=== PATIENT | male | born 1970 | race Caucasian/White ===

== ENCOUNTER 2018-05-31 09:20 | Outpatient (REF) | payer OTHER, SELFPAY | END 2018-05-31 09:40 | LOC: NCHCN 09:20 | PROVIDERS: PCP Internal Medicine; Visit Provider Internal Medicine | DX: Z84.81 Family history of carrier of genetic disease (principal); Z13.71 Encounter for nonprocreative screening for genetic disease carrier status | CPT/HCPCS: 81211 ==

== ENCOUNTER 2018-06-05 00:39 | Outpatient (CLI) | payer OTHER, SELFPAY ==
--- NOTE | 2018-06-05 11:07 | DI.US_ITS ---
SYMPTOM/DIAGNOSIS: FAMILY H/O GENETIC DISEASE, BRCA AND BREAST CA CARRIER, Z84.81, DEFORMITY OF CHEST WALL, Q67.8 CHEST WALL ULTRASOUND: The area of the chest wall deformity was scanned. No mass or cyst is identified. If there is further clinical concern, a CT could be performed.
== END 2018-06-05 00:59 ==
PROVIDERS: PCP Internal Medicine; Visit Provider Internal Medicine
DX: Z84.81 Family history of carrier of genetic disease (principal); M95.4 Acquired deformity of chest and rib
CPT/HCPCS: 76604

== ENCOUNTER 2018-10-02 12:02 | Day surgery (SDC) | payer OTHER, SELFPAY ==
[2018-10-02 12:19] VITALS: BP 140/96; PULSE 105; RESP 16; TEMP 37; O2SAT 97
[2018-10-02] MEDS: Lidocaine 2% Multi-Dose 50 ML VIAL (12:47)
--- NOTE | 2018-10-02 13:22 | W.PM.DSUDISC ---
Discharge Plan Disposition Patient Disposition: HOME Condition: Improving Discharge Details Attending Provider: Estevan Sewell Primary Care Provider: Jesse Gardner Home Meds and New Rx's Prescriptions: No Action cetirizine-pseudoephedrine [Zyrtec-D] 1 EACH tablet extended release 12 hr 1 ea PO DAILY RF: 0 sertraline [Zoloft] 100 MG tablet 100 mg PO DAILY RF: 0 albuterol sulfate 8.5 GM HFA aerosol inhaler 2 puff Inhalation Q6H PRN RF: 0 lorazepam 0.5 MG tablet 0.5 mg PO PRN RF: 0 lisinopril 10 MG tablet 10 mg PO DAILY RF: 0 methylphenidate HCl [Metadate ER] 20 MG tablet extended release 40 mg PO DAILY RF: 0 zafirlukast [Accolate] 10 MG tablet 10 mg PO DAILY RF: 0 Discharge Instructions Additional Instructions: Keep your right hand elevated above heart level as needed to help control pain and swelling. Exercise your fingers and thumb as comfort allows. Expect a small amount of bloody drainage on the gauze bandages. For showering tomorrow, use a plastic bag to keep your bandages dry. On , 09/14/18, you may remove your bandages and get your incision wet with soap water in the shower. Gently pat the stitch dry and cover it with bandaids or gauze.Resume normal as tolerated. Follow-up with Dr. Sewell in 1 week for stitch removal. Take your usual medications as before. Take aleve, advil or tylenol for any discomfort. Aleve and tylenol may be taken together, and aleve and advil can be taken together as they are metabolized differently and are not cross toxic. Stand Alone Forms: Maryellen Mayorga (DSU) Activity:: Elevate Remove Dressings/Wound Care:: 48 hours Shower/Bathe:: 48 hours Diet:: As Tolerated Discharge Orders Discharge Orders: Discharge Order (Routine); Ordered 10/02/18 Ordered By: Estevan Sewell
--- NOTE | 2018-10-02 14:52 | ROE_ITS ---
DATE OF PROCEDURE: October 02, 2018 PREOPERATIVE DIAGNOSIS: Trigger finger, right middle finger. POSTOPERATIVE DIAGNOSIS: Same. PROCEDURE: Release A-1 oscar right middle finger. SURGEON: Estevan Sewell M.D. BISQUE KILN PLACER: Nurse. ANESTHETIC: 2% Lidocaine plain. PREP: ChloraPrep. INDICATIONS: This patient has been bothered by pain over the MCP joint of his right hand. He was te nder directly over the A-1 oscar and had no tenderness over the A-1 pulleys of other digits. There was some slight symptomatology over the ring finger, but not nearly as bad as over the middle finger. I have diagnosed what I felt was early trigger finger phenomenon. Although he was not getting any true locking of the finger, he was reluctant to use his hand because of pain. I recommended release of the A-1 oscar under local anesthesia. I discussed alternatives, including corticosteroid injecti ons, which I do not favor. He understood and wished to proceed. PROCEDURE: The patient was taken to the procedure room after I first saw him in the Day Surgery area and correctly marked his right middle finger. His hand was prepped with ChloraPrep. 2% Lidocaine w as then used to create an anesthetic wheal near the MCP joint of the middle finger. After awaiting c omplete anesthesia to the fingertip, I made a transverse incision using loupe magnification. Soft ti ssues were carefully freed up bluntly and Ragnell retractors were inserted to identify the flexor ten don sheath. I then incised it under direct vision with a #15 scalpel blade. I completed the release of the A-1 oscar with Littler scissors. Mild to moderate amount of synovial fluid was encountered. I then had the patient flex and extend his middle finger and he could do so in an unencumbered fas hion. The wound was irrigated with saline. The skin was closed with a simple suture of #4-0 Ethilon in a horizontal mattress fashion. The wound was dressed with Xeroform, gauze 4x4's and a 3-inch con forming gauze bandage. The patient was taken to the Day Surgery holding area, having tolerated the p rocedure well.
== END 2018-10-02 13:41 | disposition home or self-care (01) ==
PROVIDERS: PCP Internal Medicine; Visit Provider Orthopaedic Surgery
PROC: (CPT 26055; principal; 2018-10-02 13:00)
DX: M65.331 Trigger finger, right middle finger (principal)
CPT/HCPCS: 26055

== ENCOUNTER 2018-12-12 09:32 | Outpatient (CLI) | payer OTHER, SELFPAY ==
--- NOTE | 2018-12-12 09:42 | DI.RAD_ITS ---
SYMPTOM/DIAGNOSIS: RT MIDDLE FINGER PAIN, M79.644 RIGHT HAND: Three views. No bone or joint abnormality is identified. The soft tissues are unremarkable. IMPRESSION: Negative examination.
== END 2018-12-12 09:52 ==
PROVIDERS: PCP Internal Medicine; Visit Provider Internal Medicine
DX: M79.644 Pain in right finger(s) (principal)
CPT/HCPCS: 73130

== ENCOUNTER 2019-04-09 09:57 | Day surgery (SDC) | payer OTHER, SELFPAY ==
[2019-04-09 10:17] VITALS: BP 131/90; PULSE 99; RESP 16; TEMP 36.4; O2SAT 97
--- NOTE | 2019-04-09 10:20 | PDOC.DSDIS_ITS ---
Discharge Plan Disposition Patient Disposition: HOME Condition: Good Discharge Details Reason For Visit: LMF Trigger Attending Provider: Keanu De Los Santos Primary Care Provider: Jesse Gardner Meds and New Rx's Prescriptions: New acetaminophen 500 mg tablet 1,000 mg PO Q8H PRN (Reason: pain) Qty: 30 RF: 3 Continued cetirizine-pseudoephedrine [Zyrtec-D] 1 EACH tablet extended release 12 hr 1 ea PO DAILY RF: 0 sertraline [Zoloft] 100 MG tablet 100 mg PO DAILY RF: 0 albuterol sulfate 8.5 GM HFA aerosol inhaler 2 puff Inhalation Q6H PRN RF: 0 lorazepam 0.5 MG tablet 0.5 mg PO PRN RF: 0 lisinopril 10 MG tablet 10 mg PO DAILY RF: 0 methylphenidate HCl [Metadate ER] 20 MG tablet extended release 40 mg PO DAILY RF: 0 azithromycin 500 mg tablet See Rx Instructions PO .COMPLEX Qty: 6 RF: 0 zafirlukast [Accolate] 10 MG tablet 10 mg PO DAILY RF: 0 loratadine-pseudoephedrine [Claritin-D 24 Hour] 10-240 mg Tablet Extended Release 24 Hr PO RF: 0 ibuprofen 600 mg Tablet 600 mg PO Q6H PRNQty: 60 RF: 0 Discharge Instructions Stand Alone Forms: Filiberto Pittman Finger Release Referrals: Keanu De Los Santos MD [ [facility] STAFF PHYSICIAN] - Activity:: Elevate Remove Dressings/Wound Care:: 48 hours Shower/Bathe:: 48 hours Diet:: As Tolerated Discharge Orders Discharge Orders: Discharge Order (Routine); Ordered 04/09/19 Ordered By: Keanu De Los Santos DS: Diagnosis Discharge Diagnosis (1) Trigger finger, left middle finger: Status: Acute
[2019-04-09] MEDS: Lidocaine 1% Multi-Dose 50 ML VIAL (12:05)
[2019-04-09] MEDS: Sodium Bicarbonate 50 MEQ/50 ML VIAL (12:07)
[2019-04-09] MEDS: Bupivacaine 0.5% Pres-Free 30 ML VIAL (12:16)
[2019-04-09] MEDS: Lidocaine 1% Pres-Free 5 ML VIAL (12:16)
--- NOTE | 2019-04-10 07:33 | W.PM.OP ---
Date of service: 04/09/19 Time of Service: 13:33 Operative Note DATE OF PROCEDURE: 04/09/19 PRE-OP DIAGNOSIS: Trigger Finger - left middle finger POST-OP DIAGNOSIS: same PROCEDURE: Trigger Finger Release -left middle finger SURGEON: Keanu De Los Santos ANESTHESIA: local ESTIMATED BLOOD LOSS: 0 PATHOLOGY: none sent COMPLICATIONS: None Patient was transported to: same day Patient's condition: stable Indications: I have seen Jhonathan in clinic for symptoms of a trigger finger. The catching, clicking, locking, and pain limited function. The diagnosis of trigger finger was evident. The symptoms had not responded to conservative measures. I discussed trigger finger release with the patient. I reviewed the risks of the procedure to include, but not limited to, bleeding, infection, pain, stiffness, incomplete release, damage to nerves or vessels, continued catching, recurrence. Despite these risks, the patient elected to proceed. Findings: There was a tightened A1 oscar which was released. There was a large amount of hypertrophic synovium. This was quite thick and was actually able to be incised as a separate layer. This excess synovium was excised. The flexor tendons were inspected and the patient was able to move the finger without any catching, clicking, or locking. Procedure Description: Jhonathan was greeted in the preoperative holding area where the correct side was identified and marked. The consent was reviewed with the patient and signed. All questions were answered. Jhonathan was taken back to the operating room. The patient was placed into the supine position on the operating room table with the left arm on an arm board. All bony prominences were well padded. No prophylactic antibiotics were administered since this was a clean, elective hand surgical case. The left arm was then prepped with Chloraprep and draped in a standard fashion with stockinette and extremity drape. A timeout to confirm correct identity, side and site, procedure, allergies, anesthesia, and medical concerns was performed. The surgical site was marked as a longitudinal incision directly over the A1 oscar of the involved digit. This was confirmed with palpation during finger flexion. This area, overlying the metacarpal head, was then anesthetized with 1% Lidocaine. The patient tolerated this well and once the anesthetic had setup, the procedure began. A longitudinal incision was made through skin only, approximately 1cm. The deep tissues were dissected bluntly. Once the A1 oscar and flexor tendons were identified the soft tissue including neurovascular structures were retracted medially and laterally. There were no crossing structures over the A1 oscar. The proximal edge of the oscar was identified and the oscar was incised with tenotomy scissors. There was a release of the tendons once this was fully released. The tendons were then removed from the wound and inspected. Excess synovium was resected. The tendons were then returned and the patient was asked to move the finger into deep flexion and back to extension. There was no recreation of the pre-operative symptoms. The hand was then once more inspected for any A0 oscar or area of possible constriction. The wound was then irrigated and the skin was closed with a 4-0 Nylon. This was dressed with gauze and a Conform dressing. The patient tolerated the procedure well and was returned to the Same Day Surgery area in a stable condition suffering no known complication.
== END 2019-04-09 12:31 | disposition home or self-care (01) ==
PROVIDERS: PCP Internal Medicine; Visit Provider Student in an Organized Health Care Education/Training Program
PROC: (CPT 26055; principal; 2019-04-09 11:15)
DX: M65.332 Trigger finger, left middle finger (principal); M67.2 Synovial hypertrophy, not elsewhere classified
CPT/HCPCS: 26055

== ENCOUNTER 2019-07-22 14:40 | Outpatient (CLI) | payer OTHER, SELFPAY ==
--- NOTE | 2019-07-22 15:36 | DI.RAD_ITS ---
EXAM: XR ANKLE RT COMPLETE INDICATION: RT ANKLE PAIN M25.571. COMPARISON: No exams were available for comparison TECHNIQUE: 2D digital imaging was performed. FINDINGS: No fracture or ankle mortise widening is seen. The tibiotalar joint space is well maintained. There is minimal spurring at the anterior aspect of the tibia. No talar dome defect is seen. IMPRESSION: Minimal degenerative changes.
== END 2019-07-22 15:00 ==
PROVIDERS: PCP Internal Medicine; Visit Provider Family Medicine
DX: M25.571 Pain in right ankle and joints of right foot (principal); M19.071 Primary osteoarthritis, right ankle and foot
CPT/HCPCS: 73610

== ENCOUNTER 2019-07-22 18:00 | Outpatient (REF) | payer OTHER, SELFPAY ==
[2019-07-24 12:17] LABS: PSA, Screening 0.3 ng/mL (0.0-2.5)
== END 2019-07-22 18:20 ==
LOC: NCHCN 18:00
PROVIDERS: PCP Internal Medicine; Visit Provider Internal Medicine
DX: Z00.00 Encounter for general adult medical examination without abnormal findings (principal); Z12.5 Encounter for screening for malignant neoplasm of prostate
CPT/HCPCS: 84153

== ENCOUNTER 2019-07-31 08:59 | Outpatient (CLI) | payer OTHER, SELFPAY ==
--- NOTE | 2019-07-31 08:29 | DI.RAD_ITS ---
EXAM: XR FOOT RT COMPLETE INDICATION: Right medial foot pain,m79.671. COMPARISON: No exams were available for comparison TECHNIQUE: 2D digital imaging was performed. FINDINGS: There has been a previous bunionectomy. No bony erosions or soft tissue calcifications are seen. Th e joint spaces are well maintained. There is mild soft tissue swelling at the medial aspect of the 1 st metatarsal head. IMPRESSION: Soft tissue swelling at medial aspect of the 1st metatarsal head. No bony abnormality other than prio r bunionectomy is noted.
== END 2019-07-31 09:19 ==
PROVIDERS: PCP Internal Medicine; Visit Provider Student in an Organized Health Care Education/Training Program
DX: M79.671 Pain in right foot (principal); M79.89 Other specified soft tissue disorders; Z98.890 Other specified postprocedural states
CPT/HCPCS: 73630

== ENCOUNTER 2019-11-11 13:09 | Outpatient (CLI) | payer OTHER, SELFPAY ==
[2019-11-14 08:09] LABS: COVID-19 RT-PCR Result Not Detected (NotDetected)
== END 2019-11-11 13:29 ==
PROVIDERS: PCP Internal Medicine; Visit Provider Surgery
DX: Z20.828 Contact with and (suspected) exposure to other viral communicable diseases (principal); Z11.59 Encounter for screening for other viral diseases; R50.9 Fever, unspecified
CPT/HCPCS: 87449; U0003

== ENCOUNTER 2019-12-13 16:26 | Outpatient (REF) | payer OTHER, SELFPAY ==
[2019-12-14 07:41] LABS: COVID-19 RT-PCR UVMMC Result Negative (Negative)
== END 2019-12-13 16:46 ==
LOC: NCHCN 16:26
PROVIDERS: PCP Internal Medicine; Visit Provider Physician Assistant
DX: A68.9 Relapsing fever, unspecified (principal)
CPT/HCPCS: U0003

== ENCOUNTER 2019-12-17 08:56 | Outpatient (REF) | payer OTHER, SELFPAY ==
[2019-12-17 21:38] LABS: Abs Immature Grans 0.05 k/cumm (0.0-0.09); Absolute Basophil Count 0.02 k/cumm (0.0-0.2); Absolute Eosinophil Count 0.26 k/cumm (0.0-0.7); Absolute Lymphocyte Count 1.94 k/cumm (1.2-3.4); Absolute Monocyte Count 0.57 k/cumm (0.11-0.7); Basophils % 0.3; Eosinophils % 3.6; HGB 16.8 g/dL (13.5-17.5); Immature Grans % 0.7 %; Lymphocytes % 27.2; Mean Corp. HGB Concentration 34.3 g/dL (32.0-36.0); Mean Corpuscular Hemoglobin 32.6 pg (27.0-33.0); Mean Platelet Volume 11.2 fL (8.0-11.0); Neutrophils % 60.2; Platelet Count 204 x1000/uL (130-400); RBC 5.16 m/cumm (4.50-6.00); RBC Distribution Width 12.9 % (11.8-14.1); White Blood Cell Count 7.14 k/cumm (4.4-10.8)
[2019-12-17 22:09] LABS: ALT 40 U/L (16-63); AST 27 U/L (15-37); Albumin 4.3 g/dL (3.4-5.0); Alkaline Phosphatase 112 U/L (46-116); BUN 25 mg/dL (7-18); Bilirubin, Total 0.3 mg/dL (0.2-1.0); C-Reactive Protein 0.56 mg/dL (0.0-0.3); CREATININE 1.29 mg/dL (0.70-1.30); Calcium 9.5 mg/dL (8.5-10.1); Chloride 105 mmol/L (98-107); Estimated GFR 59.45 (mL/min/1.73m2); Glucose 91 mg/dL (74-106); Potassium 5.4 mmol/L (3.5-5.1); Sodium 140 mmol/L (136-145); Total Protein 7.3 g/dL (6.4-8.2)
[2019-12-17 22:29] LABS: ESR 11 mm/hr (0-15)
[2019-12-20 15:28] LABS: ANA Interpretation Positive (Negative)
== END 2019-12-17 09:16 ==
LOC: NCHCN 08:56
PROVIDERS: PCP Internal Medicine; Visit Provider Internal Medicine
DX: A68.9 Relapsing fever, unspecified (principal)
CPT/HCPCS: 80053; 85652; 85025; 86038; 86140

== ENCOUNTER 2019-12-23 13:28 | Outpatient (REF) | payer OTHER, SELFPAY ==
[2019-12-25 14:40] LABS: RNP Ab, IgG 2.3 Units (<20.0); SS-A Antibody 2.2 Units (<20.0); SS-B (La) Ab, IgG 3.2 Units (<20.0); Sm (Smith) Ab, IgG 3.3 Units (<20.0)
[2019-12-31 13:13] LABS: dsDNA Ab, IgG <12.3 IU/mL (<30.0)
== END 2019-12-23 13:48 ==
LOC: NCHCN 13:28
PROVIDERS: PCP Internal Medicine; Visit Provider Internal Medicine
DX: A68.9 Relapsing fever, unspecified (principal)
CPT/HCPCS: 86225; 86235

== ENCOUNTER 2020-04-15 03:00 | Outpatient (CLI) | payer OTHER, SELFPAY ==
--- NOTE | 2020-04-15 | DI.MRI_ITS ---
EXAM: MR LUMBAR SPINE WO CLINICAL HISTORY: LOW BACK PAIN, M54.5. TECHNIQUE: Multiplanar multisequence MRI of the Lumbar spine was performed. COMPARISON: MR MRI - LUMBAR SPINE WO CONTRAST from 03/23/2017 FINDINGS: Bones: The last intervertebral disc space is designated the L5/S1 level for the numbering purpose of this examination. The vertebral body heights are well maintained. Alignment is satisfactory. Endpla te degenerative signal changes. Cord: The conus tip ends at the L1 level. It is of normal size and signal intensity. T12-L1: No disc herniations or bulges are present. No central spinal canal or neural foraminal stenos is. L1-2: Mild diffuse disc bulge. No central spinal canal or neural foraminal stenosis. L2-3: Mild diffuse disc bulge. No central spinal canal or neural foraminal stenosis. L3-4: No disc herniations or bulges are present. No central spinal canal or neural foraminal stenosis . L4-5: Mild diffuse disc bulge. No central spinal canal or neural foraminal stenosis. L5-S1: Prior disc surgery. No central spinal canal or neural foraminal stenosis. Soft tissues: The visualized SI joints and sacrum are well maintained. The paraspinal soft tissues ar e unremarkable. IMPRESSION: No evidence of significant spinal stenosis or neuroforaminal narrowing. DATA REPOSITORY:
== END 2020-04-15 03:20 ==
PROVIDERS: PCP Internal Medicine; Visit Provider Internal Medicine
DX: M54.5 Low back pain (principal)
CPT/HCPCS: 72148

== ENCOUNTER 2020-04-30 01:15 | Outpatient (CLI) | payer OTHER, SELFPAY ==
--- NOTE | 2020-04-30 | DI.MRI_ITS ---
EXAM: MR BRAIN WO/W CLINICAL HISTORY: RECURRENT FEVER OF UNKNOWN CAUSE, RECURRENT BAIG, R50.9, R51 TECHNIQUE: Multiplanar multisequence MRI of the brain was performed. COMPARISON: No exams were available for comparison FINDINGS: MR examination of brain was performed according to the usual protocol with additional axial and coron al T1 weighted postcontrast imaging. The ventricular system is normal in appearance. No signal abnormality identified in the brain. The orbital and temporal bone structures appear intact as does the pituitary. Diffusion weighted imaging shows no evidence of infarction. Susceptibility weighted imaging shows no evidence of intracranial hemorrhage. There is normal flow void in the [place] vasculature. Post contrast imaging shows no evidence of an enhancing lesion or mass lesion. IMPRESSION: Normal brain MRI including post contrast imaging. DATA REPOSITORY:
[2020-04-30 14:24] LABS: ALT 37 U/L (16-63); AST 28 U/L (15-37); Albumin 4.2 g/dL (3.4-5.0); Alkaline Phosphatase 103 U/L (46-116); Anion Gap 8.5 mmol/L (3-11); BUN 21 mg/dL (7-18); Bilirubin, Total 0.3 mg/dL (0.2-1.0); CO2 25.5 mmol/L (21.0-32.0); CREATININE 1.22 mg/dL (0.70-1.30); Calcium 9.1 mg/dL (8.5-10.1); Chloride 106 mmol/L (98-107); Glucose 96 mg/dL (74-106); Potassium 4.1 mmol/L (3.5-5.1); Sodium 140 mmol/L (136-145); Total Protein 7.4 g/dL (6.4-8.2)
[2020-04-30] MEDS: Normal Saline Flush 10 ML SYR IVP (14:31)
[2020-04-30] MEDS: Gadoterate meglumine 20 ML VIAL 15 ML IVP (14:32)
== END 2020-04-30 01:35 ==
PROVIDERS: PCP Internal Medicine; Visit Provider Pediatrics
DX: R50.9 Fever, unspecified; R51 Headache
CPT/HCPCS: 70553; 80053; 83520; 87389; 85025; 86140; 86592; 86695; 86696

== ENCOUNTER 2020-05-08 17:45 | Emergency (ER) | payer OTHER, SELFPAY ==
[2020-05-08 18:04] VITALS: BP 135/97; PULSE 92; RESP 16; TEMP 36.6; O2SAT 97
[2020-05-08 19:07] LABS: Abs Immature Grans 0.02 10^3/uL (0.0-0.06); Absolute Basophil Count 0.03 10^3/uL (0.0-0.2); Absolute Eosinophil Count 0.18 10^3/uL (0.0-0.7); Absolute Lymphocyte Count 1.89 10^3/uL (1.2-3.4); Absolute Monocyte Count 0.48 10^3/uL (0.1-0.8); Absolute Neutrophil Count 4.34 10^3/uL (1.2-6.7); Basophils % 0.4; Eosinophils % 2.6; HCT 44.7 % (40.0-50.0); HGB 15.4 g/dL (13.5-17.5); Immature Grans % 0.3; Lymphocytes % 27.2; MCH 32.4 pg (27.0-33.0); MCHC 34.5 % (32.0-36.0); MCV 93.9 fL (80-95); MPV 10.9 fL (8.0-11.0); Monocytes % 6.9; Neutrophils % 62.6; Nucleated RBC 0 %; Platelet Count 208 10^3/uL (130-400); RBC 4.76 10^6/uL (4.36-5.78); RDW 11.9 % (11.8-14.1); RDW-SD 41.4 fL; WBC 6.94 10^3/uL (4.4-10.8)
[2020-05-08 19:24] LABS: ALT 54 U/L (16-63); AST 39 U/L (15-37); Alkaline Phosphatase 80 U/L (46-116); BUN 32 mg/dL (7-18); Bilirubin, Total 0.5 mg/dL (0.2-1.0); C-Reactive Protein 0.47 mg/dL (0.0-0.3); CREATININE 1.26 mg/dL (0.70-1.30); Calcium 8.8 mg/dL (8.5-10.1); Chloride 106 mmol/L (98-107); Glucose 92 mg/dL (74-106); Potassium 3.8 mmol/L (3.5-5.1); Sodium 140 mmol/L (136-145); Total Protein 7.2 g/dL (6.4-8.2)
--- NOTE | 2020-05-08 19:42 | NUR.NOTE ---
Nursing Note: Anesthesia at bedside to perform LP. Verbal consent obtained.
--- NOTE | 2020-05-08 20:01 | W.ED.GENAD ---
Discharge Plan Disposition Patient Disposition: HOME Discharge Details Clinical Impression: Headache, Fever Primary Care Provider: Jesse Gardner ED Provider: Bashir Ellison Home Meds and New Rx's Prescriptions: Continued albuterol sulfate 8.5 GM HFA aerosol inhaler 2 puff Inhalation Q6H PRN RF: 0 methylphenidate HCl [Metadate ER] 20 MG tablet extended release 40 mg PO DAILY RF: 0 lisinopril 10 mg tablet 5 mg PO DAILY RF: 0 sertraline [Zoloft] 100 mg tablet 150 mg PO DAILY RF: 0 zafirlukast [Accolate] 10 MG tablet 10 mg PO DAILY RF: 0 loratadine-pseudoephedrine [Claritin-D 24 Hour] 10-240 mg Tablet Extended Release 24 Hr PO RF: 0 acetaminophen 500 mg tablet 1,000 mg PO Q8H PRN (Reason: pain) Qty: 30 RF: 3 ibuprofen 600 mg Tablet 600 mg PO Q6H PRNQty: 60 RF: 0 Discontinued cetirizine-pseudoephedrine [Zyrtec-D] 1 EACH tablet extended release 12 hr 1 ea PO DAILY RF: 0 azithromycin 500 mg tablet See Rx Instructions PO .COMPLEX Qty: 6 RF: 0 Discharge Instructions Additional Instructions: Opening pressure on your lumbar puncture was slightly elevated today at 23. Closing pressure was 18. Please be sure to discuss this with your infectious disease specialist. It was recommended that you stay in the ER until initial labs are resulted. You understand in leaving prior to completion of work-up, condition may worsen. We will contact you if there are any abnormalities in additional results. There will be results still pending that have to be sent to outside lab for testing. Please follow-up with your infectious disease specialist. Call tomorrow. Please take acetaminophen (tylenol) - 650mg every 6 hours by mouth as needed for pain. Please return to the emergency department immediately for any worsening or new concerning symptoms. Referrals: Jesse Gardner MD [Primary Care Provider] - Medical Decision Making 50-year-old male here with intermittent headache with low-grade fever since October. Patient has been seen by him specialists and infectious disease specialist. ID has requested lumbar puncture be performed and specific labs be done on CSF. Labs reviewed and no leukocytosis noted. Chemistries reveal mildly elevated AST of 39, normal high of 37. C-reactive protein is elevated. Patient has had a negative work-up to date including negative MRI of the brain recently, negative COVID-19 testing, negative tick panel per patient and family. Nurse carbon capture power plant manager is consulted to perform lumbar puncture. LP was performed by ACCESS DATABASE DEVELOPER and labs sent as ordered by infectious disease. Opening pressure was slightly elevated at 23 with closing pressure of 18. I reviewed prior medical record including brain MRI 04/30/2020: Normal brain MRI including post contrast imaging. After lumbar puncture, patient and family desired discharge. I did recommend that the patient stay until initial labs from lumbar puncture resulted. Patient declined and verbalized understanding of risks of leaving prior to completion of the work-up. Patient does have decisional making capacity. He understands that I will contact him if any of his labs are notably abnormal. Patient is being discharged home with his who is a general surgeon here at the hospital. They understand he should return immediately for any worsening or new concerning symptoms and should follow-up with his infectious disease specialist. They understand that labs are pending at time of discharge. CSF cell count reviewed and reassuring. Lab Data Lab results reviewed: Yes I reviewed the patient's lab results. Labs: 05/08/20 19:57 Cerebrospinal Fluid Body Fluid Culture - Pending 05/08/20 19:57 Cerebrospinal Fluid Gram Stain - Pending Laboratory Tests Range/Units 05/08/20 05/08/20 05/08/20 18:36 18:36 19:57 WBC (4.4-10.8) 10^3/uL 6.94 RBC (4.36-5.78) 10^6/uL 4.76 Hgb (13.5-17.5) g/dL 15.4 Hct (40.0-50.0) % 44.7 MCV (80-95) fL 93.9 MCH (27.0-33.0) pg 32.4 MCHC (32.0-36.0) % 34.5 RDW (11.8-14.1) % 11.9 Plt Count (130-400) 10^3/uL 208 MPV (8.0-11.0) fL 10.9 Immature Gran % 0.3 Neutrophils % 62.6 Lymphocytes % 27.2 Monocytes % 6.9 Eosinophils % 2.6 Basophils % 0.4 Nucleated RBC % % 0 Absolute Neutrophils (1.2-6.7) 10^3/uL 4.34 Absolute Lymphocytes (1.2-3.4) 10^3/uL 1.89 Absolute Monocytes (0.1-0.8) 10^3/uL 0.48 Absolute Eosinophils (0.0-0.7) 10^3/uL 0.18 Absolute Basophils (0.0-0.2) 10^3/uL 0.03 Xanthochromia Absent Sodium (136-145) mmol/L 140 Potassium (3.5-5.1) mmol/L 3.8 Chloride (98-107) mmol/L 106 Carbon Dioxide (21.0-32.0) mmol/L 24.0 Anion Gap (3-11) mmol/L 10.0 BUN (7-18) mg/dL 32 H Creatinine (0.70-1.30) mg/dL 1.26 Estimated GFR/1.73 m2 (mL/min/1.73m2) >= 60.00 Glucose (74-106) mg/dL 92 Calcium (8.5-10.1) mg/dL 8.8 Total Bilirubin (0.2-1.0) mg/dL 0.5 AST (15-37) U/L 39 H ALT (16-63) U/L 54 Alkaline Phosphatase (46-116) U/L 80 C-Reactive Protein (0.0-0.3) mg/dL 0.47 H Total Protein (6.4-8.2) g/dL 7.2 Albumin (3.4-5.0) g/dL 4.0 CSF Tube Number 4 CSF Color Colorless CSF Clarity Clear CSF WBC (0-5) /uL 1 CSF RBC (0-5) /mm3 2 CSF Diff Comment Not Applicable HPI General Mode of arrival: ambulatory. Date/Time Provider Initiated Documentation: 05/08/20 18:17. Limitations to Documentation: no limitations. Information obtained by: patient. HPI Narrative: 50-year-old male presents with chief complaint of headache. Patient notes he is had ongoing intermittent headache with low-grade fever since October. Patient has a history of mastocytosis. He has been seen by rheumatology and is also been seen by infectious disease. Infectious disease specialist noted that the next time he had headache and fever he was to seek care in emergency [place] for lumbar puncture. Infectious disease specialist has provided specific orders to be performed on CSF. Patient notes moderate to severe frontal headache that is been constant today since earlier this afternoon. Headache came on rather suddenly as it typically does. Associated low-grade fever started around the same time. No neck stiffness or neck pain. No rash. No new neurologic symptoms. No visual changes. Related Data Home Medications Medication Instructions Recorded Confirmed albuterol sulfate 2 puff INHALATION Q6H PRN inhaler 03/18/14 04/09/19 methylphenidate HCl [Metadate ER] 40 mg PO DAILY 01/16/17 05/08/20 zafirlukast [Accolate] 10 mg PO DAILY 03/07/17 05/08/20 acetaminophen 1,000 mg PO Q8H PRN #30 tab 04/09/19 ibuprofen 600 mg PO Q6H PRN #60 tab 04/09/19 loratadine-pseudoephedrine tab PO 04/09/19 [Claritin-D 24 Hour] lisinopril 10 mg tablet 5 mg PO DAILY tab-cap 08/22/19 05/08/20 sertraline 100 mg tablet 150 mg PO DAILY tab-cap 08/22/19 05/08/20 Previous Rx's Medication Instructions Recorded acetaminophen 1,000 mg PO Q8H PRN #30 tab 04/09/19 ibuprofen 600 mg PO Q6H PRN #60 tab 04/09/19 Allergies Allergy/AdvReac Type Severity Reaction Status Date / Time amlodipine besylate AdvReac Unknown edema Verified 05/08/20 18:10 [From Norvasc] ankles duloxetine HCl AdvReac Unknown Verified 05/08/20 18:10 [From Cymbalta] lamotrigine [From Lamictal] AdvReac Unknown Verified 05/08/20 18:10 General Stated Complaint: Fever LASHONDA: 2 Review of Systems All systems reviewed & are unremarkable except as noted in HPI and below Constitutional Constitutional: Denies fever(s) Neurologic Neurologic: Reports as per HPI [facility] Medical History ADHD Asthma Deviated nasal septum surgery, trimmed turbinates Hypercholesteremia Hypertension 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 Neuroma removal R hand x 2 Shoulder pain right Tennis elbow L surgery Surgical History H/O hemorrhoidectomy H/O: vasectomy History of bunionectomy R foot Hx of surgical procedure I & D Left foot Hx of tonsillectomy S/P trigger finger release RMF Status post lumbar and lumbosacral fusion by anterior technique L5-S1 Social History Smoking/Tobacco Use Status: Never Alcohol Intake: current Alcohol Intake frequency: holidays/special occasions only Alcohol type: wine Drug use: Never Substance use type: does not use Do you feel safe at home: Yes Do you feel safe in your relationship?: Yes Exam Const General: cooperative and no acute distress HENMT Head: normocephalic and atraumatic Mouth: moist mucous membranes Eyes Conjunctivae: normal conjunctivae Sclera: normal sclerae Neck Neck: full ROM, trachea midline and supple Resp Auscultation: clear to auscultation bilaterally, no rales, no rhonchi and no wheezes Cardio Rate: regular rate and not tachycardic Rhythm: regular rhythm GI Palpation: soft, not firm, no guarding, no masses, not rigid and nontender Skin General skin exam: no rashes or lesions noted Neuro General: patient alert, patient awake, patient oriented x3 and tone normal Extrem General: no edema Psych Appearance: grossly normal Mental Status: mental status grossly normal Course Vital Signs Vital signs: Vital Signs Temperature 36.6 C 05/08/20 18:04 Pulse 92 H 05/08/20 18:04 Respiratory Rate 16 05/08/20 18:04 Blood Pressure 135/97 H 05/08/20 18:04 Pulse Oximetry 97 05/08/20 18:04 Temperature 36.6 C 05/08/20 18:04 Temperature Source Oral 05/08/20 18:04 Pulse 92 H 05/08/20 18:04 Respiratory Rate 16 05/08/20 18:04 Respiratory Effort 05/08/20 18:08 Blood Pressure 135/97 H 05/08/20 18:04 Blood Pressure Position Sitting 05/08/20 18:04 Pulse Oximetry 97 05/08/20 18:04 Oxygen Delivery Method Room Air 05/08/20 18:04 Oxygen Flow Rate 0 05/08/20 18:04 Pain Level 5 05/08/20 18:04 Lab/Test Results Lab/Test Results: 05/08/20 19:29 Cerebrospinal Fluid Body Fluid Culture - Pending 05/08/20 19:29 Cerebrospinal Fluid Gram Stain - Pending Laboratory Tests Range/Units 05/08/20 05/08/20 18:36 18:36 WBC (4.4-10.8) 10^3/uL 6.94 RBC (4.36-5.78) 10^6/uL 4.76 Hgb (13.5-17.5) g/dL 15.4 Hct (40.0-50.0) % 44.7 MCV (80-95) fL 93.9 MCH (27.0-33.0) pg 32.4 MCHC (32.0-36.0) % 34.5 RDW (11.8-14.1) % 11.9 Plt Count (130-400) 10^3/uL 208 MPV (8.0-11.0) fL 10.9 Immature Gran % 0.3 Neutrophils % 62.6 Lymphocytes % 27.2 Monocytes % 6.9 Eosinophils % 2.6 Basophils % 0.4 Nucleated RBC % % 0 Absolute Neutrophils (1.2-6.7) 10^3/uL 4.34 Absolute Lymphocytes (1.2-3.4) 10^3/uL 1.89 Absolute Monocytes (0.1-0.8) 10^3/uL 0.48 Absolute Eosinophils (0.0-0.7) 10^3/uL 0.18 Absolute Basophils (0.0-0.2) 10^3/uL 0.03 Sodium (136-145) mmol/L 140 Potassium (3.5-5.1) mmol/L 3.8 Chloride (98-107) mmol/L 106 Carbon Dioxide (21.0-32.0) mmol/L 24.0 Anion Gap (3-11) mmol/L 10.0 BUN (7-18) mg/dL 32 H Creatinine (0.70-1.30) mg/dL 1.26 Estimated GFR/1.73 m2 (mL/min/1.73m2) >= 60.00 Glucose (74-106) mg/dL 92 Calcium (8.5-10.1) mg/dL 8.8 Total Bilirubin (0.2-1.0) mg/dL 0.5 AST (15-37) U/L 39 H ALT (16-63) U/L 54 Alkaline Phosphatase (46-116) U/L 80 C-Reactive Protein (0.0-0.3) mg/dL 0.47 H Total Protein (6.4-8.2) g/dL 7.2 Albumin (3.4-5.0) g/dL 4.0
[2020-05-08 20:15] VITALS: BP 125/71; PULSE 79; RESP 16; TEMP 36.7; O2SAT 97
[2020-05-08 20:20] LABS: Clarity Clear; Xanthochromia Absent
[2020-05-08 20:21] LABS: RBC 2 /mm3 (0-5); WBC 1 /uL (0-5)
[2020-05-08 20:27] LABS: Tube # 4
[2020-05-08 20:35] LABS: Glucose (CSF) 51 mg/dL (40-70)
[2020-05-08 21:00] LABS: Total Protein (CSF) 33 mg/dL (15-45)
[2020-05-10 18:12] LABS: Cryptococcal Antigen CSF Negative (Negative)
[2020-05-11 08:49] LABS: Varicella Zoster DNA Result Negative (Negative)
[2020-05-11 11:02] LABS: HSV Type 1 Ab, IgG Negative (Negative); HSV Type 2 Ab, IgG Negative (Negative)
[2020-05-12 13:50] LABS: VDRL, CSF Negative (Negative)
[2020-05-13 08:59] LABS: HSV 1 PCR, Varies Negative (Negative); HSV 2 PCR, Varies Negative (Negative); Herpes Source CSF
== END 2020-05-08 20:25 | disposition home or self-care (01) ==
PROVIDERS: Emergency Provider Student in an Organized Health Care Education/Training Program; PCP Internal Medicine
DX: R51 Headache (principal); R50.9 Fever, unspecified; R79.82 Elevated C-reactive protein (CRP); D47.09 Other mast cell neoplasms of uncertain behavior; I10 Essential (primary) hypertension
CPT/HCPCS: 36415; 62270; 80053; 82945; 83520; 87529; 87798; 89050; 89051; 99285; 84157; 85025; 86140; 86403; 86592; 86695; 86696; 87070; 87205; 99284

== ENCOUNTER 2020-08-14 10:55 | Emergency (ER) | payer OTHER, SELFPAY ==
[2020-08-14 11:05] VITALS: BP 134/99; PULSE 98; RESP 20; TEMP 37.1; O2SAT 97
--- NOTE | 2020-08-14 11:05 | ED.GENADUL_ITS ---
Discharge Plan Disposition Patient Disposition: HOME Condition: Stable Discharge Details Clinical Impression: Viral illness Primary Care Provider: Jesse Gardner ED Provider: Jackeline Lopez Home Meds and New Rx's Prescriptions: Continued albuterol sulfate 8.5 GM HFA aerosol inhaler 2 puff Inhalation Q6H PRN RF: 0 methylphenidate HCl [Metadate ER] 20 MG tablet extended release 40 mg PO DAILY RF: 0 lisinopril 10 mg tablet 5 mg PO DAILY RF: 0 sertraline [Zoloft] 100 mg tablet 150 mg PO DAILY RF: 0 zafirlukast [Accolate] 10 MG tablet 10 mg PO DAILY RF: 0 loratadine-pseudoephedrine [Claritin-D 24 Hour] 10-240 mg Tablet Extended Rel ease 24 Hr PO RF: 0 acetaminophen 500 mg tablet 1,000 mg PO Q8H PRN (Reason: pain) Qty: 30 RF: 3 ibuprofen 600 mg Tablet 600 mg PO Q6H PRNQty: 60 RF: 0 Discharge Instructions Instructions: Viral Syndrome (ED) Additional Instructions: Drink plenty of fluids and get plenty of rest. Take 1 tab (100mg) of the Tessalon Perles every 8 hours as needed for cough. Alternate tylenol and motrin as needed and directed for pain. Follow-up with your primary care doctor in 1 week. Return to the emergency department with any worsening or new concerning symptoms. Discharge Data Discharge Date/Time-TO BE ENTERED AT DEPARTURE: 08/14/20 13:28 Discharge Physician: Jackeline Lopez Medical Decision Making 50 yo M w/ a h/o asthma and htn presents for cough, fever, chills, bodyaches for the past 5 days and for rapid covid test as his is Dr. Snyder who is scheduled to work Monday. Vitals within normal limits. Oxygen saturation 97-100% on room air. Patient appears uncomfortable but nontoxic. Normal ENT exam. On initial lung exam he had wheezing left upper lobe but this cleared with coughing. No other areas of rhonchi or diminished breath sounds noted. No meningeal signs. Suspect most likely viral illness. Will obtain a rapid Covid test and a chest x-ray to rule out possible pneumonia. History and presentation not consistent with PE or ACS. Do not think indication for labs or IV at this time and patient is agreeable. He is declining any medication or neb treatments at this time. Rapid Covid test obtained and negative in addition to negative flu and RSV. Chest x-ray obtained and negative. Patient reassessed and denies any change in symptoms. He was quite clear that he denies any shortness of breath and states when he takes a deep breath it triggers his cough but denies pain. Patient feels good to go home. Advised on continuing [id number] symptomatic treatment for viral syndrome. Advised to continue mask wearing and social distancing. Discussed result with Dr. Adair. We will send home with Kit Garibay to go. A prescription for Tessalon Perles was also called into [facility] pharmacy with 100 mg tabs, 1 tab p.o. 3 times daily as needed for cough, dispense 14. Medical Records Medical records reviewed: Yes I reviewed the patient's medical records. Imaging Data Radiologic Study: Radiologist's impression: XR Chest, 1 View Exam date and time: 08/14/2020 11:54 AM Age: 50 years old Clinical indication: Other: Cough, fever, R/O acute disease TECHNIQUE: Imaging protocol: XR of the chest Views: 1 view. COMPARISON: CR RIGHT RIBS TO INCLUDE CXR 06/12/2017 10:27 AM FINDINGS: Lungs: Unremarkable. No consolidation. Pleural space: Unremarkable. No pleural effusion. No pneumothorax. Heart/Mediastinum: Unremarkable. No cardiomegaly. Bones/joints: Unremarkable. IMPRESSION: No acute findings. HPI General Mode of arrival: ambulatory . Date/Time Provider Initiated Documentation: 08/14/20 11:00 . Limitations to Documentation: no limitations . Information obtained by: patient . HPI Narrative: Patient is a 50-year-old male with a history of asthma, hypertension, hyperlipidemia, ADHD presents for cough, body aches, fever and chills for the past 2 days. T-max 101.5 tympanic 6 days ago. Patient states just prior to onset of the symptoms he had 2 days of watery brown diarrhea. He denies any vomiting or abdominal pain at that time. He states 6 days ago he developed body aches, fever, chills and productive cough. He states he has been occasionally coughing up white and jane sputum. He denies any shortness of breath and states he mainly feels when he takes a deep breath it triggers his cough. He states he has a history of chronic sinus infections and postnasal drip and has had a history of sinus surgery but feels this is no worse than usual. He denies any ear pain or sore throat. He states he went to [facility] in [place] last week but wore a mask each time and otherwise denies any known exposure to coronavirus. He came to the ED as his is Surgeon Dr. Adair and she is scheduled to work on Monday and they are requesting a rapid COVID test so that she may return to work here in 3 days. Related Data Home Medications Medication Instructions Recorded Confirmed albuterol sulfate 2 puff INHALATION Q6H PRN inhaler 03/18/14 08/14/20 methylphenidate HCl [Metadate ER] 40 mg PO DAILY 01/16/17 08/14/20 zafirlukast [Accolate] 10 mg PO DAILY 03/07/17 08/14/20 acetaminophen 1,000 mg PO Q8H PRN #30 tab 04/09/19 08/14/20 ibuprofen 600 mg PO Q6H PRN #60 tab 04/09/19 08/14/20 loratadine-pseudoephedrine tab PO 04/09/19 [Claritin-D 24 Hour] lisinopril 10 mg tablet 5 mg PO DAILY tab-cap 08/22/19 08/14/20 sertraline 100 mg tablet 150 mg PO DAILY tab-cap 08/22/19 08/14/20 Previous Rx's Medication Instructions Recorded acetaminophen 1,000 mg PO Q8H PRN #30 tab 04/09/19 ibuprofen 600 mg PO Q6H PRN #60 tab 04/09/19 Allergies Allergy/AdvReac Type Severity Reaction Status Date / Time amlodipine besylate AdvReac Unknown edema Verified 08/14/20 11:09 [From Norvasc] ankles duloxetine HCl AdvReac Unknown Verified 08/14/20 11:09 [From Cymbalta] lamotrigine [From Lamictal] AdvReac Unknown Verified 08/14/20 11:09 General LASHONDA: 2 Review of Systems All systems reviewed & are unremarkable except as noted in HPI and below Constitutional Constitutional: Reports as per HPI, Reports chills and Reports fever(s) Eyes Eyes: Denies blurry vision ENT Ears, Nose, Mouth, and Throat: Denies dizziness, Denies sore throat and Denies throat swelling Cardiovascular Cardiovascular: Denies chest pain and Denies dyspnea Respiratory Respiratory: Reports cough and Denies dyspnea Gastrointestinal Gastrointestinal: Denies abdominal pain, Denies diarrhea and Denies vomiting Genitourinary Genitourinary: Denies hematuria and Denies dysuria Musculoskeletal Musculoskeletal: Denies back pain and Denies numbness Integumentary/Breasts Skin/Breast: Denies lesions and Denies rash Neurologic Neurologic: Denies dizziness, Denies localized weakness and Denies numbness Allergic/Immunologic Allergic/Immunologic: Denies throat swelling PFSH Medical History ADHD Asthma Deviated nasal septum surgery, trimmed turbinates Hypercholesteremia Hypertension 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 Neuroma removal R hand x 2 Shoulder pain right Tennis elbow L surgery Surgical History H/O hemorrhoidectomy H/O: vasectomy History of bunionectomy R foot Hx of surgical procedure I & D Left foot Hx of tonsillectomy S/P trigger finger release RMF Status post lumbar and lumbosacral fusion by anterior technique L5-S1 Social History Smoking/Tobacco Use Status: Never Smoking risk assessment performed?: Yes Alcohol Intake: current Alcohol Intake frequency: holidays/special occasions only Alcohol type: wine Drug use: Never Substance use type: does not use Current gender identity: male Do you feel safe at home: Yes Do you feel safe in your relationship?: Yes Exam Const General: cooperative and no acute distress Orientation: alert, awake and oriented x3 HENMT Head: normal to inspection Ears: hearing grossly normal bilaterally, external ears normal and TM's normal bilaterally General nose exam: external nose normal Face and sinus: normal facial exam Mouth: oral mucosae normal Teeth and gingiva: dentition normal Throat: posterior oropharynx normal Eyes General: appearance normal, both eyes and all related structures Eyelids: eyelids normal Pupils: PERRL EOM: EOM intact bilaterally Neck Neck: normal visual inspection Lymphatic: no lymphadenopathy noted Chest Chest: normal inspection of the chest Resp Effort & Inspection: normal respiratory effort and able to speak in complete sentences Auscultation: wheezes left upper (cleared with coughing) Cardio Rate: regular rate Rhythm: regular rhythm GI Inspection: normal to inspection Palpation: soft, not firm, no guarding, no hepatosplenomegaly, no masses and nontender Auscultation: normal bowel sounds Back/Spine/Pelvis Back: no CVA tenderness Skin General skin exam: no rashes or lesions noted Neuro General: patient alert, patient awake, patient oriented x3, gait normal, moves all extremities, no meningeal signs and no focal motor deficits Cognition: normal cognition Speech: speech normal Gait: normal gait Motor: muscle tone normal throughout Sensory Exam: no sensory deficits noted Extrem General: normal to inspection, full ROM and capillary refill normal Psych Appearance: grossly normal Mental Status: mental status grossly normal Speech and Movement: speech and movement normal Affect: normal affect Thought Process: normal
--- NOTE | 2020-08-14 11:15 | DI.RAD_ITS ---
EXAM: XR PORTABLE CHEST AP CLINICAL HISTORY: cough, fever, r/o acute disease. TECHNIQUE: 2D digital imaging was performed. COMPARISON: CR RIGHT RIBS TO INCLUDE CXR from 06/12/2017 FINDINGS: LUNGS: Clear. No pleural abnormality seen. HEART: Normal. MEDIASTINUM: Normal. OTHER FINDINGS: None. IMPRESSION: No acute pulmonary findings. DATA REPOSITORY: RADIATION DOSE DELIVERED: Total DLP
[2020-08-14 11:32] LABS: Source Nasopharynx
[2020-08-14 11:38] VITALS: BP 143/100; PULSE 97; O2SAT 95
[2020-08-14 11:39] VITALS: O2SAT 95
[2020-08-14 11:40] VITALS: O2SAT 93
[2020-08-14 11:45] VITALS: BP 134/87; PULSE 96; O2SAT 92
[2020-08-14 11:50] VITALS: O2SAT 93
--- NOTE | 2020-08-14 12:26 | DI.VRAD_ITS ---
PROCEDURE INFORMATION: Exam: XR Chest, 1 View Exam date and time: 08/14/2020 11:54 AM Age: 50 years old Clinical indication: Other: Cough, fever, R/O acute disease TECHNIQUE: Imaging protocol: XR of the chest Views: 1 view. COMPARISON: CR RIGHT RIBS TO INCLUDE CXR 06/12/2017 10:27 AM FINDINGS: Lungs: Unremarkable. No consolidation. Pleural space: Unremarkable. No pleural effusion. No pneumothorax. Heart/Mediastinum: Unremarkable. No cardiomegaly. Bones/joints: Unremarkable. IMPRESSION: No acute findings. Dictated and Authenticated by: Huber Zhang MD. Ordering:DIGNA Viveros MD
[2020-08-14 12:35] LABS: COVID-19 PCR Negative (Negative); Influenza A PCR Negative (Negative); Influenza B PCR Negative (Negative); RSV PCR Negative (Negative)
[2020-08-14] MEDS: Benzonatate 100 MG CAP 300 MG PO (13:46)
== END 2020-08-14 13:28 | disposition home or self-care (01) ==
PROVIDERS: Emergency Provider Physician Assistant; PCP Internal Medicine
DX: R50.9 Fever, unspecified (principal); R05 Cough; M79.10 Myalgia, unspecified site; B34.9 Viral infection, unspecified; Z03.818 Encounter for observation for suspected exposure to other biological agents ruled out
CPT/HCPCS: 87637; 99283; 71045; 99284

== ENCOUNTER 2020-11-23 03:32 | Outpatient (CLI) | payer OTHER, SELFPAY ==
[2020-11-23 10:54] LABS: Source Nasal/Nares
[2020-11-23 16:19] LABS: COVID-19 PCR Negative (Negative)
== END 2020-11-23 03:33 | disposition home or self-care (01) ==
LOC: LBO 03:32
PROVIDERS: PCP Internal Medicine; Visit Provider Surgery
DX: Z20.822 Contact with and (suspected) exposure to COVID-19 (principal)
CPT/HCPCS: 87635

== ENCOUNTER 2020-11-24 07:16 | Day surgery (SDC) | payer OTHER, SELFPAY ==
[2020-11-24 07:32] VITALS: BP 130/86; PULSE 89; RESP 18; TEMP 36.5; O2SAT 10
[2020-11-24] MEDS: Lactated Ringers 1,000 ML 80 ML IV (08:06)
--- NOTE | 2020-11-24 08:44 | STOM_PTH ---
PATIENT: Galilea Adair LOC: [facility] U#:[id number] AGE/SX: 50/M ROOM: RE11/24/[address]: Janet Ramos : 1970 BED: DIS: 11/24/2020 SPEC #: [id number] RECD: 11/24/20 12:51 STATUS: ELLIOT REQ #: [id number] BRIONNA: 11/24/20 08:[address]: Janet Ramos DEPT: Surgical Specimen RECD BY: Arpita Keller ENTERED: 11/24/20 12:53 SP TYPE: STOMACH OTHR DR: Jesse Gardner Tissues: 1 - BIOPSY BOWEL 2 - BIOPSY BOWEL 3 - STOMACH BIOPSY 4 - STOMACH BIOPSY 5 - ESOPHAGUS BIOPSY 6 - ESOPHAGUS BIOPSY Procedures: GROSS AND MICRO LEVEL 4 Comments: [id number]
--- NOTE | 2020-11-24 08:57 | ENDO_ITS ---
Date of service: 11/24/20 Time of Service: 08:57 Endoscopy Report DATE OF PROCEDURE: 11/24/20 PRE-OP DIAGNOSIS: mastocytosis enteritis POST-OP DIAGNOSIS: same PROCEDURE: EGD w/ bx SURGEON: Janet Ramos ANESTHESIA TYPE: General LMA/ETT ESTIMATED BLOOD LOSS: 1 PATHOLOGY: other COMPLICATIONS: None DISPOSITION: same day PROCEDURE DESCRIPTION: After informed consent was obtained the patient was take to the procedure room and placed in a supine position. Monitors were applied and a time out was done. The patients name, date of , procedure type, allergies to medications and metal in their body was reviewed. A bite block was placed and the patient was sedated. Once sedated and comfortable the gastroscope was advanced through the oropharynx which was grossly normal into the esophagus. The proximal and mid-esophagus were nl. In the distal esophagus there was no esophageal erosions, varices, diverticula or strictures.. The scope was advanced into the stomach and through the pylorus into the 3rd portion of the duodenum. The duodenum was noted to be nl. Biopsies were done all specimens are retrieved and no bleeding is noted. The scope was retracted back into the stomach and biopsies were done to rule out H. pylori. There is may be some very mild gastritis in the punctate surrounding the antrum. There were no ulcers. The scope was retroflexed. The cardia and fundus were noted to be normal. There no a hiatal hernia noted. The scope was retracted back into the esophagus and biopsies were done of the GE junction to rule out Nunez's. The Z line was regular. The scope was removed and the patient was woken up and taken back to [facility] in stable condition. Follow up: 2 wks
--- NOTE | 2020-11-24 09:02 | PDOC.DSDIS_ITS ---
Discharge Plan Disposition Patient Disposition: HOME Condition: Good Discharge Details Reason For Visit: EGD w/ Bx Attending Provider: Janet Ramos Primary Care Provider: Jesse Gardner Home Meds and New Rx's Prescriptions: No Action topiramate 25 mg tablet 25 mg PO QHS Qty: 60 RF: 5 albuterol sulfate 8.5 GM HFA aerosol inhaler 2 puff Inhalation Q6H PRN RF: 0 methylphenidate HCl [Metadate ER] 20 MG tablet extended release 40 mg PO DAILY RF: 0 lisinopril 10 mg tablet 5 mg PO DAILY RF: 0 sertraline [Zoloft] 100 mg tablet 150 mg PO DAILY RF: 0 zafirlukast [Accolate] 10 MG tablet 10 mg PO DAILY RF: 0 loratadine-pseudoephedrine [Claritin-D 24 Hour] 10-240 mg Tablet Extended Release 24 Hr 1 tab PO DAILY RF: 0 acetaminophen 500 mg tablet 1,000 mg PO Q8H PRN (Reason: pain) Qty: 30 RF: 3 ibuprofen 600 mg Tablet 600 mg PO Q6H PRNQty: 60 RF: 0 Discharge Instructions Additional Instructions: Findings: mild gastritis around antrum Follow up: will call w/ biopsy results Please call if you develop: fevers >101.5 Nausea or Vomiting Abdominal pain that is not transient DAY SURGERY UNIT POST EGD INSTRUCTIONS 1. Because there will be medication in your system for the next 24 hours, you may feel a little sleepy. Your coordination will be affected. Therefore: a. Do not drive or operate dangerous equipment for 24 hours. b. Do not drink alcohol beverages for 24 hours (not even beer). c. Plan to go home and rest for the day. 2. Generally there are no restrictions on your activity after a day or so has gone by, but you may feel a bit fatigued for a few days. 3 After you arrive home you may have a light meal and return to a normal diet as you can tolerate it without feeling sick to your stomach. 4. After surgery, you may feel pain or discomfort. This should be only ratliff sient, but if it persists please contact your doctor. 5. If there are any questions regarding the findings of your procedure, please feel free to contact your doctor. 6. If you are unable to contact your doctor with a problem, contact the hospital at [phone]. 7. Continue all your regular medications unless directed otherwise. I understand the above instructions and have no questions. Signature of Patient or Responsible Adult Escort Date/Time Name of Responsible Adult Escort Signature of Nurse Date/Time Activity:: No lifting over 20 pounds or strenuous activity x24 hours. Diet:: Small light meals x24 hours Discharge Orders Discharge Orders: Discharge Order (Routine); Ordered 11/24/20 Ordered By: Janet Ramos
[2020-11-24 09:25] VITALS: BP 118/74; PULSE 86; RESP 16; TEMP 36.9; O2SAT 95
== END 2020-11-24 10:20 | disposition home or self-care (01) ==
PROVIDERS: PCP Internal Medicine; Visit Provider Surgery
PROC: 0DJ68ZZ Inspection of Stomach, Via Natural or Artificial Opening Endoscopic (ICD-10-PCS; CPT 43235; principal; 2020-11-24 09:00)
DX: R10.13 Epigastric pain (principal); Z87.19 Personal history of other diseases of the digestive system; J45.909 Unspecified asthma, uncomplicated; E78.00 Pure hypercholesterolemia, unspecified; I10 Essential (primary) hypertension
CPT/HCPCS: 43239; 88305; J2001

== ENCOUNTER 2021-04-01 10:33 | Outpatient (REF) | payer OTHER, SELFPAY ==
[2021-04-01 15:19] LABS: Anion Gap 10.6 mmol/L (3-11); BUN 30 mg/dL (7-18); CO2 27.4 mmol/L (21.0-32.0); CREATININE 1.4 mg/dL (0.70-1.30); Chloride 106 mmol/L (98-107); Estimated GFR 53.64 (mL/min/1.73m2); Glucose 107 mg/dL (74-106); Potassium 3.6 mmol/L (3.5-5.1); Sodium 144 mmol/L (136-145)
[2021-04-01 22:06] LABS: PSA, Screening 0.3 ng/mL (0.0-3.5)
== END 2021-04-01 10:34 | disposition home or self-care (01) ==
LOC: NCHCN 10:33
PROVIDERS: PCP Internal Medicine; Visit Provider Internal Medicine
DX: I10 Essential (primary) hypertension (principal); Z12.5 Encounter for screening for malignant neoplasm of prostate; Z80.42 Family history of malignant neoplasm of prostate
CPT/HCPCS: 80048; 84153

== ENCOUNTER 2021-05-12 03:38 | Outpatient (CLI) | payer OTHER, SELFPAY ==
[2021-05-25 12:40] LABS: Result Summary See Comments
[2021-05-25 12:41] LABS: Result See Comments
[2021-05-25 12:48] LABS: Interpretation See Comments
== END 2021-05-12 03:39 | disposition home or self-care (01) ==
LOC: LBO 03:38
PROVIDERS: PCP Internal Medicine; Visit Provider Internal Medicine
DX: Z84.81 Family history of carrier of genetic disease (principal)
CPT/HCPCS: 36415; 81211

== ENCOUNTER 2022-06-09 15:31 | Outpatient (REF) | payer OTHER, SELFPAY ==
[2022-06-09 15:15] LABS: Anion Gap 8.6 mmol/L (3-11); BUN 28 mg/dL (7-18); CO2 26.4 mmol/L (21.0-32.0); CREATININE 1.3 mg/dL (0.70-1.30); Calculated LDL 91 mg/dL (<100); Chloride 106 mmol/L (98-107); Cholesterol 173 mg/dL (<200); Estimated GFR 66.51 (mL/min/1.73m2); Glucose 110 mg/dL (74-106); HDL Cholesterol 27 mg/dL (40-60); Potassium 4.1 mmol/L (3.5-5.1); Sodium 141 mmol/L (136-145); Triglyceride 275 mg/dL (<150)
== END 2022-06-09 15:32 | disposition home or self-care (01) ==
LOC: NCHCN 15:31
PROVIDERS: PCP Internal Medicine; Visit Provider Internal Medicine
DX: I10 Essential (primary) hypertension (principal); F64.0 Transsexualism; F32.89 Other specified depressive episodes; F90.0 Attention-deficit hyperactivity disorder, predominantly inattentive type; K58.9 Irritable bowel syndrome, unspecified
CPT/HCPCS: 80048; 80061

== ENCOUNTER 2022-07-01 06:44 | Emergency (ER) | payer OTHER, SELFPAY ==
[2022-07-01 06:52] VITALS: BP 158/100; PULSE 113; RESP 36; TEMP 37.4; O2SAT 100
--- NOTE | 2022-07-01 07:12 | W.ED.GENAD ---
Discharge Plan Disposition Patient Disposition: Home Condition: Improving Discharge Details Clinical Impression: Urinary tract infection, Hematuria Primary Care Provider: Jesse Gardner ED Provider: Sabino Bryan Home Meds and New Rx's Prescriptions: New cefpodoxime 200 mg tablet 200 mg PO BID 10 Days Qty: 20 0RF Rx Instructions: must administer with a meal/food No Action amlodipine 5 mg tablet 5 mg PO DAILY Ajovy Autoinjector 225 mg/1.5 mL auto-injector 225 mg subcut QMONTH Qty: 1.5 11RF rizatriptan [Maxalt] 10 mg tablet See Rx Instructions PO .COMPLEX Qty: 12 3RF Rx Instructions: take 1 tab at onset of headache; if no relief may repeat 1 tab after at least 2 hrs; max = 3 tabs/24 hr PO methylphenidate HCl [Metadate ER] 20 MG tablet extended release 40 mg PO DAILY sertraline [Zoloft] 100 mg tablet 150 mg PO DAILY albuterol sulfate 90 mcg/actuation HFA aerosol inhaler 2 puff Inhalation Q6H PRN Qty: 8.5 5RF Paxlovid (EUA) 300 mg (150 mg x 2)-100 mg tablets,dose pack See Rx Instructions PO .COMPLEX Qty: 30 0RF Rx Instructions: take TWO 150 mg tablets of nirmatrelvir with ONE 100 mg tablet of ritonavir twice daily for 5 days PO zafirlukast [Accolate] 10 MG tablet 10 mg PO DAILY loratadine-pseudoephedrine [Claritin-D 24 Hour] 10-240 mg Tablet Extended Release 24 Hr 1 tab PO DAILY acetaminophen 500 mg tablet 1,000 mg PO Q8H PRN (Reason: pain) Qty: 30 3RF ibuprofen 600 mg Tablet 600 mg PO Q6H PRNQty: 60 0RF Discharge Instructions Instructions: Urinary Tract Infection in Men (ED), Hematuria (ED) Additional Instructions: Please take antibiotics as prescribed, please follow-up with urology team early next week. Please return to the emergency department for any worsening symptoms. Medical Decision Making 52-year-old male presents with painful hematuria that began last night, urinary frequency, and dysuria, passing cloudy red urine with clots and membranous material. No flank pain no abdominal pain. Afebrile nontoxic however uncomfortable. Tachycardic on arrival likely related to pain. Must consider kidney stone versus UTI versus prostatitis. Has sent UA GC RNA basic labs including PSA, will obtain CT abdomen pelvis Noncon to assess for nephrolithiasis, analgesia and anti-inflammatory with Toradol, fluids close reassessment disposition pending reassessment. 9: 22 leuk esterase and nitrite positive urine consistent with infectious process, patient denies pelvic discomfort or rectal discomfort that would suggest prostatitis, CT abdomen pelvis negative. Patient feeling much better after Toradol and antibiotic. Will treat as presumptive urinary tract infection, PSA has been sent to lab, patient to follow-up with urology team early next week. Given strict return precautions and home instructions. Sign Out No HPI General Date/Time Provider Initiated Documentation: 07/01/22 06:46. HPI Narrative: 52-year-old male presents with painful hematuria that began last night, into this morning, denies back or abdominal pain. Frequent urination started every 30 minutes last night now every 15 minutes. Patient most comfortable when standing. No history of kidney stone. No history of STI Related Data Home Medications Medication Instructions Recorded Confirmed methylphenidate HCl 20 mg 40 mg PO DAILY 01/16/17 01/17/22 tablet,extended release (Metadate ER) zafirlukast 10 mg tablet (Accolate) 10 mg PO DAILY 03/07/17 01/17/22 acetaminophen 500 mg tablet 1,000 mg PO Q8H PRN pain #30 tabs 04/09/19 01/17/22 ibuprofen 600 mg tablet 600 mg PO Q6H PRN #60 tabs 04/09/19 01/17/22 loratadine-pseudoephedrine ER 10 1 tab PO DAILY 04/09/19 01/17/22 mg-240 mg tablet,extended [id number] (Claritin-D 24 Hour) sertraline 100 mg tablet (Zoloft) 150 mg PO DAILY 08/22/19 01/17/22 rizatriptan 10 mg tablet (Maxalt) See Rx Instructions PO .COMPLEX 07/20/21 01/17/22 #12 tabs albuterol sulfate 90 mcg/actuation 2 puff inhalation Q6H PRN #8.5 09/03/21 01/17/22 aerosol inhaler grams amlodipine 5 mg tablet 5 mg PO DAILY 10/18/21 01/17/22 fremanezumab-vfrm 225 mg/1.5 mL 225 mg (1.5 mL) subcut QMONTH #1.5 22 01/17/22 subcutaneous auto-injector (Ajovy) mL nirmatrelvir 300 mg (150 mg See Rx Instructions PO .COMPLEX 04/25/22 x2)-ritonavir 100 mg tablet,dose #30 dose pk pack(EUA) (Paxlovid) cefpodoxime 200 mg tablet 200 mg PO BID 10 days #20 tabs 07/01/22 Previous Rx's Medication Instructions Recorded acetaminophen 500 mg tablet 1,000 mg PO Q8H PRN pain #30 tabs 04/09/19 ibuprofen 600 mg tablet 600 mg PO Q6H PRN #60 tabs 04/09/19 rizatriptan 10 mg tablet (Maxalt) See Rx Instructions PO .COMPLEX 07/20/21 #12 tabs albuterol sulfate 90 mcg/actuation 2 puff inhalation Q6H PRN #8.5 09/03/21 aerosol inhaler grams frekiezumab-vfrm 225 mg/1.5 mL 225 mg (1.5 mL) subcut QMONTH #1.5 10/18/21 subcutaneous auto-injector (Ajovy) mL nirmatrelvir 300 mg (150 mg See Rx Instructions PO .COMPLEX 04/25/22 x2)-ritonavir 100 mg tablet,dose #30 dose pk pack(EUA) (Paxlovid) cefpodoxime 200 mg tablet 200 mg PO BID 10 days #20 tabs 07/01/22 Allergies Allergy/AdvReac Type Severity Reaction Status Date / Time amlodipine besylate AdvReac Unknown edema Verified 01/17/22 08:15 [From Norvasc] ankles duloxetine HCl AdvReac Unknown Verified 01/17/22 08:15 [From Cymbalta] lamotrigine [From Lamictal] AdvReac Unknown Verified 01/17/22 08:15 General Stated Complaint: Urinary LASHONDA: 3 Review of Systems Narrative: Review of Systems Constitutional: negative Eyes: negative ENT: negative Cardiovascular: negative Respiratory: negative Gastrointestinal: negative : Hematuria Musculoskeletal: negative Skin: negative Neurologic: negative Psych: negative PFSH All Active Problems (Updated 07/01/22 @ 09:24 by Sabino Bryan MD) Urinary tract infection (Acute) Hematuria (Acute) Migraine headache with aura (Acute) Abdominal bloating (Acute) Nausea (Acute) Mastocytic enterocolitis (Acute) Right shoulder pain (Acute) Primary localized osteoarthrosis, ankle and foot (Acute 03/18/14) Mononeuropathy of left upper extremity (Acute 12/23/14) Medial epicondylitis, right elbow (Acute 09/08/15) Lumbosacral spondylosis (Acute 03/18/14) Intermittent explosive disorder (Acute 03/18/14) --did not deanna wellbutrin, Dilantin, neurontin, or DPK, added to zoloft. Hypercholesterolemia (Acute 03/18/14) High blood pressure (Acute 04/18/14) Elevated blood pressure reading without diagnosis of hypertension (Acute 03/18/14) Depressive disorder (Acute 03/18/14) Color blindness (Acute 03/18/14) Chronic pain syndrome (Acute 03/18/14) Attention deficit disorder with hyperactivity (Acute 03/18/14) Asthma without status asthmaticus (Acute 03/18/14) since age 27 Allergic rhinitis (Acute 03/18/14) Acne (Acute 03/18/14) Abnormal involuntary movements (Acute 03/18/14) Trigger finger, right middle finger (Acute) Trigger finger, left middle finger (Acute) Sinusitis (Acute) Occipital neuralgia (Acute) Fatigue (Acute) Mucous retention cyst of maxillary sinus (Acute) Abdominal pain (Acute) Medical History ADHD Asthma Depression Deviated nasal septum surgery, trimmed turbinates Hypercholesteremia pt. denies this Hypertension Male circumcision Neuroma removal R hand x 2 Shoulder pain right Tennis elbow L surgery Surgical History H/O hemorrhoidectomy H/O: vasectomy History of bunionectomy R foot History of esophagogastroduodenoscopy (EGD) (~11/2020) History of lumbar fusion L5-S1 per pt. 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 Current gender identity: male Do you feel safe at home: Yes Do you feel safe in your relationship?: Yes Exam Narrative Exam Narrative: Physical Examination General: alert, awake, cooperative, resting comfortably, no acute distress HEENT: normocephalic, atraumatic; PERRL, EOM intact, conjunctiva normal; no nasal discharge; moist mucous membranes, oral and pharyngeal mucosa normal, tolerating secretions Neck: supple, trachea midline; full ROM Chest: normal to inspection Respiratory: normal respiratory effort, speaking in full sentences, clear to auscultation, no wheezing, rales or rhonchi Cardiac: Tachycardia, regular rhythm, S1S2 intact, no murmurs rubs or gallops GI: abdomen soft, non-tender, non-distended; no palpable mass or hepatosplenomegaly : Skin: no lesions, rashes or trauma appreciated Neuro: AAOx3, normal speech, moving all extremities Psych: Appropriate mood and affect Course Vital Signs Vital signs: Vital Signs Temperature 37.4 C 07/01/22 06:52 Pulse 113 H 07/01/22 06:52 Respiratory Rate 36 H 07/01/22 06:52 Blood Pressure 158/100 H 07/01/22 06:52 Pulse Oximetry 100 07/01/22 06:52 Temperature 37.4 C 07/01/22 06:52 Temperature Source Tympanic 07/01/22 06:52 Pulse 113 H 07/01/22 06:52 Respiratory Rate 36 H 07/01/22 06:52 Blood Pressure 158/100 H 07/01/22 06:52 Pulse Oximetry 100 07/01/22 06:52 Oxygen Delivery Method Room Air 07/01/22 06:52 Oxygen Flow Rate 0 07/01/22 06:52
[2022-07-01 07:16] LABS: Bilirubin Negative (Negative); Blood Large (Negative); Clarity Cloudy (Clear); Glucose Negative (Negative); Ketones Negative (Negative); Leukocyte Esterase Small (Negative); Nitrite Positive (Negative); Specific Gravity 1.025 (1.005-1.025); Urobilinogen 0.2 EU/dL (Up TO 0.2)
--- NOTE | 2022-07-01 07:26 | DI.CT_ITS ---
Exam(s) CT ABDOMEN PELVIS WO EXAM: CT ABDOMEN PELVIS WO CLINICAL HISTORY: hematuria. TECHNIQUE: Imaging Protocol: Axial computed tomography images with coronal and sagittal reformatted images were created and reviewed CONTRAST MATERIAL: Intravenous: none Oral: None COMPARISON: No exams were available for comparison FINDINGS: VISUALIZED LUNG BASES: No nodules nor pleural effusions evident. ABDOMEN: There is no ascites. LIVER: There are no obvious focal hepatic lesions evident of this noninfused study. GALLBLADDER/BILIARY: No obvious gallbladder pathology. CBD is not dilated. PANCREAS: No evidence of pancreatic mass nor dilatation of the pancreatic duct. SPLEEN: Spleen is not enlarged. No obvious intrasplenic lesions. ADRENALS: There are no significant adrenal masses. KIDNEYS:No cysts evident. No solid renal masses. No calculi nor hydronephrosis. . ABDOMINAL AORTA: Abdominal aorta is not enlarged. LYMPH NODES: There is no retroperitoneal nor paraaortic adenopathy. ABDOMINAL WALL: There is a fat only containing anterior abdominal wall midline umbilical hernia. GI: There is no evidence of bowel obstruction, free air, nor abscess. PELVIS: LYMPH NODES: There is no intrapelvic nor inguinal adenopathy. GI: No evidence of appendicitis.No evidence of sigmoid diverticulitis. URINARY BLADDER: No calculi nor obvious masses evident REPRODUCTIVE: Prostate not enlarged. Seminal vesicles unremarkable. OSSEOUS: No significant osseous lesions. No fractures. Fusion surgery L5-S1 noted with intervertebral disc space device in satisfactory posit ion at this level. There is also mild retrolisthesis of L2 upon L3. IMPRESSION: 1. No acute findings in the abdomen and pelvis. RADIATION DOSE DELIVERED: Total DLP DATA REPOSITORY: All CT scans at this facility are submitted to the National Radiology Data Registry (NRDR) Dose Index Registry (DIR) with the [employer] (A[employer]). RADIATION OPTIMIZATION: All CT scans at this facility use at least one of these dose optimization te chniques: automated exposure control; mA and/or kV adjustment per patient size (includes targeted exa ms where dose is matched to clinical indication); or iterative reconstruction.
[2022-07-01 07:33] LABS: RBC >50 HPF (0-2)
[2022-07-01 07:34] LABS: Bacteria Color Interference HPF (Negative); Crystals Color Interference HPF (Negative); Epithelial Cells Color Interference HPF (Negative); Mucus Color Interference (Negative); Other Cells Color Interference (Negative)
[2022-07-01 07:35] LABS: C & S Indicated? Yes; WBC Color Interference HPF (0-5)
[2022-07-01 07:48] LABS: Abs Immature Grans 0.07 10^3/uL (0.0-0.06); Absolute Lymphocyte Count 1.39 10^3/uL (1.2-3.4); Absolute Monocyte Count 1.06 10^3/uL (0.1-0.8); Basophils % 0.4; Eosinophils % 1.2; HCT 48.5 % (40.0-50.0); HGB 17.1 g/dL (13.5-17.5); Immature Grans % 0.4; Lymphocytes % 8.1; MCH 32.1 pg (27.0-33.0); MCHC 35.3 % (32.0-36.0); MCV 91 fL (80-95); MPV 10.4 fL (8.0-11.0); Monocytes % 6.2; Neutrophils % 83.7; Platelet Count 185 10^3/uL (130-400); RBC 5.32 10^6/uL (4.36-5.78); RDW 11.9 % (11.8-14.1); RDW-SD 40.1 fL; WBC 17.12 10^3/uL (4.4-10.8)
[2022-07-01 07:49] LABS: Absolute Basophil Count 0.07 10^3/uL (0.0-0.2); Absolute Eosinophil Count 0.21 10^3/uL (0.0-0.7); Absolute Neutrophil Count 14.33 10^3/uL (1.2-6.7)
[2022-07-01] MEDS: Normal Saline 1,000 ML 1000 ML IV (07:58)
[2022-07-01] MEDS: Ketorolac 15 MG/ML VIAL IVP (08:03)
[2022-07-01 08:06] LABS: ALT 27 U/L (16-63); AST 20 U/L (15-37); Albumin 4.4 g/dL (3.4-5.0); Alkaline Phosphatase 100 U/L (46-116); Anion Gap 8.9 mmol/L (3-11); BUN 26 mg/dL (7-18); Bilirubin, Total 0.6 mg/dL (0.2-1.0); CO2 25.1 mmol/L (21.0-32.0); CREATININE 1.1 mg/dL (0.70-1.30); Calcium 9.3 mg/dL (8.5-10.1); Chloride 103 mmol/L (98-107); Estimated GFR 81.28 (mL/min/1.73m2); Glucose 104 mg/dL (74-106); Potassium 3.9 mmol/L (3.5-5.1); Sodium 137 mmol/L (136-145)
--- NOTE | 2022-07-01 08:11 | DI.VRAD_ITS ---
PROCEDURE INFORMATION: Exam: CT Abdomen And Pelvis Without Contrast Exam date and time: 07/01/2022 7:24 AM Age: 52 years old Clinical indication: Other: Urinating blood; Patient HX: Hematuria since mid-night TECHNIQUE: Imaging protocol: Computed tomography of the abdomen and pelvis without contrast. Radiation optimization: All CT scans at this facility use at least one of these dose optimization techniques: automated exposure control; mA and/or kV adjustment per patient size (includes targeted exams where dose is matched to clinical indication); or iterative reconstruction. COMPARISON: US ABDOMEN 12/22/2020 10:53 AM FINDINGS: Liver: Normal. No mass. Gallbladder and bile ducts: Normal. No calcified stones. No ductal dilation. Pancreas: Normal. No ductal dilation. Spleen: Normal. No splenomegaly. Adrenal glands: Normal. No mass. Kidneys and ureters: Normal. No hydronephrosis. Stomach and bowel: Unremarkable. No obstruction. No mucosal thickening. Appendix: No evidence of appendicitis. Intraperitoneal space: Unremarkable. No free air. No significant fluid collection. Vasculature: Unremarkable. No abdominal aortic aneurysm. Lymph nodes: Unremarkable. No enlarged lymph nodes. Urinary bladder: There is circumferential bladder wall thickening and surrounding fat stranding. Findings may relate to an infectious or inflammatory process. Reproductive: Prostatomegaly. There is fat stranding surrounding the prostate gland, which may be related to the adjacent inflammatory process surrounding the bladder versus prostatitis. Bones/joints: Unremarkable. No acute fracture. Soft tissues: Small fat containing umbilical hernia. IMPRESSION: 1. There is circumferential bladder wall thickening and surrounding fat stranding. Findings may relate to an infectious or inflammatory process. 2. Prostatomegaly. There is fat stranding surrounding the prostate gland, which may be related to the adjacent inflammatory process surrounding the bladder versus prostatitis. Dictated and Authenticated by: Harsh Calix MD. Ordering:SAHARA Gallo MD
[2022-07-01] MEDS: Cefpodoxime 200 MG TAB PO (08:21)
[2022-07-01 08:44] VITALS: BP 137/80; PULSE 101; TEMP 37.1; O2SAT 95
--- NOTE | 2022-07-01 09:25 | NUR.NOTE ---
Nursing Note: PT info faxed to [facility] Urology for follow up early next week for Hematuria/UTI. [place], ED
[2022-07-01 20:46] LABS: PSA, Screening 0.9 ng/mL (<=3.5)
[2022-07-02 00:12] LABS: Bilirubin Negative (Negative); Blood Large (Negative); Clarity Sl Cloudy (Clear); Glucose Negative (Negative); Ketones Negative (Negative); Leukocyte Esterase Large (Negative); Nitrite Positive (Negative); Specific Gravity 1.025 (1.005-1.025); Urobilinogen 0.2 EU/dL (Up TO 0.2)
[2022-07-02 00:20] LABS: C & S Indicated? Yes; WBC >50 HPF (0-5)
[2022-07-02 15:20] LABS: Chlamydia Result Negative (Negative); GC Result Negative (Negative)
== END 2022-07-01 18:31 | disposition home or self-care (01) ==
PROVIDERS: Emergency Provider Emergency Medicine; PCP Internal Medicine
DX: N39.0 Urinary tract infection, site not specified (principal)
CPT/HCPCS: 36415; 80053; 84153; 87077; 87491; 87591; 96361; 96374; 99284; 74176; 81003; 81015; 85025; 87086; 87186; J1885

== ENCOUNTER 2022-08-11 07:19 | Day surgery (SDC) | payer OTHER, SELFPAY ==
[2022-08-11 07:36] VITALS: BP 136/110; PULSE 78; RESP 16; TEMP 36.8; O2SAT 96
[2022-08-11] MEDS: Lactated Ringers 1,000 ML 80 ML IV (08:04)
--- NOTE | 2022-08-11 08:23 | W.PM.HP.N ---
Date of service: 08/11/22 Time of Service: 08:23 Assessment and Plan Assessment and plan (1) Gross hematuria: Assessment and plan: We will complete his hematuria workup with a cystoscopy and retrograde pyelogram. I will do a BOBBY while the patient is anesthetized. We will decide if medical therapy to allow the bladder to empty more efficiently is warranted. History of Present Illness History of Present Illness Chief Complaint: Gross hematuria Narrative: This is a 52-year-old gentleman who presented to the emergency department recently with dysuria and gross hematuria.? He was having urinary frequency and urgency.? He was found to have a urinary tract infection and he was started on antibiotics and antispasmotics.? His urine culture ultimately grew E. coli.? He he started noticing improvement in his urinary symptoms within 2 or 3 days of starting the antibiotics.? He feels like he is back to his baseline. While in the emergency department, he had a noncontrast CT scan done.? No stones or hydronephrosis was noted. He has no prior history of urinary tract infections or kidney stones.? He was not having any symptoms of constipation around the time the UTI developed.? He does take chronic decongestants (Claritin-D).? He has never had any prior cystoscopic procedures. His AUA symptom score is 18 out of 35.? He does have a family history of prostate cancer.? He has had a normal PSA as recently as last month.? Review of Systems Narrative: No fevers or chills No vision change or dysphasia No diabetes or thyroid No shortness of breath, cough or hemoptysis No chest pain or palpitations No nausea, vomiting, hepatitis, ulcers, jaundice, diarrhea or constipation No seizures, strokes or peripheral neuropathy No bleeding disorders or anemia No gout PFSH All Active Problems (Updated 08/11/22 @ 08:29 by David Christianson MD) Migraine headache with aura (Acute) Abdominal bloating (Acute) Nausea (Acute) Mastocytic enterocolitis (Acute) Right shoulder pain (Acute) Primary localized osteoarthrosis, ankle and foot (Acute 03/18/14) Mononeuropathy of left upper extremity (Acute 12/23/14) Medial epicondylitis, right elbow (Acute 09/08/15) Lumbosacral spondylosis (Acute 03/18/14) Intermittent explosive disorder (Acute 03/18/14) --did not deanna wellbutrin, Dilantin, neurontin, or DPK, added to zoloft. Hypercholesterolemia (Acute 03/18/14) High blood pressure (Acute 04/18/14) Elevated blood pressure reading without diagnosis of hypertension (Acute 03/18/14) Depressive disorder (Acute 03/18/14) Color blindness (Acute 03/18/14) Chronic pain syndrome (Acute 03/18/14) Attention deficit disorder with hyperactivity (Acute 03/18/14) Asthma without status asthmaticus (Acute 03/18/14) since age 27 Allergic rhinitis (Acute 03/18/14) Acne (Acute 03/18/14) Abnormal involuntary movements (Acute 03/18/14) Trigger finger, right middle finger (Acute) Trigger finger, left middle finger (Acute) Sinusitis (Acute) Occipital neuralgia (Acute) Fatigue (Acute) Mucous retention cyst of maxillary sinus (Acute) Abdominal pain (Acute) Medical History (Updated 08/11/22 @ 08:29 by David Christianson MD) ADHD Asthma Depression Deviated nasal septum surgery, trimmed turbinates Gross hematuria Hypercholesteremia pt. denies this Hypertension Male circumcision Neuroma removal R hand x 2 Shoulder pain right Tennis elbow L surgery Surgical History H/O hemorrhoidectomy H/O: vasectomy History of bunionectomy R foot History of esophagogastroduodenoscopy (EGD) (~11/2020) History of lumbar fusion L5-S1 per pt. 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 Current gender identity: male Do you feel safe at home: Yes Do you feel safe in your relationship?: Yes Meds Allergies and Home Medications Allergies Allergy/AdvReac Type Severity Reaction Status Date / Time amlodipine besylate AdvReac Unknown edema Verified 07/18/22 14:27 [From Norvasc] ankles duloxetine HCl AdvReac Unknown Verified 07/18/22 14:27 [From Cymbalta] lamotrigine [From Lamictal] AdvReac Unknown Verified 07/18/22 14:27 Home Medications Medication Instructions Recorded Confirmed Type methylphenidate HCl 20 mg 40 mg PO DAILY 01/16/17 08/11/22 History tablet,extended release (Metadate ER) zafirlukast 10 mg tablet (Accolate) 10 mg PO DAILY 03/07/17 08/11/22 History acetaminophen 500 mg tablet 1,000 mg PO Q8H PRN pain #30 tabs 04/09/19 08/11/22 Rx ibuprofen 600 mg tablet 600 mg PO Q6H PRN #60 tabs 04/09/19 08/11/22 Rx loratadine-pseudoephedrine ER 10 1 tab PO DAILY 04/09/19 08/11/22 History mg-240 mg tablet,extended [id number] (Claritin-D 24 Hour) albuterol sulfate 90 mcg/actuation 2 puff inhalation Q6H PRN #8.5 09/03/21 08/11/22 Rx aerosol inhaler grams fremanezumab-vfrm 225 mg/1.5 mL 225 mg (1.5 mL) subcut QMONTH #1.5 07/18/22 08/11/22 Rx subcutaneous auto-injector (Ajovy) mL rizatriptan 10 mg tablet (Maxalt) See Rx Instructions PO .COMPLEX 07/18/22 08/11/22 Rx #12 tabs sertraline 100 mg tablet (Zoloft) 200 mg PO DAILY 07/18/22 08/11/22 History verapamil 180 mg 24 hr 180 mg PO QAM 07/18/22 08/11/22 History capsule,extended release lorazepam 1 mg tablet 1 mg PO DAILY PRN 08/11/22 08/11/22 History Exam Const General: cooperative Neck Neck: normal visual inspection and supple Resp Effort & Inspection: normal respiratory effort Auscultation: clear to auscultation bilaterally Cardio Rate: regular rate Rhythm: regular rhythm GI Palpation: soft and no masses Neuro General: patient alert, patient awake and patient oriented x3 Results Last Vital Signs Temp 36.8 C 08/11/22 07:36 Pulse 78 08/11/22 07:36 Resp 16 08/11/22 07:36 BP 136/110 H 08/11/22 07:36 Pulse Ox 96 08/11/22 07:36
--- NOTE | 2022-08-11 08:28 | W.ANESPRE ---
General Info Date of Service Date Performed: 08/11/22 Height: 5 ft 6 in Weight: 80.2 kg Body Mass Index (BMI): 28.5 Surgical Procedure: Operation Date: 08/11/22 09:10 Proposed Procedure Side Surgeon p Cystoscopy/Retrograde Bilateral David Christianson MD Meds Allergies and Home Medications Allergies Allergy/AdvReac Type Severity Reaction Status Date / Time amlodipine besylate AdvReac Unknown edema Verified 07/18/22 14:27 [From Norvasc] ankles duloxetine HCl AdvReac Unknown Verified 07/18/22 14:27 [From Cymbalta] lamotrigine [From Lamictal] AdvReac Unknown Verified 07/18/22 14:27 Home Medication Medication Instructions Recorded methylphenidate HCl 20 mg 40 mg PO DAILY 01/16/17 tablet,extended release (Metadate ER) zafirlukast 10 mg tablet (Accolate) 10 mg PO DAILY 03/07/17 acetaminophen 500 mg tablet 1,000 mg PO Q8H PRN pain #30 tabs 04/09/19 ibuprofen 600 mg tablet 600 mg PO Q6H PRN #60 tabs 04/09/19 loratadine-pseudoephedrine ER 10 1 tab PO DAILY 04/09/19 mg-240 mg tablet,extended [id number] (Claritin-D 24 Hour) albuterol sulfate 90 mcg/actuation 2 puff inhalation Q6H PRN #8.5 09/03/21 aerosol inhaler grams fremanezumab-vfrm 225 mg/1.5 mL 225 mg (1.5 mL) subcut QMONTH #1.5 07/18/22 subcutaneous auto-injector (Ajovy) mL rizatriptan 10 mg tablet (Maxalt) See Rx Instructions PO .COMPLEX 07/18/22 #12 tabs sertraline 100 mg tablet (Zoloft) 200 mg PO DAILY 07/18/22 verapamil 180 mg 24 hr 180 mg PO QAM 07/18/22 capsule,extended release lorazepam 1 mg tablet 1 mg PO DAILY PRN 08/11/22 Current Visit Medications: Current Medications Generic Name Dose Route Start Last Admin Trade Name Freq PRN Reason Stop Dose Admin Ringer's Solution 1,000 mls @ 80 mls/hr 08/11/22 06:00 08/11/22 08:04 IV 09/09/22 23:59 80 mls/hr INFUSION SERAFIN Administration Cefazolin Sodium/Dextrose 2 gm in 50 mls @ 100 mls/hr 08/11/22 06:00 Ancef Duplex IVPB 08/11/22 16:00 PREOP SERAFIN IV Miscellaneous Supplies 1 each 08/11/22 06:00 Iv Access IV 09/09/22 23:59 DIRECTED SERAFIN Sodium Chloride 0 ml 08/11/22 06:00 Normal Saline Flush 10 Ml Syr IV 09/09/22 23:59 PRN PRN Sodium Chloride 0 ml 08/11/22 06:00 Normal Saline 10 Ml Vial IJ 09/09/22 23:59 DIRECTED PRN Sterile Water 0 ml 08/11/22 06:00 Water,Injection,Sterile 10 Ml Vial IJ 09/09/22 23:59 DIRECTED PRN PFSH Active Problems Active Problems: Problem Status Onset Code Migraine headache with aura G43.109 Abdominal bloating R14.0 Nausea R11.0 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 Right shoulder pain M25.511 Primary localized osteoarthrosis, ankle and foot 03/18/14 M19.079 Mononeuropathy of left upper extremity 12/23/14 G56.92 Medial epicondylitis, right elbow 09/08/15 M77.01 Lumbosacral spondylosis 03/18/14 M47.817 Intermittent explosive disorder 03/18/14 F63.81 Hypercholesterolemia 03/18/14 E78.00 High blood pressure 04/18/14 I10 Elevated blood pressure reading without diagnosis of hypertension 03/18/14 R03.0 Depressive disorder 03/18/14 F32.9 Color blindness 03/18/14 H53.50 Chronic pain syndrome 03/18/14 G89.4 Attention deficit disorder with hyperactivity 03/18/14 F90.9 Asthma without status asthmaticus 03/18/14 J45.909 Allergic rhinitis 03/18/14 J30.9 Acne 03/18/14 L70.9 Abnormal involuntary movements 03/18/14 R25.9 Trigger finger, right middle finger M65.331 Trigger finger, left middle finger M65.332 Sinusitis J32.9 Occipital neuralgia M54.81 Fatigue R53.83 Mucous retention cyst of maxillary sinus J34.1 Abdominal pain R10.9 Medical History Medical History (Updated 08/11/22 @ 08:29 by David Christianson MD) ADHD Asthma Depression Deviated nasal septum surgery, trimmed turbinates Gross hematuria Hypercholesteremia pt. denies this Hypertension Male circumcision Neuroma removal R hand x 2 Shoulder pain right Tennis elbow L surgery Surgical History Surgical History H/O hemorrhoidectomy H/O: vasectomy History of bunionectomy R foot History of esophagogastroduodenoscopy (EGD) (~11/2020) History of lumbar fusion L5-S1 per pt. Hx of surgical procedure I & D Left foot Hx of tonsillectomy S/P trigger finger release RMF Status post lumbar and lumbosacral fusion by anterior technique L5-S1 Tobacco Smoking/Tobacco Use Status: Never Alcohol Alcohol Intake: current Alcohol intake frequency: holidays/special occasions only Alcohol type: wine Substance Use Substance use: Never Substance use type: does not use Vital Signs and Lab Results Vital Signs Most Recent Vital Signs in EMR: Most Recent Vital Signs Temp Pulse Resp BP Pulse Ox 36.8 C 78 16 136/110 H 96 08/11/22 07:36 08/11/22 07:36 08/11/22 07:36 08/11/22 07:36 08/11/22 07:36 Lab Results Blood Type / Crossmatch: No Data to Display Complete Blood Count: No Data to Display Complete Metabolic Panel: No Data to Display Liver Function Panel: No Data to Display Coagulation Panel: No Data to Display Cardiac Panel: No Data to Display Arterial Blood Gas: No Data to Display Venous Blood Gas: No Data to Display Pancreas Panel: No Data to Display Thyroid Panel: No Data to Display Infectious Disease: No Data to Display Blood Cultures: No Data to Display Toxicology Panel: No Data to Display Anesthesia Assessment and Plan Anesthesia History Personal History: Delayed Emergence Family History: No Family History of Anesthesia Complications Exercise Tolerance Exercise Tolerance: Metabolic Equivalents>4 Pertinent Negatives Pertinent Negatives: No Symptoms of GERD, No Major Cardiovascular Symptoms or Complaints and No Major Pulmonary Symptoms or Complaints Cardiac & Pulmonary Exam Cardiac Exam: Normal S1/S2 Heart Sounds Pulmonary Exam: Clear Bilateral Breath Sounds Implantable Cardiac Device Does patient have a Pacemaker or an ICD?: No Airway Exam Known Difficult Airway: No Mallampati Class: 3 Mouth Opening: Narrow (< 3cm) Thyromental Distance: Greater than 3 cm Neck Range of Motion: Full ROM Neck Circumference: Normal Teeth Condition: Normal Dentition ASA Classification ASA Score: ASA 2 Emergency Case?: No NPO Status NPO Status: NPO Clears >2 hours, Solids >8 hours Anesthesia Plan Resuscitation Status: Full Code Anesthesia Technique: General Anesthesia Airway Planned: Natural Airway Monitors Used: Standard Monitors Preoperative Comments:: Patient reported that he stopped taking his oral blood pressure medication Verapamil 180mg ER a little over a week ago as they were not working. Reports he has not discussed this with his PCP. Discussed importance of blood pressure control and plan for patient to take 80mg immediate release (after discussing dose adjustment with pharmacist) and re-assess blood pressure. Dr. Christianson aware and agrees with plan.
[2022-08-11] MEDS: Verapamil 80 MG TAB PO (09:05)
[2022-08-11 09:12] VITALS: BMI 28.5
[2022-08-11 09:30] VITALS: BP 151/98
[2022-08-11] MEDS: ceFAZolin 2 GM/50 ML BAG IVPB (09:50)
[2022-08-11] MEDS: Omnipaque 300 MG/ML 50 ML BTL (10:06)
[2022-08-11] MEDS: Lidocaine 2% Jelly 6 ML SYR (10:06)
--- NOTE | 2022-08-11 10:11 | DI.RAD_ITS ---
Exam(s) XR RETROGRADE IN OR EXAM: XR RETROGRADE IN OR CLINICAL HISTORY: GROSS HEMATURIA. TECHNIQUE: 2D digital imaging was performed. COMPARISON: No exams were available for comparison FINDINGS: Fluoroscopy was provided during retrograde urologic procedure. Please refer to procedure report for details. Radiation exposure index: Gueritavanessa= 4.8012mGy IMPRESSION: As above. DATA REPOSITORY: RADIATION DOSE DELIVERED:
--- NOTE | 2022-08-11 10:14 | W.PM.OP ---
Date of service: 08/11/22 Time of Service: 10:14 Operative Note Operative Note DATE OF PROCEDURE: 08/11/22 PRE-OP DIAGNOSIS: Gross hematuria POST-OP DIAGNOSIS: same elevated bladder neck PROCEDURE: cystoscopy with bilateral retrograde pyelogram SURGEON: David Christianson ANESTHESIA TYPE: General:No Airway Refer to Anesthesia Record ESTIMATED BLOOD LOSS: 0 PATHOLOGY: none sent COMPLICATIONS: None Patient was transported to: same day Patient's condition: stable Implants: none Indications: The patient was brought to the operating room on 08/11/2022. He was given a dose of preoperative antibiotics. After successful induction of general anesthesia, he was placed in the dorsal lithotomy position. His genitalia was prepped and draped. 2% Xylocaine jelly was instilled into the urethra to act as a local anesthetic. A 22 [place] rigid cystoscope was passed through the urethra into the bladder. The urethra and bladder were inspected with a 30 degree lens. The pendulous, bulbar and membranous urethra was all appeared normal with no strictures. The prostatic urethra had minimal lateral lobe enlargement but did have a significant elevated bladder neck. The bladder neck was entered and the bladder mucosa was inspected. Both ureteral orifices appeared normal in configuration and location. No blood was seen coming from either side. The remainder of the bladder appeared smooth-walled with no papillary or nodular lesions. Each ureteral orifice was cannulated with a 5 [place] access catheter. A retrograde pyelogram was obtained by injecting Omnipaque through the access catheter under fluoroscopic guidance. Both ureters and collecting systems appeared normal with no filling defects. Both sides drained promptly on a 5-minute drainage film. The bladder findings were confirmed on reinspection of the bladder with a 70 degree lens. The bladder was emptied and the cystoscope was withdrawn. I then performed a digital rectal exam on the patient and no nodules were identified. He tolerated this procedure well and was taken back to the day surgery unit in stable condition. Findings: elevated bladder neck no bladder, ureteral or renal pelvic lesions normal prostate exam
--- NOTE | 2022-08-11 10:14 | W.PM.DSUDISC ---
Date of service: 08/11/22 Time of Service: 10:14 Discharge Plan Disposition Condition: Good Discharge Details Reason For Visit: cystoscopy Attending Provider: David Christianson Primary Care Provider: Jesse Gardner [place] Meds and New Rx's Prescriptions: New tamsulosin 0.4 mg capsule 0.4 mg PO DAILY Qty: 90 3RF No Action verapamil 180 mg capsule,ext rel. pellets 24 hr 180 mg PO QAM Label Comments: States he stopped taking it because it doesn't work. Ajovy Autoinjector 225 mg/1.5 mL auto-injector 225 mg subcut QMONTH Qty: 1.5 11RF rizatriptan [Maxalt] 10 mg tablet See Rx Instructions PO .COMPLEX Qty: 12 3RF Rx Instructions: take 1 tab at onset of headache; if no relief may repeat 1 tab after at least 2 hrs; max = 3 tabs/24 hr PO methylphenidate HCl [Metadate ER] 20 MG tablet extended release 40 mg PO DAILY albuterol sulfate 90 mcg/actuation HFA aerosol inhaler 2 puff Inhalation Q6H PRN Qty: 8.5 5RF sertraline [Zoloft] 100 mg tablet 200 mg PO DAILY zafirlukast [Accolate] 10 MG tablet 10 mg PO DAILY lorazepam 1 mg Tablet 1 mg PO DAILY PRN Claritin-D 24 Hour 10-240 mg Tablet Extended Release 24 Hr 1 tab PO DAILY acetaminophen 500 mg tablet 1,000 mg PO Q8H PRN (Reason: pain) Qty: 30 3RF ibuprofen 600 mg Tablet 600 mg PO Q6H PRNQty: 60 0RF Discharge Instructions Additional Instructions: prescription for tamsulosin sent to pharmacy followup @ 6 weeks for symptom check Activity:: Activity as Tolerated Shower/Bathe:: 24 hours Equipment/Supplies:: No Equipment Needed Diet:: As Tolerated DS: Diagnosis Discharge Diagnosis (1) Gross hematuria:
[2022-08-11 10:21] VITALS: BP 123/92; PULSE 85; RESP 20; TEMP 36.5; O2SAT 94
--- NOTE | 2022-08-11 10:40 | W.ANESPOSTOP ---
Postoperative Evaluation Date, Time and Location Date Performed: 08/11/22 Time Performed: 10:40 Patient Location: Day Surgery Unit Vital Signs Most Recent Imported Vital Signs: Most Recent Vital Signs Temp Pulse Resp BP Pulse Ox 36.5 C 85 20 123/92 H 94 08/11/22 10:21 08/11/22 10:21 08/11/22 10:21 08/11/22 10:21 08/11/22 10:21 Pain Score Most Recent Pain Score: Most Recent Pain Score Pain Level 0 08/11/22 10:21 Assessment Mental Status: Arousable with meaningful communication Airway and Respiratory Function: Patent airway with normal (patient baseline) respiratory exam Cardiovascular Function: Hemodynamically Stable Hydration Status: Adequately Hydrated Nausea & Vomiting: No Nausea or Vomiting Pain: Pt. Denies Any Pain Peripheral Nerve Block: Patient did not receive a nerve block
[2022-08-11 10:51] VITALS: BP 146/101; PULSE 83; RESP 16; TEMP 36.8; O2SAT 99
== END 2022-08-11 11:49 | disposition home or self-care (01) ==
PROVIDERS: PCP Internal Medicine; Visit Provider Urology
PROC: (CPT 74450; principal; 2022-08-11 09:00)
DX: R31.0 Gross hematuria (principal)
CPT/HCPCS: 52005; 74420; J0690; J1885; J2250; J3010; Q9967

== ENCOUNTER 2022-12-23 01:39 | Outpatient (CLI) | payer OTHER, SELFPAY ==
[2022-12-23 13:58] LABS: Anion Gap 12.8 mmol/L (3-11); BUN 27 mg/dL (7-18); CO2 23.2 mmol/L (21.0-32.0); CREATININE 1.1 mg/dL (0.70-1.30); Calcium 8.6 mg/dL (8.5-10.1); Chloride 106 mmol/L (98-107); Estimated GFR 81.28 (mL/min/1.73m2); Glucose 127 mg/dL (74-106); Potassium 3.8 mmol/L (3.5-5.1); Sodium 142 mmol/L (136-145)
[2022-12-23 23:07] LABS: Estradiol 73 pg/mL (<40)
[2022-12-28 01:41] LABS: Testosterone, Total 9.1 ng/dL (240-950)
== END 2022-12-23 01:40 | disposition home or self-care (01) ==
LOC: LBO 01:40
PROVIDERS: PCP Internal Medicine; Visit Provider Physician Assistant
DX: F64.8 Other gender identity disorders (principal)
CPT/HCPCS: 36415; 80048; 84403; 82670

== ENCOUNTER 2023-06-01 10:15 | Outpatient (REF) | payer OTHER, SELFPAY ==
--- NOTE | 2023-06-01 10:20 | SKI_PTH ---
PATIENT: Galilea Adair LOC: [facility] U#:[id number] AGE/SX: 53/M ROOM: RE06/01/[address]: Janet Ramos : 1970 BED: DIS: 06/01/2023 SPEC #: [id number] RECD: 06/01/23 13:33 STATUS: ELLIOT REQ #: [id number] BRIONNA: 06/01/23 10:[address]: Janet Ramos DEPT: Surgical Specimen RECD BY: Arpita Keller ENTERED: 06/01/23 13:34 SP TYPE: SUMEET RYAN DR: Jesse Gardner Tissues: 1 - SKIN BIOPSY(SHAVE/PUNCH) 2 - SKIN BIOPSY(SHAVE/PUNCH) Procedures: SKIN LEVEL 4 Comments: [id number]
== END 2023-06-01 10:16 | disposition home or self-care (01) ==
LOC: LBN 10:15
PROVIDERS: PCP Internal Medicine; Visit Provider Surgery
DX: L43.9 Lichen planus, unspecified (principal); L83 Acanthosis nigricans
CPT/HCPCS: 88305

== ENCOUNTER 2023-06-19 13:23 | Outpatient (CLI) | payer OTHER, SELFPAY ==
[2023-06-19 15:19] LABS: Anion Gap 6.1 mmol/L (3-11); BUN 24 mg/dL (7-18); CO2 30.9 mmol/L (21.0-32.0); CREATININE 1.3 mg/dL (0.70-1.30); Calcium 9.8 mg/dL (8.5-10.1); Chloride 101 mmol/L (98-107); Glucose 85 mg/dL (74-106); Potassium 4.1 mmol/L (3.5-5.1); Sodium 138 mmol/L (136-145)
[2023-06-19 23:07] LABS: Estradiol 80 pg/mL (<40)
[2023-06-22 11:30] LABS: Testosterone, Total 16 ng/dL (240-950)
== END 2023-06-19 13:24 | disposition home or self-care (01) ==
PROVIDERS: PCP Internal Medicine; Visit Provider Physician Assistant
DX: F64.9 Gender identity disorder, unspecified (principal)
CPT/HCPCS: 36415; 80048; 84403; 82670

== ENCOUNTER → 2023-07-04 02:10 | Outpatient (CLI) | payer OTHER, SELFPAY ==
[2023-07-04] MEDS: Normal Saline Flush 10 ML SYR IJ (09:14)
[2023-07-04] MEDS: Normal Saline - Diluent 50 ML VIAL IJ (09:15)
[2023-07-04] MEDS: Omnipaque 350 MG/ML 500 ML BTL-Imaging package 100 ML IJ (09:16)
--- NOTE | 2023-07-04 09:18 | DI.CT_ITS ---
Exam(s) CT FACIAL W EXAM: CT FACIAL W CLINICAL HISTORY: non healing wound Left jaw/mandible,sinus mucuous retention cyst,j43.1. TECHNIQUE: Imaging Protocol: Axial computed tomography images with coronal and sagittal reformatted images were created and reviewed CONTRAST MATERIAL: Intravenous: Omnipaque 350 Contrast volume:100 mL COMPARISON: No exams were available for comparison FINDINGS: Facial Bones: No definite fracture is noted in facial bones. No evidence to suggest osteomyelitis. No destructive lesions are present. Sinuses and Mastoids: There is near complete opacification of the left maxillary sinus. There is mu cosal thickening in the right maxillary sinus. The remaining visualized paranasal sinuses and mastoi d air cells are clear. Globes, extraocular muscles, optic nerves and retrobulbar fat: Normal. Upper aerodigestive tract: Normal. Mandible and bilateral temporomandibular joints: Normal. Soft tissues: Mildly enlarged lymph nodes are seen in the left submandibular region which are likely reactive. The submandibular and parotid glands are unremarkable. There is largely fatty replacement of the right parotid gland. There is mild skin thickening in the left cheek overlying the mandible but no focal fluid collection is seen to suggest an abscess. The underlying platysma is unremarkable . No soft tissue mass is appreciated. Enhancement: No abnormal enhancement. IMPRESSION: 1. Mild skin thickening in the left cheek which may represent a cellulitis. No focal fluid collectio n to suggest an abscess or soft tissue mass is seen. 2. Mild reactive lymph nodes in the left submandibular region. 3. Left maxillary sinusitis. RADIATION DOSE DELIVERED: Total DLP DATA REPOSITORY: All CT scans at this facility are submitted to the National Radiology Data Registry (NRDR) Dose Index Registry (DIR) with the [employer] (ACR). RADIATION OPTIMIZATION: All CT scans at this facility use at least one of these dose optimization te chniques: automated exposure control; mA and/or kV adjustment per patient size (includes targeted exa ms where dose is matched to clinical indication); or iterative reconstruction.
== END ==
PROVIDERS: PCP Internal Medicine; Visit Provider Surgery
DX: J34.1 Cyst and mucocele of nose and nasal sinus (principal); L73.1 Pseudofolliculitis barbae; T81.89XA Other complications of procedures, not elsewhere classified, initial encounter
CPT/HCPCS: 70487

== ENCOUNTER 2023-07-11 08:48 | Day surgery (SDC) | payer OTHER, SELFPAY ==
--- NOTE | 2023-07-10 21:22 | W.PM.DSUDISC ---
Date of service: 07/11/23 Time of Service: 13:30 Discharge Plan Disposition Patient Disposition: Home Condition: Good Discharge Details Reason For Visit: Nonhealing lesion excision Attending Provider: Janet Ramos Primary Care Provider: Jesse Gardner Meds and New Rx's Prescriptions: No Action verapamil 180 mg capsule,ext rel. pellets 24 hr 180 mg PO QAM Ajovy Autoinjector 225 mg/1.5 mL auto-injector 225 mg subcut QMONTH Qty: 1.5 11RF rizatriptan [Maxalt] 10 mg tablet See Rx Instructions PO .COMPLEX Qty: 12 3RF Rx Instructions: take 1 tab at onset of headache; if no relief may repeat 1 tab after at least 2 hrs; max = 3 tabs/24 hr PO estradiol 0.1 mg/24 hr patch semiweekly 1 patch transdermal ONCE Lupron Depot 3.75 mg syringe kit 3.75 mg IM QMONTH tamsulosin 0.4 mg capsule 0.4 mg PO DAILY Qty: 90 3RF gabapentin 300 mg capsule 300 mg PO QHS methylphenidate HCl [Metadate ER] 20 MG tablet extended release 40 mg PO DAILY albuterol sulfate 90 mcg/actuation HFA aerosol inhaler 2 puff Inhalation Q6H PRN Qty: 8.5 5RF sertraline [Zoloft] 100 mg tablet 200 mg PO DAILY zafirlukast [Accolate] 10 MG tablet 10 mg PO DAILY lorazepam 1 mg Tablet 1 mg PO DAILY PRN Claritin-D 24 Hour 10-240 mg Tablet Extended Release 24 Hr 1 tab PO DAILY acetaminophen 500 mg tablet 1,000 mg PO Q8H PRN (Reason: pain) Qty: 30 3RF ibuprofen 600 mg Tablet 600 mg PO Q6H PRNQty: 60 0RF Discharge Instructions Additional Instructions: DIET: There are no dietary restrictions following surgery. However, you may want to start with small amounts of liquids to avoid nausea the day of surgery. ? INCISION CARE: After 24 hours you may shower. The dressing may be replaced for comfort, but is not necessary. ?An ice bag may be applied to the incision for 72 hours following surgery. ? SIGNS OF INFECTION: It is not unusual to have some black and blue discoloration of the skin around the incision. ?It will slowly disappear. If you have any increased redness, drainage, fever (above 100 degrees), please contact your doctor for an examination. ? DISCOMFORT: You may expect to have some mild discomfort at the incision sight. If severe pain develops you should contact your doctor for further instructions. ? MEDICATIONS: Alternate Tylenol 1000mg by mouth every 8 hours and Ibuprofen 600mg every 6 hours. ?Make sure you take ibuprofen with food and not on an empty stomach. ?Take the Tylenol and ibuprofen continuously for the first 72hrs- not just when you have pain. ?Use the tramadol for breakthrough pain/pain >7.? Use ICE!?? Twenty minutes on, and then off, continuously for the first 72hours. If you are taking narcotic pain medication, follow the instructions on the label and do not drive. Pain medications can make you very constipated. Make sure you are moving your bowels daily. If not, take Miralax or Milk of Magnesia.?? Anesthesia makes you very constipated.? Take a dose of milk of magnesia the morning after surgery. ? REPORT: Unusual swelling, severe pain, unresolved nausea, signs of infection, or difficulty in urination to your surgeon. Follow up in clinic with Dr. Ramos in 2 weeks.? [phone] Stand Alone Forms: Anesthesia Discharge Maryellen Munoz (DSU) Activity:: see above Remove Dressings/Wound Care:: 24 hours Shower/Bathe:: 24 hours Diet:: As Tolerated Discharge Orders Discharge Orders: Discharge Order (Routine); Ordered 07/10/23 Ordered By: Janet Ramos Discharge Data Discharge Date/Time-TO BE ENTERED AT DEPARTURE: 07/11/23 15:07 DS: Diagnosis Discharge Diagnosis (1) Non-healing surgical wound: Status: Acute (2) Pseudofolliculitis barbae: Status: Acute Asessment and Plan: The patient is doing well post-op from their left jaw lesion excision.? They are having no nausea or vomiting. They are tolerating liquids and a snack. The pt is not having any chest pain or SOB.? Their pain is adequately controlled. They have been able to urinate.? ?HEENT:? no eye pain/drainage/redness/swelling. Mild sore throat ?Cardio- NSR, no chest pain, BP stable- see VS record ?Pulm: no sob or productive cough. No hemoptysis ?Incision- dressing is c/d/i w/ no excessive bleeding or drainage ?I discussed with the patient the findings at the time of surgery and the patient?s progress. ?We reviewed expectations at home; what the patient could expect for recovery time, and in the post-operative period.? We discussed the importance of walking to avoid blood clots and pneumonia.? We discussed and reviewed the patient's post-operative wound care and dressing needs.?? We reviewed their step-leonard pain management plan, Rx called to the pharmacy of their choice.? We reviewed activity and limitations-see discharge instructions. We reviewed warning signs, and when to seek medical attention- see d/c instructions.?? Patient was given a postoperative follow-up appointment. (3) Mastocytic enterocolitis: Status: Acute (4) Hypercholesterolemia: Status: Acute (5) High blood pressure: Status: Acute (6) Color blindness: Status: Acute (7) Chronic pain syndrome: Status: Acute (8) Attention deficit disorder with hyperactivity: Status: Acute (9) Asthma without status asthmaticus: Status: Acute (10) Allergic rhinitis: Status: Acute (11) Mucous retention cyst of maxillary sinus: Status: Acute
[2023-07-11] VITALS (7 sets, daily range): BP systolic 104–150; BP diastolic 73–95; PULSE 77–88; RESP 12–24; TEMP 36.4–36.7; O2SAT 94–98; BMI 29.0
--- NOTE | 2023-07-11 06:29 | W.ANESPRE ---
General Info Date of Service Date Performed: 07/11/23 Height: 5 ft 6 in Weight: 81.647 kg Body Mass Index (BMI): 29.0 Surgical Procedure: Operation Date: 07/11/23 11:10 Proposed Procedure Side Surgeon p Excision Lesion Chin, Lt Jaw Left Janet Ramos, Meds Allergies and Home Medications Allergies Allergy/AdvReac Type Severity Reaction Status Date / Time amlodipine besylate AdvReac Unknown edema Verified 07/11/23 08:56 [From Norvasc] ankles duloxetine HCl AdvReac Unknown Verified 07/11/23 08:56 [From Cymbalta] lamotrigine [From Lamictal] AdvReac Unknown Verified 07/11/23 08:56 Home Medication Medication Instructions Recorded methylphenidate HCl 20 mg 40 mg PO DAILY 01/16/17 tablet,extended release (Metadate ER) zafirlukast 10 mg tablet (Accolate) 10 mg PO DAILY 03/07/17 acetaminophen 500 mg tablet 1,000 mg (2 x 500 mg) PO Q8H PRN 04/09/19 pain #30 tabs ibuprofen 600 mg tablet 600 mg PO Q6H PRN #60 tabs 04/09/19 loratadine-pseudoephedrine ER 10 1 tab PO DAILY 04/09/19 mg-240 mg tablet,extended [id number] (Claritin-D 24 Hour) albuterol sulfate 90 mcg/actuation 2 puff inhalation Q6H PRN #8.5 09/03/21 aerosol inhaler grams fremanezumab-vfrm 225 mg/1.5 mL 225 mg (1.5 mL) subcut QMONTH #1.5 07/18/22 subcutaneous auto-injector (Ajovy) mL rizatriptan 10 mg tablet (Maxalt) See Rx Instructions PO .COMPLEX 07/18/22 #12 tabs sertraline 100 mg tablet (Zoloft) 200 mg PO DAILY 07/18/22 verapamil 180 mg 24 hr 180 mg PO QAM 07/18/22 capsule,extended release lorazepam 1 mg tablet 1 mg PO DAILY PRN 08/11/22 estradiol 0.1 mg/24 hr semiweekly 1 patch transdermal ONCE 09/22/22 transdermal patch leuprolide 3.75 mg intramuscular 3.75 mg IM QMONTH 09/22/22 syringe kit (Lupron Depot) tamsulosin 0.4 mg capsule 0.4 mg PO DAILY #90 caps 04/05/23 gabapentin 300 mg capsule 300 mg PO QHS 06/19/23 Current Visit Medications: Current Medications Generic Name Dose Route Start Last Admin Trade Name Guillaumeq PRN Reason Stop Dose Admin Acetaminophen 1,000 mg 07/11/23 06:00 Acetaminophen 500 Mg Tab PO 07/11/23 23:59 PREOP SERAFIN Gabapentin 600 mg 07/11/23 06:00 Gabapentin 300 Mg Cap PO 07/11/23 23:59 PREOP SERAFIN Ringer's Solution 1,000 mls @ 80 mls/hr 07/11/23 06:00 IV 07/11/23 23:59 INFUSION SERAFIN Cefazolin Sodium/Dextrose 2 gm in 50 mls @ 100 mls/hr 07/11/23 06:00 Ancef Duplex IVPB 07/11/23 23:59 PREOP SERAFIN Ondansetron HCl 4 mg/ Sodium 52 mls @ 200 mls/hr 07/10/23 21:21 Chloride IVPB 08/09/23 21:20 Q6H PRN PRN IV Miscellaneous Supplies 1 each 07/11/23 06:00 Iv Access IV 07/11/23 23:59 DIRECTED SERAFIN Morphine Sulfate 2 mg 07/10/23 21:21 Morphine 4 Mg/Ml Syr IVP 08/09/23 21:20 Q1H PRN PRN Sodium Chloride 0 ml 07/11/23 06:00 Normal Saline Flush 10 Ml Syr IV 07/11/23 23:59 PRN PRN Sodium Chloride 0 ml 07/11/23 06:00 Normal Saline 10 Ml Vial IJ 07/11/23 23:59 DIRECTED PRN Sterile Water 0 ml 07/11/23 06:00 Water,Injection,Sterile 10 Ml Vial IJ 07/11/23 23:59 DIRECTED PRN Tramadol HCl 50 mg 07/10/23 21:21 Tramadol 50 Mg Tab PO 08/09/23 21:20 Q6H PRN PRN Pain PFSH Active Problems Active Problems: Problem Status Onset Code Non-healing surgical wound T81.89XA 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 Lateral epicondylitis of right elbow M77.11 Migraine headache with aura G43.109 Abdominal bloating R14.0 Nausea R11.0 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 Right shoulder pain M25.511 Primary localized osteoarthrosis, ankle and foot 03/18/14 M19.079 Mononeuropathy of left upper extremity 12/23/14 G56.92 Medial epicondylitis, right elbow 09/08/15 M77.01 Lumbosacral spondylosis 03/18/14 M47.817 Intermittent explosive disorder 03/18/14 F63.81 Hypercholesterolemia 03/18/14 E78.00 High blood pressure 04/18/14 I10 Elevated blood pressure reading without diagnosis of hypertension 03/18/14 R03.0 Depressive disorder 03/18/14 F32.9 Color blindness 03/18/14 H53.50 Chronic pain syndrome 03/18/14 G89.4 Attention deficit disorder with hyperactivity 03/18/14 F90.9 Asthma without status asthmaticus 03/18/14 J45.909 Allergic rhinitis 03/18/14 J30.9 Acne 03/18/14 L70.9 Abnormal involuntary movements 03/18/14 R25.9 Trigger finger, right middle finger M65.331 Trigger finger, left middle finger M65.332 Sinusitis J32.9 Occipital neuralgia M54.81 Fatigue R53.83 Mucous retention cyst of maxillary sinus J34.1 Abdominal pain R10.9 Medical History Medical History ADHD Asthma Depression Deviated nasal septum surgery, trimmed turbinates Gross hematuria Hypercholesteremia pt. denies this Hypertension Male circumcision Neuroma removal R hand x 2 Shoulder pain right Tennis elbow L surgery Medical History Comments:: Pt. states he takes him a long time to come out of anesthesia, stated to ask Dr. Adair about it: per Lexie: He is hard to get to go to sleep ( he fights it) and then it takes him a long time to wake up Surgical History Surgical History H/O hemorrhoidectomy H/O: vasectomy History of bunionectomy R foot History of esophagogastroduodenoscopy (EGD) (~11/2020) History of lumbar fusion L5-S1 per pt. Hx of surgical procedure I & D Left foot Hx of tonsillectomy S/P trigger finger release RMF Status post lumbar and lumbosacral fusion by anterior technique L5-S1 Tobacco Smoking/Tobacco Use Status: Never Alcohol Alcohol Intake: current Alcohol intake frequency: holidays/special occasions only Alcohol type: wine Substance Use Substance use: Never Substance use type: does not use Vital Signs and Lab Results Vital Signs Most Recent Vital Signs in EMR: Temp Pulse Resp BP Pulse Ox 36.7 C 80 18 150/95 H 97 07/11/23 09:26 07/11/23 09:26 07/11/23 09:26 07/11/23 09:26 07/11/23 09:26 Lab Results Blood Type / Crossmatch: No Data to Display Complete Blood Count: No Data to Display Complete Metabolic Panel: Sodium 138 mmol/L (136-145) 06/19/23 14:00 Potassium 4.1 mmol/L (3.5-5.1) 06/19/23 14:00 Chloride 101 mmol/L (98-107) 06/19/23 14:00 Carbon Dioxide 30.9 mmol/L (21.0-32.0) 06/19/23 14:00 BUN 24 mg/dL (7-18) H 06/19/23 14:00 Creatinine 1.3 mg/dL (0.70-1.30) 06/19/23 14:00 Est GFR (CKD-EPI 2020) 66.10 (mL/min/1.73m2) 06/19/23 14:00 Calcium 9.8 mg/dL (8.5-10.1) 06/19/23 14:00 Glucose 85 mg/dL (74-106) 06/19/23 14:00 Liver Function Panel: No Data to Display Coagulation Panel: No Data to Display Cardiac Panel: No Data to Display Arterial Blood Gas: No Data to Display Venous Blood Gas: No Data to Display Pancreas Panel: No Data to Display Thyroid Panel: No Data to Display Infectious Disease: No Data to Display Blood Cultures: No Data to Display Toxicology Panel: No Data to Display Anesthesia Assessment and Plan Anesthesia History Personal History: Delayed Emergence Family History: No Family History of Anesthesia Complications Exercise Tolerance Exercise Tolerance: Metabolic Equivalents>4 Cardiac & Pulmonary Exam Cardiac Exam: Normal S1/S2 Heart Sounds Pulmonary Exam: Clear Bilateral Breath Sounds Implantable Cardiac Device Does patient have a Pacemaker or an ICD?: No Airway Exam Known Difficult Airway: No Mallampati Class: 3 Mouth Opening: Narrow (< 3cm) Thyromental Distance: Greater than 3 cm Neck Range of Motion: Full ROM Neck Circumference: Normal Teeth Condition: Normal Dentition ASA Classification ASA Score: ASA 2 Emergency Case?: No NPO Status NPO Status: NPO Clears >2 hours, Solids >8 hours Anesthesia Plan Resuscitation Status: Full Code Anesthesia Technique: MAC Anesthesia Airway Planned: LMA Monitors Used: Standard Monitors Preoperative Comments:: 53 yo for jaw skin lesion removal. Sig PMHx: HTN, asthma (zafirlukast, rare albuterol), depression, ADHD, migraine, on HRT, mastocytic enteritis. Discussed with pt and surgeon, given location on face and need to deep sedation, low threshold for LMA - blayne given increased incidence of snoring as stated by pt.
[2023-07-11] MEDS: Acetaminophen 500 MG TAB 1000 MG PO (09:19)
[2023-07-11] MEDS: Gabapentin 300 MG CAP 600 MG PO (09:19)
[2023-07-11] MEDS: Lactated Ringers 1,000 ML 80 ML IV (09:20)
[2023-07-11] MEDS: ceFAZolin 2 GM/50 ML BAG IVPB (12:27)
[2023-07-11] MEDS: Bupivacaine 0.25% Pres-Free 30 ML VIAL (12:41)
--- NOTE | 2023-07-11 12:46 | SKI_PTH ---
PATIENT: Galilea Adair LOC: [facility] U#:[id number] AGE/SX: 53/M ROOM: RE07/11/[address]: Janet Ramos : 1970 BED: DIS: 07/11/2023 SPEC #: [id number] RECD: 07/11/23 16:02 STATUS: ELLIOT REManan #: [id number] BRIONNA: 07/11/23 12:[address]: Janet Ramos DEPT: Surgical Specimen RECD BY: Arpita Keller ENTERED: 07/11/23 16:05 SP TYPE: SUMEET RYAN DR: Jesse Gardner Tissues: 1 - SKIN BIOPSY(SHAVE/PUNCH) Procedures: SKIN LEVEL 4 SPECIAL STAIN 1 Comments: [id number]
--- NOTE | 2023-07-11 13:48 | W.ANESPOSTOP ---
Postoperative Evaluation Date, Time and Location Date Performed: 07/11/23 Time Performed: 13:48 Patient Location: PACU Vital Signs Most Recent Imported Vital Signs: Most Recent Vital Signs Temp Pulse Resp BP Pulse Ox 36.6 C 80 14 105/73 97 07/11/23 13:35 07/11/23 13:35 07/11/23 13:35 07/11/23 13:35 07/11/23 13:35 Pain Score Most Recent Pain Score: Most Recent Pain Score Pain Level 0 07/11/23 13:35 Assessment Mental Status: Arousable with meaningful communication Airway and Respiratory Function: Patent airway with normal (patient baseline) respiratory exam Cardiovascular Function: Hemodynamically Stable Hydration Status: Adequately Hydrated Nausea & Vomiting: No Nausea or Vomiting Pain: Pain is tolerable per patient Peripheral Nerve Block: Patient did not receive a nerve block
--- NOTE | 2023-07-11 21:33 | W.PM.OP ---
Date of service: 07/11/23 Time of Service: 13:30 Operative Note Operative Note DATE OF PROCEDURE: 07/11/23 PRE-OP DIAGNOSIS: pseudobarbae folliculitis POST-OP DIAGNOSIS: same PROCEDURE: excision soft tissue /non-healing lesion. SURGEON: Janet Ramos HEALTHCARE RISK CONTROL CONSULTANT: Margi Bnun ANESTHESIA TYPE: Local By Surgeon and General LMA/ETT Refer to Anesthesia Record ESTIMATED BLOOD LOSS: 5 PATHOLOGY: other COMPLICATIONS: None Patient was transported to: PACU Patient's condition: stable Procedure Description: Patient has a nonhealing facial wound. He has a longstanding history of pseudofolliculitis barbae, and is here today for excision. The lesion is marked in preop. Informed consent is obtained explaining risks and benefits of the procedure including but not limited to: Bleeding, infection, pneumonia, blood clots, complications with anesthesia, scarring, chronic pain or chronic numbness, poor cosmesis, need to heal by secondary intent and recurrence of folliculitis. The lesion is irregular shaped and is approximately 2.5 x 2 cm. The patient is brought to the operative room suite and placed supine position. Anesthesia is administered per the department of anesthesia. He did receive preoperative antibiotics. The patient is prepped and draped in the usual sterile fashion using a Betadine scrub solution. Timeout is performed. The wound is infiltrated with 30 cc of .25%Marcaine before and at the end of the procedure. The lesion is excised using sharp dissection down to the fat. The base of the wound is cauterized. Electrocautery was used to raise skin flaps/ undermine. Deep tissues is approximated with 3-0 Monocryl. Skin is approximated with 4-0 nylon. The total length of the incision is 4 cm. Sterile dressing is applied. Patient had tolerated the procedure well without complication and transferred to the recovery room in stable condition
== END 2023-07-11 15:07 | disposition home or self-care (01) ==
PROVIDERS: PCP Internal Medicine; Visit Provider Surgery
PROC: 0HB1XZZ Excision of Face Skin, External Approach (ICD-10-PCS; CPT 21012; principal; 2023-07-11 11:00)
DX: T81.89XA Other complications of procedures, not elsewhere classified, initial encounter (principal); L73.1 Pseudofolliculitis barbae; E78.00 Pure hypercholesterolemia, unspecified; I10 Essential (primary) hypertension
CPT/HCPCS: 21012; 88305; 88312; J0690; J1100; J1885; J2405; J2704

== ENCOUNTER 2023-11-15 05:09 | Outpatient (CLI) | payer OTHER, SELFPAY ==
[2023-11-15 12:00] LABS: BUN 24 mg/dL (7-18); Calcium 9.1 mg/dL (8.5-10.1); Chloride 109 mmol/L (98-107); Estimated GFR 90.56 (mL/min/1.73m2); Glucose 98 mg/dL (74-106); Potassium 3.7 mmol/L (3.5-5.1); Sodium 145 mmol/L (136-145)
[2023-11-15 17:48] LABS: Estradiol 80 pg/mL (<40)
[2023-11-18 10:11] LABS: Testosterone, Total 15 ng/dL (240-950)
== END 2023-11-15 05:10 | disposition home or self-care (01) ==
LOC: LBO 05:09
PROVIDERS: PCP Internal Medicine; Visit Provider Physician Assistant
DX: F64.9 Gender identity disorder, unspecified (principal)
CPT/HCPCS: 36415; 80048; 84403; 82670

== ENCOUNTER 2024-08-19 16:33 | Outpatient (REF) | payer OTHER, SELFPAY ==
--- OUTSIDE RECORDS SUMMARY | 2024-08-19 16:38 | XMS_ITS | Encounter Summary ---
Author Organization [facility] Address [facility] [place] [address] Care Team Providers Care Chronometer Tester Name Role Phone Catalina Blanchard MD Primary Care Provider [phone] Encounter Details Date Type Department Care Team (Late st Contact Info) Description 03/04/2024 10:30 AM EDT Office [place] [address] Karine Lechuga PA [facility] [place] [address] Gender dysphoria Social History Tobacco Use Types Packs/Day Years Used Date Smoking Tobacco: Never Smokeless Tobacco: Never Alcohol Use Standard Drinks/Week Comments No 0 (1 standard drink = 0.6 oz pur e alcohol) Sex and Gender Information Value Date Recorded Sex Assigned at Male 06/10/2022 9:06 PM EDT Gender Identity Female 06/10/2022 9:06 PM EDT Sexual Orientation Lesbian or Porter 06/10/2022 9: 06 PM EDT documented as of this encounter Last Filed Vital Signs Vital Sign Reading Time Taken Comments Blood Pressure 149/99 03/04/2024 10:19 AM EDT Pulse 80 03/04/2024 10:19 AM EDT Temperature 36.8 ??C (98.3 ??F) 03/04/2024 10:19 AM E DT Respiratory Rate - - Oxygen Saturation 98% 03/04/2024 10:19 AM EDT Inhaled Oxygen Concentration - - Weight 85.5 kg (188 lb 9.6 oz) 03/04/2024 10:19 AM EDT Height 167.6 cm (5' 6) 03/04/2024 10:19 AM EDT Body Mass Index 30.44 03/04/2024 10:19 AM EDT documented in this encounter Patient Instructions * Patient Instructions* Karine Lechuga PA - 03/04/2024 10:30 AM EDT --Labs today, will contact with results --Will make sure you have refills --Will send in prescription for sharps container --Will send estradiol as one vial per month --Let me know if you need any referrals--tracheal shave or orchiectomy --Follow up in 6mo, sooner as needed documented in this encounter Progress Notes * Karine Lechuga PA - 03/04/2024 10:30 AM EDT Gender [facility] Follow Up Note Date of visit: 03/04/2024 Reason for visit: Patient is a 53 y.o. who identifies as female, assigned male at , who presents to follow up today on gender-affirming hormone therapy started 09/06/22. Asserted name--Galilea (previously E), pronouns she/her. Plan from last visit with MAGALIE Rios on 12/05/23: --Switch to injectable estradiol, 0.2mL (4mg) once/week --Check out the DH injection training video on our transgender website under the patient education section. --Check out [employer]'s transgender injection guide. Make sure to read the subcutaneous section. --Start progesterone 100mg once/day --Plan to do one more injection of Lupron, then stop --Follow up in 3mo, sooner as needed Interval History: Pt here for routine f/u visit for management of gender-affirming hormone therapy. Duration of treatment 1 year and 6mo. Since last visit pt's child came out as transgender, previously was Pete, now is Alexandria. Pt reports doing great with estradiol injections. Does on Sundays. Stopped Ajovy for a while, had vertigo, thought to be having vestibular migraines. Now back on Ajovy and symptoms improved. Feels a little less emotional on estradiol injections. Thinking about orchiectomy. Having dysphoria about facial hair and hoping orchiectomy may help to cut down on facial hair. Seeing increase in hips and butt along with continued breast development. Dysphoria in general is better, the biggest struggle is face, difficulty with shaving related to scar.Looking for a place to do electrolysis--checking into [facility]. PCP put in referral to plastic surgery to address scar on face. Past Medical History: H/O migraine headaches HTN Mastocytic enterocolitis BRCA negative ADHD Depression Anxiety Intermittent explosive disorder Past Surgical History: No h/o gender-affirming surgeries. 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 Physical exam: BP (!) 149/99 (BP Location (NBP): Left arm) Pulse 80 Temp 36.8 ??C (98.3 ??F) (Temporal) Ht 167.6 cm (5' 6) Wt 85.5 kg (188 lb 9.6 oz) SpO2 98% BMI 30.44 kg/m?? General: pleasant, sitting comfortably, no distress Eyes: EOMI, no proptosis, no periorbital edema Mouth/Face: not round or red Neck: trachea midline Resp: breathing comfortably on room air, no audible stridor, normal respiratory effort, LCTAB Cardiac: RRR MSK: no visible kyphosis or scoliosis, normal musculature Extremities: moving all 4 normally, no clubbing or cyanosis Skin: no visible acanthosis, jaundice or pallor Psych: normal affect, alert and oriented Laboratory data: Ordered to be done today, one day after estradiol injection Outside labs done 11/15/23 Total testosterone 15 ng/dL Estradiol 80 pg/mL Outside labs done 06/19/23 Total testosterone 16 ng/dL Estradiol 80 pg/mL Outside labs done 12/23/22 Estradiol 73 pg/mL Remaining lab results not sent Outside labs done 06/09/22 Total cholesterol 173 mg/dL Triglycerides 275 mg/dL HDL 27 mg/dL LDL 91 mg/dL Outside labs done 07/01/22 PSA 0.9 ng/mL Creatinine 1.1 mg/dL GFR 81.28 Potassium 3.9 mmol/L AST 20 U/L ALT 27 U/L Medications: Medications 03/04/24 1022 Medication Sig Taking? Estradiol Valerate (Delestrogen) 20 mg/mL Oil Inject 0.2mL (4mg) once every 7 days per provider instructions Patient taking differently: Inject 0.2mL (4mg) once every 7 days per provider instructions Needs refill Yes Needle, Disp, 21 G 21 gauge x 1 Needle Use 1 needle every 7 days to DRAW UP medication. Yes Needle, Disp, 25 G 25 gauge x 5/8 Needle Use one needle every 7 days to INJECT medication as instructed. Yes Syringe, Disposable, 1 mL Syringe 1 each by [facility].(Non-Drug; Combo Route) route every 7 days. Use one syringe every 7 days to administer medication. Must be Luer-Kori. Yes proGESTerone (Prometrium) 100 mg capsule Take 1 capsule by mouth daily. Yes losartan (Cozaar) 25 mg tablet Take 25 mg by mouth daily. Yes tamsulosin (Flomax) 0.4 mg Capsule daily. Yes Ajovy Autoinjector 225 mg/1.5 mL Auto-Injector Yes rizatriptan (MAXALT) 10 mg Tablet Take 10 mg by mouth as needed. Yes LORazepam (Ativan) 1 mg Tablet as needed. Yes albuteroL 90 mcg/actuation HFA Aerosol Inhaler Inhale 2 puffs into the lungs every 4 hours as needed for Wheezing. Use with spacer Yes zafirlukast (ACCOLATE) 10 mg Tablet Take 1 tablet by mouth daily. Yes sertraline (ZOLOFT) 100 mg Tablet Take 100 mg by mouth daily. Yes Assessment: Galilea is a 53 y.o. transgender female, AMAB, with a past medical history of migraine headaches, HTN, depression and anxiety, on gender-affirming hormone therapy (GAHT) x1 year and 6mo. Physical andemotional changes occurring consistent with duration and dose of treatment. Pt with improvement in overall wellbeing and decrease in gender dysphoria. Pt doing well with med changes made last visit--switch to injectable estradiol and progesterone. Migraine symptoms stable on Ajovy. Discussed surgical goals. Due for labs and will continue routine follow up. Plan: --Labs today, will contact with results --Will make sure you have refills --Will send in prescription for sharps container --Will send estradiol as one vial per month --Let me know if you need any referrals--tracheal shave or orchiectomy --Follow up in 6mo, sooner as needed This was a 20 minute visit spent face to face with patient discussing gender- affirming hormone therapy and providing education including but not limited to information in history and plan. An additional 10 minutes was spent reviewing previous notes and labs, ordering labs and medication & completing documentation. Karine Lechuga PA-C Department of Endocrinology [place], [place] documented in this encounter Plan of Treatment Upcoming Encounters Date Type Department Care Team (Late st Contact Info) Description 09/03/2024 9:00 AM EST TH Visit (TeleHealth) [place] [address] Karine Lechuga PA [facility] [place] [address] documented as of this encounter Procedures Procedure Name Priority Date/Time Associated Diagnosis Comments ESTRADIOL Routine 03/04/2024 11:20 AM EDT Gender dysphoria TESTOSTERONE, TOTAL Routine 03/04/2024 1 1:20 AM EDT Gender dysphoria BASIC METABOLIC PANEL Routine 03/04/2024 11:20 AM EDT Gender dysphoria documented in this encounter Results * (ABNORMAL) Basic Metabolic Panel (non-fasting) (03/04/2024 11:20 AM EDT) Glucose 99 65 - 199 mg/dL [facility] Comment:Diabetes: >=200 mg/d L plus symptoms Blood Urea Nitrogen 21(H) 10 - 20 mg/dL [facility] Creatinine 0.92 0.80 - 1.50 mg/dL [facility] Sodium 141 135 - 145 mmol/L [facility] Potassium 4.8 3.5 - 5.0 mmol/L [facility] Comment: Please note: ??Patients with WBC >100,000 may have falsely elevated Potassium levels. ??For accurate Potassium quantification in these patients send serum separator tube (gold top) for subsequent determinations. ??Contact the Clinical Chemistry Laboratory if there are any questions. Chloride 106 98 - 107 mmol/L [facility] Carbon Dioxide 26 22 - 31 mmol/L [facility] Anion Gap 9 5 - 15 mmol/L [facility] Calcium 9.4 8.5 - 10.5 mg/dL [facility] Est Glomerular Filtration Rate 100 >=60 mL/min/1. 73 m?? [facility] Comment: This patient's estimated GFR was calculated using the 2020 CKD-EPI equation. The estimated GFR can vary from the measured GFR by up to 30% in the absence of rapidly changing kidney function. Assessment of the estimated GFR is not appropriate when creatinine concentrations are rapidly changing. For clinical situations in which a more precise estimate of GFR is necessary, consider alternative methods of GFR estimation such as a 24-hour urine creatinine clearance. Assignment of CKD stage 1-5 for patients with an eGFR near the transition point between stages may be based on clinical assessment of muscle mass and symptoms in addition to eGFR. Blood 03/04/2024 11:2 0 AM EDT 03/04/2024 11:27 AM EDT Narrative Resulting Agency Comment Spec In Lab Herbert Toledo MD CHEMISTRY ORDERABLES [facility] [place] [address] * Estradiol (03/04/2024 11:20 AM EDT) Estradiol 208 pg/mL [facility] Comment: Reference ranges: Males: Adult: ? 11 to 43 pg/mL Females: Non- females: ?Follicular: ??12-233 pg/mL ?Ovulation: ?? 41-398 pg/mL ?Luteal: ?22-341 pg/mL ?Postmenopausal: ?? <5 - 138 pg/mL females: ?1st trimester: ??154-3243 pg/mL ?2nd trimester: ??1561-00470 pg/mL ?3rd trimester: ??8525- >95356 pg/mL Blood 03/04/2024 11:2 0 AM EDT 03/04/2024 11:27 AM EDT Narrative Resulting Agency Comment Spec In Lab Herbert Toledo MD CHEMISTRY ORDERABLES [facility] [place] [address] * (ABNORMAL) Testosterone, total (03/04/2024 11:20 AM EDT) Testosterone <0.12(L) 1.93 - 7.40 ng/mL [facility] Comment: Pediatric Reference Ranges: ? Males (7 - 18 years) ?Females (8 - 18 years) Jj Stage ?ng/ml ? ng/ml ? 1 ? <0.03 ? <0.03 to 0.06 ? 2 ? <0.03 to 4.32 ? <0.03 to 0.10 ? 3 ?0.65 to 7.78 ? <0.03 to 0.24 ? 4 ?1.80 to 7.63 ? <0.03 to 0.27 ? 5 ?1.88 to 8.82 ?0.05 to 0.38 Stated reference ranges derived from review of Skylar Debbie Testosterone II 06/2022, v2.0 Blood 03/04/2024 11:2 0 AM EDT 03/04/2024 11:27 AM EDT Narrative Resulting Agency Comment Spec In Lab Herbert Toledo MD CHEMISTRY ORDERABLES Performing Organization Address City/State/[facility] Co de Phone Number [facility] [place] [address] documented in this encounter Visit Diagnoses Diagnosis Gender dysphoria Gender identity disorder in children documented in this encounter Care Teams Chronometer Tester Relationship Specialty Start Date End Date Catalina Blanchard MD [address] [place] [address] PCP - General Family Medicine 10/30/23 documented as of this encounter
--- OUTSIDE RECORDS SUMMARY | 2024-08-19 16:38 | XMS_ITS | Encounter Summary ---
Author Organization [facility] Address [facility] [place] [address] Care Team Providers Care Bias Binding Cutter Name Role Phone Jesse Gardner MD Primary Care Provider + [phone] Encounter Details Date Type Department Care Team (Late st Contact Info) Description 12/07/2022 8:00 AM EDT TH Visit (TeleHealth) [place] [address] Karine Lechuga PA [facility] [place] [address] Gender dysphoria Social History Tobacco Use Types [...] PM EDT documented as of this encounter Patient Instructions * Patient Instructions* Karine Lechuga PA - 12/07/2022 8:00 AM EDT --Talk with your PCP about possible SAMMIE and need for workup with sleep medicine --Labs ordered to do at [facility] lab --Will contact with results and instructions --Follow up in 3mo, sooner as needed documented in this encounter Progress Notes * Karine Lechuga PA - 12/07/2022 8:00 AM EDT Gender Clinic Follow Up Note Date of visit: 12/07/2022 Telehealth Documentation (video available). Duration of call: 25 minutes Location of patient: [address] [facility] [address] Location of provider: home location, [place] Reason for visit: Patient is a 52 y.o. transgender patient who identifies as female, assigned male at , who presents to follow up today on gender- affirming hormone therapy started 09/06/22. Asserted name--still using Jhonathan, will be using E or M in the future, pronouns he/him in public for now. Plan from last visit with MAGALIE Rios on 09/06/22: --All questions answered. Informed consent provided to start gender-affirming hormone therapy. --Start estradiol patch 0.1mg 2x week. --Start Lupron 3.75mg once every 28 days. Need to order through specialty pharmacy and check insurance coverage. If not covered or too expensive will plan on using spironolactone, in this case safety labs 4-6 weeks after starting to monitor kidneys and potassium. --Follow up in 3mo with labs one week prior, sooner as needed. Interval History: Pt here for routine f/u visit for management of gender-affirming hormone therapy. First follow up visit after starting hormone therapy 3mo ago. Pt reports that her is now starting to process pt's transition. 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 Still needing to be private about transition [place] '[place] Pt having SAMMIE. Has gained weight, unsure how much. Part of this is d/t being somewhat sedentary. Planning to be more active with spring weather. Physical changes-- a lot, nipples are sore, developing an ass and some hips. Has let hair on scalp grow. I'm seeing myself more and more. 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 is doing the Lupron injections. Mood is better, has been able to decrease dose of MH meds. Planning to stop Zoloft completely. Biggest stress is her and how she's handling it. Pt reports doing better with migraineHA. Has not had as many breakthrough headaches. Hasn't checked out the support group in the [place] area yet. On some groups on Facebook. 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 Past Medical History: H/O migraine headaches HTN Mastocytic enterocolitis BRCA negative ADHD Depression Anxiety Intermittent explosive disorder Past Surgical History: No h/o gender-affirming surgeries. 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 +weight gain, breathing disturbance at night Physical exam: General: physical exam deferred d/t telehealth. Pt appeared in NAD on video. Laboratory data: Ordered Outside labs done 06/09/22 Total cholesterol 173 mg/dL Triglycerides 275 mg/dL HDL 27 mg/dL LDL 91 mg/dL Outside labs done 07/01/22 PSA 0.9 ng/mL Creatinine 1.1 mg/dL GFR 81.28 Potassium 3.9 mmol/L AST 20 U/L ALT 27 U/L Medications: Medications 12/07/22 0803 Medication Sig Taking? leuprolide (Lupron Depot) 3.75 mg Syringe Kit Inject 1 kit into the muscle every 28 days. Yes tamsulosin (Flomax) 0.4 mg Capsule daily. Yes loratadine-pseudoephedrine (CLARITIN-D) 10-240 mg Tablet Sustained Release 24 hr Take 1 tablet by mouth Daily. Yes estradioL 0.1 mg/24 hr Patch Semiweekly Change 1 patch on the skin twice a week. Yes verapamiL SR (Calan-SR) 180 mg Tablet Sustained Release Yes Ajovy Autoinjector 225 mg/1.5 mL Auto-Injector Yes rizatriptan (MAXALT) 10 mg Tablet Yes LORazepam (Ativan) 1 mg Tablet as needed. Yes albuteroL 90 mcg/actuation HFA Aerosol Inhaler Inhale 2 puffs into the lungs every 4 hours as needed for Wheezing. Use with spacer Yes zafirlukast (ACCOLATE) 10 mg Tablet Take 1 tablet by mouth daily. Yes meclizine (ANTIVERT) 25 mg Tablet Take 25 mg by mouth 2 times daily as needed. Yes methylphenidate (METADATE ER) 20 mg Tablet Sustained Release Take 20 mg by mouth every morning. Yes sertraline (ZOLOFT) 100 mg Tablet Take 50 mg by mouth daily. Yes Assessment: E is a 52 y.o. transgender female, AMAB, with a past medical history of migraine headaches, HTN, depression and anxiety, on gender-affirming hormone therapy (GAHT) x3mo. Physical and emotional changes occurring consistent with duration and dose of treatment. Pt with improvement in overall wellbeingand decrease in gender dysphoria. is helping with leuprolide injections. Due for labs which will guide dosing adjustments. Continue routine Q3mo follow up visits during 1st year of treatment. Plan: --Talk with your PCP about possible SAMMIE and need for workup with sleep medicine --Labs ordered to do at [facility] lab --Will contact with results and instructions --Follow up in 3mo, sooner as needed This was a 25 minute visit spent via telehealth with patient discussing gender- affirming hormone therapy and providing education including but not limited to information in history and plan. An additional 10 minutes was spent reviewing previous notes and labs, ordering medications & completing documentation. Karine Lechuga PA-C Department of Endocrinology [facility] documented in this encounter Plan of Treatment Upcoming Encounters Date Type Department Care Team (Late st Contact Info) Description 09/03/2024 9:00 AM EST TH Visit (TeleHealth) [place] [address] Karine Lechuga PA [facility] [place] [address] documented as of this encounter Visit Diagnoses Diagnosis Gender dysphoria Gender identity disorder in children documented in this encounter Care Teams Bias Binding Cutter Relationship Specialty Start Date End Date Jesse Gardner MD [address] [place] [address] PCP - General Internal Medicine 05/26/15 04/25/23 documented as of this encounter
--- OUTSIDE RECORDS SUMMARY | 2024-08-19 16:38 | XMS_ITS | Encounter Summary ---
Author Organization [facility] Address [facility] [place] [address] Care Team Providers Care Senior Director Finance Name Role Phone Jesse Gardner MD Primary Care Provider + [phone] Encounter Details Date Type Department Care Team (Late st Contact Info) Description 09/06/2022 8:00 AM EST TH Visit (TeleHealth) [place] [address] Karine Lechuga PA [facility] [address] Gender dysphoria Social History Tobacco Use Types [...] * Patient Instructions* Karine Lechuga PA - 09/06/2022 8:00 AM EST --All questions answered. Informed consent provided to [...] labs one week prior, sooner as needed. documented in this encounter Progress Notes * Karine Lechuga PA - 09/06/2022 8:00 AM EST Images from the original note were not included. Gender Clinic Follow Up Note Date of visit: 09/06/2022 Telehealth Documentation (video available). Duration of call: 40 minutes Location of patient: [address] [facility] [address] Location of provider: [place] location, [place] Reason for visit: Patient is a 52 y.o. transgender patient who identifies as female, assigned male at , who presents to follow up today on initiation of gender-affirming hormone therapy. Asserted name--still using Jhonathan, will be using Rama in the future, pronouns he/him for now. Plan from last visit with MAGALIE Rios on 07/27/22: --Will request labs from [facility] --Check out [facility] for their trans-femme and chill group on via Zoom --Check out [facility]'s website with information about feminizing hormone therapy --Schedule soonest available appointment when ready for the next step in starting hormone therapy Interval History: Pt here for the next step in starting gender-affirming hormone therapy--review of medication risks,side effects, timeline of changes, medication options and ultimately to provide informed consent tostart treatment. Since last visit she told work that she will be transitioning. Work colleague will be providing information to pt about an in-person trans-support group in the [facility]. Had long talk with , who accepted pt's desire to transition and has been supportive (begrundgingly). Past Medical History: H/O migraine headaches HTN Mastocytic enterocolitis BRCA negative ADHD Depression Anxiety Intermittent explosive disorder Past Surgical History: No h/o gender-affirming surgeries. 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 Physical exam: General: physical exam deferred d/t telehealth. Pt appeared in NAD on video. Laboratory data: Outside labs done 06/09/22 Total cholesterol 173 mg/dL Triglycerides 275 mg/dL HDL 27 mg/dL LDL 91 mg/dL Outside labs done 07/01/22 PSA 0.9 ng/mL Creatinine 1.1 mg/dL GFR 81.28 Potassium 3.9 mmol/L AST 20 U/L ALT 27 U/L Medications: Medications 09/06/22 0807 Medication Sig Taking? verapamiL SR (Calan-SR) 180 mg Tablet Sustained Release Yes tamsulosin (Flomax) 0.4 mg Capsule daily. loratadine-pseudoephedrine (CLARITIN-D) 10-240 mg Tablet Sustained Release 24 hr Take 1 tablet by mouth Daily. estradioL 0.1 mg/24 hr Patch Semiweekly Change 1 patch on the skin twice a week. leuprolide (Lupron Depot) 3.75 mg Syringe Kit Inject 1 kit into the muscle every 28 days. Ajovy Autoinjector 225 mg/1.5 mL Auto-Injector rizatriptan (MAXALT) 10 mg Tablet LORazepam (Ativan) 1 mg Tablet as needed. albuteroL 90 mcg/actuation HFA Aerosol Inhaler Inhale 2 puffs into the lungs every 4 hours as needed for Wheezing. Use with spacer zafirlukast (ACCOLATE) 10 mg Tablet Take 1 tablet by mouth daily. meclizine (ANTIVERT) 25 mg Tablet Take 25 mg by mouth 2 times daily as needed. methylphenidate (METADATE ER) 20 mg Tablet Sustained Release Take 40 mg by mouth every morning. sertraline (ZOLOFT) 100 mg Tablet Take 200 mg by mouth daily. Assessment: Rama is a 52 y.o. transgender patient with a past medical history of migraine headaches, HTN, depression and anxiety, interested in starting hormone therapy for gender affirmation. Gender history taken at last visit confirms the DSM-5 diagnosis of gender dysphoria. We discussed the importance of obtaining baseline laboratory testing including complete metabolic panel for all patients as well as lipid or A1C screening per USPSTF guidelines based on patient risk factors. These labs were ordered previously by PCP and results reviewed with patient. We reviewed the risks of hormone therapy which include the following: We discussed timeline of physical changes and differentiation of permanent and non-permanent changes. Pt understands that the following are permanent changes and if treatment is stopped at any point in the future, that these changes will remain: --Breast growth --Decreased testicular volume We discussed fertility preservation and desire to have biologic children. Pt is not interested in pursuing fertility preservation prior to starting hormone therapy--has vasectomy. I strongly encourage all patients seeking gender-affirming hormone treatments to abstain from tobacco products prior to starting hormones as to minimize any increased cardiovascular risk associated with their use. Pt does not use any tobacco. Current literature suggests that hormone therapy is safe when followed carefully for certain risks. Jolanta BRAY, Franc BRAY. Hormone therapy in transgender adults is safe with provider supervision; A review of hormone therapy sequelae for transgender individuals. J Clin Translational Endocrinol. 2015;2(2):55-60. Pt meets WPATH criteria for the initiation of hormone therapy: a. Gender incongruence is marked and sustained; b. Meets diagnostic criteria for gender incongruence prior to gender-affirming hormone treatment inregions where a diagnosis is necessary to access health care; c. Demonstrates capacity to consent for the specific gender-affirming hormone treatment; d. Other possible causes of apparent gender incongruence have been identified and excluded; e. Mental health and physical conditions that could negatively impact the outcome of treatment havebeen assessed, with risks and benefits discussed; f. Understands the effect of gender-affirming hormone treatment on reproduction and they have explored reproductive options. We also discussed options for administration of estradiol--patches vs pills. Injectable estradiol currently has a nationwide shortage. Recommendation with pt's migraine is for patches and pt is agreeable to this. Androgen june options discussed--1st line spironolactone, 2nd line Lupron, 3rd lineand without long-term studies to support its use is finasteride, 4th line, without long-term studies and with rare risk of fulminant liver failure bicalutamide. Pt opts for Lupron to help cut down onpill burden. Is ok with spironolactone if insurance doesn't cover Lupron. Can have help with injections if needed. Plan: --All questions answered. Informed consent provided to [...] labs one week prior, sooner as needed. This was a 40 minute visit spent via telehealth with patient discussing gender- affirming hormone therapy and providing education including but not limited to information in history and plan. An additional 10 minutes was spent reviewing previous notes and labs, ordering medications & completing documentation. Karine Lechuga PA-C Department of Endocrinology [facility] documented in this encounter Plan of Treatment Upcoming Encounters Date Type Department Care Team (Late st Contact Info) Description 09/03/2024 9:00 AM EST TH Visit (TeleHealth) [place] [address] Karine Lechuga PA [facility] [place] [address] documented as of this encounter Visit Diagnoses Diagnosis Gender dysphoria Gender identity disorder in children documented in this encounter Care Teams Senior Director Finance Relationship Specialty Start Date End Date Jesse Gardner MD [address] [place] [address] PCP - General Internal Medicine 05/26/15 04/25/23 documented as of this encounter
--- OUTSIDE RECORDS SUMMARY | 2024-08-19 16:38 | XMS_ITS | Encounter Summary ---
Author Organization [facility] Address [facility] [place] [address] Care Team Providers Care Director Of Graduate Medical Education Name Role Phone Jesse Gardner MD Primary Care Provider Reason for Visit * Consultation (Routine) - Closed Specialty Diagnoses / Procedures Referred By Mona t Referred To Contact Endocrinology Diagnoses Gender dysphoria in adult Jesse Gardner MD [address] [place] [address] [facility] [address] [place] [id number] Referral ID Status Reason Start Date Expiration Date V isits Requested Visits Authorized [id number] Closed Consult, Test & Treat 11/18/2021 11/18/2022 6 6 Encounter Details Date Type Department Care Team (Late st Contact Info) Description 07/27/2022 11:00 AM EST Office [place] [address] Karine Lechuga PA [facility] [place] [address] Gender dysphoria Social History Tobacco Use Types Packs/Day Years Used Date Smoking Tobacco: Never Smokeless Tobacco: Never Tobacco Cessation:Counseling Given: Not Answered Alcohol Use Standard Drinks/Week Comments No 0 [...] Sign Reading Time Taken Comments Blood Pressure 157/99 07/27/2022 12:14 PM EST Pulse 104 07/27/2022 10:38 AM EST Temperature 37.2 ??C (98.9 ??F) 07/27/2022 1 0:38 AM EST Respiratory Rate 20 07/27/2022 10:3 8 AM EST Oxygen Saturation 98% 07/27/2022 10: 38 AM EST Inhaled Oxygen Concentration - - Weight 79.7 kg (175 lb 12.8 oz) 022 10:38 AM EST Height 167.6 cm (5' 6) 07/27/2022 10:3 8 AM EST Body Mass Index 28.37 07/27/2022 10:38 AM EST documented in this encounter Patient Instructions * Patient Instructions* Karine Lechuga PA - 07/27/2022 11:00 AM EST --Will request labs from [facility] --Check out [facility] the Open for their trans-femme and chill group on nights via Zoom --Check out [facility] excellence's website with information about feminizing hormone therapy --Schedule soonest available appointment when ready for the next step in starting hormone therapy documented in this encounter Progress Notes * Karine Lechuga PA - 07/27/2022 11:00 AM EST Gender Clinic Initial Consultation Date of visit: 07/27/22 Reason for visit: Patient is a 52 y.o. affirmed female, assigned male at , who presents at therequest of Dr. Jesse Gardner to discuss gender-affirming hormone therapy. Asserted name--still using Jhonathan, has a trans-name Galilea, pronouns he/him for now. HPI: Gender history: pt grew up in an environment where when you were born male you were male. Remembersa couple of episodes with older sister where she would dress pt up when younger and he really enjoyed it. Remembers wearing sister's cheerleader outfit. Has always hated shaving-- hates facial and body hair. 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 Heil about gender dysphoria from the internet and a light bulb came on. Finally understood the difference between gender and sex. In September 2021 finally put the pieces together. Feeling much better since accepting gender. Regarding social transition, is doing more hygiene related things--shaving and s kin care, wearing women's clothing. Lots to consider with regards to transition. [place]. Concern his transition could impact her practice. Also considering amove out of the country in ~2yrs after son finishes HS. Worried about how people in another countrywould accept his gender identify/transition. Pt is flexible with pronouns. Says this will be more important as he passes more. Has a trans name, Galilea, but not using it much yet. Hasn't told his family about desire to transition--parents are older and sister is very baptist. How do you describe your gender identity? Trans male to female lesbian Goals of treatment: decreased body and facial hair, breast growth, look more feminine. Not interested in surgery. Previous hormone use, prescribed or unprescribed: none Past Medical History: H/O migraine headaches HTN Mastocytic enterocolitis BRCA negative Past Mental Health History: Previous MH diagnoses: ADHD, depression, anxiety, intermittent explosive disorder Current/past outpatient MH treatment: in MH therapy with Neelam Camacho in [place], [place] Current/past inpatient MH treatment: inpatient stay in 2005 related to coming off Paxil and having severe panic/anxiety H/O SI: ideation in Sep 2021 just prior to coming out H/O suicide attempts: none Past Surgical History: No h/o gender-affirming surgeries. 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 Physical exam: BP (!) 155/105 (BP Location (NBP): Right arm, Patient Position: Sitting, BP Cuff Sizes: Large Adult(32-43 cm)) Pulse (!) 104 Temp 37.2 ??C (98.9 ??F) (Temporal) Resp 20 Ht 167.6 cm (5' 6) Wt 79.7 kg (175 lb 12.8 oz) SpO2 98% BMI 28.37 kg/m?? Repeat BP 157/99 General: pleasant, sitting comfortably, no distress Eyes: EOMI, no proptosis, no periorbital edema Mouth/Face: wearing mask, not round or red Neck: no supraclavicular fat pads, trachea midline Resp: breathing comfortably on room air, no audible stridor, normal respiratory effort MSK: no visible kyphosis or scoliosis, normal musculature Extremities: moving all 4 normally, no clubbing or cyanosis Skin: no visible acanthosis, jaundice or pallor Psych: normal affect, alert and oriented Laboratory data: Pt reports labs done at [facility] recently. Medications: Medications 07/27/22 1045 Medication Sig Taking? verapamiL SR (Calan-SR) 180 [...] Take 40 mg by mouth every morning. Yes sertraline (ZOLOFT) 100 mg Tablet Take 200 mg by mouth daily. Yes Assessment: Jhonathan Adair is a 52 y.o. female of transgender experience, assigned male at with a PMH of migraine headaches, HTN, depression, anxiety who is interested in starting gender-affirming hormone therapy. WPATH criteria for the initiation of hormone [...] reproduction and they have explored reproductive options. Pt endorses the following symptoms of Gender Dysphoria, which have been present and consistent overthe past 10 months (less consistently since childhood). ?? A marked incongruence between one's gender and primary and/or secondary sex characteristics ?? A strong desire to be rid of one's primary and/or secondary sex characteristics because of a marked incongruence with one's experienced/expresed gender ?? A strong desire for the primary and/or secondary sex characteristics of the other gender ?? A strong desire to be of the other gender (or some alternative gender different from one's assigned gender) ?? A strong desire to be treated as the other gender (or some alternative gender different from one's assigned gender) ?? A strong conviction that one has the typical feelings and reactions of the other gender (or somealternative gender different from one's assigned gender) These symptoms have been associated with clinically significant distress or impairment in social, occupational, or other important areas of functioning. Per gender history above, pt meets criteria A and B. Criteria C: Pt has the capacity to make medical decisions. Other possible causes of apparent gender incongruence have been identified and excluded, meeting criteria D. Mental health and physical conditions that could negatively impact the outcome of treatment have been assessed, with risks and benefits discussed, meeting criteria E. For this patient, physical health conditions to monitor include migraine headaches and HTN. Discussed using estradiol patches to mitigate worsening symptoms. We discussed permanent effects on fertility of hormone therapy. Pt is not interested in fertility preservation prior to starting hormone therapy. Has one son and h/o vasectomy. This meets criteria F. We discussed the need for baseline labs prior to starting hormone therapy. Pt reports having labs done at outside facility. We also discussed [place] Would benefit from talking with other transgender individuals in a similar situation. Advised of support group option. Appropriate to move to the next step in starting gender-affirming hormone therapy when pt is ready. Plan: --Will request labs from [facility] --Check out [facility] Open for their trans-femme and chill group on via Zoom --Check out [facility] excellence's website with information about feminizing hormone therapy --Schedule soonest available appointment when ready for the next step in starting hormone therapy This was a 45 minute visit spent [id number] with patient discussing gender- affirming hormone therapy and providing education including but not limited to information in history and plan. An additional 15 minutes was spent reviewing referral information, requesting labs & completing documentation. Thank you for the referral. Feel free to contact me with any questions. Karine Lechuga PA-C Department of Endocrinology [facility] documented in this encounter Plan of Treatment Upcoming Encounters Date Type Department Care Team (Late st Contact Info) Description 09/03/2024 9:00 AM EST TH Visit (TeleHealth) [place] [address] Karine Lechuga PA [facility] [place] [address] documented as of this encounter Visit Diagnoses Diagnosis Gender dysphoria Gender identity disorder in children documented in this encounter Care Teams Director Of Graduate Medical Education Relationship Specialty Start Date End Date Jesse Gardner MD [address] [place] [address] PCP - General Internal Medicine 05/26/15 04/25/23 documented as of this encounter
--- OUTSIDE RECORDS SUMMARY | 2024-08-19 16:38 | XMS_ITS | Encounter Summary ---
Author Organization [facility] Address [facility] [place] [address] Care Team Providers Care Psychometrist Name Role Phone Catalina Blanchard MD Primary Care Provider [phone] Encounter Details Date Type Department Care Team (Late st Contact Info) Description 03/07/2024 Orders [place] [phone] Karine Lechuga PA [facility] [place] [address] Gender dysphoria Social History Tobacco Use Types [...] PM EDT documented as of this encounter Plan of Treatment Upcoming Encounters Date Type Department Care Team (Late st Contact Info) Description 09/03/2024 9:00 AM EST TH Visit (TeleHealth) [place] [phone] Karine Lechuga PA [facility] [place] [address] Scheduled Orders Name Type Priority Associated Diagnoses Orde r Schedule Estradiol Lab Routine Gender dysphoria Expected: 03/07/2024 (Approximate), Expires: 03/07/2025 Testosterone, total Lab Routine Gender dysphoria Expected: 03/07/2024 (Approximate), Expires: 03/07/2025 documented as of this encounter Visit Diagnoses Diagnosis Gender dysphoria Gender identity disorder in children documented in this encounter Care Teams Psychometrist Relationship Specialty Start Date End Date Catalina Blanchard MD [address] [place] [address] PCP - General Family Medicine 10/30/23 documented as of this encounter
--- OUTSIDE RECORDS SUMMARY | 2024-08-19 16:38 | XMS_ITS | Encounter Summary ---
Author Organization [facility] [place] [address] Care Team Providers Care Production Quality Manager Name Role Phone Catalina Blanchard MD Primary Care Provider [phone] Encounter Details Date Type Department Care Team (Late st Contact Info) Description 03/28/2024 Orders Only [place] [phone] Karine Lechuga PA [facility] [place] [address] Gender dysphoria Social History Tobacco Use Types [...] AM EST TH Visit (TeleHealth) [place] [phone] Karine Lechuga PA [facility] [place] [address] documented as of this encounter Visit Diagnoses Diagnosis Gender dysphoria Gender identity disorder in children documented in this encounter Care Teams Production Quality Manager Relationship Specialty Start Date End Date Catalina Blanchard MD [address] [place] [address] PCP - General Family Medicine 10/30/23 documented as of this encounter
--- OUTSIDE RECORDS SUMMARY | 2024-08-19 16:38 | XMS_ITS | Encounter Summary ---
[place] [address] Care Team Providers Care Corrections Specialist Name Role Phone Catalina Blanchard MD Primary Care Provider [phone] Reason for Referral * Consultation (Routine) - Closed Specialty Diagnoses / Procedures Referred By Mona t Referred To Contact Plastic Surgery Diagnoses Pain in face Headache, unspecified INGROWN HAIR THAT WAS OPERATED ON A COUPLE TIMES AND HAS EXTENSIVE SCARRING ON L LOWER FACE. HAIRS KEEP GROWING UNDER IT AND CAUSING PAIN AND WOUNDS. PREVENTING PT FROM SLEEPING. Catalina Blanchard MD [address] [place] [address] [facility] [address] [place] [address] Referral ID Status Reason Start Date Expiration Date V isits Requested Visits Authorized [id number] Closed Consult, Test & Treat PCP Updated and/or Approved 02/14/2024 08/16/2024 6 6 Encounter Details Date Type Department Care Team (Latest Contact Info) Description 03/01/2024 Transcribe Orders eDH Incoming Referrals [phone] Catalina Blanchard MD [address] [place] [address] Nonintractable headache, unspecified chronicity pattern, unspecified headache type Social History Tobacco Use Types Packs/Day Years [...] AM EST TH Visit (TeleHealth) [place] [address] Karine Lechuga PA [facility] [place] [address] Scheduled Referrals Name Type Priority Associated Diagnoses Orde r Schedule Referral to Plastic Surgery Outpatient Referral Routine Nonintractable headache, unspecified chronicity pattern, unspecified headache type Ordered: 03/01/2024 documented as of this encounter Visit Diagnoses Diagnosis Nonintractable headache, unspecified chronicity pattern, unspecified headache type documented in this encounter Care Teams Corrections Specialist Relationship Specialty Start Date End Date Catalina Blanchard MD [address] [place] [address] PCP - General Family Medicine 10/30/23 documented as of this encounter
--- OUTSIDE RECORDS SUMMARY | 2024-08-19 16:38 | XMS_ITS | Encounter Summary ---
Author Organization [facility] [place] [address] Care Team Providers Care Client Solutions Manager Name Role Phone Jesse Gardner MD Primary Care Provider [phone] Reason for Visit * Reason Onset Date Comments Medication Refill 04/10/2023 Encounter Details Date Type Department Care Team (Late st Contact Info) Description 04/10/2023 Refill [place] [phone] Karine Lechuga PA [facility] [address] Gender dysphoria Social History Tobacco Use Types [...] AM EST TH Visit (TeleHealth) [place] [phone] Karine Lechuga PA [facility] [place] [address] documented as of this encounter Visit Diagnoses Diagnosis Gender dysphoria Gender identity disorder in children documented in this encounter Care Teams Client Solutions Manager Relationship Specialty Start Date End Date Jesse Gardner MD [address] [place] [address] PCP - General Internal Medicine 05/26/15 04/25/23 documented as of this encounter
--- OUTSIDE RECORDS SUMMARY | 2024-08-19 16:38 | XMS_ITS | Encounter Summary ---
Author Organization [facility] Address [facility] [place] [address] Care Team Providers Care College Of Education Dean Name Role Phone Jesse Gardner MD Primary Care Provider [phone] Encounter Details Date Type Department Care Team (Late st Contact Info) Description 05/30/2023 8:00 AM EDT TH Visit (TeleHealth) [place] [address] Karine Lechuga PA [facility] [place] [address] Gender dysphoria Social History Tobacco Use Types [...] * Patient Instructions* Karine Lechuga PA - 05/30/2023 8:00 AM EDT --Please do labs as soon as possible --Will make medication adjustments after review of results --Follow up in 3mo, sooner as needed documented in this encounter Progress Notes * Karine Lechuga PA - 05/30/2023 8:00 AM EDT Gender Clinic Follow Up Note Date of visit: 05/30/2023 Telehealth Documentation (video available). Duration of call: 25 minutes Location of patient: [address] [facility] [address] Location of provider: home location, [place] Reason for visit: Patient is a 53 y.o. transgender patient who identifies as female, assigned male at , who presents to follow up today on gender- affirming hormone therapy started 09/06/22. Asserted name--using Jhonathan or E, pronouns they/them or she/her. Plan from last visit with MAGALIE Rios on 12/07/22: --Talk with your PCP about possible SAMMIE and need for workup with sleep medicine --Labs ordered to do at [facility] lab --Will contact with results and instructions --Follow up in 3mo, sooner as needed Interval History: Pt here for routine f/u visit for management of gender-affirming hormone therapy. Duration of treatment 9mo. Physical changes-- breast development, body is changing shape. Hates facial hair (contacted insurance company about covering electrolysis, dermatology at [facility] requires referral), needs electrolysis d/t [place] hair in [place] and having difficulty finding electrolysis provider. Endorses being more emotional. Dysphoria is better except for facial hair. Migraine headaches well-controlled on Ajovy. Having new issues with insomnia. Barely any movement with processing pt's transition. She has been hesitant to try to process it. She did come in to see pt's therapist with pt, which was a good step. She is still having issues with the hospital, they had started an investigation last year d/t complications with colonoscopies.Pt still needing to be private about transition given '[place]. 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 Pt has gained weight, unsure how much, says it's still an issue. Part of this is d/t being somewhatsedentary. Planning to be more active with fall weather. Past Medical History: H/O migraine headaches HTN Mastocytic enterocolitis BRCA negative ADHD Depression Anxiety Intermittent explosive disorder Past Surgical History: No h/o gender-affirming surgeries. 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 +weight gain, +insomnia Physical exam: General: physical exam deferred d/t telehealth. Pt appeared in NAD on video. Laboratory data: Ordered Outside labs done 12/23/22 Estradiol 73 pg/mL Remaining lab results not sent Outside labs done 06/09/22 Total cholesterol 173 mg/dL Triglycerides 275 mg/dL HDL 27 mg/dL LDL 91 mg/dL Outside labs done 07/01/22 PSA 0.9 ng/mL Creatinine 1.1 mg/dL GFR 81.28 Potassium 3.9 mmol/L AST 20 U/L ALT 27 U/L Medications: Medications 05/30/23 0806 Medication Sig Taking? estradioL 0.1 mg/24 hr Patch Semiweekly Change 1 patch on the skin twice a week. Yes leuprolide (Lupron Depot) 3.75 mg Syringe Kit Inject 1 kit into the muscle every 28 days. Yes tamsulosin (Flomax) 0.4 mg Capsule daily. Yes loratadine-pseudoephedrine (CLARITIN-D) 10-240 mg Tablet Sustained Release 24 hr Take 1 tablet by mouth Daily. Yes verapamiL SR (Calan-SR) 180 mg Tablet [...] Take 1 tablet by mouth daily. Yes methylphenidate (METADATE ER) 20 mg Tablet Sustained Release Take 40 mg by mouth every morning. Yes sertraline (ZOLOFT) 100 mg Tablet Take 200 mg by mouth daily. Yes Assessment: Kenneth is a 53 y.o. transgender female, AMAB, with a past medical history of migraine headaches, HTN, depression and anxiety, on gender-affirming hormone therapy (GAHT) x9mo. Physical and emotional changes occurring consistent with duration and dose of treatment. Pt with improvement in overall wellbeingand decrease in gender dysphoria. is helping with leuprolide injections. Due for labs which will guide dosing adjustments. Continue routine Q3mo follow up visits during 1st year of treatment. Plan: --Please do labs as soon as possible --Will make medication adjustments after review of results --Follow up in 3mo, sooner as needed This was a 25 minute visit spent via telehealth with patient discussing gender- affirming hormone therapy and providing education including but not limited to information in history and plan. An additional 10 minutes was spent reviewing previous notes and labs, ordering labs & completing documentation. Karine Lechuga PA-C Department of Endocrinology [facility] documented in this encounter Plan of Treatment Upcoming Encounters Date Type Department Care Team (Late st Contact Info) Description 09/03/2024 9:00 AM EST TH Visit (TeleHealth) [place] [address] Karine Lechuga PA [facility] [place] [address] documented as of this encounter Visit Diagnoses Diagnosis Gender dysphoria Gender identity disorder in children documented in this encounter Care Teams College Of Education Dean Relationship Specialty Start Date End Date Jesse Gardner MD [address] [place] [address] PCP - General Internal Medicine 04/26/23 10/29/23 documented as of this encounter
--- OUTSIDE RECORDS SUMMARY | 2024-08-19 16:38 | XMS_ITS | Encounter Summary ---
Author Organization [facility] Address [facility] [place] [address] Care Team Providers Care Cyber Defense Incident Responder Name Role Phone Jesse Gardner MD Primary Care Provider [phone] Encounter Details Date Type Department Care Team (Late st Contact Info) Description 06/23/2023 Tele[place] [phone] Yanique Muhammad Social History Tobacco Use Types Packs/Day Years [...] AM EST TH Visit (TeleHealth) [place] [phone] Karine Lechuga PA [facility] [place] [address] documented as of this encounter Visit Diagnoses Not on filedocumented in this encounter Care Teams Cyber Defense Incident Responder Relationship Specialty Start Date End Date Jesse Gardner MD [address] [place] [address] PCP - General Internal Medicine 04/26/23 10/29/23 documented as of this encounter
--- OUTSIDE RECORDS SUMMARY | 2024-08-19 16:38 | XMS_ITS | Encounter Summary ---
Author Organization [facility] [place] [address] Care Team Providers Care Customer Service Receptionist Name Role Phone Catalina Blanchard MD Primary Care Provider Reason for Referral * Diagnostic Test (Routine) - Closed Specialty Diagnoses / Procedures Referred By Contac t Referred To Contact Diagnoses Epidermoid cyst of skin of cheek Procedures CT Face wo Contrast Lee Quinonez MD [facility] [place] [address] None None Referral ID Status Reason Start Date Expiration Date V isits Requested Visits Authorized [id number] Closed Specialty Service Requested 04/05/2024 10/03/2025 1 1 Reason for Visit * Consultation (Routine) - Closed Specialty Diagnoses / Procedures Referred By Contac t Referred To Contact Plastic Surgery Diagnoses Pain in face Headache, unspecified INGROWN HAIR THAT WAS OPERATED ON A COUPLE TIMES AND HAS EXTENSIVE SCARRING ON L LOWER FACE. HAIRS KEEP GROWING UNDER IT AND CAUSING PAIN AND WOUNDS. PREVENTING PT FROM SLEEPING. Catalina Blanchard MD [address] [place] [address] [facility] [address] [address] Referral ID Status Reason Start Date Expiration Date V isits Requested Visits Authorized [id number] Closed Consult, Test & Treat PCP Updated and/or Approved 02/14/2024 08/16/2024 6 6 Encounter Details Date Type Department Care Team (Late st Contact Info) Description 04/02/2024 9:30 AM EDT Office [place] [address] Lee Quinonez MD [facility] [place] [address] Epidermoid cyst of skin of cheek Social History Tobacco Use Types Packs/Day Years [...] Sign Reading Time Taken Comments Blood Pressure - - Pulse - - Temperature - - Respiratory Rate - - Oxygen Saturation - - Inhaled Oxygen Concentration - - Weight 85.3 kg (188 lb) 04/02/2024 9:20 AM EDT Height 167.6 cm (5' 6) 04/02/2024 9:20 AM EDT Body Mass Index 30.34 04/02/2024 9:20 AM EDT documented in this encounter Progress Notes * Lee Quinonez MD - 04/02/2024 9:30 AM EDT Plastic Surgery Consultation Note Provider: Lee Quinonez MD PCP:Catalina Blanchard MD FUNCTIONAL ANALYST: As above. CC: Recurrent ingrown hair, left lower face HPI: Galilea is a 54 y.o. adult, the patient is here in consultation for evaluation of a recurrent ingrown hair at the request of Catalina Blanchard MD. The lesion has been excised a couple of times. However, hairs continue to grow under it, causing pain and wounds. The patient reports that she had a total of 5 procedure. Past Medical History: Diagnosis Date Allergic rhinitis Asthma Hypertension Mastocytosis mastocytic enterocolitis Past Surgical History: Procedure Laterality Date ADENOIDECTOMY BACK SURGERY HAND SURGERY PRO COLONOSCOPY, DIAGNOSTIC N/A 10/27/2015 COLONOSCOPY, DIAGNOSTIC performed by Julio Cesar Downing MD at [facility] ENDOSCOPY PRO UPPER GI ENDOSCOPY, DIAGNOSTIC N/A 10/27/2015 EGD, UPPER GI ENDOSCOPY performed by Julio Cesar Downing MD at [facility] ENDOSCOPY SINUS SURGERY TONSILLECTOMY family history includes Allergic Rhinitis in her father. ROS: System Constitutional neg Eye neg ENT neg CV neg Resp neg GI neg neg Skin neg Allergy neg Endocrine neg Neurologic neg Musculoskeletal neg Lymph neg Psych neg Y N All other systems reviewed and negative. x Social History Socioeconomic History Marital status: Spouse name: Not on file Number of children: Not on file Years of education: Not on file Highest education level: Not on file Occupational History Not on file Tobacco Use Smoking status: Never Smokeless tobacco: Never Vaping Use Vaping status: Never Used Substance and Sexual Activity Alcohol use: No Drug use: No Sexual activity: Yes Partners: Female Other Topics Concern Not on file Social History Narrative Not on file Social Determinants of Health Financial Resource Strain: Not on file Food Insecurity: Not on file Transportation Needs: Not on file Physical Activity: Not on file Intimate Partner Violence: Not on file Housing Stability: Not on file Current Outpatient Medications on File Prior to Visit Medication Sig Dispense Refill estradioL 0.1 mg/24 hr Patch Semiweekly Change 2 patches on the skin twice a week. 48 patch 1 proGESTerone (Prometrium) 100 mg capsule Take 1 capsule by mouth daily. 90 capsule 3 Oral Medication Containers (sharps container) [facility] For use with injection equipment for estradiol injections 1 each 2 losartan (Cozaar) 25 mg tablet Take 25 mg by mouth daily. tamsulosin (Flomax) 0.4 mg Capsule daily. Ajovy Autoinjector 225 mg/1.5 mL Auto-Injector rizatriptan (MAXALT) 10 mg Tablet Take 10 mg by mouth as needed. LORazepam (Ativan) 1 mg Tablet as needed. albuteroL 90 mcg/actuation HFA Aerosol Inhaler Inhale 2 puffs into the lungs every 4 hours as needed for Wheezing. Use with spacer zafirlukast (ACCOLATE) 10 mg Tablet Take 1 tablet by mouth daily. sertraline (ZOLOFT) 100 mg Tablet Take 100 mg by mouth daily. [DISCONTINUED] Estradiol Valerate (Delestrogen) 20 mg/mL Oil Inject 0.25mL (5mg) once every 7 days per provider instructions 5 mL 3 [DISCONTINUED] Needle, Disp, 21 G 21 gauge x 1 Needle Use 1 needle every 7 days to DRAW UP medication. 13 each 3 [DISCONTINUED] Needle, Disp, 25 G 25 gauge x 5/8 Needle Use one needle every 7 days to INJECT medication as instructed. 13 each 3 [DISCONTINUED] Syringe, Disposable, 1 mL Syringe 1 each by [facility].(Non-Drug; Combo Route) route every7 days. Use one syringe every 7 days to administer medication. Must be Luer-Kori. 13 each 3 No current facility-administered medications on file prior to visit. No Known Allergies Examination: Ht 167.6 cm (5' 6) Wt 85.3 kg (188 lb) BMI 30.34 kg/m?? Gen: pleasant, well-appearing adult in no acute distress. Face: Area measures 2 x 1.5 cm and appears scarred and cystic simultaneously Impression: Galilea is a 54 y.o. adult who presents with a bothersome scar on the left lower chin measuring 2 x 1.5 cm. I discussed the nature of the lesion with the patient, educating them about theproblems and the risks of excision including infection, scar, bleeding, asymmetry, deformity, positive margins and the need for further surgery. I recommend that the patient obtain a CT scan for further characterization of the area. All questions were acknowledged and answered to the patient's satisfaction. After our discussion, the patient elects to proceed. Photos were obtained with signed informed consent. Plan: Obtain CT scan from [facility] Follow up after CT scan for a brief PH call Capri Burnett, have performed the documentation for this encounter in the presence of and actingas a scribe for LEE QUINONEZ MD. documented in this encounter Plan of Treatment Upcoming Encounters Date Type Department Care Team (Late st Contact Info) Description 09/03/2024 9:00 AM EST TH Visit (TeleHealth) [place] [phone] Karine Lechuga PA [facility] [place] [place] [address] Scheduled Orders Name Type Priority Associated Diagnoses Orde r Schedule CT Face wo Contrast Imaging Routine Epidermoid cyst of skin of cheek Expected: 04/16/2024, Expires: 04/02/2025 documented as of this encounter Visit Diagnoses Diagnosis Epidermoid cyst of skin of cheek documented in this encounter Care Teams Customer Service Receptionist Relationship Specialty Start Date End Date Catalina Blanchard MD [address] [place] [address] PCP - General Family Medicine 10/30/23 documented as of this encounter
--- OUTSIDE RECORDS SUMMARY | 2024-08-19 16:38 | XMS_ITS | Encounter Summary ---
Author Organization [facility] [place] [address] Care Team Providers Care Oncology Consultant Name Role Phone Jesse Gardner MD Primary Care Provider [phone] Reason for Visit * Reason Onset Date Comments Medication Refill 06/15/2023 Encounter Details Date Type Department Care Team (Late st Contact Info) Description 06/15/2023 Refill [place] [address] Karine Lechuga PA [facility] [place] [address] Gender dysphoria Social History Tobacco Use Types [...] AM EST TH Visit (TeleHealth) [place] [address] Karine Lechuga PA [facility] [place] [address] documented as of this encounter Visit Diagnoses Diagnosis Gender dysphoria Gender identity disorder in children documented in this encounter Care Teams Oncology Consultant Relationship Specialty Start Date End Date Jesse Gardner MD [address] [place] [address] PCP - General Internal Medicine 04/26/23 10/29/23 documented as of this encounter
--- OUTSIDE RECORDS SUMMARY | 2024-08-19 16:38 | XMS_ITS | Encounter Summary ---
Author Organization [facility] [place] [address] Care Team Providers Care Control Integration Engineer Name Role Phone Jesse Gardner MD Primary Care Provider [phone] Reason for Visit * Reason Onset Date Comments Medication Refill 05/16/2023 Encounter Details Date Type Department Care Team (Late st Contact Info) Description 05/16/2023 Refill [place] [phone] Karine Lechuga PA [facility] [place] [address] Gender dysphoria Social History Tobacco Use Types [...] AM EST TH Visit (TeleHealth) [place] [phone] Karine Lechuga PA [facility] [place] [address] documented as of this encounter Visit Diagnoses Diagnosis Gender dysphoria Gender identity disorder in children documented in this encounter Care Teams Control Integration Engineer Relationship Specialty Start Date End Date Jesse Gardner MD [address] [place] [address] PCP - General Internal Medicine 04/26/23 10/29/23 documented as of this encounter
--- OUTSIDE RECORDS SUMMARY | 2024-08-19 16:38 | XMS_ITS | Encounter Summary ---
Author Organization [facility] Address [facility] [place] [address] Care Team Providers Care Back Line Cook Name Role Phone Catalina Blanchard MD Primary Care Provider [phone] Encounter Details Date Type Department Care Team (Latest Contact Info) Description 03/04/2024 Travel Social History Tobacco Use Types Packs/Day Years [...] AM EST TH Visit (TeleHealth) [place] [address] Karine Lechuga PA [facility] [place] [address] documented as of this encounter Visit Diagnoses Not on filedocumented in this encounter Care Teams Back Line Cook Relationship Specialty Start Date End Date Catalina Blanchard MD [address] [place] [address] PCP - General Family Medicine 10/30/23 documented as of this encounter
--- OUTSIDE RECORDS SUMMARY | 2024-08-19 16:38 | XMS_ITS | Encounter Summary ---
Author Organization [facility] Address [facility] [place] [address] Care Team Providers Care Pharmacy Technician Inpatient Name Role Phone Jesse Gardner MD Primary Care Provider [phone] Encounter Details Date Type Department Care Team (Late st Contact Info) Description 08/29/2022 Tele[place] [phone] Yanique Muhammad Social History Tobacco Use Types [...] AM EST TH Visit (TeleHealth) [place] [phone] Karine Lechuga PA [facility] [place] [address] documented as of this encounter Visit Diagnoses Not on filedocumented in this encounter Care Teams Pharmacy Technician Inpatient Relationship Specialty Start Date End Date Jesse Gardner MD [address] [place] [address] PCP - General Internal Medicine 05/26/15 04/25/23 documented as of this encounter
--- OUTSIDE RECORDS SUMMARY | 2024-08-19 16:38 | XMS_ITS | Encounter Summary ---
Author Organization [facility] [place] [address] Care Team Providers Care Stock Or Delivery Clerk Name Role Phone Jesse Gardner MD Primary Care Provider Reason for Referral * Consultation (Priority 3) - Closed Specialty Diagnoses / Procedures Referred By Contsabina t Referred To Contact Dermatology Diagnoses Disorder of skin and subcutaneous tissue undergone multiple excisions of ingrown facial hair Richard Bacon MD [address] [place] [address] [address] [place] [address] [facility] Dermatology [address] [place] [address] Referral ID Status Reason Start Date Expiration Date V isits Requested Visits Authorized [id number] Closed Consult, Test & Treat PCP Updated and/or Approved 04/26/2023 04/25/2024 6 6 Encounter Details Date Type Department Care Team (Late st Contact Info) Description 04/26/2023 Transcribe Orders eDH Incoming Referrals [phone] Richard Bacon MD [address] [place] [address] [address] [place] [address] Disorder of skin and subcutaneous tissue Social History Tobacco Use Types Packs/Day Years [...] AM EST TH Visit (TeleHealth) [place] [address] Karine Lechuga PA [facility] [place] [address] Scheduled Referrals Name Type Priority Associated Diagnoses Orde r Schedule Referral to Dermatology Outpatient Referral Routine Disorder of skin and subcutaneous tissue Ordered: 04/26/2023 documented as of this encounter Visit Diagnoses Diagnosis Disorder of skin and subcutaneous tissue Unspecified disorder of skin and subcutaneous tissue documented in this encounter Care Teams Stock Or Delivery Clerk Relationship Specialty Start Date End Date Jesse Gardner MD [address] [place] [address] PCP - General Internal Medicine 04/26/23 10/29/23 documented as of this encounter
--- OUTSIDE RECORDS SUMMARY | 2024-08-19 16:38 | XMS_ITS | Encounter Summary ---
Author Organization [facility] Address [facility] [place] [address] Care Team Providers Care Ground Worker Name Role Phone Catalina Blanchard MD Primary Care Provider [phone] Encounter Details Date Type Department Care Team (Late st Contact Info) Description 12/05/2023 8:00 AM EDT TH Visit (TeleHealth) [place] [address] Karine Lechuga PA [facility] [place] [address] Gender dysphoria Social History Tobacco Use Types [...] * Patient Instructions* Karine Lechuga PA - 12/05/2023 8:00 AM EDT --Switch to injectable estradiol, 0.2mL (4mg) once/week --Check out the DH injection training video on our transgender website under the patient education section. --Check out [facility]'s transgender injection guide. Make sure to read the subcutaneous section. --Start progesterone 100mg once/day --Plan to do one more injection of Lupron, then stop --Follow up in 3mo, sooner as needed documented in this encounter Progress Notes * Karine Lechuga PA - 12/05/2023 8:00 AM EDT Gender Clinic Follow Up Note Date of visit: 12/05/2023 Telehealth Documentation (video available). Duration of call: 25 minutes Location of patient: [facility] [address] Location of provider: home location, [place] Reason for visit: Patient is a 53 y.o. transgender patient who identifies as female, assigned male at , who presents to follow up today on gender- affirming hormone therapy started 09/06/22. Asserted name--E, pronouns they/them or she/her. Plan from last visit with MAGALIE Rios on 09/05/23: --Switch to oral estradiol 2mg 2x day --Continue with Lupron for now --Visit in 3mo, sooner as needed Interval History: Pt here for routine f/u visit for management of gender-affirming hormone therapy. Duration of treatment 1 year and 3mo. Message sent to pt on 10/09/23 to increase oral estradiol to 6mg/day. Pt reports that things are going well. Feeling more emotional since dose increase. Physical changes-- I continue to develop my figure, kids in after school program have noticed physical changes. Feeling good about transition. Cancelled appointment for tracheal shave regarding unknowns about health insurance. was terminated from her job without cause. 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 had to put on hold looking for a new job. Was contacted by medical school in [place] and has job offer despite this. The program starts in March so she will move there for a year to do that program. Will do [employer] for a couple of months, then will re-evaluate insurance in the fall. Asking about alternative to Lupron, has pain with injection site and also related to cost with insurance unknowns. Being more public about gender. Came out as transgender at town meeting day. Asked to speak at a zoroastrianism for a LGBT event. Past Medical History: H/O migraine headaches HTN Mastocytic enterocolitis BRCA negative ADHD Depression Anxiety Intermittent explosive disorder Past Surgical History: No h/o gender-affirming surgeries. 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 Physical exam: General: physical exam deferred d/t telehealth. Pt appeared in NAD on video. Laboratory data: Outside labs done 11/15/23 Total testosterone 15 [...] 20 U/L ALT 27 U/L Medications: Medications 12/05/23 0804 Medication Sig Taking? estradioL (Estrace) 2 mg tablet Take 1.5 tablets by mouth 2 times daily. Yes losartan (Cozaar) 25 mg tablet Take 25 mg by mouth daily. Yes leuprolide (Lupron Depot) 3.75 mg Syringe [...] Take 100 mg by mouth daily. Yes Estradiol Valerate (Delestrogen) 20 mg/mL Oil Inject 0.2mL (4mg) once every 7 days per provider instructions Needle, Disp, 21 G 21 gauge x 1 Needle Use 1 needle every 7 days to DRAW UP medication. Needle, Disp, 25 G 25 gauge x 5/8 Needle Use one needle every 7 days to INJECT medication as instructed. Syringe, Disposable, 1 mL Syringe 1 each by [facility].(Non-Drug; Combo Route) route every 7 days. Use one syringe every 7 days to administer medication. Must be Luer-Kori. proGESTerone (Prometrium) 100 mg capsule Take 1 capsule by mouth daily. Assessment: E is a 53 y.o. transgender female, AMAB, with a past medical history of migraine headaches, HTN, depression and anxiety, on gender-affirming hormone therapy (GAHT) x15mo. Physical and emotional changes occurring consistent with duration and dose of treatment. Pt with improvement in overall wellbeing and decrease in gender dysphoria. Discussed pt's current financial/health insurance situation, labresults and medication options/changes. Risk/benefit discussion of ways to block testosterone with stopping leuprolide d/t cost and pain with injections. Options to switch to injectable estradiol andadd on progesterone or talk with urology, switch tamsulosin to finasteride, increase oral estradioldose and start low dose spironolactone. Pt opts for first option. Discussed learning injection technique, pt already doing IM leuprolide injection and SQ Ajovy, so comfortable with estradiol injection. Will need to monitor migraine headache symptoms and follow closely until dosing is stable. Plan: --Switch to injectable estradiol, 0.2mL (4mg) once/week --Check out the DH injection training video on our transgender website under the patient education section. --Check out [facility]'s transgender injection guide. Make sure to read [...] documentation. Karine Lechuga PA-C Department of Endocrinology [place], [place] documented in this encounter Plan of Treatment Upcoming Encounters Date Type Department Care Team (Late st Contact Info) Description 09/03/2024 9:00 AM EST TH Visit (TeleHealth) Endocrinology at [facility] [place] [address] Karine Lechuga PA [facility] [place] [place] [address] documented as of this encounter Results * (ABNORMAL) Testosterone, total (03/04/2024 11:20 AM EDT) [facility] Signature Testosterone <0.12(L) 1.93 - 7.40 ng/mL [facility] Comment: Pediatric Reference Ranges: ? [...] Toledo MD CHEMISTRY ORDERABLES Performing Organization Address [facility] de Phone Number [facility] [place] [address] * Estradiol (03/04/2024 11:20 AM EDT) Estradiol 208 pg/mL [facility] Comment: Reference ranges: Males: Adult: ? 11 to 43 pg/mL Females: Non- females: ?Follicular: ??12-233 pg/mL ?Ovulation: ?? 41-398 pg/mL ?Luteal: ?22-341 pg/mL ?Postmenopausal: ?? <5 - 138 pg/mL females: ?1st trimester: ??154-3243 pg/mL ?2nd trimester: ??1561-68994 pg/mL ?3rd trimester: ??8525- >00701 pg/mL Blood 03/04/2024 11:2 0 AM EDT 03/04/2024 11:27 AM EDT Narrative Resulting Agency Comment Spec In Lab Herbert Toledo MD CHEMISTRY ORDERABLES Performing Organization Address [facility] Co de Phone Number [facility] [place] [address] documented in this encounter Visit Diagnoses Diagnosis Gender dysphoria Gender identity disorder in children documented in this encounter Care Teams Ground Worker Relationship Specialty Start Date End Date Catalina Blanchard MD [address] [place] [address] PCP - General Family Medicine 10/30/23 documented as of this encounter
--- OUTSIDE RECORDS SUMMARY | 2024-08-19 16:38 | XMS_ITS | Encounter Summary ---
Author Organization [facility] [place] [address] Care Team Providers Care Supervisor Electronics Testing Name Role Phone Catalina Blanchard MD Primary Care Provider [phone] Encounter Details Date Type Department Care Team (Late st Contact Info) Description 11/16/2023 Orders Only [place] [address] Karine Lechuga PA [facility] [place] [place] [address] Gender dysphoria Social History Tobacco Use Types [...] AM EST TH Visit (TeleHealth) [place] [address] Karine Lechuga PA [facility] [place] [address] documented as of this encounter Visit Diagnoses Diagnosis Gender dysphoria Gender identity disorder in children documented in this encounter Care Teams Supervisor Electronics Testing Relationship Specialty Start Date End Date Catalina Blanchard MD [address] [place] [address] PCP - General Family Medicine 10/30/23 documented as of this encounter
--- OUTSIDE RECORDS SUMMARY | 2024-08-19 16:38 | XMS_ITS | Encounter Summary ---
Author Organization [facility] Address [facility] [place] [address] Care Team Providers Care Funeral Home Assistant Name Role Phone Jesse Gardner MD Primary Care Provider [phone] Encounter Details Date Type Department Care Team (Latest Contact Info) Description 07/27/2022 Travel Social History Tobacco Use Types Packs/Day [...] AM EST TH Visit (TeleHealth) [place] [address] Karine Lechuga PA [facility] [place] [address] documented as of this encounter Visit Diagnoses Not on filedocumented in this encounter Care Teams Funeral Home Assistant Relationship Specialty Start Date End Date Jesse Gardner MD [address] [place] [address] PCP - General Internal Medicine 05/26/15 04/25/23 documented as of this encounter
--- OUTSIDE RECORDS SUMMARY | 2024-08-19 16:38 | XMS_ITS | Encounter Summary ---
Author Organization [facility] Address [facility] [place] [address] Care Team Providers Care Instrumentation Instructor Name Role Phone Jesse Gardner MD Primary Care Provider + [phone] Encounter Details Date Type Department Care Team (Late st Contact Info) Description 09/05/2023 8:00 AM EST TH Visit (TeleHealth) [place] [address] Karine Lechuga PA [facility] [place] [address] Gender dysphoria Social History Tobacco Use Types [...] * Patient Instructions* Karine Lechuga PA - 09/05/2023 8:00 AM EST --Switch to oral estradiol 2mg 2x day --Continue with Lupron for now --Visit in 3mo, sooner as needed documented in this encounter Progress Notes * Karine Lechuga PA - 09/05/2023 8:00 AM EST Gender Clinic Follow Up Note Date of visit: 09/05/2023 Telehealth Documentation (video available). Duration of call: 25 minutes Location of patient: [address] [facility] [address] Location of provider: home location, [place] Reason for visit: Patient is a 53 y.o. transgender patient who identifies as female, assigned male at , who presents to follow up today on gender- affirming hormone therapy started 09/06/22. Asserted name--using Jhonathan or E, pronouns they/them or she/her. Plan from last visit with MAGALIE Rios on 05/30/23: --Please do labs as soon as possible --Will make medication adjustments after review of results --Follow up in 3mo, sooner as needed Interval History: Pt here for routine f/u visit for management of gender-affirming hormone therapy. Duration of treatment 12mo. Message sent to pt on 06/28/23 to increase transdermal estradiol dose to 0.2mg 2x week. Pt reports that she noticed a difference with the estradiol dose increase. Feeling more emotional. Breasts are getting larger and are tender again. Fat redistribution occurring. Body hair is less. Was hoping to start electrolysis but finances are a barrier. Has gained weight, which hasn't helped with SAMMIE. Was put on CPAP machine and can't tolerate it. Trying to get in with sleep specialist. Last weight was 180lbs. Trying to stay active in winter with riding recumbent exercise bike and walking to take care of 's horse. 's acceptance of transition has been a challenge. She is seeing a MH therapist. will be losing job at [employer] soon, therefore pt will be losing insurance. Increased stress due to this situation. Pt's child is litzy in and so pt and child may stay in [place] and may go to where she gets employment. Pt asking about more cost effective regimen as it's unclear how long she will be without health insurance. 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 Past Medical History: H/O migraine headaches HTN [...] appeared in NAD on video. Laboratory data: Ordered/deferred Outside labs done 06/19/23 Total testosterone 16 ng/dL Estradiol 80 pg/mL Outside labs done 12/23/22 Estradiol 73 pg/mL Remaining lab results not sent Outside labs done 06/09/22 Total cholesterol 173 mg/dL Triglycerides 275 mg/dL HDL 27 mg/dL LDL 91 mg/dL Outside labs done 07/01/22 PSA 0.9 ng/mL Creatinine 1.1 mg/dL GFR 81.28 Potassium 3.9 mmol/L AST 20 U/L ALT 27 U/L Medications: Medications 09/05/23 0804 Medication Sig Taking? losartan (Cozaar) 25 mg tablet Take 25 [...] Take 200 mg by mouth daily. Yes leuprolide (Lupron Depot) 3.75 mg Syringe Kit Inject 1 kit into the muscle every 28 days. estradioL (Estrace) 2 mg tablet Take 1 tablet by mouth 2 times daily. Assessment: E is a 53 y.o. transgender female, AMAB, with a past medical history of migraine headaches, HTN, depression and anxiety, on gender-affirming hormone therapy (GAHT) x12mo. Physical and emotional changes occurring consistent with duration and dose of treatment. Pt with improvement in overall wellbeing and decrease in gender dysphoria. Discussed pt's current financial/health insurance situation. Risk/benefit discussion of switching to oral estradiol and spironolactone. Advised of increased VTE risk with oral estradiol. Also that transdermal estradiol is recommended for pts with h/o migraine headache. Pt has not had worsening BAIG symptoms with transdermal and ok with trial of oral as this will co st less once pt loses insurance. Also discussed switch from leuprolide to spironolactone. Pt shouldhave enough leuprolide to get her through until next visit in 3mo, then can discuss this switch. Advised of low cost RX options. Will defer labs given med changes. Continue routine follow up. Pt may transition care to [facility] in the future, depending on financial situation. Plan: --Switch to oral estradiol 2mg 2x day --Continue with Lupron for now --Visit in 3mo, sooner as needed This was a 25 minute visit spent via telehealth with patient discussing gender- affirming hormone therapy and providing education including but not limited to information in history and plan. An additional 10 minutes was spent reviewing previous notes and labs, ordering labs and medication & completing documentation. Karine Lehcuga PA-C Department of Endocrinology [place], [place] documented in this encounter Plan of Treatment Upcoming Encounters Date Type Department Care Team (Late st Contact Info) Description 09/03/2024 9:00 AM EST TH Visit (TeleHealth) [place] [address] Karine Lechuga PA [facility] [place] [address] documented as of this encounter Results * (ABNORMAL) Basic Metabolic Panel (non-fasting) (03/04/2024 11:20 AM EDT) Glucose 99 65 - 199 mg/dL [facility] Comment:Diabetes: >=200 mg/d L plus symptoms Blood Urea Nitrogen 21(H) 10 - 20 mg/dL [facility] Creatinine 0.92 0.80 - 1.50 mg/dL [facility] Sodium 141 135 - 145 mmol/L [facility] Potassium 4.8 3.5 - 5.0 mmol/L [facility] Comment: Please note: ??Patients with WBC >100,000 may have falsely elevated Potassium levels. ??For accurate Potassium quantification in these patients send serum separator tube (gold top) for subsequent determinations. ??Contact the Clinical Chemistry Laboratory if there are any questions. Chloride 106 98 - 107 mmol/L [facility] Carbon Dioxide 26 22 - 31 mmol/L [facility] Anion Gap 9 5 - 15 mmol/L [facility] Calcium 9.4 8.5 - 10.5 mg/dL [facility] Est Glomerular Filtration Rate 100 >=60 mL/min/1. 73 m?? [facility] Comment: This patient's estimated GFR [...] In Lab Herbert Toledo MD CHEMISTRY ORDERABLES [facility] [place] [address] documented in this encounter Visit Diagnoses Diagnosis Gender dysphoria Gender identity disorder in children documented in this encounter Care Teams Instrumentation Instructor Relationship Specialty Start Date End Date Jesse Gardner MD [address] [place] [address] PCP - General Internal Medicine 04/26/23 10/29/23 documented as of this encounter
--- OUTSIDE RECORDS SUMMARY | 2024-08-19 16:38 | XMS_ITS | Encounter Summary ---
Author Organization [facility] [place] [address] Care Team Providers Care Industrial Technology Teacher Name Role Phone Jesse Gardner MD Primary Care Provider + [phone] Reason for Visit * Reason Onset Date Comments Medication Refill 02/20/2023 Encounter Details Date Type Department Care Team (Late st Contact Info) Description 02/20/2023 [place] [phone] Karine Lechuga PA [facility] [place] [place] [address] Gender dysphoria Social History Tobacco Use Types [...] AM EST TH Visit (TeleHealth) [place] [phone] Karine Lechuga PA [facility] [place] [address] [place] [address] documented as of this encounter Visit Diagnoses Diagnosis Gender dysphoria Gender identity disorder in children documented in this encounter Care Teams Industrial Technology Teacher Relationship Specialty Start Date End Date Jesse Gardner MD [address] [place] [address] PCP - General Internal Medicine 05/26/15 04/25/23 documented as of this encounter
--- OUTSIDE RECORDS SUMMARY | 2024-08-19 16:38 | XMS_ITS | Encounter Summary ---
Author Organization [facility] Address [facility] [address] Care Team Providers Care Sqe Name Role Phone Jesse Gardner MD Primary Care Provider + [phone] Reason for Referral * Consultation (Routine) - Authorized Specialty Diagnoses / Procedures Referred By Mona byrne Referred To Contact Otolaryngology Diagnoses Gender dysphoria Karine Lechuga PA [facility] [place] [place] [address] Paxton Santana MD [facility] [place] [address] Referral ID Status Reason Start Date Expiration Date Visits Requested Visits Authorized [id number] Authorized Consult, Test & Treat 10/27/2023 10/26/2024 1 1 Encounter Details Date Type Department Care Team (Late st Contact Info) Description 10/27/2023 Orders [place] [address] Karine Lechuga PA [facility] [place] [address] Gender dysphoria Social History Tobacco Use Types [...] AM EST TH Visit (TeleHealth) [place] [address] Karine Lechuga PA [facility] [place] [address] Scheduled Referrals Name Type Priority Associated Diagnoses Orde r Schedule Referral to Plastic Surgery Outpatient Referral Routine Gender dysphoria Ordered: 10/27/2023 documented as of this encounter Visit Diagnoses Diagnosis Gender dysphoria Gender identity disorder in children documented in this encounter Care Teams Sqe Relationship Specialty Start Date End Date Jesse Gardner MD [address] [place] [address] PCP - General Internal Medicine 04/26/23 10/29/23 documented as of this encounter
--- OUTSIDE RECORDS SUMMARY | 2024-08-19 16:38 | XMS_ITS | Encounter Summary ---
Author Organization [facility] [place] [address] Care Team Providers Care Grill Chef Name Role Phone Jesse Gardner MD Primary Care Provider + [phone] Encounter Details Date Type Department Care Team (Late st Contact Info) Description 06/28/2023 Orders [place] [phone] Karine Lechuga PA [facility] [place] [address] Gender dysphoria Social History Tobacco Use Types [...] AM EST TH Visit (TeleHealth) [place] [address] Karine Lechuga PA [facility] [place] [address] documented as of this encounter Visit Diagnoses Diagnosis Gender dysphoria Gender identity disorder in children documented in this encounter Care Teams Grill Chef Relationship Specialty Start Date End Date Jesse Gardner MD [address] [place] [address] PCP - General Internal Medicine 04/26/23 10/29/23 documented as of this encounter
--- OUTSIDE RECORDS SUMMARY | 2024-08-19 16:38 | XMS_ITS | Encounter Summary ---
Author Organization [facility] [place] [address] Care Team Providers Care Internal Communications Manager Name Role Phone Catalina Blanchard MD Primary Care Provider [phone] Reason for Visit * Reason Onset Date Comments Prior Authorization 08/05/2024 Faxed docume ntation to insurance to get an auth [facility] a [facility]. Once received I can fax to [facility]. Encounter Details Date Type Department Care Team (Late st Contact Info) Description 08/05/2024 Telephone [place] [address] Mireille Valderrama Prior Authorization (Faxed documentation to insurance to get an auth [facility]. Once received I can fax to [facility]. /) Social History Tobacco Use Types Packs/Day Years [...] PM EDT documented as of this encounter Miscellaneous Notes * Telephone Encounter - Mireille Valderrama - 08/05/2024 11:54 AM ESTSummary: CT Auth Faxed all documentation to documented in this encounter Plan of Treatment Upcoming Encounters Date Type Department Care Team (Late st Contact Info) Description 09/03/2024 9:00 AM EST TH Visit (TeleHealth) [place] [address] Karine Lechuga PA [facility] [place] [address] documented as of this encounter Visit Diagnoses Not on filedocumented in this encounter Care Teams Internal Communications Manager Relationship Specialty Start Date End Date Catalina Blanchard MD [address] [place] [address] PCP - General Family Medicine 10/30/23 documented as of this encounter
--- OUTSIDE RECORDS SUMMARY | 2024-08-19 16:38 | XMS_ITS | Encounter Summary ---
[place] [address] Care Team Providers Care Coning Machine Operator Name Role Phone Catalina Blanchard MD Primary Care Provider [phone] Reason for Visit * Reason Comments Prior Authorization Lupron Depot (1-Earl h) 3.75mg Kit Encounter Details Date Type Department Care Team (Late st Contact Info) Description 09/07/2022 Specialty [place] [address] Francine Vo Social History Tobacco Use Types Packs/Day Years [...] PM EDT documented as of this encounter Progress Notes * Francine Vo - 09/07/2022 11:54 AM EST [facility], Benefits Investigation Patient: Jhonathan Adair Patient : 1970 Patient Address: [facility] [address] [facility] [address] (home) Medication Name: LEUPROLIDE 3.75 MG INTRAMUSCULAR SYRINGE KIT Medication ID: [id number] Patient Location: [facility] Patient Location Comment: Medication Strength Frequency Requested: Inject 1 kit into the muscle every 28 days. Qty/Day Supply: 09/10 New Start: New to Therapy Diagnosis & ICD-10 Code: Gender dysphoria (F64.9) Subscriber Insurance: Onaro) Subscriber Insurance Comment: Fax: Physician: KARINE LECHUGA Physician Comment : PA Status: NO PA REQUIRED Insurance mandated Pharmacy: [facility] Fillable at [facility]: Yes Insurance requirements/notes: None Copay: $25.00 Copay assistance: None Copay assistance comment: Pharmacy staff will be reaching out to the patient to inform them of [facility]. If applicable, a pharmacist will speak with the patient to offer our specialty pharmacy services and to arrange delivery of their medication. Francine Vo 09/07/22 12:01 PM documented in this encounter Plan of Treatment Upcoming Encounters Date Type Department Care Team (Late st Contact Info) Description 09/03/2024 9:00 AM EST TH Visit (TeleHealth) [place] [address] Karine Lechuga PA [facility] [place] [place] [address] documented as of this encounter Visit Diagnoses Not on filedocumented in this encounter Care Teams Coning Machine Operator Relationship Specialty Start Date End Date Catalina Blanchard MD [address] [place] [address] PCP - General Family Medicine 10/30/23 documented as of this encounter
--- OUTSIDE RECORDS SUMMARY | 2024-08-19 16:38 | XMS_ITS | Encounter Summary ---
Author Organization [facility] Address [facility] [place] [address] Care Team Providers Care Attraction Attendant Name Role Phone Catalina Blanchard MD Primary Care Provider [phone] Reason for Visit * Reason Comments Medication Refill Encounter Details Date Type Department Care Team (Late st Contact Info) Description 07/11/2024 Ref[place] [address] Karine Lechuga PA [facility] [place] [place] [address] Gender dysphoria Social History Tobacco Use Types [...] encounter Miscellaneous Notes * Telephone Encounter - Mercedes Pastrana, RMA - 07/12/2024 8:39 AM EST Prescription Renewal Request Name: Jhonathan Adair : 1970 Prescription(s) Requested: Requested Prescriptions Pending Prescriptions Disp Refills estradioL 0.1 mg/24 hr Patch Semiweekly [Pharmacy Med Name: Estradiol 0.1 MG/24HR Transdermal PatchTwice Weekly (Delores)] 48 patch 0 Sig: Change 2 patches on the skin twice a week Date of Encounter last in This Dept (If need an appointment send to secretaries to schedule): 03/04/2024 with Karine Lechuga Next Encounter in This Dept: 09/03/2024 with Karine Lechuga Date of Last Refill (for each medication): estradioL 0.1 mg/24 hr Patch Semiweekly Authorized By: Karine Lechuga PA Change 2 patches on the skin twice a week. Dispense: 48 patch,Refills: 1 ordered 03/28/2024 Status of request: Pended Please note this is a change in pharmacy request. per our protocol we still send change in pharmacy requests to provider for review. No Known Allergies JOHNNY BAY 07/12/24 8:39 AM documented in this encounter Plan of Treatment Upcoming Encounters Date Type Department Care Team (Late st Contact Info) Description 09/03/2024 9:00 AM EST TH Visit (TeleHealth) [place] [address] Karine Lechuga PA [facility] [place] [place] [address] documented as of this encounter Visit Diagnoses Diagnosis Gender dysphoria Gender identity disorder in children documented in this encounter Care Teams Attraction Attendant Relationship Specialty Start Date End Date Catalina Blanchard MD [address] [place] [address] PCP - General Family Medicine 10/30/23 documented as of this encounter
--- OUTSIDE RECORDS SUMMARY | 2024-08-19 16:38 | XMS_ITS | Encounter Summary ---
Author Organization [facility] Address [facility] [place] [address] Care Team Providers Care Electrolysis Needle Operator Name Role Phone Jesse Gardner MD Primary Care Provider [phone] Encounter Details Date Type Department Care Team (Latest Contact Info) Description 07/25/2022 Travel Social History Tobacco Use Types Packs/Day [...] AM EST TH Visit (TeleHealth) [place] [address] Karine Lechuga PA [facility] [place] [address] documented as of this encounter Visit Diagnoses Not on filedocumented in this encounter Care Teams Electrolysis Needle Operator Relationship Specialty Start Date End Date Jesse Gardner MD [address] [place] [address] PCP - General Internal Medicine 05/26/15 04/25/23 documented as of this encounter
--- OUTSIDE RECORDS SUMMARY | 2024-08-19 16:38 | XMS_ITS | Encounter Summary ---
Author Organization [facility] Address [facility] [place] [address] Care Team Providers Care District Branch Manager Name Role Phone Catalina Blanchard MD Primary Care Provider [phone] Reason for Visit * Reason Onset Date Comments Other 08/15/2024 Received approva l for facial CT. Faxed over request and auth to [facility] Encounter Details Date Type Department Care Team (Late st Contact Info) Description 08/15/2024 Telephone [place] [phone] Mireille Valderrama Other (Received approval for facial CT. Faxed over request and auth to [facility] ) Social History Tobacco Use Types Packs/Day Years [...] AM EST TH Visit (TeleHealth) [place] [address] Karine Lechuga PA [facility] [place] [address] documented as of this encounter Visit Diagnoses Not on filedocumented in this encounter Care Teams District Branch Manager Relationship Specialty Start Date End Date Catalina Blanchard MD [address] [place] [address] PCP - General Family Medicine 10/30/23 documented as of this encounter
--- OUTSIDE RECORDS SUMMARY | 2024-08-19 16:38 | XMS_ITS | Clinical Summary ---
Author Organization [facility] Address [facility] [place] [address] Care Team Providers Care Delivery Assistant Name Role Phone Catalina Blanchard MD Primary Care Provider [phone] Allergies No known active allergies Medications Medication Sig Dispensed Refills Start Date End Date Status sertraline (ZOLOFT) 100 mg Tablet Take 100 mg by mouth daily. 06/25/2015 Active zafirlukast (ACCOLATE) 10 mg Tablet Take 1 tablet by mouth daily. 03/14/2017 Active Ajovy Autoinjector 225 mg/1.5 mL Auto-Injector 07/18/2022 Active rizatriptan (MAXALT) 10 mg Tablet Take 10 mg by mouth as needed. 07/19/2022 Active LORazepam (Ativan) 1 mg Tablet as needed. 03/17/2022 Active albuteroL 90 mcg/actuation HFA Aerosol Inhaler Inhale 2 puffs into the lungs every 4 hours as needed for Wheezing. Use with spacer Active tamsulosin (Flomax) 0.4 mg Capsule daily. 08/11/2022 Active losartan (Cozaar) 25 mg tablet Take 25 mg by mouth daily. 08/22/2023 Active Oral Medication Containers (sharps container) MiscIndications:Gend er dysphoria For use with injection equipment for estradiol injections 1 each 2 03/04/2024 Active proGESTerone (Prometrium) 100 mg capsuleIndications:G wayne dysphoria Take 1 capsule by mouth daily. 90 capsule 3 03/07/2024 Active estradioL 0.1 mg/24 hr Patch SemiweeklyIndication s:Gender dysphoria Change 2 patches on the skin twice a week. 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 Faxed over request and auth to [facility] ) 08/05/2024 [place] [address] Mireille Valderrama Prior Authorization (Faxed documentation to insurance to get an auth for a CT scan [employer] to get aurhotization for CT Scan. Once received I can fax to [facility]. /) 07/11/2024 [place] [phone] Karine Lechuga PA Gender dysphoria from Last 3 Months Family History Medical History Relation Comments Allergic Rhinitis Father Asthma Neg Hx Relation Status Comments Father Social History Tobacco Use Types Packs/Day Years [...] or Porter 06/10/2022 9: 06 PM EDT Last Filed Vital Signs Vital Sign Reading Time Taken Comments Blood Pressure 149/99 03/04/2024 10:19 AM EDT Pulse 80 03/04/2024 10:19 AM EDT Temperature 36.8 ??C (98.3 ??F) 03/04/2024 10:19 AM E DT Respiratory Rate 20 07/27/2022 10:38 AM EST Oxygen Saturation 98% 03/04/2024 10:19 AM EDT Inhaled Oxygen Concentration - - Weight 85.3 kg (188 lb) 04/02/2024 9:20 AM EDT Height 167.6 cm (5' 6) 04/02/2024 9:20 AM EDT Body Mass Index 30.34 04/02/2024 9:20 AM EDT Plan of Treatment Upcoming Encounters Date Type Department Care Team (Late st Contact Info) Description 09/03/2024 9:00 AM EST TH Visit (TeleHealth) Endocrinology at [facility] [place] [address] Karine Lechuga PA [facility] [place] [address] Health Maintenance Due Date Last Done Comments CT Colonography 1971 FIT DNA 1971 FIT 1971 Sigmoidoscopy 1971 HIV screen 1989 Hepatitis C Screening 1989 Lipid Screening 1989 Hepatitis B vaccine (0-59 yrs) (1) 1990 Tetanus/Diphtheria/Pertussis Vaccines (1 - Tdap) 1990 Zoster vaccine (1 of 2) 2021 Covid-19 Vaccine (1 - season) 2024 Influenza (Flu) vaccine (1 o f 1 - Influenza standard series) 04/14/2024 Colonoscopy 10/26/2025 10/27/2015, 10/27/2015 Colorectal Cancer Screening 10/26/2025 Sigmoidoscopy (10 year) with FIT yearly 10/26/2025 0 10/27/2015, 10/27/2015 Diabetes Screening (HgbA1C or Glucose) 03/04/2027 Procedures Procedure Name Priority Date/Time Associated Diagnosis Comments BASIC METABOLIC PANEL Routine 03/04/2024 11:20 AM EDT Gender dysphoria COLONOSCOPY Routine 10/27/2015 12:48 PM EDT from Last 3 Months or Most Recently Relevant to Health Maintenance Results * (ABNORMAL) Basic Metabolic Panel (non-fasting) (03/04/2024 11:20 AM EDT) Glucose 99 65 - 199 mg/dL [facility] Comment:Diabetes: >=200 mg/d L plus symptoms Blood Urea Nitrogen 21(H) 10 - 20 mg/dL [facility] Creatinine 0.92 0.80 - 1.50 mg/dL [facility] Sodium 141 135 - 145 mmol/L [facility] Potassium 4.8 3.5 - 5.0 mmol/L [facility] Comment: Please note: ??Patients with WBC >100,000 may have falsely elevated Potassium levels. ??For accurate Potassium quantification in these patients send serum separator tube (gold top) for subsequent determinations. ??Contact the Clinical Chemistry Laboratory if there are any questions. Chloride 106 98 - 107 mmol/L [facility] Carbon Dioxide 26 22 - 31 mmol/L [facility] Anion Gap 9 5 - 15 mmol/L [facility] Calcium 9.4 8.5 - 10.5 mg/dL [facility] Est Glomerular Filtration Rate 100 >=60 mL/min/1. 73 m?? [facility] Comment: This patient's estimated GFR [...] In Lab Herbert Toledo MD CHEMISTRY ORDERABLES [facility] [place] [address] * COLONOSCOPY (10/27/2015 12:48 PM EDT) Pathologist [facility] [place] COLONOSCOPY [facility] Endoscopy Patient Name: Jhonathan Adair ? Procedure Date: 10/27/2015 12:48 PM ? Date of : 1970 ? Age: 45 ? Order #: [id number] ? Procedure: ? Colonoscopy Indications: ? Chronic diarrhea Providers: ? Rufus Wolfe RN Referring MD: ?Jesse Gardner MD Medicines: ? Propofol per Anesthesia Complications: ? No immediate complications. Procedure: ? Pre-Anesthesia Assessment: ? - Prior to the procedure, a History ? and Physical was performed, and ? patient medications and allergies ? were reviewed. The patient is ? competent. The risks and benefits of ? the procedure and the sedation ? options and risks were discussed with ? the patient. All questions were ? answered and informed consent was ? obtained. Patient identification and ? proposed procedure were verified by ? the physician, the nurse and the ? team coordinator in the pre-procedure area ? in the procedure room. Mental Status ? Examination: alert and oriented. ? Airway Examination: normal ? oropharyngeal airway and neck ? mobility. Respiratory Examination: ? clear to auscultation. CV ? Examination: normal. Prophylactic ? Antibiotics: The patient does not ? require prophylactic antibiotics. ? Prior Anticoagulants: The patient has ? taken no previous anticoagulant or ? antiplatelet agents. ASA Grade ? Assessment: II - A patient with mild ? systemic disease. After reviewing the ? risks and benefits, the patient was ? deemed in satisfactory condition to ? undergo the procedure. The anesthesia ? plan was to use monitored anesthesia ? care (MAC). Immediately prior to ? administration of medications, the ? patient was re-assessed for adequacy ? to receive sedatives. The heart rate, ? respiratory rate, oxygen saturations, ? blood pressure, adequacy of pulmonary ? ventilation, and response to care ? were monitored throughout the ? procedure. The physical status of the ? patient was re-assessed after the ? procedure. ? The procedure, indications, benefits, ? risks and alternatives were explained ? to the patient. Specifically ? discussed were potential ? complications including, but not ? limited to, bleeding, perforation, ? infection, missing a cancer, and ? adverse medication reactions. The ? patient was placed in the left ? lateral decubitus position, and a ? digital rectal exam was performed. ? The Colonoscope was inserted in the ? anus and under direct visualization, ? advanced to 15 cm into the ileum. ? Careful inspection was made as the ? colonoscope was withdrawn. The ? colonoscopy was performed without ? difficulty. The patient tolerated the ? procedure well. The quality of the ? bowel preparation was excellent. The ? terminal ileum, ileocecal valve, ? appendiceal orifice, and rectum were ? photographed. ? Findings: ? The perianal and digital rectal examinations were ? normal. ? The colon (entire examined portion) appeared normal. ? Biopsies were taken with a cold forceps for histology. ? The terminal ileum appeared normal. Biopsies were ? taken with a cold forceps for histology. ? Impression: ?- The entire examined colon is ? normal. Biopsied. ? - The examined portion of the ileum ? was normal. Biopsied. Recommendation: ?- Await pathology results. ? - Consider trial of Ranitidine 150 mg ? daily or twice daily and/or Claritin ? 10 mg daily for antihistamine effect. ? - Consultation with titrator as ? scheduled. ? Procedure Code(s): ?? --- Professional --- ? 83078, Colonoscopy, flexible; with ? biopsy, single or multiple CPT copyright 2014 [employer]. All rights reserved. The codes documented in this report are preliminary and upon force variation equipment tender review may be revised to meet current compliance requirements. Attending Participation: ? I personally performed the entire procedure. ? _ Julio Cesar Downing, 10/27/2015 1:43 PM Number of Addenda: 0 Note Initiated On: 10/27/2015 12:48 PM [employer]ATION 10/27/2015 12:4 8 PM EDT Jesse Gardner MD GENERAL SURGICAL ORD ERABLES [employer]ATION from Last 3 Months or Most Recently Relevant to Health Maintenance Care Teams Delivery Assistant Relationship Specialty Start Date End Date Catalina Blanchard MD [address] [place], [place] [id number] PCP - General Family Medicine 10/30/23
--- OUTSIDE RECORDS SUMMARY | 2024-08-19 16:38 | XMS_ITS | Encounter Summary ---
Author Organization [facility] Address [facility] [place] [address] Care Team Providers Care [employer] Operations Specialist Name Role Phone Catalina Blanchard MD Primary Care Provider [phone] Encounter Details Date Type Department Care Team (Latest Contact Info) Description 04/02/2024 Travel Social History Tobacco Use Types Packs/Day [...] AM EST TH Visit (TeleHealth) [place] [address] Karine Lechuga PA [facility] [place] [address] documented as of this encounter Visit Diagnoses Not on filedocumented in this encounter Care Teams [employer] Specialist Relationship Specialty Start Date End Date Catalina Blanchard MD [address] [place] [address] PCP - General Family Medicine 10/30/23 documented as of this encounter
--- OUTSIDE RECORDS SUMMARY | 2024-08-19 16:39 | XMS_ITS | Encounter Summary ---
Author Organization [facility] [place] [address] Care Team Providers Care Truck Driver Heavy Name Role Phone Jesse Gardner MD Primary Care Provider Reason for Visit * Auth/Cert Specialty Diagnoses / Procedures Referred By Contac t Referred To Contact Diagnoses Diarrhea, unspecified Congenital cutaneous mastocytosis diarrhea,mastocystitis (anesthesia consult-Propofol) Procedures PRO COLONOSCOPY, DIAGNOSTIC PRO UPPER GI ENDOSCOPY, DIAGNOSTIC COLONOSCOPY, DIAGNOSTIC Referral ID Status Reason Start Date Expiration Date Visits Re quested Visits Authorized [id number] 1 1 Encounter Details Date Type Department Care Team (Late st Contact Info) Description 10/27/2015 8:57 AM EDT - 10/27/2015 2:27 PM EDT Hospital En[place] [address] Julio Cesar Downing MD [facility] [place] [address] Discharge Disposition: Home Social History Tobacco Use Types Packs/Day Years Used Date Smoking Tobacco: Never Alcohol Use Standard Drinks/Week Comments [...] Sign Reading Time Taken Comments Blood Pressure 103/61 10/27/2015 1:33 PM EDT Pulse 86 10/27/2015 1:33 PM EDT Temperature - - Respiratory Rate 16 10/27/2015 1:33 PM EDT Oxygen Saturation 99% 10/27/2015 1:33 PM EDT Inhaled Oxygen Concentration - - Weight - - Height - - Body Mass Index - - documented in this encounter Discharge Instructions * Discharge Instructions* Nancy Granados, RN - 10/27/2015 1:34 PM EDT UPPER GI ENDOSCOPY WHAT TO EXPECT AFTER THE PROCEDURE Medications You may have a mild sore throat. Ice chips, popsicles, over the counter throat lozenges or spray may help numb your throat. This procedure should not cause a fever. Call your healthcare provider or seek immediate medical attention if: You have trouble swallowing. You have belly pain. Your stools are black or tarlike or have streaks of blood. You are sick to your stomach or cannot keep fluids down. Watch closely for changes in your health, and be sure to contact your doctor IF Your throat still hurts after a day or two You do not get better as expected. Colonoscopy What to expect after the procedure You may feel a little more gassy or bloated than usual. This is normal. You should expect the return of normal bowel function in the 2 to 3 days. Activity Because of the sedation that you received your judgement and reaction time are effected ?? Go home and rest quietly for the remainder of the day. You may resume your normal activities tomorrow. ?? Change from one position to the next slowly. You may lose your balance unexpectedly ?? Be careful on stairs, as you may be unsteady on your feet FOR THE NEXT 24 HRS ?? DO NOT DRIVE OR OPERATE ANY MACHINERY ?? DO NOT DRINK ALCOHOLIC BEVERAGES ?? DO NOT SIGN LEGAL DOCUMENTS ?? If you are a smoker: DO NOT SMOKE WHILE YOU ARE ALONE Diet ?? Start by eating small portions of foods that ordinarily will not upset your stomach . Avoid gas producing foods for the next few days ?? Be gentle with what you choose to start with ?? Drink plenty of fluids ( unless your doctor has told you not to). IV SITE-- slight redness, or tenderness is normal. You can use warm compresses if you become concerned. If the tenderness +/or redness increases or foul drainage and a red streak occurs, please contact your PCP immediately When shoud you call for help? Call 911 anytime you think you may need emergency care. For example If you pass out ( loss of consciousness) If you pass maroon or bloody stools If you have severe belly pain Call your doctor now or seek immediate medical care If your stools are black and tarlike If your stools have streaks of blood, but you did not have a biopsy or any polyps removed If you have belly pain, or your belly is swollen and firm If you vomit If you have a fever If you are very dizzy Watch closely for changes in your health, and be sure to contact your doctor if you have any problems Your doctor will let you know when you will need your next colonoscopy. The results of your test and your risk for colorectal cancer will help your doctor decide how often you need to be checked. Monday-Monday Same Day Endo [phone] [id number] Otherwise contact [phone] and ask to speak to the finance administrator director of laboratory operations Follow up care is a quinones part of your treatment and safety. Be sure to make and go to all appointments, and call your doctor if you are having problems. Discharge instructions reviewed with patient who expresses understanding documented in this encounter Medications at Time of Discharge Medication Sig Dispensed Refills Start Date End Date sertraline (ZOLOFT) 100 mg Tablet Take 100 mg by mouth daily. 06/25/2015 oxyCODONE (ROXICODONE) 5 mg Tablet Take 5 mg by mouth as needed. 09/22/2015 07/29/2022 multivitamin (THERAGRAN) Tablet Take 1 tablet by mouth daily. 01/28/2016 lisinopril (PRINIVIL;ZESTRIL) 10 mg Tablet Take 10 mg by mouth daily. 07/24/2015 07/29/2022 methylphenidate (METADATE ER) 20 mg Tablet Sustained Release Take 40 mg by mouth every morning. 08/27/2015 12/05/2023 documented as of this encounter H&P Notes * Julio Cesar Downing MD - 10/27/2015 11:30 AM EDT Patient Name: Jhonathan Adiar Patient Age: 45 y.o. Birthdate: 1970 Admit date: 10/27/2015 Attending Physician: Julio Cesar Downing MD Gastroenterology & Hepatology Pre-Procedure History and Physical Planned Procedure: EGD: Colonoscopy: Indication: diarrhea Patient with history of mastocytic colitis (see my full clinic note for details). Prior EGD showed question of small bowel involvement. Continue to have episodic diarrhea, not on medication currently. Patient Active Problem List Diagnosis Code ??? Diarrhea R19.7 Medications: Reviewed in EDH No Known Allergies Social History/Family History: Reviewed in EDH. No changes Exam: Filed Vitals: 10/27/15 0938 BP: 125/78 Pulse: 87 Resp: 16 GEN: NAD, AAOX3 HEENT: NC/AT dryMM, anicteric Chest: CTAB Heart: RRR, nl s1, s2 Abdomen: normal bowel sounds, soft, non tender Assessment and Plan: Proceed with EGD: Colonoscopy: ASA Grade: ASA 2 - Patient with mild systemic disease with no functional limitations Mallampati: per anesthesia Sedation plan: Monitored Anesthesia Care Risks and benefits of the procedure were discussed with the patient. Consent has been signed. documented in this encounter Plan of Treatment Upcoming Encounters Date Type Department Care Team (Late st Contact Info) Description 09/03/2024 9:00 AM EST TH Visit (TeleHealth) [place] [address] Karine Lechuga PA [facility] [place] [address] documented as of this encounter Procedures Procedure Name Priority Date/Time Associated Diagnosis Comments SURGICAL PATHOLOGY REPORT Routine 10/27/2015 1:29 PM EDT SPECIMEN TO PATHOLOGY Routine 10/27/2015 1:29 PM EDT SPECIMEN TO PATHOLOGY Routine 10/27/2015 1:29 PM EDT SPECIMEN TO PATHOLOGY Routine 10/27/2015 1:29 PM EDT SPECIMEN TO PATHOLOGY Routine 10/27/2015 1:29 PM EDT UPPER GI ENDOSCOPY Routine 10/27/2015 12 :54 PM EDT EGD, UPPER GI ENDOSCOPY (WRVU 2.09) 10/27/2015 12:50 PM EDT diarrhea,mastocysti tis (anesthesia consult-Propofol) COLONOSCOPY, DIAGNOSTIC (WRVU 3.26) 10/27/2015 12:50 PM EDT diarrhea,mastocysti tis (anesthesia consult-Propofol) COLONOSCOPY Routine 10/27/2015 12:48 PM EDT documented in this encounter Results * Surgical Pathology Report (10/27/2015 1:29 PM EDT) Final Diagnosis [id number] ? Location: The signing pathologist has (i) examined the relevant preparation(s) for the specimen(s) and (ii) rendered or confirmed the diagnosis(es). . ?Surgical Pathology DIAGNOSIS A - Antrum, biopsy: - Gastric antrum-type and body/fundic-typ e mucosa, negative for diagnostic abnormality. B - Duodenum, biopsy: - Duodenal mucosa, negative for diagnostic abnormality. C - Terminal ileum, biopsy: - Ileal mucosa, negative for diagnostic abnormality. D - Colonic mucosa, biopsy: - Colonic mucosa, negative for diagnostic abnormality. CR-PX 10/28/15 AAY 10/29/15 Verified by: ? Fito Kinney MD ?Pathologist ?(Electronic Signature) The attending pathologist whose signature appears on this report has reviewed all diagnostic slides and has edited the gross and/or microscopic portion of the report in rendering the final pathologic diagnosis. CLINICAL INFORMATION Specimen Submitted: A - Gastric antrum (mild erythema) B - Duodenum, normal appearing C - Terminal ileum, question of subtle blunting otherwise normal D - Normal colonic mucosa (random) Clinical History: Diarrhea (episodic), history of mastocytic colitis Clinical Diagnosis: Diarrhea (episodic), history of mastocytic colitis SPECIMEN PROCESSING A - Labeled/Fixativ e: Gastric antrum (mild erythema), formalin. Quantity/Size: Five, averaging 0.3 cm. Tissue Description: Polypoid jane soft tissues. Sections/Proces sing: (T1) B - Labeled/Fixativ e: Duodenum, normal appearing, formalin. Quantity/Size: Three, ranging from 0.2-0.5 cm. Tissue Description: Polypoid jane soft tissues. Sections/Proces sing: (T1) C - Labeled/Fixativ e: Terminal ileum, question of subtle blunting otherwise normal, formalin. Quantity/Size: Two, 0.4 cm. Tissue Description: Polypoid jane soft tissues. Sections/Proces sing: (T1) . SPECIMEN PROCESSING D - Labeled/Fixativ e: Normal colonic mucosa (random), formalin. Quantity/Size: Multiple, averaging 0.3 cm. Tissue Description: Polypoid jane soft tissues. Sections/Proces sing: (T2) ??shb 10/29/2015 12:58 PM EDT [facility] GI Biopsy 10/27/2015 1:29 PM EDT 10/27/2015 1:29 PM EDT GI Biopsy 10/27/2015 1:29 PM EDT 10/27/2015 1:29 PM EDT GI Biopsy 10/27/2015 1:29 PM EDT 10/27/2015 1:29 PM EDT GI Biopsy 10/27/2015 1:29 PM EDT 10/27/2015 1:29 PM EDT Julio Cesar Downing MD PATHOLOGY/CYTOLOG Y ORDERABLES [facility] [place] [address] * Specimen to Pathology (surgical or derm) (10/27/2015 1:29 PM EDT) AP Specimen 10/27/2015 1:29 PM EDT 10/27/2015 1:30 PM EDT Narrative [facility] - 10/27/2015 1:30 PM EDT Specimen requisition ordered. ??Separate Pathology report to follow Julio Cesar Downing MD PATHOLOGY/CYTOLOG Y ORDERABLES Performing Organization Address [facility] [place] [address] * Specimen to Pathology (surgical or derm) (10/27/2015 1:29 PM EDT) AP Specimen 10/27/2015 1:29 PM EDT 10/27/2015 1:30 PM EDT Narrative [facility] - 10/27/2015 1:30 PM EDT Specimen requisition ordered. ??Separate Pathology report to follow Julio Cesar Downing MD PATHOLOGY/CYTOLOG Y ORDERABLES Performing Organization Address [facility] [place] [place] [address] * Specimen to Pathology (surgical or derm) (10/27/2015 1:29 PM EDT) AP Specimen 10/27/2015 1:29 PM EDT 10/27/2015 1:29 PM EDT [facility] - 10/27/2015 1:29 PM EDT Specimen requisition ordered. ??Separate Pathology report to follow Julio Cesar Downing MD PATHOLOGY/CYTOLOG Y ORDERABLES Performing Organization Address [facility] [place] [place] [address] * Specimen to Pathology (surgical or derm) (10/27/2015 1:29 PM EDT) AP Specimen 10/27/2015 1:29 PM EDT 10/27/2015 1:29 PM EDT [facility] - 10/27/2015 1:29 PM EDT Specimen requisition ordered. ??Separate Pathology report to follow Julio Cesar Downing MD PATHOLOGY/CYTOLOG Y ORDERABLES Performing Organization Address City/[facility]/ZIP Co de Phone Number [facility] [place] [address] * UPPER GI ENDOSCOPY (10/27/2015 12:54 PM EDT) UPPER GI ENDOSCOPY [facility] Endoscopy Patient Name: Jhonathan Adair ? Procedure Date: 10/27/2015 12:54 PM ? Date of : 1970 ? Age: 45 ? Order #: [id number] ? Procedure: ? Upper GI endoscopy Indications: ? Dyspepsia, Diarrhea Providers: ? Julio Cesar Downing, Rufus Jackson RN Referring MD: ?Jesse Gardner MD Medicines: [...] the physician, the nurse and the ? power barker operator in the pre-procedure area ? in the [...] and ? adverse medication reactions. The ? Endoscope was introduced through the ? mouth, and advanced to the third part ? of duodenum. The patient tolerated ? the procedure well. The upper GI ? endoscopy was accomplished without ? difficulty. The patient tolerated the ? procedure well. ? Findings: ? The Z-line was regular and was found 39 cm from the ? incisors. Normal esophagus. ? Diffuse mildly erythematous mucosa without bleeding ? was found in the gastric antrum. Biopsies were taken ? with a cold forceps for histology. ? The exam of the stomach was otherwise normal. ? The examined duodenum was normal. Biopsies were taken ? with a cold forceps for histology. ? Impression: ?- Z-line regular, 39 cm from the ? incisors. ? - Erythematous mucosa in the antrum. ? Biopsied. ? - Normal examined duodenum. Biopsied. Recommendation: ?- Await pathology results. ? - Can consider trial of Ranitidine ? (150mg daily or twice daily) and or ? Claritin (10 mg daily) as a histamine ? june. ? Attending Participation: ? I personally performed the entire procedure. ? _ Julio Cesar Chang, 10/27/2015 1:40 PM Number of Addenda: 0 Note Initiated On: 10/27/2015 12:54 PM [facility] 10/27/2015 12:5 4 PM EDT Jesse Gardner MD GENERAL SURGICAL ORD ERABLES [facility] * COLONOSCOPY (10/27/2015 12:48 PM EDT) COLONOSCOPY [facility] Endoscopy Patient Name: Jhonathan Adair ? Procedure Date: 10/27/2015 12:48 PM ? Date of : 1970 ? Age: 45 ? Order #: [id number] ? Procedure: ? Colonoscopy Indications: ? Chronic diarrhea Providers: ? Rufus Wolfe, MANFRED Referring : ?Jesse Gardner MD Medicines: ? Propofol per [...] the physician, the nurse and the ? power barker operator in the pre-procedure area ? in the [...] for antihistamine effect. ? - Consultation with architect intern as ? scheduled. ? Procedure Code(s): ?? --- Professional --- ? 64719, Colonoscopy, flexible; with ? biopsy, single or multiple CPT copyright 2014 [employer]. All rights reserved. The codes documented in this report are preliminary and upon independent video producer review may be revised to meet current compliance requirements. Attending Participation: ? I personally performed the entire procedure. ? _ Julio Cesar Downing, 10/27/2015 1:43 PM Number of Addenda: 0 Note Initiated On: 10/27/2015 12:48 PM [facility] 10/27/2015 12:4 8 PM EDT Jesse Gardner MD GENERAL SURGICAL ORD ERABLES [facility] documented in this encounter Visit Diagnoses Not on filedocumented in this encounter Active and Recently Administered Medications Due to Daylight Saving Time, this section may contain times in both EST and EDT. Continuous Medication Order 10/25/2015 10/26/2015 10/27/2015 lactated ringers infusion (CANCELED) 100 mL/hr, Intravenous, CONTINUOUS, Starting on Mon10/27/15 at 1000, Until Mon10/27/15 at 1404, Endoscopy (Day of Procedure) 1207 (New Bag - Prov ider: Shilo Linares CRNA)1327 (Anesthesia Volume Adjustment - Provider: Shilo Linares CRNA) documented in this encounter Care Teams Truck Driver Heavy Relationship Specialty Start Date End Date Jesse Gardner MD [address] [place] [address] PCP - General Internal Medicine 05/26/15 04/25/23 documented as of this encounter
--- OUTSIDE RECORDS SUMMARY | 2024-08-19 16:39 | XMS_ITS | Encounter Summary ---
Author Organization [facility] Address [facility] [place] [address] Care Team Providers Care Pharmacy General Manager Name Role Phone Jesse Gardner MD Primary Care Provider [phone] Encounter Details Date Type Department Care Team (Late st Contact Info) Description 11/02/2015 Orders [place] [phone] Julio Cesar Downing MD [facility] [place] [address] Social History Tobacco Use Types Packs/Day Years [...] AM EST TH Visit (TeleHealth) [place] [phone] Karine Lechuga PA [facility] [place] [address] documented as of this encounter Visit Diagnoses Not on filedocumented in this encounter Care Teams Pharmacy General Manager Relationship Specialty Start Date End Date Jesse Gardner MD [address] [place] [address] PCP - General Internal Medicine 05/26/15 04/25/23 documented as of this encounter
--- OUTSIDE RECORDS SUMMARY | 2024-08-19 16:39 | XMS_ITS | Encounter Summary ---
Author Organization [facility] Address [address] [place] [address] Care Team Providers Care Eyeglass Frame Truer Name Role Phone Jesse Gardner MD Primary Care Provider [phone] Encounter Details Date Type Department Care Team (Latest Contact Info) Description 05/21/2020 Travel Social History Tobacco Use Types Packs/Day Years Used Date Smoking Tobacco: Never Smokeless Tobacco: Never Alcohol Use Standard Drinks/Week Comments Not Currently 0 (1 standard drink = 0.6 oz pur e alcohol) Interpersonal Safety Answer Date Record ed Physically Hurt Never 03/16/2020 Verbally Threaten Not on file 03/16/2020 Sex and Gender Information Value Date Recorded Sex Assigned at Male 10/25/2023 15:00 EDT Legal Sex Male 9:06 EST Gender Identity Female 10/25/2023 15:00 EDT Sexual Orientation Lesbian 10/25/2023 15 :00 EDT COVID-19 Exposure Response Date Recorded In the last month, have you been in contact with someone who was confirmed or suspected to have Coronavirus / COVID-19? No / Unsure 05/21/2020 9:24 EDT documented as of this encounter Plan of Treatment Not on file documented as of this encounter Visit Diagnoses Not on filedocumented in this encounter Care Teams Eyeglass Frame Truer Relationship Specialty Start Date End Date Jesse Gardner MD [address] [place] [address] PCP - General 03/27/20 documented as of this encounter
--- OUTSIDE RECORDS SUMMARY | 2024-08-19 16:39 | XMS_ITS | Encounter Summary ---
Author Organization [facility] Address [address] [place] [address] Care Team Providers Care Glove Pairer Name Role Phone Jesse Gardner MD Primary Care Provider [phone] Encounter Details Date Type Department Care Team (Late st Contact Info) Description 05/10/2020 Lab Requisition [facility] Pathology & Laboratory Medicine - [address] [address] Outr Resulting Lab, Provider Social History Tobacco Use Types Packs/Day Years [...] have Coronavirus / COVID-19? No / Unsure 04/23/2020 9:23 EDT documented as of this encounter Plan of Treatment Not on file documented as of this encounter Procedures Procedure Name Priority Date/Time Associated Diagnosis Comments CRYPTOCOCCAL ANTIGEN, CSF Routine 05/08/2020 19:57 EDT documented in this encounter Results * CRYPTOCOCCAL ANTIGEN, CSF (05/08/2020 19:57 EDT) Cryptococcal Ag CSF Negative Negative 05/10/2020 18:07 EDT [facility] Fluid CEREBROSPINAL FLUID SPECIMEN / Unknown 05/08/2020 19:57 EDT 05/10/2020 16:39 EDT us Provider Outr Resulting Lab MICROBIOLOGY - GENER AL ORDERABLES Final Result [facility] [address] [place] [address] documented in this encounter Visit Diagnoses Not on filedocumented in this encounter Care Teams Glove Pairer Relationship Specialty Start Date End Date Jesse Gardner MD [address] [place] [address] PCP - General 03/27/20 documented as of this encounter
--- OUTSIDE RECORDS SUMMARY | 2024-08-19 16:39 | XMS_ITS | Encounter Summary ---
Author Organization [facility] Address [facility] [place] [address] Care Team Providers Care Automation Analyst Name Role Phone Jesse Gardner MD Primary Care Provider Reason for Visit * Reason Comments Right Hand Pain 2nd opinion - Pain R middle finger * Consultation (Routine) - Closed Specialty Diagnoses / Procedures Referred By Contac t Referred To Contact Orthopaedics Diagnoses PAIN OF RIGHT MIDDLE FINGER Keanu De Los Santos MD [address] [place] [address] Carlos Zaldivar MD [facility] [place] [address] Referral ID Status Reason Start Date Expiration Date V isits Requested Visits Authorized [id number] Closed Consult, Test & Treat Connection Center 02/27/2019 02/27/2020 1 1 Encounter Details Date Type Department Care Team (Late st Contact Info) Description 05/13/2019 1:15 PM EDT Office Visit [place] [address] Carlos Zaldivar MD [facility] [place] [address] Pain in finger of right hand Social History Tobacco Use Types Packs/Day Years [...] Sign Reading Time Taken Comments Blood Pressure 136/91 05/13/2019 1:07 PM EDT Pulse 94 05/13/2019 1:07 PM EDT Temperature - - Respiratory Rate - - Oxygen Saturation - - Inhaled Oxygen Concentration - - Weight 73.5 kg (162 lb) 05/13/2019 1:07 PM EDT v erbal Height 168.9 cm (5' 6.5) 05/13/2019 1:07 PM EDT verbal Body Mass Index 25.76 05/13/2019 1:07 PM EDT documented in this encounter Progress Notes * Carlos Zaldivar MD - 05/13/2019 1:15 PM EDT Jhonathan Adair is a 49-year-old male who had undergone an A1 oscar release of his right long finger done by Dr. Sewell in [facility] in September 2018. Although this did cure his triggering, hedeveloped quite a bit of pain and stiffness over the proximal palmar aspect of the long finger of his right hand. This has abated slightly with hand therapy but he notes that any attempted heavy grasp or even full finger extension with pressure over the site causes him to have fairly severe pain. He has similar symptoms in his left long finger which was released more recently by Dr. De Los Santos. He had an MRI done at [facility] on January 15, 2019 which appeared to be fairly normal. He was sent to me for this consultation by Dr. De Los Santos. 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 His is a general surgeon. He reports to be otherwise fairly healthy. Examination was a pleasant alert male in no apparent distress. He does have some grease staining ofhis hands consistent with mechanical work. He has intact sensation in his right long finger. He does not have any evidence of flexor bowstringing. He does not have any evidence of triggering. His right long finger is not particularly swollen and I do not believe that he has significant tenosynovitis. I can reproduce the pain with direct palpation directly over Masha dorman as he flexes and extends the finger. I personally reviewed an MRI that was done on January 15, 2019 and x-rays from December 12, 2018. I find themto be unremarkable and they certainly do not explain his symptoms. Assessment: Chronic right long finger pain following A1 oscar release. I suspect that his symptomsmay be caused by impingement between the FDP tendon as it passes through the FDS tendon at [facility]. I did recommend a corticosteroid injection for both diagnostic and therapeutic reasons. This could be diagnostic to prove that the symptoms are coming from a process within the flexor sheath based onhis early response to the injection. This could also be curative if my suspicion about his pathology is correct. I did discuss consideration of wide-awake hand surgery with exploration of his flexor sheath and possible excision of one limb of Camper's chiasm if this appears to be a source of his irritation. He wishes to have the injection done by Dr. De Los Santos and he will see me in the future on aas needed basis. documented in this encounter Plan of Treatment Upcoming Encounters Date Type Department Care Team (Late st Contact Info) Description 09/03/2024 9:00 AM EST TH Visit (TeleHealth) [place] [address] Karine Lechuga PA [facility] [place] [address] documented as of this encounter Visit Diagnoses Diagnosis Pain in finger of right hand Pain in limb documented in this encounter Care Teams Automation Analyst Relationship Specialty Start Date End Date Jesse Gardner MD [address] [place] [id number] PCP - General Internal Medicine 05/26/15 04/25/23 documented as of this encounter
--- OUTSIDE RECORDS SUMMARY | 2024-08-19 16:39 | XMS_ITS | Encounter Summary ---
Author Organization [facility] [place] [address] Care Team Providers Care Aquarist Name Role Phone Jesse Gardner MD Primary Care Provider Reason for Referral * Consultation (Routine) - Closed Specialty Diagnoses / Procedures Referred By Mona t Referred To Contact Endocrinology Diagnoses Gender dysphoria in adult Jesse Gardner MD [address] [place] [address] [facility] End[facility] [address] [place] [phone] Referral ID Status Reason Start Date Expiration Date V isits Requested Visits Authorized [id number] Closed Consult, Test & Treat 11/18/2021 11/18/2022 6 6 Encounter Details Date Type Department Care Team (Latest Contact Info) Description 11/18/2021 Transcribe Orders eDH Incoming Referrals [phone] Jesse Gardner MD [address] [place], [place] [id number] Gender dysphoria in adult Social History Tobacco Use Types Packs/Day Years [...] AM EST TH Visit (TeleHealth) [place] [address] Karine Lechuga PA [facility] [place] [address] Scheduled Referrals Name Type Priority Associated Diagnoses Order Schedule Referral to Endocrinology Outpatient Referral Routine Gender dysphoria in adult Ordered: 11/18/2021 documented as of this encounter Visit Diagnoses Diagnosis Gender dysphoria in adult documented in this encounter Care Teams Aquarist Relationship Specialty Start Date End Date Jesse Gardner MD [address] [place] [id number] PCP - General Internal Medicine 05/26/15 04/25/23 documented as of this encounter
--- OUTSIDE RECORDS SUMMARY | 2024-08-19 16:39 | XMS_ITS | Encounter Summary ---
[place] [address] Care Team Providers Care Import/Export Clerk Name Role Phone Jesse Gardner MD Primary Care Provider [phone] Reason for Visit * Reason Onset Date Comments Appointment 12/02/2021 Encounter Details Date Type Department Care Team (Late st Contact Info) Description 12/02/2021 Telephone [place] [phone] Luz Marina Scanlon I Appointment Social History Tobacco Use Types Packs/Day Years [...] encounter Miscellaneous Notes * Telephone Encounter - Luz Marina Holder I - 12/02/2021 8:26 AM EDT Unable to contact patient to schedule from referral. Letter sent and referral closed documented in this encounter Plan of Treatment Upcoming Encounters Date Type Department Care Team (Late st Contact Info) Description 09/03/2024 9:00 AM EST TH Visit (TeleHealth) [place] [phone] Karine Lechuga PA [facility] [place] [address] documented as of this encounter Visit Diagnoses Not on filedocumented in this encounter Care Teams Import/Export Clerk Relationship Specialty Start Date End Date Jesse Gardner MD [address] [place] [address] PCP - General Internal Medicine 05/26/15 04/25/23 documented as of this encounter
--- OUTSIDE RECORDS SUMMARY | 2024-08-19 16:39 | XMS_ITS | Encounter Summary ---
Author Organization [facility] Address [address] [place] [address] Care Team Providers Care Sergeant Missile Crewman Name Role Phone Jesse Gardner MD Primary Care Provider [phone] Encounter Details Date Type Department Care Team (Late st Contact Info) Description 05/08/2020 Lab Requisition [facility] Pathology & Laboratory Medicine - [address] [address] Outr Resulting Lab, Provider Social History Tobacco [...] Procedure Name Priority Date/Time Associated Diagnosis Comments HERPES SIMPLEX VIRUS (HSV) TYPE 1 & 2 AB, IGG Routine 05/08/2020 18:36 EDT documented in this encounter Results * HERPES SIMPLEX VIRUS (HSV) TYPE 1 & 2 AB, IGG (05/08/2020 18:36 EDT) HSV Type 1 Ab, IgG Negative Negative 05/11/2020 10:57 EDT [facility] Comment: No detectable antibodies to HSV 1 were found. A negative result generally indicates that the patient has not been infected, but does not always rule out acute HSV infection. If clinical exposure to HSV is suspected despite a negative finding a second sample should be collected and tested no less than 4-6 weeks later. HSV Type 2 Ab, IgG Negative Negative 05/11/2020 10:57 EDT [facility] Comment: No detectable antibodies to HSV 2 were found. A negative result generally indicates that the patient has not been infected, but does not always rule out acute HSV infection. If clinical exposure to HSV is suspected despite a negative finding a second sample should be collected and tested no less than 4-6 weeks later. Blood VENOUS BLOOD / Unknown 05/08/2020 18:36 EDT 05/10/2020 15:54 EDT us Provider Outr Resulting Lab IMMUNOLOGY AND SEROL OGY ORDERABLES Final Result Performing Organization Address City/State/[facility] Co de Phone Number [facility] [address] [place] [address] documented in this encounter Visit Diagnoses Not on filedocumented in this encounter Care Teams Sergeant Missile Crewman Relationship Specialty Start Date End Date Jesse Gardner MD [address] [place] [address] PCP - General 03/27/20 documented as of this encounter
--- OUTSIDE RECORDS SUMMARY | 2024-08-19 16:39 | XMS_ITS | Encounter Summary ---
Author Organization [facility] Address [address] [place] [address] Care Team Providers Care Brake Repair Supervisor Name Role Phone Jesse Gardner MD Primary Care Provider [phone] Reason for Visit * Reason Comments New Patient Visit Pt states he was ref erred for joint pain and fatigue.Unexplained fevers and nightsweats for a few months.Neg Covid X2.Shoulders,hands,right foot pain. Encounter Details Date Type Department Care Team (Late st Contact Info) Description 04/02/2020 14:00 EDT Office Visit [facility] Rheumatology [address] [place] [address] Cele Garcia MD [address] [facility] [address] [place] [address] Fever in other diseases (Primary Dx); Malaise and fatigue; Other headache syndrome Social History Tobacco Use Types Packs/Day Years Used Date Smoking Tobacco: Never Smokeless Tobacco: Never Interpersonal Safety Answer Date Record ed Physically [...] have Coronavirus / COVID-19? No / Unsure 04/02/2020 13:52 EDT documented as of this encounter Last Filed Vital Signs Vital Sign Reading Time Taken Comments Blood Pressure 144/100 04/02/2020 1355 EDT Pulse - - Temperature 36.4 ??C (97.6 ??F) 04/02/2020 1355 EDT Respiratory Rate - - Oxygen Saturation - - Inhaled Oxygen Concentration - - Weight 75.3 kg (166 lb) 04/02/2020 1355 EDT Height - - Body Mass Index - - documented in this encounter Patient Instructions * Patient Instructions* Cele Garcia MD - 04/02/2020 14:00 EDT --Will call with lab results documented in this encounter Progress Notes * Cele Garcia MD - 04/02/2020 1400 EDT [facility] Rheumatology Chief Complaint Patient presents with ??? New Patient Visit Pt states he was referred for joint pain and fatigue.Unexplained fevers and nightsweats for a few months.Neg Covid X2.Shoulders,hands,right foot pain. HPI: Jhonathan Adair is a 50 year old man who is sent for consultation by Antony Gardner MD for history of intermittent fever, headaches and joint pain. Mr. Adair developed fever to 103 x 48 hrs, as well as fatigue and frontal headaches in October 2019. He was tested for Covid twice, and negative. Mr. Adair says that the fevers have continued episodically. He says they have not been as high asthe initial fever and now are ranging just over 100. With the fever comes fatigue and headache and feeling very lethargic. He says that he used to be very active and when the symptoms occur, he staysin bed for most of the day. Recently, he said he had a couple of good weeks. However earlier this week he had another episode. He also reports night sweats, at times soaking. He does mention that these are not new and precededthe symptoms that started this past October. Mr. Adair denies any rash, shortness of breath or cough. He has a history of an undiagnosed type of colitis that was diagnosed when living out in [place]. 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 Since then, he had a colonoscopy at [facility], and reportedly this was normal. He has days of significant diarrhea. Eating carbohydrates help. Mr. Adair also has a history of upper and lower back pain. The low back pain began in his late teens. He had a L5-S1 fusion at age 33. He has episodic right sciatica. Regarding the upper back, he says that he had been doing a lot of work requiring upper body activity. He developed some tingling in the upper back. He saw a neurologist at [employer], Dr. Nayak, who thought his symptoms were due to overuse. Mr. Adair has a history of asthma for which he uses zafirlukast and an inhaler. He has not neededhigh doses of prednisone to treat the asthma. He also has a history of sinus surgery. He has nosebleeds in the winter. He reports tick exposures. He has not had been tested for Lyme. Current Outpatient Medications Medication ??? acetaminophen (TYLENOL) 500 mg tablet ??? ibuprofen (MOTRIN) 200 mg tablet ??? lisinopriL (PRINIVIL) 5 mg tablet ??? loratadine/pseudoephedrine (CLARITIN-D 24 HOUR ORAL) ??? methylphenidate HCl (RITALIN;METHYLIN) 20 mg tablet ??? sertraline (ZOLOFT) 50 mg tablet ??? zafirlukast (ACCOLATE) 10 mg tablet No current facility-administered medications for this visit. Allergies include: Patient has no known allergies. Patient Active Problem List Diagnosis ??? Diarrhea ??? Essential hypertension ??? Mild persistent asthma ??? Attention deficit disorder (ADD) in adult ??? 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 Recurrent major depressive disorder (HCC-CMS) Family History Problem Relation Age of Onset ??? 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 Rarely drinks alcohol. Review of Systems: 13 point ROS was done with the patient. See scanned document for details. Pertinent positives and negatives are noted in the HPI. Physical Examination: BP (!) 144/100 Temp 36.4 ??C (97.6 ??F) Wt 75.3 kg (166 lb) EYES: Conjunctivae not injected ENT: No coating on tongue, dentition is good. NECK: Mildly reduced extension and lateral rotation without pain. No lymphadenopathy. LUNGS: Clear to auscultation bilaterally. CARDIOVASCULAR: Regular rate and rhythm. No murmur. No peripheral edema. ABDOMEN: Soft, non tender. No hepatosplenomegaly. JOINT EXAM: No synovitis of the joints of the hands, wrists, or feet. Right shoulder with abductionto 90 degrees actively, passive abduction full; left shoulder abduction to 160 degrees, passive abduction is full. Full painless ROM of elbows, wrists, hips, knees and ankles. SKIN: No rash on arms, legs, trunk. No nail pitting. No dilated capillary loops in the nail beds. NEURO: Strength 5/5. Sensation intact to light touch. Labs: Office Visit on 04/02/2020 Component Date Value ??? FERRITIN - [facility] 04/02/2020 146 ??? C-Reactive Protein 04/02/2020 9.2 Lab Requisition on 12/23/2019 Component Date Value ??? SSA Antibody 12/23/2019 2.2 ??? SSB Antibody 12/23/2019 3.2 ??? SM (Bacon) Antibody 12/23/2019 3.3 ??? CUT OUT OPERATOR Antibody 12/23/2019 2.3 ? ? Anti-DNA (Double Strande* 12/23/2019 <12.3 Lab Requisition on 12/17/2019 Component Date Value ??? OCTAVIO Interpretation 12/17/2019 Positive* ??? OCTAVIO Titer and Pattern 1 12/17/2019 1:320 Dense Fine Speckled Lab Requisition on 12/13/2019 Component Date Value ??? COVID-19 Result 12/13/2019 Negative ??? Performing Lab 12/13/2019 [facility] Lab Lab Requisition on 11/11/2019 Component Date Value ??? COVID-19 [place] Specimen S* 11/11/2019 Nasopharynx ??? COVID-19 [place] Result 11/11/2019 Undetected 12/17/19, [facility]: CBC w/diff wnl, creatinine 1.29, potassium 5.4, lfts wnl, total protein 7.3, albumin 4.3, CRP 0.56 mg/dL, ESR 11. Assessment and Plan: 1. Fever in other diseases Episodic fever, fatigue, headaches, with tick exposure, making tick borne illness -- mainly Lyme disease, high on the differential. Had a positive OCTAVIO, with negative specific antibodies for SLE, Sjogren's, MCTD, as well as normal CBC, making these CTD diseases unlikely. Hasn't had a rash, making Still's less likely. Has had diarrhea, but no weight loss, making Whipple's less likely. Does have a h/o asthma, so will consider small vessel vasculitis. - LYME AB - FERRITIN - ANCA, IFA - C REACTIVE PROTEIN - MISCELLANEOUS TEST, [place] 2. Malaise and fatigue - LYME AB - FERRITIN - ANCA, IFA - C REACTIVE PROTEIN - MISCELLANEOUS TEST, [place] 3. Other headache syndrome - LYME AB - ANCA, IFA - C REACTIVE PROTEIN - MISCELLANEOUS TEST, [place] Will call with lab results. If results are negative, will likely refer to infectious disease for their opinion. Cele Garcia MD 04/02/2020 22:55 documented in this encounter Miscellaneous Notes * Result Encounter Note - Cele Garcia MD - 04/02/2020 1400 EDT I spoke with patient (Jhonathan) and reviewed that all results are neg/normal. At this point, I asked that he keep a fever diary (temps over 100 only), with symptoms other than fever recorded. Will recommend he see Dr Portillo of Infect Dis. He says he will talk it over with his spouse stepan and let us know. documented in this encounter Plan of Treatment Scheduled Orders Name Type Priority Associated Diagnoses Orde r Schedule MISCELLANEOUS TEST, [place] Lab Routine Fever in other diseases Malaise and fatigue Other headache syndrome Ordered: 04/02/2020 documented as of this encounter Procedures Procedure Name Priority Date/Time Associated Diagnosis Comments TICK PANEL PCR - [facility] Routine 04/02/2020 15:03 EDT Fever in other diseases LYME AB Routine 04/02/2020 15:03 EDT Fever in other diseases Malaise and fatigue Other headache syndrome ANCA, IFA Routine 04/02/2020 15:03 EDT Fever in other diseases Malaise and fatigue Other headache syndrome C REACTIVE PROTEIN Routine 04/02/2020 15 :03 EDT Fever in other diseases Malaise and fatigue Other headache syndrome FERRITIN Routine 04/02/2020 15:03 EDT Fever in other diseases Malaise and fatigue documented in this encounter Results * TICK PANEL PCR - CV (04/02/2020 15:03 EDT) ANAPLASMA PHAGOCYTOPHILIUM - [facility] Negative Negative 04/05/2020 7:27 EDT [facility] BABESIA DIVERGENS/MO-1 - [facility] Negative Negative [facility]: ADDITIONAL INFORMATION This test was developed and its performance characteristics determined by [facility] in a manner consistent with CLIA requirements. This test has not been cleared or approved by the U.S. Food and Drug Administration. BABESIA DUNCANI - [facility] Negative Negative 04/05/2020 7:27 EDT [facility] BABESIA MICROTIC - [facility] Negative Negative 04/05/2020 7:27 EDT [facility] B.MIYAMOTOI PCR Negative Negative 0 7:27 T [facility] Comment: ADDITIONAL INFORMATION This test was developed and its performance characteristics determined by [facility] in a manner consistent with CLIA requirements. This test has not been cleared or approved by the U.S. Food and Drug Administration. Test Performed by: [facility] - [address] [address] Document Control Clerk: Shilo Rosado M.D. Ph.D.; CLIA# [id number] EHRLICHIA CHAFFEENSIS - [facility] Negative Negative 04/05/2020 7:27 EDT [facility] EHRLICHIA EWINGII/CANIS - [facility] Negative Negative 04/05/2020 7:27 EDT [facility] EHRLICHIA MURIS-LIKE - [facility] Negative Negative 04/05/2020 7:27 EDT [facility] Comment: ADDITIONAL INFORMATION This test was developed and its performance characteristics determined by [facility] in a manner consistent with CLIA requirements. This test has not been cleared or approved by the U.S. Food and Drug Administration. 04/02/2020 15:0 3 EDT 04/02/2020 16:30 EDT us Cele Garcia MD CHEMISTRY & BLOOD GAS ORDERABLE S Final Result Performing Organization Address [facility] Co de Phone Number [facility] [address] [place] [address] * C REACTIVE PROTEIN (04/02/2020 15:03 EDT) C-Reactive Protein 9.2 <10.0 mg/L 04/02/2020 17:21 EDT [facility] Blood VENOUS BLOOD / Unknown 04/02/2020 15:03 EDT 04/02/2020 16:30 EDT Cele Garcia MD CHEMISTRY & BLOOD GAS ORDERABLE S Final Result Performing Organization Address City/[facility] Co de Phone Number [facility] [address] [place] [address] * ANCA, IFA (04/02/2020 15:03 EDT) C-ANCA Negative Negative 04/05/2020 7:27 EDT [facility] P-ANCA Negative Negative 04/05/2020 7:27 EDT [facility] Comment: Negative for cANCA and pANCA patterns by immunofluorescence. ADDITIONAL INFORMATION This test was developed and its performance characteristics determined by [facility] in a manner consistent with CLIA requirements. This test has not been cleared or approved by the U.S. Food and Drug Administration. Test Performed by: [facility] [address] [place] [address] Document Control Clerk: Shilo Rosado M.D. Ph.D.; CLIA# [id number] Blood VENOUS BLOOD / Unknown 04/02/2020 15:03 EDT 04/02/2020 16:30 EDT us Cele Garcia MD IMMUNOLOGY AND SEROLOGY ORDERAB LES Final Result Performing Organization Address City/[facility]/ZIP Co de Phone Number [facility] [address] [place] [address] * FERRITIN (04/02/2020 15:03 EDT) [facility] FERRITIN - [facility] 146 17.9 - 464.0 ng/mL 04/02/2020 17:58 EDT [facility] Comment: The results of this assay can be falsely lowered due to the consumption of Biotin. Blood VENOUS BLOOD / Unknown 04/02/2020 15:03 EDT 04/02/2020 16:30 EDT us Cele Garcia MD CHEMISTRY & BLOOD GAS ORDERABLE S Final Result Performing Organization Address [facility] Co de Phone Number [facility] [address] [place] [address] * LYME AB (04/02/2020 15:03 EDT) [facility] Lyme Ab IgG NEGATIVE 04/03/2020 11:43 EDT [facility] Lyme Ab NEGATIVE 04/03/2020 11:43 EDT [facility] Blood VENOUS BLOOD / Unknown 04/02/2020 15:03 EDT 04/02/2020 16:30 EDT us Cele Garcia MD IMMUNOLOGY AND SEROLOGY ORDERAB LES Final Result [facility] [address] [place] [address] documented in this encounter Visit Diagnoses Diagnosis Fever in other diseases- Primary Malaise and fatigue Other malaise and fatigue Other headache syndrome documented in this encounter Historical Medications * This list may reflect changes made after this encounter. ibuprofen (MOTRIN) 200 mg tablet Take 400 mg by mouth every 6 hours. acetaminophen (TYLENOL) 500 mg tablet Take 500 mg by mouth every 6 hours as needed for Pain. loratadine/pseudo ephedrine (CLARITIN-D 24 HOUR ORAL) Take 1 Tab by mouth daily. methylphenidate HCl (RITALIN;METHYLIN ) 20 mg tablet Take 40 mg by mouth daily. lisinopriL (PRINIVIL) 5 mg tablet Take 5 mg by mouth daily. zafirlukast (ACCOLATE) 10 mg tablet Take 10 mg by mouth daily. sertraline (ZOLOFT) 50 mg tablet Take 150 mg by mouth daily. 04/23/2020 added in this encounter Care Teams Brake Repair Supervisor Relationship Specialty Start Date End Date Jesse Gardner MD [address] [place] [address] PCP - General 03/27/20 documented as of this encounter
--- OUTSIDE RECORDS SUMMARY | 2024-08-19 16:39 | XMS_ITS | Encounter Summary ---
Author Organization [facility] [place] [address] Care Team Providers Care Production Consultant Name Role Phone Jesse Gardner MD Primary Care Provider Reason for Visit * Auth/Cert Specialty Diagnoses / Procedures Referred By Contac t Referred To Contact Diagnoses Diarrhea, unspecified Congenital cutaneous mastocytosis diarrhea,mastocystitis (anesthesia consult-Propofol) Procedures PRO COLONOSCOPY, DIAGNOSTIC PRO UPPER GI ENDOSCOPY, DIAGNOSTIC COLONOSCOPY, DIAGNOSTIC Referral ID Status Reason Start Date Expiration Date Visits Re quested Visits Authorized [id number] 1 1 Encounter Details Date Type Department Care Team (Late st Contact Info) Description 10/27/2015 11:00 AM EDT - 10/27/2015 12:00 PM EDT Surgery [place] [address] Julio Cesar Downing MD [facility] [address] [place] [address] COLONOSCOPY, DIAGNOSTIC (WRVU 3.26) Social History Tobacco Use Types Packs/Day Years [...] to be checked. Monday-Monday Same Day Endo [phone] Otherwise contact [phone] and ask to speak to the animal feeder enterprise integration developer Follow up care is a quinones part [...] 10/27/2015 11:30 AM EDT Patient Name: Jhonathan Adair Patient Age: 45 y.o. Birthdate: 1970 Admit [...] AM EST TH Visit (TeleHealth) [place] [address] Karine Lechuga PA [facility] [place] [address] documented as of this encounter Procedures Procedure [...] Report (10/27/2015 1:29 PM EDT) Final Diagnosis [id number] ? Location: The signing pathologist has (i) [...] sing: (T2) ??shb 10/29/2015 12:58 PM EDT [facility] GI Biopsy 10/27/2015 1:29 PM EDT 10/27/2015 1:29 PM EDT GI Biopsy 10/27/2015 1:29 PM EDT 10/27/2015 1:29 PM EDT GI Biopsy 10/27/2015 1:29 PM EDT 10/27/2015 1:29 PM EDT GI Biopsy 10/27/2015 1:29 PM EDT 10/27/2015 1:29 PM EDT Julio Cesar Downing MD PATHOLOGY/CYTOLOG Y ORDERABLES [facility] [place] [address] * Specimen to Pathology (surgical or derm) (10/27/2015 1:29 PM EDT) AP Specimen 10/27/2015 1:29 PM EDT 10/27/2015 1:30 PM EDT Narrative [facility] - 10/27/2015 1:30 PM EDT Specimen requisition ordered. ??Separate Pathology report to follow Julio Cesar Downing MD PATHOLOGY/CYTOLOG Y ORDERABLES Performing Organization Address [facility] [place] [address] * Specimen to Pathology (surgical or derm) (10/27/2015 1:29 PM EDT) AP Specimen 10/27/2015 1:29 PM EDT 10/27/2015 1:30 PM EDT Narrative [facility] - 10/27/2015 1:30 PM EDT Specimen requisition ordered. ??Separate Pathology report to follow Julio Cesar Downing MD PATHOLOGY/CYTOLOG Y ORDERABLES Performing Organization Address [facility] [place] [address] * Specimen to Pathology (surgical or derm) (10/27/2015 1:29 PM EDT) AP Specimen 10/27/2015 1:29 PM EDT 10/27/2015 1:29 PM EDT Narrative [facility] - 10/27/2015 1:29 PM EDT Specimen requisition ordered. ??Separate Pathology report to follow Julio Cesar Downing MD PATHOLOGY/CYTOLOG Y ORDERABLES Performing Organization Address [facility] [place] [address] * Specimen to Pathology (surgical or derm) (10/27/2015 1:29 PM EDT) AP Specimen 10/27/2015 1:29 PM EDT 10/27/2015 1:29 PM EDT [facility] - 10/27/2015 1:29 PM EDT Specimen requisition ordered. ??Separate Pathology report to follow Julio Cesar Downing MD PATHOLOGY/CYTOLOG Y ORDERABLES [facility] [address] * UPPER GI ENDOSCOPY (10/27/2015 12:54 PM EDT) Pathologist [facility] UPPER GI ENDOSCOPY [facility] Endoscopy Patient Name: Jhonathan Adair ? Procedure Date: 10/27/2015 12:54 PM ? N: [id number] ? Date of : 1970 ? Age: 45 ? Order #: [id number] ? Procedure: ? Upper GI endoscopy Indications: [...] the physician, the nurse and the ? food vendor in the pre-procedure area ? in the [...] procedure. ? _ Julio Cesar Downing, 10/27/2015 1:40 PM Number of Addenda: 0 Note Initiated On: 10/27/2015 12:54 PM [facility] 10/27/2015 12:5 4 PM EDT Jesse Gardner MD GENERAL SURGICAL ORD ERABLES [facility] * COLONOSCOPY (10/27/2015 12:48 PM EDT) COLONOSCOPY [facility] Endoscopy Patient Name: Jhonathan Adair ? Procedure Date: 10/27/2015 12:48 PM ? Date of : 1970 ? Age: 45 ? Order #: [id number] ? Procedure: ? Colonoscopy Indications: ? Chronic diarrhea Providers: ? Rufus Wolfe RN Referring : ?Jesse Gardner MD Medicines: ? [...] the physician, the nurse and the ? food vendor in the pre-procedure area ? in the [...] for antihistamine effect. ? - Consultation with tilt tray driver as ? scheduled. ? Procedure Code(s): ?? --- Professional --- ? 13420, Colonoscopy, flexible; with ? biopsy, single or multiple CPT copyright 2014 [employer]. All rights reserved. The codes documented in this report are preliminary and upon statement distribution clerk review may be revised to meet current [...] CRNA) documented in this encounter Care Teams Production Consultant Relationship Specialty Start Date End Date Jesse Gardner MD [address] [place] [address] PCP - General Internal Medicine 05/26/15 04/25/23 documented as of this encounter
--- OUTSIDE RECORDS SUMMARY | 2024-08-19 16:39 | XMS_ITS | Encounter Summary ---
Author Organization [facility] Address [address] [place] [address] Care Team Providers Care Chief Controller Tower Name Role Phone Jesse Gardner MD Primary Care Provider [phone] Encounter Details Date Type Department Care Team (Latest Contact Info) Description 04/02/2020 Travel Social History Tobacco Use Types Packs/Day [...] 13:52 EDT documented as of this encounter Plan of Treatment Not on file documented as of this encounter Visit Diagnoses Not on filedocumented in this encounter Care Teams Chief Controller Tower Relationship Specialty Start Date End Date Jesse Gardner MD [address] [place], [place] [id number] PCP - General 03/27/20 documented as of this encounter
--- OUTSIDE RECORDS SUMMARY | 2024-08-19 16:39 | XMS_ITS | Encounter Summary ---
Author Organization [facility] Address [address] [place] [address] Care Team Providers Care Refrigerating Machine Operator Name Role Phone Jesse Gardner MD Primary Care Provider [phone] Encounter Details Date Type Department Care Team (Late st Contact Info) Description 07/01/2022 Lab Requisition [facility] Pathology & Laboratory Medicine - [address] [address] Outr Resulting Lab, Provider Social History Tobacco [...] Sexual Orientation Lesbian 10/25/2023 15 :00 EDT documented as of this encounter Plan of Treatment Not on file documented as of this encounter Procedures Procedure Name Priority Date/Time Associated Diagnosis Comments PSA TOTAL, DIAGNOSTIC Routine 07/01/2022 7:40 EST documented in this encounter Results * PSA TOTAL, DIAGNOSTIC (07/01/2022 7:40 EST) PSA 0.9 <=3.5 ng/mL 07/01/2022 20:41 EST [facility] Blood VENOUS BLOOD / Unknown 07/01/2022 7:40 EST 07/01/2022 18:35 EST Narrative [facility] - 07/01/2022 20:41 EST NOTE: Serum PSA concentration should not be interpreted as absolute evidence for the presence or absence of malignant disease. Assayed on [employer] ascent[employer]aur XPT using chemiluminescent technology.??Values obtained by using different assay methods cannot be used interchangeably. us Provider Outr Resulting Lab CHEMISTRY & BLOOD GA S ORDERABLES Final Result [facility] [address] [place] [address] documented in this encounter Visit Diagnoses Not on filedocumented in this encounter Care Teams Refrigerating Machine Operator Relationship Specialty Start Date End Date Jesse Gardner MD [address] [place], [place] [id number] PCP - General 03/27/20 documented as of this encounter
--- OUTSIDE RECORDS SUMMARY | 2024-08-19 16:39 | XMS_ITS | Encounter Summary ---
Author Organization [facility] Address [address] [place] [address] Care Team Providers Care Health And Wellness Coordinator Name Role Phone Jesse Gardner MD Primary Care Provider [phone] Encounter Details Date Type Department Care Team (Late st Contact Info) Description 11/24/2020 Lab Requisition [facility] Pathology & Laboratory Medicine - [address] [address] Janet Ramos, DO [address] [facility] [address] [place], [place] [id number] Encounter for other general examination Social History Tobacco Use Types Packs/Day Years [...] Priority Date/Time Associated Diagnosis Comments SURGICAL PATHOLOGY Today 11/24/2020 8: 44 EDT Encounter for other general examination documented in this encounter Results * SURGICAL PATHOLOGY (11/24/2020 8:44 EDT) Final Diagnosis A. JEJUNUM, PROXIMAL, BIOPSY: - Enteric mucosa with no significant diagnostic abnormality. See comment. - No morphologic features of mastocytosis identified. B. DUODENUM, BULB, BIOPSY: - Enteric mucosa with no significant diagnostic abnormality. See comment. - No morphologic features of mastocytosis identified. C. STOMACH, ANTRUM, BIOPSY: - Antral-type mucosa with no significant diagnostic abnormality. D. STOMACH, GREATER CURVE, BIOPSY: - Oxyntic-type mucosa with no significant diagnostic abnormality. E. GASTROESOPHAGEAL JUNCTION, BIOPSY: - Oxyntic-type mucosa with no significant diagnostic abnormality. F. ESOPHAGUS, DISTAL, BIOPSY: - Squamous mucosa with mild reactive changes. 11/26/2020 14:51 [facility] Diagnosis Comment Apartment Maintenance Supervisor slides of this case were reviewed at the intradepartmental consultation conference. (RW) 11/26/2020 14:51 [facility] Attestation By the signature below, the attending physician certifies that they have 1) personally conducted a gross and/or microscopic examination of the described specimen(s), and/or personally interpreted the results of laboratory testing of the described specimen(s), and 2) personally rendered or confirmed the above diagnosis. 11/26/2020 14:51 [facility] at 1451 Clinical History Mastocytosis of bowel 11/26/2020 14:51 [facility] Gross Description A. Received in formalin labelled with proper patient identification (initials K, E) and proximal jejunum bx is a jane-pink tissue measuring 0.3 x 0.2 x 0.1 cm. Submitted intact in A1. B. Received in formalin labelled with proper patient identification (initials K, E) and duodenal bulb bx are 5 jane-pink tissues ranging in size from 0.2 x 0.2 x 0.1 cm up to 0 point 4 x 0.2 x 0.1 cm. Submitted intact in B1. C. Received in formalin labelled with proper patient identification (initials K, E) and antrum bx is a light jane tissue measuring 0.3 x 0.3 x 0.2 cm. Submitted intact in C1. D. Received in formalin labelled with proper patient identification (initials K, E) and greater curve bx is a jane-pink tissue measuring 0.5 x 0.2 x 0.1 cm. Submitted intact in D1. E. Received in formalin labelled with proper patient identification (initials K, E) and GE junction bx is a jane-pink tissue measuring 0.8 x 0.2 x 0.1 cm. Submitted intact in E1. F. Received in formalin labelled with proper patient identification (initials K, E) and distal esophagus bx is a jane-white tissue measuring 0.3 x 0.3 x 0.1 cm. Submitted intact in F1. MAGALIE ORTIZ(ASCP) 11/24/2020 17:51 11/26/2020 14:51 EDT [facility] Performing Lab [facility] 11/26/2020 14:51 EDT [facility] Scanned Images 11/26/2020 14:51 EDT [facility] Tissue ENTIRE ESOPHAGUS / Unknown 11/24/2020 8:44 EDT 11/24/2020 15:34 EDT Tissue specimen (specimen) DUODENAL AMPULLA STRUCTURE / Unknown 11/24/2020 8:44 EDT 11/24/2020 15:34 EDT Tissue specimen (specimen) PYLORIC ANTRUM STRUCTURE / Unknown 11/24/2020 8:44 EDT 11/24/2020 15:34 EDT Tissue specimen (specimen) STOMACH STRUCTURE / Unknown 11/24/2020 8:44 EDT 11/24/2020 15:34 EDT Tissue specimen (specimen) CARDIOESOPHAGEAL JUNCTION STRUCTURE / Unknown 11/24/2020 8:44 EDT 11/24/2020 15:34 EDT Tissue specimen (specimen) ESOPHAGEAL STRUCTURE / Unknown 11/24/2020 8:44 EDT 11/24/2020 15:34 EDT us Janet Ramos DO PATHOLOGY ORDERABLES Final Re sult [facility] [address] [place] [address] documented in this encounter Visit Diagnoses Diagnosis Encounter for other general examination documented in this encounter Care Teams Health And Wellness Coordinator Relationship Specialty Start Date End Date Jesse Gardner MD [address] [place] [address] PCP - General 03/27/20 documented as of this encounter
--- OUTSIDE RECORDS SUMMARY | 2024-08-19 16:39 | XMS_ITS | Encounter Summary ---
Author Organization [facility] [place] [address] Care Team Providers Care Social Insurance Analyst Name Role Phone Jesse Gardner MD Primary Care Provider [phone] Reason for Referral * Physical Therapy (Routine) - Closed Specialty Diagnoses / Procedures Referred By Contac t Referred To Contact Physical Therapy Diagnoses Acute right-sided low back pain with right-sided sciatica Emmanuel Haddad APRN [facility] [place] [address] [facility] [place] [address] Referral ID Status Reason Start Date Expiration Date V isits Requested Visits Authorized [id number] Closed Evaluate and Treat 04/06/2017 04/06/2018 12 12 Reason for Visit * Reason Comments Back Pain Right Leg Pain * Consultation (Routine) - Closed Specialty Diagnoses / Procedures Referred By Contac t Referred To Contact Orthopaedics Diagnoses Low back pain Lidia Ocasio APRN [address] [place] [address] [facility] [place] [address] [address] Referral ID Status Reason Start Date Expiration Date V isits Requested Visits Authorized [id number] Closed Consult, Test & Treat [facility] 03/28/2017 03/28/2018 1 1 Encounter Details Date Type Department Care Team (Late st Contact Info) Description 04/06/2017 2:00 PM EDT [facility] [place] [address] Emmanuel Haddad APRN Acute right-sided low back pain with right-sided sciatica Social History Tobacco Use Types Packs/Day Years [...] Sign Reading Time Taken Comments Blood Pressure 144/90 04/06/2017 1:55 PM EDT Pulse 98 04/06/2017 1:55 PM EDT Temperature - - Respiratory Rate - - Oxygen Saturation - - Inhaled Oxygen Concentration - - Weight 72.6 kg (160 lb) 04/06/2017 1:55 PM EDT Height 167.6 cm (5' 6) 04/06/2017 1:55 PM EDT Body Mass Index 25.82 04/06/2017 1:55 PM EDT documented in this encounter Progress Notes * Emmanuel Haddad APRN - 04/06/2017 2:00 PM EDT SUBJECTIVE: Jhonathan Adair is a 47-year-old male patient being seen at the request of Lidia Ocasio APRN, with a chief complaint of low back pain. 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 The evening of that activity, he began experiencing pain in his low back which he describes as being midline and right of midline and radiating into the right buttock. In addition, he began experiencing approximately 1 week later numbness radiating down the medial thigh, medial lower leg and into the medial dorsal aspect of his right foot. He denies weakness in either lower extremity. His back pain is aggravated by walking 1 mile or more, standing 30 minutes or more, sitting 30 minutes or more, and activities involving lumbar flexion. It is alleviated by reducing his activities and lying down. His sleep is disrupted by his back pain. Prior treatments have included ibuprofen which is sometimes helpful, cyclobenzaprine helpful, oxycodone helpful, acupuncture not helpful, application of superficial heat not helpful, and for recurring muscle spasms higher up in the lateral in his back, Kenalog injections which are helpful. Review of systems is negative for constitutional, GI, or symptoms. Patient denies tobacco use, drinks alcohol rarely, lives with his and 10-year-old child and his is a surgeon at [employer]. The patient has a past medical history of L5-S1 fusion in 2002 performed in [place], [place]. He also has a history of SI joint injections. OBJECTIVE: On examination, the patient's affect is bright, his speech is in good time and to the point, and he responds appropriately to questions and direction. He stands with level hips and a straight lumbar spine with no obvious deformity. He is tender in the right buttock. Lumbar ROM is 20 degrees of flexion and 10 degrees of extension with both movements aggravating his back pain. He walks with a steady gait, is able to toe walk, heel walk and tandem walk. JACK bilaterally produces what he describes as deep anterior groin pain. Motor exam is 5/5 strength of all lower extremity muscle groups bilaterally. Sensation is intact in all dermatomes of the lower extremities with the exception of L3 and L4 on the left which are diminished. Reflexes are 3 at the knees and 2 at the ankles. There is no clonus or Babinski. Straight leg raise exams are negative bilaterally. Lumbar spine MRI of 03/23/2017 is reviewed. At L1-2, there is mild disk height loss with disk bulge and there is a small central disk protrusion. There is no nerve root impingement or central canal stenosis. At L2-3, there is disk height loss with disk bulge and perhaps mild facet arthropathy, but there is no significant neural foraminal or central canal stenosis. At L3-4, disk height is well maintained and I do not see any significant facet arthropathy. At L4-5, there is mild disk bulge with perhaps an annular tear and mild facet arthropathy with mild to moderate lateral recess stenosis, but no clear nerve root impingement and mild foraminal stenosis on the left. At L5-S1, there is fusion with no obvious nerve root impingement or central canal stenosis. These images were reviewed in detail with the patient. ASSESSMENT: This is a 47-year-old male with 3 weeks of sudden-onset low back pain, right of midline, and right buttock pain with 2 weeks of right medial lower extremity numbness in the setting of relatively reassuring lumbar spine MRI and reassuring physical exam. He does have some spondylosis in the upper lumbar spine, but with no clear nerve root impingement and minimal facet arthropathy. His adjacent segment, L4-5, is quite unremarkable. I reviewed with the patient the treatment options which include [place]-based physical therapy, application of heat, massage, chiropractic, yoga, kortney chi, NSAIDs, and possible injections. I reassured the patient I see no indications of a surgical lesion in his lumbar spine. He is interested in trialing [place]-based physical therapy with our housing development specialist therapist and has already been utilizing heat with no effect. He is already utilizing ibuprofen, although I did suggest a slight short-term increase in the dose. He has some concerns about having taken 800 mg several times a day for 2 months in the remote past that resulted in an ulcer. After discussing the various treatment options, we mutually agreed to proceed as follows: PLAN: 1. Mechanical diagnosis and treatment with [facility] physical [facility]. 2. Trial of ibuprofen 600 mg 4x a day for 1 week. 3. I would like to see the patient back approximately 4 weeks after he begins physical therapy. documented in this encounter Plan of Treatment Upcoming Encounters Date Type Department Care Team (Late st Contact Info) Description 09/03/2024 9:00 AM EST TH Visit (TeleHealth) [place] [address] Karine Lechuga PA [facility] [place] [address] Scheduled Referrals Name Type Priority Associated Diagnoses Orde r Schedule Referral to Physical Therapy Outpatient Referral Routine Acute right-sided low back pain with right-sided sciatica Ordered: 04/06/2017 documented as of this encounter Visit Diagnoses Diagnosis Acute right-sided low back pain with right-sided sciatica documented in this encounter Care Teams Social Insurance Analyst Relationship Specialty Start Date End Date Jesse Gardner MD [address] [place] [address] PCP - General Internal Medicine 05/26/15 04/25/23 documented as of this encounter
--- OUTSIDE RECORDS SUMMARY | 2024-08-19 16:39 | XMS_ITS | Encounter Summary ---
Author Organization [facility] Address [address] [place] [address] Care Team Providers Care Stonecutter Name Role Phone Jesse Gardner MD Primary Care Provider [phone] Encounter Details Date Type Department Care Team (Late st Contact Info) Description 11/15/2023 Lab Requisition [facility] Pathology & Laboratory Medicine - [address] [address] Outr Resulting Lab, Provider Social History Tobacco [...] Procedure Name Priority Date/Time Associated Diagnosis Comments ESTRADIOL, ADULTS Routine 11/15/2023 11: 11 EDT documented in this encounter Results * (ABNORMAL) ESTRADIOL, ADULTS (11/15/2023 11:11 EDT) Estradiol 80(H) <40 pg/mL 11/15/2023 17:44 EDT [facility] Blood VENOUS BLOOD / Unknown 11/15/2023 11:11 EDT 11/15/2023 16:57 EDT us Provider Outr Resulting Lab CHEMISTRY & BLOOD GA S ORDERABLES Final Result Performing Organization Address City/State/[facility] Co de Phone Number [facility] [address], [place] [address] documented in this encounter Visit Diagnoses Not on filedocumented in this encounter Care Teams Stonecutter Relationship Specialty Start Date End Date Jesse Gardner MD [address] [place], [place] [id number] PCP - General 03/27/20 documented as of this encounter
--- OUTSIDE RECORDS SUMMARY | 2024-08-19 16:39 | XMS_ITS | Encounter Summary ---
Author Organization [facility] Address [address] [place] [address] Care Team Providers Care Dock Grader Name Role Phone Jesse Gardner MD Primary Care Provider [phone] Encounter Details Date Type Department Care Team (Late st Contact Info) Description 07/12/2023 Lab Requisition [facility] Pathology & Laboratory Medicine - [address] [address] Janet Ramos, DO [address] [facility] [address] [place], [place] [id number] Encounter for other general examination Social History [...] Date/Time Associated Diagnosis Comments SURGICAL PATHOLOGY Today 07/11/2023 12 :46 EST Encounter for other general examination documented in this encounter Results * SURGICAL PATHOLOGY (07/11/2023 12:46 [facility]) Note to Patient The following pathology results have been interpreted by your pathologist and may be available to you before your health provider has had the opportunity to review them. Please allow time for your provider to receive these results and explore management options, if applicable. 07/18/2023 9:30 [facility] Final Diagnosis A. SKIN OF CHIN/JAW, LEFT, EXCISION: - Ulcer with overlying scale-crust, reparative changes and dermal scar. - Focus of granulomatous dermatitis with foreign body type giant cells, most consistent with ruptured hair follicle. (see comment) 07/18/2023 9:30 [facility] Diagnosis Comment Special stains for microorganisms performed on block A1. Gram stain highlights Gram-positive bacterial colonies in the scale crust, favored to be impetiginization. GMS and Abiel special stains do not show microorganisms in the available sections. Clinicopathologic correlation is recommended. 07/18/2023 9:30 [facility] Attestation By the signature below, the attending physician certifies that they have 1) personally conducted a gross and/or microscopic examination of the described specimen(s), and/or personally interpreted the results of laboratory testing of the described specimen(s), and 2) personally rendered or confirmed the above diagnosis. 07/18/2023 9:30 [facility] at 0930 Clinical History Chronic non-healing pseudofolliculitis of left chin/jaw 07/18/2023 9:30 [facility] Gross Description A. Received in formalin labelled with proper patient identification (initials K, E) and tissue from chronic non-healing pseudofolliculitis of left chin/jaw is an unoriented irregular excision of stone-white skin (2.7 x 1.4 cm and is excised to a depth of 0.6 cm). There is a central irregular stone-brown scaly, friable, depressed lesion that measures 1.5 x 1.1 cm. The margins are inked blue. Received in the same specimen container is a portion of yellow-brown, focally cauterized tissue (1.0 x 0.9 x 0.4 cm). Entirely submitted as follows: BLOCK MCMAHON A1-A3- irregular excision, 8 central sections A4- irregular excision, 2 ends, reverse en face A5- 1.0 cm tissue, trisected Omaira Will 07/12/2023 10:51 07/18/2023 9:30 EST [facility] Performing Lab [facility] 07/18/2023 9:30 EST [facility] Scanned Images 07/18/2023 9:30 EST [facility] Tissue SPECIMEN FROM SKIN / Unknown 07/11/2023 12:46 EST 07/12/2023 8:02 EST us Janet Ramos DO PATHOLOGY ORDERABLES Final Re sult [facility] [address] [place] [address] documented in this encounter Visit Diagnoses Diagnosis Encounter for other general examination documented in this encounter Care Teams Dock Grader Relationship Specialty Start Date End Date Jesse Gardner MD [address] [place] [address] PCP - General 03/27/20 documented as of this encounter
--- OUTSIDE RECORDS SUMMARY | 2024-08-19 16:39 | XMS_ITS | Encounter Summary ---
Author Organization [facility] Address [address] [place] [address] Care Team Providers Care Ash Worker Name Role Phone Jesse Gardner MD Primary Care Provider [phone] Encounter Details Date Type Department Care Team (Late st Contact Info) Description 12/23/2022 Lab Requisition [facility] Pathology & Laboratory Medicine - [facility] [address] [place] [address] Outr Resulting Lab, Provider Social History Tobacco [...] Date/Time Associated Diagnosis Comments ESTRADIOL, ADULTS Routine 12/23/2022 13: 23 EDT documented in this encounter Results * (ABNORMAL) ESTRADIOL, ADULTS (12/23/2022 13:23 EDT) Estradiol 73(H) <40 pg/mL 12/23/2022 23:02 EDT [facility] Blood VENOUS BLOOD / Unknown 12/23/2022 13:23 EDT 12/23/2022 22:16 EDT us Provider Outr Resulting Lab CHEMISTRY & BLOOD GA S ORDERABLES Final Result [facility] [address] [place] [address] documented in this encounter Visit Diagnoses Not on filedocumented in this encounter Care Teams Ash Worker Relationship Specialty Start Date End Date Jesse Gardner MD [address] [place], [place] [id number] PCP - General 03/27/20 documented as of this encounter
--- OUTSIDE RECORDS SUMMARY | 2024-08-19 16:39 | XMS_ITS | Encounter Summary ---
Author Organization [facility] [place] [address] Care Team Providers Care Rn Lvn Name Role Phone Jesse Gardner MD Primary Care Provider [phone] Reason for Referral * Consultation (Routine) - Closed Specialty Diagnoses / Procedures Referred By Mona byrne Referred To Contact Rheumatology Diagnoses Arthritis Mastocytosis Julio Cesar Downing MD [facility] [place] [address] [facility] Rheumatology [address] [place] [phone] Referral ID Status Reason Start Date Expiration Date V isits Requested Visits Authorized [id number] Closed Consult, Test & Treat 09/04/2015 09/03/2016 1 1 * Consultation (Routine) - Closed Specialty Diagnoses / Procedures Referred By Contac t Referred To Contact Allergy Diagnoses Diarrhea Arthritis Mastocytosis Julio Cesar Downing MD [facility] [address] [facility] Allergy [address] [place] [phone] Referral ID Status Reason Start Date Expiration Date V isits Requested Visits Authorized [id number] Closed Consult, Test & Treat 09/04/2015 09/03/2016 6 6 Reason for Visit * Reason Comments GI Problem mastocytic enterocol itis Diarrhea Abdominal Pain * Consultation (Routine) - Closed Specialty Diagnoses / Procedures Referred By Mona byrne Referred To Contact Gastroenterology Diagnoses hx mastocytic colitis with intermittent epigastric discomfort, question esophageal spasm Jesse Gardner MD [address] [place] [address] [facility] Gastro [address] [place] [address] Referral ID Status Reason Start Date Expiration Date V isits Requested Visits Authorized [id number] Closed Connection Center 05/27/2015 05/26/2016 1 1 Encounter Details Date Type Department Care Team (Late st Contact Info) Description 09/04/2015 11:00 AM EST Office Visit [place] [address] Julio Cesar Downing MD [facility] DR GASTROENTEROLOGY [place] [id number] Diarrhea; Arthritis; Mastocytosis Social History Tobacco Use Types Packs/Day Years Used Date Smoking Tobacco: Never Sex and Gender Information Value Date Recorded Sex Assigned at Male 06/10/2022 9:06 PM EDT Gender Identity Female 06/10/2022 9:06 PM EDT Sexual Orientation Lesbian or Porter 06/10/2022 9: 06 PM EDT documented as of this encounter Last Filed Vital Signs Vital Sign Reading Time Taken Comments Blood Pressure 130/87 09/04/2015 11:01 AM EST Pulse 90 09/04/2015 11:01 AM EST Temperature - - Respiratory Rate - - Oxygen Saturation - - Inhaled Oxygen Concentration - - Weight 73.9 kg (163 lb) 09/04/2015 11:01 AM EST Height 168.9 cm (5' 6.5) 09/04/2015 11:01 AM ES T Body Mass Index 25.91 09/04/2015 11:01 AM EST documented in this encounter Progress Notes * Julio Cesar Downing MD - 09/10/2015 10:23 PM EST [facility] Section of Gastroenterology and Hepatology Outpatient Consultation Reason for Visit: opinion for management of mastocytic enterocolitis Referred by Jesse Gardner History of Present Illness: Jhonathan Adair is a 45 y.o. male with history of mastocytic colitis. Hewas first diagnosed in 2008 while living in [place]. He underwent colonoscopy for severe episodic diarrhea and abdominal pain. Colon, stomach and small bowel appeared normal as did biopsies but small bowel biopsies were notable for elevated mastocytes (>50/hpf). At that time labs including CBC/CMP and celiac serologies were normal. He denies skin issues and does not know if testing was done forsystemic mastocytosis. He was started on some therapy at the time, primarily cromolyn but he no longer taking any directedtherapy for mastocytic enterocolitis. His symptoms are primarily 2-3 days of debilitating abdominalpain and diarrhea every 2 weeks or so. His most recent episode was this past Monday (3 days prior). Overall feels well today, no diarrhea or abdominal pain. Overall weight is stable. He and his moved to [place] about a year and half ago. His is a General Surgeon at [employer]. Patient Active Problem List Diagnosis ??? Diarrhea Overview Note: Mastocytic enterocolitis on biopsies 2009 Colonoscopy/Upper Endoscopy Review of Systems: Constitutional: no weight loss HEENT: no visual changes, no URI symptoms Cardio: no chest pain Resp: no cough, no SOB Hem/Lymph: no new lumps or bumps on body GI: see HPI : no dysuria Integumentary: no new rashes Musculoskeletal: no new joint pains Neuro: no new numbness, weakness in extremities All other systems negative except as above in HPI Past Medical History Diagnosis Date ??? Hypertension ??? Mastocytosis mastocytic enterocolitis Past Surgical History Procedure Laterality Date ??? Back surgery ??? Hand surgery Social History: , lives with (Surgeon at [employer]) and daughter in [facility] reports thathe has never smoked. He does not have any smokeless tobacco history on file. Family History: family history is not on file.Denies family history of IBD, liver disease or celiacdisease. Current Outpatient Prescriptions Medication Sig Dispense Refill ??? lisinopril (PRINIVIL;ZESTRIL) 10 mg Tablet ??? methylphenidate (METADATE ER) 20 mg Tablet Sustained Release ??? sertraline (ZOLOFT) 100 mg Tablet No current facility-administered medications for this visit. No Known Allergies Physical Examination: BP 130/87 mmHg Pulse 90 Ht 168.9 cm (5' 6.5) Wt 73.936 kg (163 lb) BMI 25.92 kg/m2 General:Pleasant, cooperative, NAD, WN/WD HEENT: NC/AT, PERRL, anicteric sclera, MMM, no erythema or exudate Neck: soft, supple, no cervical LAD Chest: CTA bilaterally, no wheeze, rale or rhonchi CVS: Regular rate and rhythm, normal s1/s2, no murmur, rub or gallop ABD: soft, non-tender, non-distended, normal active bowel sounds. No hepatosplenomegaly appreciated Extremities: Warm and well perfused. No clubbing, cynanosis or edema Skin:No rash or lesion Neuro: AAOx3, Grossly non-focal. Labs: Reviewed in EDH/Scan Docs Additional Testing: Reviewed available labs, imaging and endoscopy results in EDH/CIS as well as Scan Docs tab. IMPRESSION: Jhonathan Adair is a 45 y.o. male with history of episodic diarrhea and abdominal pain. Prior endoscopy ([place]/EGD 2008) with small bowel biopsies showing increased mastocytes (>50 /HPF). Treatment with Cromolyn in the past was somewhat helpful but currently not on any therapy. We can consider various treatment options including Cromolyn, Leukotriene inhibitors, H2 blockers and budesonide.I would like him consult with Immunology and Rheumatology. RECOMMENDATIONS: # We should plan on a repeat colonoscopy and EGD to reassess with biopsies for ongoing . As previous procedure was done with propofol we will plan MAC. # Check inflammatory markers, Tryptase level and CBC/HFP # Referral to Immunology and Rheumatology Julio Cesar Downing MD [place] [address] P: [phone] F: [phone] CC JESSE GARDNER MD [address] [place] [phone] documented in this encounter Plan of Treatment Upcoming Encounters Date Type Department Care Team (Late st Contact Info) Description 09/03/2024 9:00 AM EST TH Visit (TeleHealth) Endocrinology at [facility] [place] [address] Karine Lechuga PA [facility] [place] [address] Scheduled Referrals Name Type Priority Associated Diagnoses Order Schedule Referral to Immunology Outpatient Referral Routine Diarrhea Arthritis Mastocytosis Ordered: 09/04/2015 Referral to Rheumatology Outpatient Referral Routine Arthritis Mastocytosis Ordered: 09/04/2015 documented as of this encounter Procedures Procedure Name Priority Date/Time Associated Diagnosis Comments HEMOGRAM Routine 09/04/2015 12:55 PM EST Diarrhea Mastocytosis DIFFERENTIAL, AUTOMATED Routine 09/04/2015 12:55 PM EST Diarrhea Mastocytosis TRYPTASE Routine 09/04/2015 12:55 PM EST Mastocytosis SEDIMENTATION RATE Routine 09/04/2015 12 :55 PM EST Mastocytosis CBC (WITH DIFF) Routine 09/04/2015 12:55 PM EST Diarrhea Mastocytosis CRP, CARDIAC RISK (HS CRP) Routine 09/04/2015 12:55 PM EST Mastocytosis HEPATIC FUNCTION PANEL Routine 6 12:55 PM EST Mastocytosis documented in this encounter Results * Differential, Automated (09/04/2015 12:55 PM EST) Neutrophil % 70.3 % CERNER MILLENNIUM Neutrophil Absolute 4.95 1.50 - 6.30 x10(3)/mcL CERNER MILLENNIUM Lymph % 22.8 % CERNER MILLENNIUM Lymphocytes Abs 1.6 1.0 - 3.6 x10(3)/mcL CERNER MILLENNIUM Monocyte % 4.7 % CERNER MILLENNIUM Monocyte Abs 0.3 0.2 - 1.0 x10(3)/mcL CERNER MILLENNIUM Eos % 1.8 % CERNER MILLENNIUM Eosinophils Abs 0.1 0.0 - 0.5 x10(3)/mcL CERNER MILLENNIUM Basophil % 0.3 % CERNER MILLENNIUM Baso Absolute 0.0 0.0 - 0.2 x10(3)/mcL CERNER MILLENNIUM Immature Gran % 0.10 % CERN ER MILLENNIUM Comment: Immature granulocytes(IG's)percentage and absolute count will include metamyelocytes, myelocytes, and promyelocytes. Blood smears from CBCs yielding IG's will be scanned manually for concordance. If this scan disagrees with the automated IG or if promyelocytes are noted, a manual differential will be performed. Immature Gran Absolute 0.01 0.00 - 0.05 x10(3)/mcL CERNER MILLENNIUM Blood specimen (specimen) 09/04/2015 12:55 PM EST 09/04/2015 1:10 PM EST Narrative Resulting Agency Comment Spec In Lab Julio Cesar Downing MD HEMATOLOGY ORDERA BLES CERNER MILLENNIUM * (ABNORMAL) Hemogram (09/04/2015 12:55 PM EST) White Blood Cell 7.0 4.0 - 10.0 x10(3)/mc L CERNER MILLENNIUM Red Blood Cell 5.22 4.63 - 6.08 x10(6)/mc L CERNER MILLENNIUM Hemoglobin 17.0 13.7 - 17.5 gm/dL CERNER MILLENNIUM Hematocrit 47.8 40.0 - 51.0 % CERNER MILLENNIUM Mean Cell Volume 91.6 79.0 - 92.0 fL CERNER MILLENNIUM Mean Cell Hemoglobin 32.6(H) 25.6 - 32.2 pg CERNER MILLENNIUM Mean Cell Hemoglobin Concentration 35.6 32.0 - 36.5 gm/dL CERNER MILLENNIUM Platelet 186 145 - 370 x10(3)/mc L CERNER MILLENNIUM RDW Standard Deviation 41.7 35.0 - 46.0 fL CERNER MILLENNIUM RDW coefficient of variation 12.5 10.9 - 14.4 % CERNER MILLENNIUM Mean Platelet Volume 11.0 9.0 - 12.0 fL CERNER MILLENNIUM Blood specimen (specimen) 09/04/2015 12:55 PM EST 09/04/2015 1:10 PM EST Narrative Resulting Agency Comment Spec In Lab Julio Cesar Downing MD HEMATOLOGY ORDERA BLES Performing Organization Address City/[facility]/ZIP Co de Phone Number CERNER MILLENNIUM * Tryptase (09/04/2015 12:55 PM EST) Tryptase 7.1 <11.5 ng/mL CERNER MILLENNIUM Comment: Test Performed by: [place] [address] [place] [employer] Specialist: Shilo Rosado II, M.D., Ph.D. Blood specimen (specimen) 09/04/2015 12:55 PM EST 09/04/2015 3:01 PM EST Narrative Resulting Agency Comment Spec In Lab Julio Cesar Downing MD CHEMISTRY ORDERAB LES Performing Organization Address [facility] Co de Phone Number CERNER MILLENNIUM * Hepatic Function Panel (09/04/2015 12:55 PM EST) Protein, Total 8.0 6.1 - 8.0 gm/dL CERNER MILLENNIUM Albumin 5.1 3.2 - 5.2 gm/dL CERNER MILLENNIUM Aspartate Aminotransferase 29 0 - 39 unit/L CERNER MILLENNIUM Alanine Aminotransferase 25 0 - 55 unit/L CERNER MILLENNIUM Alkaline Phosphatase 82 40 - 120 unit/L CERNER MILLENNIUM Bilirubin, Total 0.6 0.2 - 1.3 mg/dL CERNER MILLENNIUM Bilirubin, Direct 0.1 0.0 - 0.3 mg/dL CERNER MILLENNIUM Blood specimen (specimen) 09/04/2015 12:55 PM EST 09/04/2015 1:10 PM EST Narrative Resulting Agency Comment Spec In Lab Julio Cesar Downing MD CHEMISTRY ORDERAB LES Performing Organization Address City/[facility]/ZIP Co de Phone Number CERNER MILLENNIUM * Sedimentation rate (09/04/2015 12:55 PM EST) Sedimentation Rate Automated 4 0 - 15 mm/hr [facility] Blood specimen (specimen) 09/04/2015 12:55 PM EST 09/04/2015 1:10 PM EST Narrative Resulting Agency Comment Spec In Lab Julio Cesar Downing MD HEMATOLOGY ORDERA BLES Performing Organization Address [facility] Phone Number [facility] * High Sensitivity CRP (09/04/2015 12:55 PM EST) C-Reactive Protein High Sensitivity 3.9 mg/L [facility] Comment: Interpretations: 1) For accurate cardiac risk assessment, the average of 2 values >2 weeks apart should be obtained (ref 1&2). A value >10 mg/L indicates an inflammatory condition, concentrations >10 mg/L should not be used for cardiac risk assessment. ?<1.0 mg/L: low risk ?1.0 - 3.0 mg/L: moderate risk ?>3.0 mg/L: high risk groups for future cardiovascular events 2) The general reference range of apparently healthy individuals using this test is <5.0 mg/L (derived from the test package insert) References: 1. Micky DURHAM et. al. ??AHA/CDC Scientific Statement: Markers of Inflammation and Cardiovascular Disease. ??Circulation 2003; 107:499-511 2. Ridker PM. ??Clinical applications of C-reactive protein for cardiovascular disease detection and prevention. ??Circulation 2003; 107:363-369 Blood specimen (specimen) 09/04/2015 12:55 PM EST 09/04/2015 1:10 PM EST Narrative Resulting Agency Comment Spec In Lab Julio Cesar Downnig MD CHEMISTRY ORDERAB LES Performing Organization Address [facility] de Phone Number ELIZA CARVAJAL documented in this encounter Visit Diagnoses Diagnosis Diarrhea Arthritis Arthropathy, unspecified, site unspecified Mastocytosis Congenital pigmentary anomaly of skin documented in this encounter Care Teams Rn Lvn Relationship Specialty Start Date End Date Jesse Gardner MD [address] [place] [address] PCP - General Internal Medicine 05/26/15 04/25/23 documented as of this encounter
--- OUTSIDE RECORDS SUMMARY | 2024-08-19 16:39 | XMS_ITS | Encounter Summary ---
Author Organization [facility] [place] [address] Care Team Providers Care Account Adjuster Name Role Phone Jesse Gardner MD Primary Care Provider [phone] Reason for Visit * Auth/Cert Specialty Diagnoses / Procedures Referred By Contac t Referred To Contact Diagnoses Diarrhea, unspecified Congenital cutaneous mastocytosis diarrhea,mastocystitis (anesthesia consult-Propofol) Procedures PRO COLONOSCOPY, DIAGNOSTIC PRO UPPER GI ENDOSCOPY, DIAGNOSTIC COLONOSCOPY, DIAGNOSTIC Referral ID Status Reason Start Date Expiration Date Visits Re quested Visits Authorized [id number] 1 1 Encounter Details Date Type Department Care Team (Late st Contact Info) Description 10/27/2015 12:45 PM EDT Anesthesia [place] [address] [facility] [place] [address] [facility] [place] [address] Anesthesia Record Procedure Summary Procedure Name Responsible Anesthesiologist Anesthesia Start Time Anesthesia Stop Time COLONOSCOPY, DIAGNOSTIC (WRVU 3.26) (Trunk) Elizabeth Slaughter MD 10/27/15 1245 10/27/15 1333 Events Date Time Event Comment 10/27/2015 1029 1245 AN Verify 1245 Start 1248 An Start Data 1255 An Induction 1258 Anesthesia Ready 1327 an stop data 1333 Recovery or ICU Handoff Kacie ent care was transferred to the destination unit staff after review of the patient's medical history, current anesthetic/surgical status and plan, according to the Provider Handoff Checklist. 1333 Stop Meds Name Total IV Lidocaine 40 mg Propofol 600 mg lactated ringers infusion 500 mL * Agents Name O2 Auxiliary Flowmeter 1 * Blood No blood administrations on file. Lines, Drains, and Airways Type Details Placement Removal (RETIRED) Peripheral IV Line - Single Lumen 10/27/15; 0949; metacarpal vein right (top of hand); iija-nep-ssimlv catheter system; 20 gauge; Arya Ramírez RN; distraction, intradermal injection, tolerated well; 10/27/15; 1403 10/27/15 0949 by Sherri Ramírez RN 10/27/15 1403 by Rodney Martin RN documented in this encounter Social History Tobacco Use Types Packs/Day Years [...] PM EDT documented as of this encounter OR Notes * Anesthesia Postprocedure Evaluation - Elizabeth Slaughter MD - 10/27/2015 3:10 PM EDT [facility] Department of Anesthesiology Post-procedure Note Patient: Jhonathan Adair Procedure Summary Date Anesthesia Start Anesthesia Stop Room / Location 10/27/15 1245 1333 [facility] ENDO 1 / [facility] ENDOSCOPY Procedure Diagnosis Surgeon Responsible Provider COLONOSCOPY, DIAGNOSTIC (N/A Trunk); EGD, UPPER GI ENDOSCOPY (N/A Trunk) (diarrhea,mastocystitis (anesthesia consult-Propofol)) Julio Cesar Downing MD Procopio, Marcia A, MD All Anesthesia Providers: Anesthesiologist: Elizabeth Slaughter MD MECHATRONICS ENGINEER: Shilo Linares CRNA Last (1hr) Vitals: BP Temp Pulse Resp SpO2 Patient Location: PACU/[facility] Level of Consciousness: Awake and Alert Pain Management: Satisfactory Analgesia PONV: None Cardiovascular Status: At Baseline and Hemodynamically Stable Respiratory Status: At Baseline and Room Air Postoperative Fluid Status: Intravascular EUvolemia Possible Anesthetic Complications: NONE apparent at time of evaluation Final Primary Anesthesia Type: MAC (The anesthetic type performed was the same as planned.) Comments: ELIZABETH SLAUGHTER MD * Anesthesia Preprocedure Evaluation - Elizabeth Slaughter MD - 10/27/2015 10:28 AM EDT Pre-Anesthesia Evaluation for: Jhonathan Adair a 45 y.o. male. Procedure(s): COLONOSCOPY, DIAGNOSTIC EGD, UPPER GI ENDOSCOPY Patient Active Problem List Diagnosis ??? Diarrhea Mastocytic enterocolitis on biopsies 2009 Colonoscopy/Upper Endoscopy Past Medical History Diagnosis Date ??? Hypertension ??? Mastocytosis mastocytic enterocolitis Past Surgical History Procedure Laterality Date ??? Back surgery ??? Hand surgery History Substance Use Topics ??? Smoking status: Never Smoker ??? Smokeless tobacco: Not on file ??? Alcohol Use: No History Drug Use No No Known Allergies Medications: MAR and/or home medications have been reviewed. Physical Exam: Filed Vitals: 10/27/15 0938 BP: 125/78 Pulse: 87 Resp: 16 There is no weight on file to calculate BMI. Airway Assessment: Mallampati: II TM distance: >3 FB Neck ROM: full Cardiovascular Assessment: Pulmonary Assessment: Dental Assessment: - normal exam Misc Assessment: Anesthesia Plan: ASA 2 MAC, with a(n) intravenous induction Plan propofol sedation for colonoscopy Region - Other Informed Consent: Anesthetic plan and risks discussed with patient. Plan discussed with MECHATRONICS ENGINEER. PAT Staff Note documented in this encounter Plan of Treatment Upcoming Encounters Date Type Department Care Team (Late st Contact Info) Description 09/03/2024 9:00 AM EST TH Visit (TeleHealth) [place] [address] [facility] [address] documented as of this encounter Visit Diagnoses Not on filedocumented in this encounter Administered Medications Inactive Administered Medications - up to 3 most recent administrations Medication Order MAR Action Action Date Dose Rate Site lactated ringers infusion 100 mL/hr, Intravenous, CONTINUOUS, Starting on Mon10/27/15 at 1000, Until Mon10/27/15 at 1404, Endoscopy (Day of Procedure) New Bag 10/27/2015 12:07 PM EDT lidocaine (PF) (XYLOCAINE) 100 mg/5 mL (2 %) injection PRN, Starting on Mon10/27/15 at 1255, Until Mon10/27/15 at 1342, Anesthesia Intra-op, Routine Given 10/27/2015 12:55 PM EDT 40 mg propofol (DIPRIVAN) 10 mg/mL bolus injection (Anesthesia) PRN, Starting on Mon10/27/15 at 1255, Until Mon10/27/15 at 1342, Anesthesia Intra-op Given 10/27/2015 1:22 PM EDT 50 mg Given 10/27/2015 1:18 PM EDT 50 mg Given 10/27/2015 1:13 PM EDT 50 mg documented in this encounter Care Teams Account Adjuster Relationship Specialty Start Date End Date Jesse Gardner MD [address] [place] [address] PCP - General Internal Medicine 05/26/15 04/25/23 documented as of this encounter
--- OUTSIDE RECORDS SUMMARY | 2024-08-19 16:39 | XMS_ITS | Encounter Summary ---
[facility] Organization [facility] Address [facility] [place] [address] Care Team Providers Care Potato Chip Sacking Machine Operator Name Role Phone Jesse Gardner MD Primary Care Provider + [phone] Reason for Visit * Reason Comments Referral * Consultation (Routine) - Closed Specialty Diagnoses / Procedures Referred By Contac t Referred To Contact Rheumatology Diagnoses Arthritis Mastocytosis Julio Cesar Downing MD [facility] [place] [address] [facility] Rheumatology [address] [place] [id number] Referral ID Status Reason Start Date Expiration Date V isits Requested Visits Authorized [id number] Closed Consult, Test & Treat 09/04/2015 09/03/2016 1 1 Encounter Details Date Type Department Care Team (Late st Contact Info) Description 09/16/2015 10:00 AM EST Office [place] [phone] Julio Cesar Downing MD [facility] [place] [address] Vikki Alcaraz, [facility] [place] [address] Primary osteoarthritis involving multiple joints; Hypermobility arthralgia Social History Tobacco Use Types Packs/Day Years Used Date Smoking Tobacco: Never Sex and Gender Information Value Date Recorded Sex Assigned at Male 06/10/2022 9:06 PM EDT Gender Identity Female 06/10/2022 9:06 PM EDT Sexual Orientation Lesbian or Porter 06/10/2022 9: 06 PM EDT documented as of this encounter Last Filed Vital Signs Vital Sign Reading Time Taken Comments Blood Pressure 138/97 09/16/2015 9:47 AM EST Pulse 108 09/16/2015 9:47 AM EST Temperature 36.9 ??C (98.5 ??F) 09/16/2015 9:47 AM ES T Respiratory Rate - - Oxygen Saturation 99% 09/16/2015 9:47 AM EST Inhaled Oxygen Concentration - - Weight 72.6 kg (160 lb) 09/16/2015 9:47 AM EST Height 168.9 cm (5' 6.5) 09/16/2015 9:47 AM EST Body Mass Index 25.44 09/16/2015 9:47 AM EST documented in this encounter Progress Notes * Vikki Alcaraz, - 09/16/2015 10:04 AM EST Outpatient Rheumatology Consult CC: Asked by Julio Cesar Downing to evaluate this patient with joint pain in the setting of mastocytic enterocolitis HPI: 45 year old male with various joint pains. He is here to figure out if this is from the multiple joint injuries he has had over the years vs an autoimmune process. His RF was checked years ago and came back inconclusive. He is wondering if that could be playing a role in his symptoms currently. He has had multiple MSK injuries starting in childhood. He has not seen joint swelling. He tries to avoid medications. He is following a strict FODMAP diet. PMH: left elbow surgery for tennis elbow, having injections for tennis elbow on the right, lumbar spine [id number] fusion from DDD, he has disk herniations in the lower cervical/upper thoracic spine, hyperextension injury of his left shoulder. Mastocytic enterocolitis. 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 Family Hx: father is a retired dentist - had dupuytren's. PGM had severe RA Ros: Gen: no night sweats, fatigue or fevers Skin: no rashes, no hair loss Mouth: denies dry mouth, no oral ulcers Eyes: no erythema or pain Lymph: no adenopathy Vascular: no Raynaud's, no digital ischemia Heart: no chest pain, palpitations Lungs: no dyspnea, cough, wheezing : no dysuria, no flank pain Musculoskeletal: per HPI Physical Exam: Gen: Patient is awake, alert and oriented x 3, in no distress Skin: warm and dry, no rheumatologic rashes Lymph: no cervical or submandibular adenopathy Thyroid: no nodules or thyromegaly Mouth: moist mucous membranes, no oral ulcers Eyes: normal sclerae Spine: decreased ROM f his lumbar spine, c spine ROM is normal Joints: Hands: his hand joints are hypermobile. i see no synovitis Wrists: FROM and no synovitis Elbows: left has a well-healed scar from prior tendon surgery. There is FROM, right is very tender over the lateral epicondyle and he can not extend fully. Shoulders: FROM but tender Knees: FROM Ankles: FROM Assessment and Plan: 45 yo male with joint hypermobility and multiple MSK injuries over the years leading to early OA. Soy not see any synovitis on exam and so will not repeat the RF. We discussed alternative treatmentsthat may be helpful including fish oil and turmeric. I also encouraged him to try yoga for exercise. RTC PRN. documented in this encounter Plan of Treatment Upcoming Encounters Date Type Department Care Team (Late st Contact Info) Description 09/03/2024 9:00 AM EST TH Visit (TeleHealth) [place] [address] Karine Lechuga PA [facility] [address] documented as of this encounter Visit Diagnoses Diagnosis Primary osteoarthritis involving multiple joints Hypermobility arthralgia Pain in joint, site unspecified documented in this encounter Care Teams Potato Chip Sacking Machine Operator Relationship Specialty Start Date End Date Jesse Gardner MD [address] [place] [id number] PCP - General Internal Medicine 05/26/15 04/25/23 documented as of this encounter
--- OUTSIDE RECORDS SUMMARY | 2024-08-19 16:39 | XMS_ITS | Encounter Summary ---
Author Organization [facility] Address [facility] [place] [address] Care Team Providers Care Sole Tacker Name Role Phone Jesse Gardner MD Primary Care Provider + [phone] Reason for Visit * Reason Comments Bloated Encounter Details Date Type Department Care Team (Late st Contact Info) Description 11/12/2015 11:00 AM EDT Tech [place] [address] Julio Cesar Downing MD [facility] [place] [address] Abdominal bloating Social History Tobacco Use Types Packs/Day Years [...] as of this encounter Progress Notes * Julio Cesar Downing MD - 11/13/2015 8:43 AM EDT Gastroenterology Breath Test Report Patient: Jhonathan Adair Date Of : 1970 PCP: JESSE GARDNER MD STUDY DATE: 11/02/2015 PROVIDER: Julio Cesar Downing MD INDICATION: Abdominal bloating ppmH2 ppmCH4 (f)CO2 Fasting Baseline: 4 2 2.6/2.11 Administer sugar: 15 mL Lactulose 90 mL H2O Sample Time ppmH2 ppmCH4 (f)CO2 1. 15 min 4 2 3.0/1.83 2. 30 min 4 2 2.9/1.89 3. 45 min 8 4 2.8/1.96 4. 60 min 3 2 3.3/1.66 5. 75 min 8 4 2.8/1.96 6. 90 min 2 2 2.7/2.03 7. 105 min 8 4 2.8/1.96 8. 120 min 10 4 2.8/1.96 9. 135 min 11 4 3.1/1.77 10. 150 min 11 6 2.9/1.89 11. 165 min 13 6 2.9/1.89 12. 180 min 19 8 2.9/1.89 Interpretation: Normal breath test, negative for small intestinal bacterial overgrowth (SIBO). 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 There is a small but normal rise in production of hydrogen between 105 and 120 minutes that correlates with a normal orocecal transit time. Julio Cesar Downing MD Gastroenterology [place] [address] P: [phone] F: [phone] Copy: JESSE GARDNER MD documented in this encounter Plan of Treatment Upcoming Encounters Date Type Department Care Team (Late st Contact Info) Description 09/03/2024 9:00 AM EST TH Visit (TeleHealth) [place] [address] Karine Lechuga PA [facility] [place] [address] documented as of this encounter Visit Diagnoses Diagnosis Abdominal bloating Flatulence, eructation, and gas pain documented in this encounter Care Teams Sole Tacker Relationship Specialty Start Date End Date Jesse Gardner MD [address] [place] [address] PCP - General Internal Medicine 05/26/15 04/25/23 documented as of this encounter
--- OUTSIDE RECORDS SUMMARY | 2024-08-19 16:39 | XMS_ITS | Encounter Summary ---
Author Organization [facility] Address [address] [place] [address] Care Team Providers Care Molder Wax Ball Name Role Phone Jesse Gardner MD Primary Care Provider [phone] Reason for Visit * Reason Comments New Patient Visit * Consult (3 - 10 Business Days) - Order Cancelled Specialty Diagnoses / Procedures Referred By [facility] Referred To Contact Infectious Disease Diagnoses Fever, unspecified fever cause Malaise and fatigue Cele Garcia MD Phone: tel: fax: [facility] Infectious Disease [address] [place] [address] Phone: tel: fax: Referral ID Status Reason Start Date Expiration Date Visits Requested Visits Authorized [id number] Order Cancelled Specialty Services Required 04/10/2020 1 1 Encounter Details Date Type Department Care Team (Latest Contact Info) Description 04/23/2020 9:30 EDT Initial consult [facility] Infectious Disease [address] [place] [address] Raven Portillo MD [address] [place] [address], [address] [place] [address] Recurrent fever of unknown cause (Primary Dx); Recurrent headache; Exposure to other specified factors, sequela; Mast cell disorder Social History Tobacco Use Types Packs/Day Years [...] 9:23 EDT documented as of this encounter Last Filed Vital Signs Vital Sign Reading Time Taken Comments Blood Pressure 140/92 04/23/2020 0945 EDT Pulse 100 04/23/2020 0945 EDT Temperature 37 ??C (98.6 ??F) 04/23/2020 0945 EDT Respiratory Rate - - Oxygen Saturation - - Inhaled Oxygen Concentration - - Weight - - Height - - Body Mass Index - - documented in this encounter Progress Notes * Raven Portillo MD - 04/23/2020 0930 EDT Outpatient Infectious Disease Consult Note Patient name: Jhonathan Adair Today's date: 04/22/20; 14:47 Consulting Provider: Cele Garcia MD Reason for Consult: Workup of recurrent fevers with negative Rheum workup HPI: Jhonathan Adair is a 50 y.o. male with history of HTN, mild asthma, depression, and ADD referred by Dr. Garcia for recurrent fevers and fatigue x 6 months. Per records, in 10/2019, he developed a fever to 103 with fatigue and BAIG which lasted for about 48 hours. He has been tested for COVID twice and was negative. Since then, he has recurrent episodes with fever around 100, fatigue, and BAIG. He has a h/o mastocytic colitis that was diagnosed in [place] a few years ago - diagnosed by small bowel biopsies. Since being here, he had a colonoscopy at [facility] that was normal. He does have diarrhea but eating a FODMAP diet helps. He has a h/o low back pain that began in his late teens - had a L5-S1 fusion at age 33. Now with episodic right sciatica. He saw Rheumatology on 04/02/20 - workup negative, so he was referred to ID for further workup. Today, he states the fevers are still associated with headaches. Usually his temp is below 98.0, temps have been around 100 when it happens. There have been several occasions where he is extreamly tired and sleeps all day which is unusual for him. Episodes happen randomly, last one was 04/12/20. Wakes up fine, eats breakfast and then goes down hill from there. 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 No rabbit exposures. Has done squirrels and a porcupine recently. Doesn't eat any of the meat from these. Wears gloves when working on them. So exposed to ticks but hasn't had any bites. Checks every day. Longest he's ever had one onhim is about 5 hours. They have snow into December at their house so these symptoms started prior to tick exposures, he thinks. Had his first COVID test when he was febrile the first time. Has been tested twice. He had respiratory symptoms with the first episode - SOB. No cough. Has had night sweats intermittently for 20 years, so these are not new. Says he has to sleep with towels wrapped around himself sometimes. Since seeing Rheum - several days of low grade fevers with BAIG, couple of days of sleeping all day -during those days, he does not eat anything, not hungry. He does have some photosensitivity. No other neurologic symptoms. Sometimes there's no fatigue - it's just BAIG and fever. Has chronic upper back pain. No specific neck stiffness with the BAIG/fever. Having problems with his shoulders - weakness and pain. Doesn't get cold sores but does get canker sores. 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 Does get nose ulcers occasionally. Also hyper-reflexive. 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 He has had some severe concussions in the past. Has an involuntary leg twitch. Saw Neuro for pain symptoms but not other neurologic symptoms. He has had an abnormal EMG in his shoulder but no one told him why it's abnormal. He ended up going to PT, which helped somewhat. Has had flares since going to PT. Fevers have been around 100.0 in the past 2 weeks. Prior to this, he hardly ever had headaches. No recent imaging of his head. Had a sleep study in [place] many years ago - something to do with strobelights. No rashes through any of this. Has had some breakouts of pimples on his back that are newer. When labs were drawn on 04/02, he was feeling fine - not having symptoms. Usually can't drive when having an episode and it's hard for to get home to take him to lab because she is a surgeon at [facility]. 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 He is wonderingif there is any correlation to his current symptoms. Review of Systems: 10-point review of systems is negative except as noted in the HPI. Medications Current Outpatient Medications Medication ??? acetaminophen (TYLENOL) 500 mg tablet ??? ibuprofen (MOTRIN) 200 mg tablet ??? lisinopriL (PRINIVIL) 5 mg tablet ??? loratadine/pseudoephedrine (CLARITIN-D 24 HOUR ORAL) ??? methylphenidate HCl (RITALIN;METHYLIN) 20 mg tablet ??? sertraline (ZOLOFT) 50 mg tablet ??? zafirlukast (ACCOLATE) 10 mg tablet No current facility-administered medications for this visit. Allergies No Known Allergies Problem List: Patient Active Problem List Diagnosis ??? Diarrhea ??? Essential hypertension ??? Mild persistent asthma ??? Attention deficit disorder (ADD) in adult ??? 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 Recurrent major depressive disorder (HCC-CMS) Past Medical History/Past Surgical History: Past Medical History: Diagnosis Date ??? Benign paroxysmal positional vertigo Past Surgical History: Procedure Laterality Date ??? ELBOW SURGERY ??? FOOT SURGERY ??? HAND SURGERY ??? SINUS SURGERY ??? SPINE SURGERY ??? TONSILLECTOMY ??? VASECTOMY ??? VASECTOMY ??? WISDOM TOOTH EXTRACTION Social History: Tobacco: Non-smoker Alcohol: Rare Recreational drugs: None Professional: Stay at home Dad Relationships / Living Situation/Sexual: Sexually active with - monogamous Do you feel safe at home?: Yes Travel: [place] last summer Animal exposure: 4 Dogs and 1 horse, chong and trapper (trapped a number of animals last year), had a turtle for a while. Food: FODMAP diet, no raw meat or dairy, steak medium rare TB: tested in 1995 and negative Tick: No bites that he is aware of. MDRO: No Family History: The Family History was reviewed and is non-contributory for a past history of infection or immunocompromised state. No neurologic diseases in the family. Grandmother had severe RA. Physical Exam Vital Signs: BP (!) 140/92 Pulse 100 Temp 37 ??C (98.6 ??F) (Oral) General: NAD Skin: no rashes or lesions HEENT: AT/NC; moist mucous membranes; sclera anicteric. Oropharnyx w/o erythema or exudates. Normaldentition. Neck: supple, no LAD CV: RRR, no MRG, S1 + S2 normal Pulm: CTAB, no audible wheezes, rales, or rhonchi Abd: soft, non-distended, diffuse mild tenderness - more pronounced centrally and in RLQ Ext: Warm, well-perfused, no edema MSK: No spinal tenderness Neuro: Nonfocal Psych: Appropriate ID Pertinent Medications: None currently Labs: Results for orders placed or performed in visit on 04/02/20 (from the past 504 hour(s)) LYME AB Collection Time: 04/02/20 15:03 Result Value Ref Range LYME AB IGG - [facility] NEGATIVE Lyme Ab NEGATIVE FERRITIN Collection Time: 04/02/20 15:03 Result Value Ref Range FERRITIN - [facility] 146 17.9 - 464.0 ng/mL ANCA, IFA Collection Time: 04/02/20 15:03 Result Value Ref Range C-ANCA - [facility] Negative Negative P-ANCA - [facility] Negative Negative C REACTIVE PROTEIN Collection Time: 04/02/20 15:03 Result Value Ref Range C-Reactive Protein 9.2 <10.0 mg/L TICK PANEL PCR - [facility] Collection Time: 04/02/20 15:03 Result Value Ref Range ANAPLASMA PHAGOCYTOPHILIUM - [facility] Negative Negative BABESIA DIVERGENS/MO-1 - [facility] Negative Negative BABESIA DUNCANI - [facility] Negative Negative BABESIA MICROTIC - [facility] Negative Negative B.MIYAMOTOI PCR - [facility] Negative Negative EHRLICHIA CHAFFEENSIS - [facility] Negative Negative EHRLICHIA EWINGII/CANIS - [facility] Negative Negative EHRLICHIA MURIS-LIKE - [facility] Negative Negative Micro: None Radiology: None Assessment and Plan: 50 y/o M with h/o HTN, mild asthma, depression, and mastocyctic enterocolitis who was referred to ID for recurrent fevers, headaches, and fatigue x 6 months. He has had a variety of symptoms, but the most consistent throughout this time have been low-grade fevers around 100 and headaches. These have occurred on an episodic timeline though without any realpattern. As far as possible etiologies, I would categorize these in the following way: Infectious: Tick-borne: - Lyme unlikely since he has a negative test and this isn't usually an episodic syndrome. - B.miyamotoi usually has similar syndromes to Lyme. Tested by PCR via tick panel, negative, thoughnot the best test. - B.mayonii - usually in the [place] - [place] virus usually causes encephalitis, which is not consistent with his symptoms - Ashley virus, [place] virus usually have low blood counts, increased LFTs, not known to be episodic - Tularemia, a possibility given his animal exposures though less likely given the syndrome Arboviruses: (less likely in general given the time of onset) - EEE is usually severe and not recurrent, causes encephalitis - [place] virus again causes encephalitis, usually in children - WNV causes encephalitis, not recurrent that we know of, often with neurologic deficits Other: - HSV can cause a recurrent meningitis (Mollaret's meningitis), he has no h/o HSV that he knows of - Syphilis though this would be an unusual presentation of it, not usually with fevers in neuro stage - Cryptococcus can cause aseptic meningitis, but more likely to be progressive rather than recurrent - LCMV can be rodent-borne, but unclear if it can be recurrenta Non-Infectious: - Drug-induced (can be from various drugs, but especially NSAIDS) - Mast cell activation: This is an interesting thought since we know 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 Could mast cells also infiltrate his meninges and be causing recurrent aseptic meningitis-like symptoms? A this point, I think the best data we can get would be during an acute episode. I would like to have labs drawn and ideally an LP during an acute event. I would also like to obtain an MRI (not necessarily during an episode). He would like to have these studies done at [facility], so we will work on coordinating this. Other Orders Placed This Visit Procedures ??? MR HEAD W WO CONTRAST ??? Complete Blood Count and Differential ??? Comprehensive Metabolic Panel (CMP) ??? C Reactive Protein (use to detect acute inflammation) ??? Tryptase, Serum ? ? Herpes Simplex Virus (HSV) Type 1 & 2 Ab ??? Syphilis Serology ??? HIV 1/2 Antigen and Antibody, 4th Generation It has been a pleasure seeing Jhonathan Adair in clinic today. 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 Duplicate Therapy 04/23/2020 documented as of this encounter Historical Medications * This list may reflect changes made after this encounter. sertraline (ZOLOFT) 100 mg tablet Take 1.5 Tabs by mouth daily. 02/24/2020 added in this encounter Care Teams Molder Wax Ball Relationship Specialty Start Date End Date Jesse Gardner MD [address] [place] [address] PCP - General 03/27/20 documented as of this encounter
--- OUTSIDE RECORDS SUMMARY | 2024-08-19 16:39 | XMS_ITS | Encounter Summary ---
Author Organization [facility] Address [address] [place] [address] Care Team Providers Care Certified Master Safe Technician Name Role Phone Jesse Gardner MD Primary Care Provider [phone] Encounter Details Date Type Department Care Team (Late st Contact Info) Description 06/19/2023 Lab Requisition [facility] Pathology & Laboratory Medicine - [address] [address] Outr Resulting Lab, Provider Social History Tobacco [...] Date/Time Associated Diagnosis Comments ESTRADIOL, ADULTS Routine 06/19/2023 14: 00 EST documented in this encounter Results * (ABNORMAL) ESTRADIOL, ADULTS (06/19/2023 14:00 EST) Estradiol 80(H) <40 pg/mL 06/19/2023 23:03 EST [facility] Blood VENOUS BLOOD / Unknown 06/19/2023 14:00 EST 06/19/2023 22:01 EST us Provider Outr Resulting Lab CHEMISTRY & BLOOD GA S ORDERABLES Final Result Performing Organization Address City/State/[facility] Co de Phone Number [facility] [address] [place] [address] documented in this encounter Visit Diagnoses Not on filedocumented in this encounter Care Teams Certified Master Safe Technician Relationship Specialty Start Date End Date Jesse Gardner MD [address] [place], [place] [id number] PCP - General 03/27/20 documented as of this encounter
--- OUTSIDE RECORDS SUMMARY | 2024-08-19 16:39 | XMS_ITS | Encounter Summary ---
Author Organization [facility] Address [facility] [place] [address] Care Team Providers Care Kinesiotherapist Name Role Phone Jesse aGrdner MD Primary Care Provider [phone] Encounter Details Date Type Department Care Team (Late st Contact Info) Description 12/12/2018 Ancillary Procedure Radiology Library at [facility] [place] [phone] Carlos Zaldivar MD [facility] [place] [address] Social History Tobacco Use Types Packs/Day Years [...] AM EST TH Visit (TeleHealth) Endocrinology at [facility] [place] [phone] Karine Lechuga PA [facility] [place] [address] documented as of this encounter Procedures Procedure Name Priority Date/Time Associated Diagnosis Comments FILM LIBRARY STORAGE ONLY DX HAND Routine 12/12/2018 12:00 AM EDT documented in this encounter Results * Film Library- Storage Only DX Hand (12/12/2018 12:00 AM EDT) Narrative RAD - 05/06/2019 5:55 PM EDT This exam is auto-finalizing. It's purpose is for storage only. Carlos Zaldivar MD IMG FILM LIBRARY ORD ERABLES Performing Organization Address City/State/[facility] Co de Phone Number [place], [place] documented in this encounter Visit Diagnoses Not on filedocumented in this encounter Care Teams Kinesiotherapist Relationship Specialty Start Date End Date Jesse Gardner MD [address] [place] [address] PCP - General Internal Medicine 05/26/15 04/25/23 documented as of this encounter
--- OUTSIDE RECORDS SUMMARY | 2024-08-19 16:39 | XMS_ITS | Encounter Summary ---
Author Organization [facility] Address [facility] [place] [address] Care Team Providers Care Mixing Roll Operator Name Role Phone Jesse Gardner MD Primary Care Provider Encounter Details Date Type Department Care Team (Latest Contact Info) Description 03/23/2017 - 03/23/2017 11:59 PM EDT Hospital Encounter Radiology Library at [facility] [place] [id number] Fly Abebe MD Pain Discharge Disposition: Home Social History Tobacco Use [...] PM EDT documented as of this encounter Medications at Time of Discharge Medication Sig Dispensed Refills Start Date End Date zafirlukast (ACCOLATE) 10 mg Tablet Take 1 tablet by mouth daily. 03/14/2017 sertraline (ZOLOFT) 100 mg Tablet Take 100 mg by mouth daily. 06/25/2015 ZYRTEC-D 5-120 mg Tablet Sustained Release 12 hr Take 1 tablet by mouth daily. 3 03/15/2017 07/29/2022 oxyCODONE (ROXICODONE) 5 mg Tablet Take 5 mg by mouth as needed. 09/22/2015 07/29/2022 meclizine (ANTIVERT) 25 mg Tablet Take 25 mg by mouth 2 times daily as needed. 05/30/2023 lisinopril (PRINIVIL;ZESTRIL) 10 mg Tablet Take 10 mg by mouth daily. 07/24/2015 07/29/2022 methylphenidate (METADATE ER) 20 mg Tablet Sustained Release Take 40 mg by mouth every morning. 08/27/2015 12/05/2023 documented as of this encounter Plan of Treatment Upcoming Encounters Date Type Department Care Team (Late st Contact Info) Description 09/03/2024 9:00 AM EST TH Visit (TeleHealth) [place] [address] Karine Lechuga PA [facility] [place] [address] documented as of this encounter Procedures Procedure Name Priority Date/Time Associated Diagnosis Comments FILM LIBRARY STORAGE ONLY MR SPINE Routine 03/23/2017 12:00 AM EDT Pain documented in this encounter Results * Film Library- Storage Only MR Spine (03/23/2017 12:00 AM EDT) Narrative [facility] - 03/28/2017 1:30 PM EDT This exam is for storage only and is auto-finalizing. Fly Abebe MD IMG FILM LIBRARY ORD ERABLES [place], [place] documented in this encounter Visit Diagnoses Diagnosis Pain Generalized pain documented in this encounter Care Teams Mixing Roll Operator Relationship Specialty Start Date End Date Jesse Gardner MD [address] [place] [address] PCP - General Internal Medicine 05/26/15 04/25/23 documented as of this encounter
--- OUTSIDE RECORDS SUMMARY | 2024-08-19 16:39 | XMS_ITS | Encounter Summary ---
Author Organization [facility] Address [address] [place] [address] Care Team Providers Care Business Law Teacher Name Role Phone Jesse Gardner MD Primary Care Provider [phone] Encounter Details Date Type Department Care Team (Late st Contact Info) Description 06/01/2023 Lab Requisition [facility] Pathology & Laboratory Medicine - [address] [address] Janet Ramos, DO [address] [place], [place] [id number] Encounter for other general examination Social History [...] Date/Time Associated Diagnosis Comments SURGICAL PATHOLOGY Today 06/01/2023 10 :20 EDT Encounter for other general examination documented in this encounter Results * SURGICAL PATHOLOGY (06/01/2023 10:20 EDT) Note to Patient The following pathology results have been interpreted by your pathologist and may be available to you before your health provider has had the opportunity to review them. Please allow time for your provider to receive these results and explore management options, if applicable. 06/02/2023 13:29 [facility] Final Diagnosis A. SKIN OF LEG, LEFT, SHAVE BIOPSY: - Lichenoid keratosis (lichen planus like keratosis).. B. SKIN OF JAWLINE, LEFT LOWER, SHAVE BIOPSIES: - Epidermal acanthosis with ulceration and reactive changes. See comment. 06/02/2023 13:29 [facility] Diagnosis Comment Specimen B shows relatively nonspecific findings including irregular epidermal acanthosis with ulceration and reparative changes. The biopsies are somewhat tangentially oriented, making assessment somewhat difficult. A consideration could include an irritated seborrheic keratosis. However, clinical correlation is essential. Despite deeper levels, there is no definitive evidence of an infiltrative neoplasm. 06/02/2023 13:29 [facility] Attestation By the signature below, the attending physician certifies that they have 1) personally conducted a gross and/or microscopic examination of the described specimen(s), and/or personally interpreted the results of laboratory testing of the described specimen(s), and 2) personally rendered or confirmed the above diagnosis. 06/02/2023 13:29 [facility] at 1329 Clinical History Skin lesion 06/02/2023 13:29 [facility] Gross Description A. Received in formalin labelled with proper patient identification (initials K, E) and L left leg is a jane-white skin shave biopsy measuring 1.5 x 0.7 x 0.2 cm. Inked, serially sectioned and submitted entirely in A1-A3. B. Received in formalin labelled with proper patient identification (initials K, E) and L lower jaw are 3 pink-white and red-brown tissue ranging in size from 0.2 x 0.2 x 0.1 cm up to 0.7 x 0.4 x 0.2 cm. Submitted intact in B1. MAGALIE ORTIZ(ASCP) 06/01/2023 18:39 06/02/2023 13:29 EDT [facility] Performing Lab [facility] 06/02/2023 13:29 EDT [facility] Scanned Images 06/02/2023 13:29 EDT [facility] Tissue SPECIMEN FROM SKIN / Unknown 06/01/2023 10:20 EDT 06/01/2023 17:00 EDT Tissue specimen (specimen) SPECIMEN FROM SKIN / Unknown 06/01/2023 10:20 EDT 06/01/2023 17:00 EDT us Janet Ramos DO PATHOLOGY ORDERABLES Final Re sult [facility] [address] [place] [address] documented in this encounter Visit Diagnoses Diagnosis Encounter for other general examination documented in this encounter Care Teams Business Law Teacher Relationship Specialty Start Date End Date Jesse Gardner MD [address] [place], [place] [id number] PCP - General 03/27/20 documented as of this encounter
--- OUTSIDE RECORDS SUMMARY | 2024-08-19 16:39 | XMS_ITS | Encounter Summary ---
Author Organization [facility] Address [address] [place] [address] Care Team Providers Care Chute Boss Name Role Phone Jesse Gardner MD Primary Care Provider [phone] Encounter Details Date Type Department Care Team (Late st Contact Info) Description 05/10/2020 Lab Requisition [facility] Pathology & Laboratory Medicine - [address] [address] Outr Resulting Lab, Provider Social History Tobacco [...] Procedure Name Priority Date/Time Associated Diagnosis Comments VARICELLA ZOSTER VIRUS MOLECULAR DETECTION, PCR Routine 05/08/2020 19:57 EDT documented in this encounter Results * VARICELLA ZOSTER VIRUS MOLECULAR DETECTION, PCR (05/08/2020 19:57 EDT) VARICELLA ZOSTER VIRUS MOLECULAR DETECTION, PCR Negative Negative 05/11/2020 6:52 EDT [facility] Comment:This test was develo ped and its performance characteristics determined by [facility]. It has not been cleared or approved by the US Food and Drug Administration. FDA does not require this test to go through premarket FDA review. This test is used for clinical purposes. It should not be regarded as investigational or research. This laboratory is certified under the Clinical Laboratory Improvement Amendments (CLIA) as qualified to perform high complexity clinical laboratory testing. Fluid CEREBROSPINAL FLUID SPECIMEN / Unknown 05/08/2020 19:57 EDT 05/10/2020 16:39 EDT us Provider Outr Resulting Lab MICROBIOLOGY - GENER AL ORDERABLES Final Result [facility] [address] [place] [address] documented in this encounter Visit Diagnoses Not on filedocumented in this encounter Care Teams Chute Boss Relationship Specialty Start Date End Date Jesse Gardner MD [address] [place], [place] [id number] PCP - General 03/27/20 documented as of this encounter
--- OUTSIDE RECORDS SUMMARY | 2024-08-19 16:39 | XMS_ITS | Clinical Summary ---
Author Organization [facility] Address [address] [place] [address] Care Team Providers Care Press Brake Operator Name Role Phone Jesse Gardner MD Primary Care Provider [phone] Allergies No known active allergies Medications zafirlukast (ACCOLATE) 10 mg tablet Take 10 mg by mouth daily. Active lisinopriL (PRINIVIL) 5 mg tablet Take 5 mg by mouth daily. Active methylphenidate HCl (RITALIN;METHYLI N) 20 mg tablet Take 40 mg by mouth daily. Active loratadine/pseud oephedrine (CLARITIN-D 24 HOUR ORAL) Take 1 Tab by mouth daily. Active acetaminophen (TYLENOL) 500 mg tablet Take 500 mg by mouth every 6 hours as needed for Pain. Active ibuprofen (MOTRIN) 200 mg tablet Take 400 mg by mouth every 6 hours. Active sertraline (ZOLOFT) 100 mg tablet Take 1.5 Tabs by mouth daily. 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 Colonoscopy/Upper Endoscopy Surgical History Surgery Date Site/Laterality Comments VASECTOMY HAND SURGERY FOOT SURGERY SINUS SURGERY ELBOW SURGERY TONSILLECTOMY VASECTOMY WISDOM TOOTH EXTRACTION SPINE SURGERY spinal fusion Medical History Medical History Date Comments Benign paroxysmal positional vertigo Environmental allergies Asthma Colitis mastocytic Hypertension Back pain DDD, with spinal fusion Giardia treated with met luisidasara Family History Medical History Relation Comments Rheumatologic Disease Paternal Grandmother RA Relation Status Comments Father Alive Mother Alive Paternal Grandmother Social History Tobacco Use Types Packs/Day Years [...] Sexual Orientation Lesbian 10/25/2023 15 :00 EDT Obstetrics History Last Filed Vital Signs Vital Sign Reading Time Taken Comments Blood Pressure 116/72 05/21/2020 0936 EDT Pulse 100 05/21/2020 0936 EDT Temperature 37.1 ??C (98.8 ??F) 05/21/2020 0936 EDT Respiratory Rate - - Oxygen Saturation - - Inhaled Oxygen Concentration - - Weight 75.3 kg (166 lb) 04/02/2020 1355 EDT Height - - Body Mass Index - - Plan of Treatment Health Maintenance Due Date Last Done Comments Hepatitis C Screen 1971 Hepatitis B Vaccine (1 of 3 - 19+ 3-dose series) 03/09 COVID-19 Vaccine ( season) 2024 Insurance [facility] Care Teams Press Brake Operator Relationship Specialty Start Date End Date Jesse Gardner MD [address] [place] [address] PCP - General 03/27/20
--- OUTSIDE RECORDS SUMMARY | 2024-08-19 16:39 | XMS_ITS | Encounter Summary ---
Author Organization [facility] Address [address] [place] [address] Care Team Providers Care Electric Power Machine Operator Name Role Phone Jesse Gardner MD Primary Care Provider [phone] Encounter Details Date Type Department Care Team (Latest Contact Info) Description 04/23/2020 Travel Social History Tobacco Use Types Packs/Day [...] on filedocumented in this encounter Care Teams Electric Power Machine Operator Relationship Specialty Start Date End Date Jesse Gardner MD [address] [place] [address] PCP - General 03/27/20 documented as of this encounter
--- OUTSIDE RECORDS SUMMARY | 2024-08-19 16:39 | XMS_ITS | Encounter Summary ---
Author Organization [facility] Address [address] [place] [address] Care Team Providers Care Delivery Nurse Name Role Phone Jesse Gardner MD Primary Care Provider [phone] Encounter Details Date Type Department Care Team (Late st Contact Info) Description 04/01/2021 Lab Requisition [facility] Pathology & Laboratory Medicine - [address] [address] Outr Resulting Lab, Provider Social History Tobacco [...] Associated Diagnosis Comments PSA TOTAL, DIAGNOSTIC Routine 04/01/2021 9:00 EDT documented in this encounter Results * PSA TOTAL, DIAGNOSTIC (04/01/2021 9:00 EDT) PSA 0.3 0.0 - 3.5 ng/mL 04/01/2021 22:01 EDT [facility] Blood VENOUS BLOOD / Unknown 04/01/2021 9:00 EDT 04/01/2021 20:53 EDT Narrative [facility] - 04/01/2021 22:01 EDT NOTE: Serum PSA concentration should not be interpreted as absolute evidence for the presence or absence of malignant disease. Assayed on SightCineaur XPT using chemiluminescent technology.??Values obtained by using different assay methods cannot be used interchangeably. us Provider Outr Resulting Lab CHEMISTRY & BLOOD GA S ORDERABLES Final Result [facility] [address] [place] [address] documented in this encounter Visit Diagnoses Not on filedocumented in this encounter Care Teams Delivery Nurse Relationship Specialty Start Date End Date Jesse Gardner MD [address] [place] [address] PCP - General 03/27/20 documented as of this encounter
--- OUTSIDE RECORDS SUMMARY | 2024-08-19 16:39 | XMS_ITS | Encounter Summary ---
Author Organization [facility] Address [facility] [place] [address] Care Team Providers Care Charge Preparation Technician Name Role Phone Jesse Gardner MD Primary Care Provider [phone] Reason for Visit * Reason Comments Other evaluation for mast cell disorder * Consultation (Routine) - Closed Specialty Diagnoses / Procedures Referred By Contac t Referred To Contact Allergy Diagnoses Diarrhea Arthritis Mastocytosis Julio Cesar Downing MD [facility] [place] [address] [facility] [address] [place] [id number] Referral ID Status Reason Start Date Expiration Date V isits Requested Visits Authorized [id number] Closed Consult, Test & Treat 09/04/2015 09/03/2016 6 6 Encounter Details Date Type Department Care Team (Late st Contact Info) Description 01/28/2016 9:00 AM EDT [place] [phone] Julio Cesar Downing MD [facility] [place] [address] Angely Causey MD Mast cell disease; Elevated blood pressure; Adverse food reaction, initial encounter Social History Tobacco Use Types Packs/Day [...] Sign Reading Time Taken Comments Blood Pressure 143/91 01/28/2016 8:57 AM EDT Pulse 85 01/28/2016 8:57 AM EDT Temperature - - Respiratory Rate - - Oxygen Saturation - - Inhaled Oxygen Concentration - - Weight 72.6 kg (160 lb) 01/28/2016 8:57 AM EDT Height 168.9 cm (5' 6.5) 01/28/2016 8:57 AM EDT Body Mass Index 25.44 01/28/2016 8:57 AM EDT documented in this encounter Patient Instructions * Patient Instructions* Angely Causey MD - 01/28/2016 9:21 AM EDT - Elevated blood pressure- - Recommend continued monitoring and follow up with primary provider forfurther evaluation and management of elevated blood pressure - Continue FODMAP diet - Avoid foods that you do not tolerate - Take fexofenadine 180mg once daily ( without decongestants) - Limit decongestant use ( associated with elevated blood pressure) - Please complete 24 hour urine collections as soon as possible. - Please have bloodd drawn (Tryptase) and start 24 hour urine collections during a flare. 01/28/2016 Allergy skin prick tests # tests: 11 Interpretation: Appropriate histamine, saline and glycerine controls. Negative tests to: egg, milk, soybean, wheat, garlic, corn, onion, peanut documented in this encounter Progress Notes * Angely Causey MD - 01/28/2016 9:21 AM EDT Chief Complaint Patient presents with ??? Other evaluation for mast cell disorder HPI The patient is a pleasant 45 y.o. year old male whose consultation was requested by . 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 Patient Active Problem List Diagnosis ??? 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 First diagnosed in [place] in 2008. Colon biopsy was positive for mast cells in the duodenum. During flares patient has diarrhea ( 12-20 bowel movements per day with loose stools) with bowel urgency and abdominal cramping. No associated rash, flushing, fever, difficulty breathing, melena. No unexplained fever, chills, night sweats, lymphadenopathy, weight loss or decreased appetite.. No history of syncope. Flares last about three to seven days. Flares occur every few weeks. Longest time between flares isone month. Patient tried FODMAP diet with a noticeable decrease in number of flares. He has tried oral cromolyn with no improvement in his diarrhea. He was taking Claritin- D and still had diarrhea. Onions and garlic cause bloating and diarrhea Plus, avoiding because of FODMAP diet. Ramseur is associated with diarreha. No specific medication trigger. Not associated with exercise. He had allergy skin tests in [place] in 2011. They were positive to mold, mildew, walnuts and walnuttrees. He develops canker sores if he eats walnuts since childhood. He has avoided walnuts. He eats other tree nuts without any reactions, but avoids them because of FODMAP diet. He avoids legumes, dairy, wheat, soy because of FODMAP diet. He tolerates vertebrae fish ( except salmon - h/o gastroenteritis with it), shellfish, eggs. 09/04/2015: Normal serum tryptase level and eosinophil count. Family history: No family history of mastocytic colitis or mastocytosis. Patient has a history of seasonal allergies and chronic sinusitis s/p sinus surgery, turbinate reductions and nasal septal repair in 02/2012. He has nasal congestion and rhinorrhea when exposed to lilacs and worse in the spring. He takes Melissa- D as needed for nasal congestion. It provides relief.He last took it over one week ago. He has a history of asthma. He was diagnosed at 26 yo. He takes albuterol as needed for asthma symptoms (chest tightness, cough). He has needed to use his albuterol about once per year. Triggers are:mold exposure and severe URIs. No limitations in ADLs, nocturnal awakenings, prednisone courses, ERvisits, hospitalizations for asthma flares. Not up to date with flu shot. Never smoker. No second hand smoke exposure. Has 5 dogs indoor/ outdoor/ in bedroom. Woodstove in the basement. 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 Patient has h/o HTN. On lisinopril, took this morning. No headache, vision changes, SOB or chest pain. Review of Systems: All other systems reviewed and negative except as noted below: Review of Systems HENT: Ringing congestion Musculoskeletal: Positive for joint pain and myalgias. Gastrointestinal: Positive for abdominal pain and diarrhea. Psychiatric/Behavioral: Positive for depression. All other systems reviewed and are negative. Allergies, medications, past medical/ surgical history were reviewed and updated in [facility]. Allergies: Review of patient's allergies indicates no known allergies. Medications: Outpatient Prescriptions Marked as Taking for the 01/28/16 encounter (Office Visit) with Angely Causey MD Medication Sig Dispense Refill ??? lisinopril (PRINIVIL;ZESTRIL) 10 mg Tablet ??? methylphenidate (METADATE ER) 20 mg Tablet Sustained Release Take 40 mg by mouth every morning. ??? sertraline (ZOLOFT) 100 mg Tablet Past Medical and Social History: Past Medical History Diagnosis Date ??? Allergic rhinitis ??? Asthma ??? Hypertension ??? Mastocytosis mastocytic enterocolitis Past Surgical History Procedure Laterality Date ??? Back surgery ??? Hand surgery ??? Pro colonoscopy, diagnostic N/A 10/27/2015 COLONOSCOPY, DIAGNOSTIC performed by Julio Cesar Downing MD at [facility] ??? Pro upper gi endoscopy, diagnostic N/A 10/27/2015 EGD, UPPER GI ENDOSCOPY performed by Julio Cesar Downing MD at [facility] ??? Sinus surgery ??? Tonsillectomy ??? Adenoidectomy Family history: Family History Problem Relation Age of Onset ??? Allergic Rhinitis Father ??? Asthma Neg Hx Social history: History Social History ??? Marital status: Spouse name: N/A ??? Number of children: N/A ??? Years of education: N/A Social History Main Topics ??? Smoking status: Never Smoker ??? Smokeless tobacco: Not on file ??? Alcohol use: No ??? Drug use: No ??? Sexual activity: Yes Partners: Female Other Topics Concern ??? None Social History Narrative . 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 Physical Exam: Vital signs reviewed. Normal Except General: - No apparent distress Eyes: - Conjunctivae without injection; - No eyelid swelling ENT: - No erythema of the tympanic membranes - Normal external ear canals - Nl nasal mucosa, septum, and turbinates; - Oropharynx well hydrated without lesions or exudates; - Face & sinuses non-tender to palpation/percussion Neck: - Symmetrical, no masses, trachea midline; Resp: - Unlabored breathing with symmetrical and equal bilateral expansion; - CTA w/o wheezes, rales, or rhonchi; CV: - Regular rate and rhythm - No pedal swelling GI: - Abdomen soft - Bowel sounds present - No hepatosplenomegaly Lymph: - No significant cervical, supraclavicular or infraclavicular lymphadenopathy Musculoskeletal: - Nl gait and station Extremities: - No clubbing, cyanosis, or edema Skin: - No rashes Neuro: - Nl gait and station Psych: - Nl and age appropriate mood and affect - Judgement and insight intact TESTS/PROCEDURES 01/28/2016 Allergy skin prick tests # tests: 11 Interpretation: Appropriate histamine, saline and glycerine controls. Negative tests to: egg, milk, soybean, wheat, garlic, corn, onion, peanut IMPRESSION/REPORT/PLAN # mastocytic colitis # adverse food reactions # elevated blood pressure NOTE IN POLICE INVESTIGATOR Orders Placed This Encounter Procedures ??? Tryptase ??? Tryptase ??? N-Methylhistamine, 24 Hr Urine ??? 2,3 Dinor 11 B-Prostaglandin, Urine ??? N-Methylhistamine, 24 Hr Urine ??? 2,3 Dinor 11 B-Prostaglandin, Urine RTC in 3 months e[facility] record was reviewed. Written instructions were reviewed and provided to the patient. No learning barriers were identified. The risks, benefits, alternatives and indications for the useof mediations prescribed or recommended during today's visit were reviewed with the patient. The patient understood and agreed with what was discussed. All questions were answered. documented in this encounter Plan of Treatment Upcoming Encounters Date Type Department Care Team (Late st Contact Info) Description 09/03/2024 9:00 AM EST TH Visit (TeleHealth) [place] [address] Karine Lechuga PA [facility] [place] [address] Scheduled Orders Name Type Priority Associated Diagnoses Orde r Schedule ALLERGY SKIN TEST Procedures Routine Mast cell disease Adverse food reaction, initial encounter Ordered: 02/01/2016 documented as of this encounter Procedures Procedure Name Priority Date/Time Associated Diagnosis Comments TRYPTASE Routine 01/28/2016 11:13 AM EDT Mast cell disease documented in this encounter Results * Tryptase (01/28/2016 11:13 AM EDT) Tryptase 5.9 <11.5 ng/mL [facility] Comment: Test Performed by: [place] [address] Ecological Technical Officer: Shilo Rosado II, M.D., Ph.D. 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
--- OUTSIDE RECORDS SUMMARY | 2024-08-19 16:39 | XMS_ITS | Referral Summary ---
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 2009 Colonoscopy/Upper Endoscopy Social History Tobacco Use Types Packs/Day Years [...] Sexual Orientation Lesbian 10/25/2023 15 :00 EDT Last Filed Vital Signs Vital Sign Reading Time Taken Comments Blood Pressure 116/72 05/21/2020 0936 EDT Pulse 100 05/21/2020 0936 EDT Temperature 37.1 ??C (98.8 ??F) 05/21/2020 0936 EDT Respiratory Rate - - Oxygen Saturation - - Inhaled Oxygen Concentration - - Weight 75.3 kg (166 lb) 04/02/2020 1355 EDT Height - - Body Mass Index - - Plan of Treatment Not on file Insurance [employer] Care Teams Land Manager Relationship Specialty Start Date End Date Jesse Gardner MD [address] [place], [place] [phone] PCP - General 03/27/20
--- OUTSIDE RECORDS SUMMARY | 2024-08-19 16:39 | XMS_ITS | Encounter Summary ---
[place] [address] Care Team Providers Care Purchasing Engineer Name Role Phone Jesse Gardner MD Primary Care Provider [phone] Reason for Referral * Diagnostic Test (Routine) - Closed Specialty Diagnoses / Procedures Referred By Contac t Referred To Contact Radiology Diagnoses Pain in finger of right hand Procedures MRI Finger wo Contrast Right Keanu De Los Santos MD [address] [place] [address] [place] [address] Referral ID Status Reason Start Date Expiration Date V isits Requested Visits Authorized [id number] Closed Specialty Service Requested 01/09/2019 01/09/2020 1 1 Reason for Visit * Diagnostic Test (Routine) - Closed Specialty Diagnoses / Procedures Referred By Contac t Referred To Contact Radiology Diagnoses Pain in finger of right hand Procedures MRI Finger wo Contrast Right Keanu De Los Santos MD [address] [place] [address] [place] [address] Referral ID Status Reason Start Date Expiration Date V isits Requested Visits Authorized [id number] Closed Specialty Service Requested 01/09/2019 01/09/2020 1 1 Encounter Details Date Type Department Care Team (Latest Contact Info) Description 01/15/2019 11:19 AM EDT - 01/15/2019 11:59 PM EDT [place] [address] Keanu De Los Santos MD [address] [place] [address] Pain in finger of right hand Discharge Disposition: Home Social History Tobacco Use [...] AM EST TH Visit (TeleHealth) [place] [phone] Karine Lechuga PA [facility] [address] documented as of this encounter Procedures Procedure Name Priority Date/Time Associated Diagnosis Comments MRI FINGER WO CONTRAST RIGHT Routine 01/15/2019 12:37 PM EDT Pain in finger of right hand documented in this encounter Results * MRI Finger wo Contrast Right (01/15/2019 12:37 PM EDT) Anatomical Region Laterality Modality Hand, Wrist Magnetic Resonan ce Impressions 01/15/2019 1:49 PM EDT 1. ??Postsurgical changes consistent with earlier trigger finger release. No additional injury is identified. No collection or other postoperative complication is identified. Thank you for letting us participate in the care of this patient. For questions regarding this report, please contact the number below. ? Narrative 01/15/2019 1:49 PM EDT EXAMINATION: MRI FINGER WO CONTRAST RIGHT CLINICAL HISTORY: s/p trigger finger release without triggering but continued pain, RMF instability outside order in scanned docs; NO PA REQ TECHNIQUE: MR images were acquired without contrast focused at the metacarpal phalangeal joint of the middle finger. COMPARISON: None FINDINGS: A small amount of fluid and architectural distortion is present in all marked to the flexor tendon sheath of the middle finger at the level the metacarpal phalangeal joint consistent with the patient's history of earlier release. No distended collection suggestive of abscess formation or healing is identified. There is a small amount of fluid in the tendon sheath suggesting inflammation. The sheath however is not distended. No tendon injury or displacement is seen. At the metacarpal phalangeal joint no large effusion is present. The collateral ligaments are normal in appearance. A small collection of subchondral cysts are present at the radial aspect of the metacarpal head. The extensor complex including the sagittal band and the extensor tendon are normal in appearance. Procedure Note Rod Evans MD - 01/15/2019 EXAMINATION: MRI FINGER WO CONTRAST RIGHT CLINICAL HISTORY: s/p trigger finger release without triggering butcontinued pain, RMF instability outside order in scanned docs; NO PA REQ TECHNIQUE: MR images were acquired without contrast focused at the metacarpalphalangeal joint of the middle finger. COMPARISON: None FINDINGS: A small amount of fluid and architectural distortion is present in allmarked to the flexor tendon sheath of the middle finger at the level themetacarpal phalangeal joint consistent with the patient's history of earlierrelease. No distended collection suggestive of abscess formation or healing is identified. There is a small amount of fluid in the tendon sheath suggestinginflammation. The sheath however is not distended. No tendon injury or displacement is seen. At the metacarpal phalangeal joint no large effusion is present. Thecollateral ligaments are normal in appearance. A small collection of subchondral cysts are present at the radial aspectof the metacarpal head. The extensor complex including the sagittal band and the extensor tendonare normal in appearance. IMPRESSION 1. Postsurgical changes consistent with earlier trigger finger release.No additional injury is identified. No collection or other postoperative complication is identified. Thank you for letting us participate in the care of this patient. Forquestions regarding this report, please contact the number below. Keanu De Los Santos MD IMG MRI ORDERABLES documented in this encounter Visit Diagnoses Diagnosis Pain in finger of right hand Pain in limb documented in this encounter Care Teams Purchasing Engineer Relationship Specialty Start Date End Date Jesse Gardner MD [address] [place] [id number] PCP - General Internal Medicine 05/26/15 04/25/23 documented as of this encounter
--- OUTSIDE RECORDS SUMMARY | 2024-08-19 16:39 | XMS_ITS | Encounter Summary ---
Author Organization [facility] Address [address] [place] [address] Care Team Providers Care Community Health Specialist Name Role Phone Jesse Gardner MD Primary Care Provider [phone] Reason for Referral * Referral (Routine) - Closed Specialty Diagnoses / Procedures Referred By [facility] Referred To Contact Neurology Diagnoses Recurrent fever of unknown cause Recurrent headache Hyperreflexia [place] Raven Portillo MD Phone: tel: fax: Slime Hernandez MD [address] [place] [address] Phone: tel: fax: Referral ID Status Reason Start Date Expiration Date V isits Requested Visits Authorized [id number] Closed Specialty Services Required 05/21/2020 1 1 Question Answer Reason for Request: 6 months of recurrent episodes of fever, BAIG, fatigue, flushing. Also with night sweats, HTN. MRI normal. LP done during episode showed slightly elevated opening pressure, normal cell counts. + hyperreflexia. Please eval and treat. Reason for Visit * Reason Comments Follow-up fevers Encounter Details Date Type Department Care Team ([facility] Contact Info) Description 05/21/2020 9:30 EDT Office Visit [facility] [place] [facility] Infectious Disease [address], [place] [address] Raven Portillo MD [address] [facility] [place] [address] Recurrent fever of unknown cause (Primary Dx); Recurrent headache; Mast cell disorder; Hyperreflexia; Flushing; Essential hypertension Social History Tobacco Use Types Packs/Day Years [...] 9:24 EDT documented as of this encounter Last [...] Progress Notes * Raven Portillo MD - 05/21/2020 0930 EDT Outpatient Infectious Disease Follow Up Note Patient name: Jhonathan Adair Today's date: 05/21/20; 9:57 HPI: Jhonathan Adair is a 50 y/o M with h/o HTN, mild asthma, depression, and mastocyctic enterocolitis who was referred to ID for recurrent fevers, headaches, and fatigue x 6 months. At his last visit he has had a variety of symptoms, but the most consistent throughout this time have been low-gradefevers around 100 and headaches. These have occurred on an episodic timeline though without any real pattern. Possible etiologies: tick-borne, B.miyamotoi, B.mayonii, [place], [place] virus, [place] virus, Tularemia, Arboviruses, HSV, Syphilis, Cryptococcus, LCMV, drug-induced (NSAIDS), and mast-cell activation. I ordered labs and an LP to be done during an acute episode which has not be done yet. We checked in with Jhonathan two weeks ago and he was still having low-grade fevers with mild headaches but not to the point where he felt testing was needed. Today he said he had the LP and labs done 1 week ago - on 05/08. He was symptomatic with a fever over 100 and headache. He had been fine during the day and then after 4pm his temp increased and he wasfeeling really crappy. By the time he got into the ED exam room, his temp was back to normal - athome it was over 100. He says anesthesia says his pressure was slightly elevated but he's not sure what number it was. They told him he should probably see Neurology. When admitted, his BP was 155. At discharge, his BP was down to 120s. Since I saw him last, he had symptoms on 04/25-04/27, 04/29, 05/01. Night sweats 05/03, 05/09. 05/11 and 05/17 fever had headache again. Symptoms include fever, light-headed, shaky, low blood sugar. HR is usually elevated during episodes as well - usually 100-120. Lightsensitivity. No diarrhea or nausea. No dry mouth. Review of Systems: 10-point review of systems is negative except as noted in the HPI. Medications Current Outpatient Medications Medication ??? acetaminophen (TYLENOL) 500 mg tablet ??? ibuprofen (MOTRIN) 200 mg tablet ??? lisinopriL (PRINIVIL) 5 mg tablet ??? loratadine/pseudoephedrine (CLARITIN-D 24 HOUR ORAL) ??? methylphenidate HCl (RITALIN;METHYLIN) 20 mg tablet ??? sertraline (ZOLOFT) 100 mg tablet ??? zafirlukast (ACCOLATE) 10 mg tablet No current facility-administered medications for this visit. Allergies No Known Allergies Problem List: Patient Active Problem List Diagnosis ??? Diarrhea ??? Essential hypertension ??? Mild persistent asthma ??? Attention deficit disorder (ADD) in adult ??? 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 Recurrent major depressive disorder (HCC-CMS) Medical/Surgical/Social/Family History: reviewed - see appropriate section of EMR. Physical Exam Vital Signs: BP 116/72 Pulse 100 Temp 37.1 ??C (98.8 ??F) (Oral) General: NAD Skin: no rashes or lesions HEENT: AT/NC; sclera anicteric. Neck: supple, no LAD CV: RRR Pulm: CTAB, no audible wheezes, rales, or rhonchi Abd: non-distended Ext: Warm, well-perfused, no edema Neuro: hyperreflexia present in b/l UEs and LEs Psych: Appropriate ID Pertinent Medications: None currently Labs: 05/08/20 at [facility]: ?opening pressure CSF - colorless, clear, WBC 1, RBC 2, glucose 51, protein 33 CSF VDRL - neg CSF VZV PCR - neg CSF HSV 1/2 - neg CSF CrAg - neg Tryptase - 7.0 (normal <11.5) Creatinine 1.26 Ca - 8.8 Glucose - 92 AST - 39 ALT - 54 CRP - 0.47 mg/dL (NL 0-0.3) WBC - 6.94, normal diff H/H - 15.4, 44.7 Plts - 208 HSV 1/2 Ab IgG - neg Micro: CSF culture: 05/08/20 - neg (GS with rare WBCs, no orgs) Radiology: 04/30/20 MRI Brain at [facility]: IMPRESSION- Normal brain MRI incliding post contrast imaging. Assessment and Plan: 50 y/o M with h/o HTN, mild asthma, depression, and mastocyctic enterocolitis who was referred to ID for recurrent fevers, headaches, and fatigue x 6 months. His LP results look pretty reassuring, though I don't have documentation of the opening pressure. He says it was elevated, so we will get those results from [facility]. With only 1 WBC in the CSF, this isn't infection. Hyperreflexia, low grade fevers, sweating, BAIG, elevated HR and BP - I'm wondering about something like serotonin syndrome or pheochromocytoma. Mast cell activation usually results in low BP, so that's less likely at this point. I think the next step is for him to see Neurology for evaluation, especially give the reportedly elevated opening pressure (despite normal MRI) and hyperreflexia. He will have the neurologist at [facility] send notes here after he is seen. Other Orders Placed This Visit Procedures ??? Amb Consult/Follow Up Neurology It has been a pleasure seeing Jhonathan Adair in clinic today. 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
--- OUTSIDE RECORDS SUMMARY | 2024-08-19 16:39 | XMS_ITS | Encounter Summary ---
Author Organization [facility] Address [address] [place] [address] Care Team Providers Care Document Management Specialist Name Role Phone Jesse Gardner MD Primary Care Provider [phone] Encounter Details Date Type Department Care Team (Late st Contact Info) Description 07/01/2022 Lab Requisition [facility] Pathology & Laboratory Medicine - [address] [address] Outr Resulting Lab, Provider Social History Tobacco [...] Procedure Name Priority Date/Time Associated Diagnosis Comments CHLAMYDIA/N. GONORRHOEAE AMPLIFIED NUCLEIC ACID Routine 07/01/2022 7:55 EST documented in this encounter Results * CHLAMYDIA/N. GONORRHOEAE AMPLIFIED RNA (07/01/2022 7:55 EST) Neisseria gonorrhoeae Result Negative Negative 07/02/2022 15:15 EST [facility] Chlamydia trachomatis Result Negative Negative 07/02/2022 15:15 EST [facility] Urine URINE / Unknown 07/01/2022 7 :55 EST 07/01/2022 22:00 EST us Provider Outr Resulting Lab MICROBIOLOGY - GENER AL ORDERABLES Final Result Performing Organization Address City/State/[facility] Co de Phone Number [facility] [address] [place] [address] documented in this encounter Visit Diagnoses Not on filedocumented in this encounter Care Teams Document Management Specialist Relationship Specialty Start Date End Date Jesse Gardner MD [address] [place], [place] [id number] PCP - General 03/27/20 documented as of this encounter
--- OUTSIDE RECORDS SUMMARY | 2024-08-19 16:39 | XMS_ITS | Encounter Summary ---
Author Organization [facility] Address [address] [place] [address] Care Team Providers Care Neuroradiologist Name Role Phone Jesse Gardner MD Primary Care Provider [phone] Encounter Details Date Type Department Care Team (Late st Contact Info) Description 12/24/2019 Lab Requisition [facility] Pathology & Laboratory Medicine - [address] [address] Outr Resulting Lab, Provider Social History Tobacco Use Types Packs/Day Years Used Date Smoking Tobacco: Never Assessed Sex and Gender Information Value Date Recorded Sex Assigned at Male 10/25/2023 15:00 EDT Legal Sex Male 9:06 EST Gender Identity Female 10/25/2023 15:00 EDT Sexual Orientation Lesbian 10/25/2023 15 :00 EDT documented as of this encounter Plan of Treatment Not on file documented as of this encounter Procedures Procedure Name Priority Date/Time Associated Diagnosis Comments CHRISTINE ANTIBODY PANEL Routine 12/23/2019 11 :50 EDT DOUBLE STRANDED DNA ANTIBODY, IGG Routine 12/23/2019 11:50 EDT documented in this encounter Results * ANTI DNA (DOUBLE STRANDED) (12/23/2019 11:50 EDT) Anti-DNA (Double Stranded) <12.3 <30.0 IU/mL 12/31/2019 13:06 EDT [facility] Comment: ? Negative: ??<30.0 IU/mL ? Borderline Positive: ??30.0 - 75.0 IU/mL ? Positive: ??>75.0 IU/mL Results were obtained with the [email or web address] QUANTA Lite dsDNA SC JENIFER assay on the [employer]. Blood VENOUS BLOOD / Unknown 12/23/2019 11:50 EDT 12/24/2019 15:34 EDT us Provider Outr Resulting Lab IMMUNOLOGY AND SEROL OGY ORDERABLES Final Result [facility] [address] [place] [address] * EXTRACTABLE NUCLEAR ANTIGEN PANEL (12/23/2019 11:50 EDT) SSA Antibody 2.2 <20.0 Units 12/25/2019 14:35 EDT [facility] Comment: ? Negative: <20.0 Units ? Weak Positive: 20.0 - 39.9 Units ? Moderate Positive: 40.0 - 80.0 Units ? Strong Positive: >80.0 Units Results were obtained with the [email or web address] QUANTA Lite SS-A JENIFER. ??SS-A values obtained with different manufacturers' assay methods may not be used interchangeably. ??The magnitude of the reported IgG levels cannot be correlated to an endpoint titer. SSB Antibody 3.2 <20.0 Units 12/25/2019 14:35 EDT [facility] Comment: ? Negative: <20.0 Units ? Weak Positive: 20.0 - 39.9 Units ? Moderate Positive: 40.0 - 80.0 Units ? Strong Positive: >80.0 Units Results were obtained with the [email or web address] QUANTA Lite SS-B JENIFER. ??SS-B values obtained with different manufacturers' assay methods may not be used interchangeably. ??The magnitude of the reported IgG levels cannot be correlated to an endpoint titer. SM (Bacon) Antibody 3.3 <20.0 Units 12/25/2019 14:35 EDT [facility] Comment: ? Negative: <20.0 Units ? Weak Positive: 20.0 - 39.9 Units ? Moderate Positive: 40.0 - 80.0 Units ? Strong Positive: >80.0 Units Results were obtained with the [employer] Lite Sm JENIFER. ??Sm values obtained with different manufacturers' assay methods may not be used interchangeably. ??The magnitude of the reported IgG levels cannot be correlated to an endpoint titer. CLINIC DIRECTOR Antibody 2.3 <20.0 Units 12/25/2019 14:35 EDT [facility] Comment: ? Negative: <20.0 Units ? Weak Positive: 20.0 - 39.9 Units ? Moderate Positive: 40.0 - 80.0 Units ? Strong Positive: >80.0 Units Results were obtained with the [employer] Quanta Lite CLINIC DIRECTOR JENIFER. CLINIC DIRECTOR values obtained with different society editor's assay methods may not be used interchangeaby. ??The magnitude of the reported IgG levels cannot be be correlated to an endpoint titer. A positive result in the [employer] CLINIC DIRECTOR JENIFER indicates the presence of antibodies reactive with the CLINIC DIRECTOR/Sm complex but cannot distinguish between anti-Sm and anti-CLINIC DIRECTOR activity. Blood VENOUS BLOOD / Unknown 12/23/2019 11:50 EDT 12/24/2019 15:34 EDT us Provider Outr Resulting Lab IMMUNOLOGY AND SEROL OGY ORDERABLES Final Result [facility] [address] [place] [address] documented in this encounter Visit Diagnoses Not on filedocumented in this encounter Care Teams Neuroradiologist Relationship Specialty Start Date End Date Jesse Gardner MD [address] [place], [place] [id number] PCP - General 03/27/20 documented as of this encounter
--- OUTSIDE RECORDS SUMMARY | 2024-08-19 16:40 | XMS_ITS | Continuity of Care Document ---
Author Organization [facility] Address [address] [place] [address] Care Team Providers Care Disability Insurance Claim Examiner Name Role Phone Catalina Blanchard Primary Care Physician Encounter [facility] Date(s): 06/12/23 - 06/12/23 [facility] [address] [place] [address] Discharge Disposition: Home Allergies, Adverse Reactions, Alerts Substance Reaction Severity Status AmLODIPine Besylate Unknown Active LamoTRIgine ER Unknown Active DULoxetine Hydrochloride Unknown Act luke Assessment and Plan Future Appointments Medications acetaminophen 500 mg oral capsule 1000 mg PO Q8H PRN pain, 0 Refill(s) Start Date: 06/01/23 Status: Ordered albuterol 90 mcg/inh aerosol inhaler 2 puff inhalation Q6H PRN, 0 Refill(s) Start Date: 06/01/23 Status: Ordered estradiol 0.1 mg/24 hours twice weekly transdermal film, extended release 0 Refill(s) Start Date: 06/12/23 Status: Ordered fremanezumab-vfrm 225 mg/1.5 mL subcutaneous solution 225 mg =, Subcutaneous, every month, # 1.5 mL, 0 Refill(s) Start Date: 06/01/23 Status: Ordered gabapentin 100 mg oral capsule See Instructions, take 1 to 3 capsules PO at night, self titrate to symptoms, # 90 cap, 0 Refill(s), Pharmacy: [facility], 167.64, cm, 06/12/23 9:46:00 EDT, Height Start Date: 06/12/23 Status: Ordered ibuprofen 600 mg oral tablet 600 mg PO Q6H PRN, 0 Refill(s) Start Date: 06/01/23 Status: Ordered loratadine 10 mg oral capsule 10 mg = 1 cap, Oral, Daily, # 10 cap, 0 Refill(s) Start Date: 06/01/23 Status: Ordered LORazepam 1 mg oral capsule, extended release 1 mg = 1 cap, Oral, every morning, PRN Take 1/2 tablet, 0 Refill(s) Start Date: 06/12/23 Status: Ordered Lupron Depot 3.75 mg/month intramuscular injection, extended release 3.75 mg =, IM, every 4 wk, # 1 EA, 0 Refill(s) Start Date: 06/12/23 Status: Ordered methylphenidate 20 mg/8 hr oral tablet, extended release 20 mg = 1 tab, Oral, Daily, 40 mg PO DAILY, 0 Refill(s) Start Date: 06/01/23 Status: Ordered rizatriptan 10 mg oral tablet 0 Refill(s) Start Date: 06/01/23 Status: Ordered sertraline 100 mg oral tablet 200 mg PO DAILY, 0 Refill(s) Start Date: 06/01/23 Status: Ordered tamsulosin 0.4 mg oral capsule 0 Refill(s) Start Date: 06/12/23 Status: Ordered verapamil 180 mg/24 hours oral capsule, extended release 180 mg = 1 cap, Oral, Daily, # 90 cap, 0 Refill(s) Start Date: 06/01/23 Status: Ordered zafirlukast 10 mg oral tablet 10 mg PO DAILY, 0 Refill(s) Start Date: 06/01/23 Status: Ordered Problem List Condition Confirmation Course Effective Dates Status Health Status Informant Abdominal bloating Confirmed Active Abdominal pain Confirmed Active Acne Confirmed Active Allergic rhinitis Confirmed Active Asthma without status asthmaticus Confirmed Active Attention deficit disorder with hyperactivity Confirmed Active Hematuria Confirmed Active Occipital neuralgia Confirmed Active Chronic pain syndrome Confirmed Active Color blindness Confirmed Active Depressive disorder Confirmed Active Elevated blood pressure reading without diagnosis of hypertension Confirmed Active Mastocytic enterocolitis Confirmed Active Fatigue Confirmed Active Hypercholesterolemia Confirmed Active High blood pressure Confirmed Active Intermittent explosive disorder Confirmed Active Abnormal involuntary movements Confirmed Active Localized, primary osteoarthritis of the ankle and foot Confirmed Active Lumbosacral spondylosis Confirmed Active Medial epicondylitis of right elbow Confirmed Active Migraine headache with aura Confirmed Active Mononeuropathy of left upper extremity Confirmed Active Mucous retention cyst of maxillary sinus Confirmed Active Nausea Confirmed Active Right shoulder pain Confirmed Active Sinusitis Confirmed Active Trigger finger, right middle finger Confirmed Active Trigger finger, left middle finger Confirmed Active Urinary tract infection Confirmed Active Social History Social History Type Response Tobacco Never tobacco user T obacco Use:. Sex Male Patient Care team information Care Team Personnel Name: Catalina Blanchard MD Position: No Access Member Role: Primary Care Physician Address: Address: [address] [place] [address]
--- OUTSIDE RECORDS SUMMARY | 2024-08-19 16:40 | XMS_ITS | Encounter Summary ---
Author Organization [facility] Address [address] [place] [address] Care Team Providers Care Sheet Metal Smith Name Role Phone Jesse Gardner MD Primary Care Provider [phone] Encounter Details Date Type Department Care Team (Late st Contact Info) Description 12/18/2019 Lab Requisition [facility] Pathology & Laboratory Medicine - [address] [address] Outr Resulting Lab, Provider Social History Tobacco [...] Procedure Name Priority Date/Time Associated Diagnosis Comments ANTI NUCLEAR AB (OCTAVIO), IFA Routine 12/17/2019 8:30 EDT documented in this encounter Results * (ABNORMAL) ANTI NUCLEAR AB (OCTAVIO), IFA (12/17/2019 8:30 EDT) OCTAVIO Interpretation Positive(A) Negative 12/20/2019 15:23 EDT [facility] Comment: For titers greater than or equal to 1:160 (except the centromere and nucleolar patterns) it is recommended that specific follow-up autoantibody testing ??(such as for dsDNA and Extractable Nuclear Antigens) be performed on all diffuse and/or speckled patterns NOTE: For add-on testing dsDNA is stable for 7 days refrigerated while Extractable Nuclear Antigens are only stable for 48 hours refrigerated. OCTAVIO Titer and Pattern 1 1:320 Dense Fine Speckled 12/20/2019 15:23 EDT [facility] Blood VENOUS BLOOD / Unknown 12/17/2019 8:30 EDT 12/18/2019 15:53 EDT Narrative [facility] - 12/20/2019 15:23 EDT Results were obtained with the INOVA NOVA Lite HEp-2 OCTAVIO Kit by indirect immunofluorescence. us Provider Outr Resulting Lab IMMUNOLOGY AND SEROL OGY ORDERABLES Final Result [facility] [address] [place] [address] documented in this encounter Visit Diagnoses Not on filedocumented in this encounter Care Teams Sheet Metal Smith Relationship Specialty Start Date End Date Jesse Gardner MD [address] [place] [address] PCP - General 03/27/20 documented as of this encounter
--- OUTSIDE RECORDS SUMMARY | 2024-08-19 16:40 | XMS_ITS | Encounter Summary ---
Author Organization [facility] Address [address] [place] [address] Care Team Providers Care Wool Washing Machine Operator Name Role Phone Jesse Gardner MD Primary Care Provider [phone] Encounter Details Date Type Department Care Team (Late st Contact Info) Description 07/23/2019 Lab Requisition [facility] Pathology & Laboratory Medicine - [address] [address] Unknown, Provider, Social History Tobacco Use Types Packs/Day Years [...] Associated Diagnosis Comments PSA TOTAL, DIAGNOSTIC Routine 07/22/2019 14:30 EST documented in this encounter Results * PSA TOTAL, DIAGNOSTIC (07/22/2019 14:30 EST) PSA 0.3 0.0 - 2.5 ng/mL 07/24/2019 12:13 EST [facility] Blood VENOUS BLOOD / Unknown 07/22/2019 14:30 EST 07/23/2019 16:30 EST Narrative [facility] - 07/24/2019 12:13 EST NOTE: Serum PSA concentration should not be interpreted as absolute evidence for the presence or absence of malignant disease. Assayed on Siemens ADVIA FaceFirst ([employer])aur XPT using chemiluminescent technology. ??Values obtained by using different assay methods cannot be used interchangeably. us Provider Unknown CHEMISTRY & BLOOD GAS ORDERA BLES Final Result [facility] [address] [place] [address] documented in this encounter Visit Diagnoses Not on filedocumented in this encounter Care Teams Wool Washing Machine Operator Relationship Specialty Start Date End Date Jesse Gardner MD [address] [place], [place] [id number] PCP - General 03/27/20 documented as of this encounter
--- OUTSIDE RECORDS SUMMARY | 2024-08-19 16:40 | XMS_ITS | Encounter Summary ---
Author Organization [facility] Address [address] [place] [address] Care Team Providers Care Digital Strategy Director Name Role Phone Jesse Gardner MD Primary Care Provider [phone] Encounter Details Date Type Department Care Team (Late st Contact Info) Description 12/13/2019 Lab Requisition [facility] Pathology & Laboratory Medicine - [address] [address] Outr Resulting Lab, Provider Social History Tobacco [...] Procedure Name Priority Date/Time Associated Diagnosis Comments ZZCOVID-19 TEST [facility] PCR Today 12/13/2019 16:15 EDT COVID-19 TESTING Routine 12/13/2019 16:1 5 EDT documented in this encounter Results * COVID-19 TEST [facility] PCR (12/13/2019 16:15 EDT) Swab ENTIRE NASOPHARYNX / Unknown 12/13/2019 16:15 EDT 12/13/2019 20:16 EDT us Provider Outr Resulting Lab MICROBIOLOGY - GENER AL ORDERABLES Final Result Performing Organization Address [facility] Co de Phone Number [facility] [address] [place] [address] * COVID-19 TESTING (12/13/2019 16:15 EDT) COVID-19 rt-PCR Result Negative Negative 12/14/2019 7:36 EDT [facility] Comment: Negative results do not preclude 2019-nCoV infection and should not be used as the sole basis for treatment or other patient management decisions. Negative results must be combined with clinical observations, patient history, and epidemiological information. This test has not been FDA cleared or approved. This test has been authorized by FDA under an EUA for use by authorized laboratories. This test has been authorized only for detection of nucleic acid from 2019-nCoV, not for any other viruses or pathogens. This test is only authorized for the duration of the declaration that circumstances exist justifying the authorization of emergency use of in vitro diagnostic tests for detection and/or diagnosis of 2019-nCoV under section 564(b)(1) of Act, 21 U.S.C ?? 360bbb-3(b) (1), unless the authorization is terminated or revoked sooner. Performed on the [employer] Fusion instrument Performing Lab [facility] 12/14/2019 7:36 EDT [facility] Swab ENTIRE NASOPHARYNX / Unknown 12/13/2019 16:15 EDT 12/13/2019 20:16 EDT us Provider Outr Resulting Lab MICROBIOLOGY - GENER AL ORDERABLES Final Result Performing Organization Address City/[facility]/ZIP Co de Phone Number [facility] [address] [place] [address] documented in this encounter Visit Diagnoses Not on filedocumented in this encounter Care Teams Digital Strategy Director Relationship Specialty Start Date End Date Jesse Gardner MD [address] [place], [place] [id number] PCP - General 03/27/20 documented as of this encounter
--- OUTSIDE RECORDS SUMMARY | 2024-08-19 16:40 | XMS_ITS | Encounter Summary ---
Author Organization [facility] Address [address] [place] [address] Care Team Providers Care Oral Surgery Assistant Name Role Phone Jesse Gardner MD Primary Care Provider [phone] Encounter Details Date Type Department Care Team (Late st Contact Info) Description 11/11/2019 Lab Requisition [facility] Pathology & Laboratory Medicine - [address] [address] Jay Adair MD [address] [place] [id number] Encounter for other general examination Social History [...] Procedure Name Priority Date/Time Associated Diagnosis Comments COVID-19 [place] Today 11/11/2019 13:24 EDT Encounter for other general examination documented in this encounter Results * SARS CORONAVIRUS 2 RNA DETECTION [place] (11/11/2019 13:24 EDT) COVID-19 [place] Specimen Source Nasopharynx 11/13/2019 15:19 EDT [facility] COVID-19 [place] Result Undetected Undetected 11/13/2019 15:19 EDT [facility] Comment: SARS-CoV-2 RNA is not detected. ADDITIONAL INFORMATION Testing was performed using the misti SARS-CoV-2 assay ([employer] on the misti 6800 System. Fact sheets for this Emergency Use Authorization (EUA) assay can be found at the following links: For Healthcare Providers: https://www.fda.gov/media/949583/download For Patients: https://www.fda.gov/media/153740/download Test Performed by: [facility] [address] [place] [address] Manager Oracle: Shilo Rosado M.D. Ph.D.; CLIA# [id number] Swab ENTIRE NASOPHARYNX / Unknown 11/11/2019 13:24 EDT 11/11/2019 20:20 EDT us Jay Adair MD MICROBIOLOGY - GENERAL O RDERABLES Final Result [facility] [address] [place] [address] documented in this encounter Visit Diagnoses Diagnosis Encounter for other general examination documented in this encounter Care Teams Oral Surgery Assistant Relationship Specialty Start Date End Date Jesse Gardner MD [address] [place] [address] PCP - General 03/27/20 documented as of this encounter
[2024-08-19 17:32] LABS: Abs Immature Grans 0.06 10^3/uL (0.0-0.06); Absolute Basophil Count 0.06 10^3/uL (0.0-0.2); Absolute Eosinophil Count 0.21 10^3/uL (0.0-0.7); Absolute Lymphocyte Count 1.76 10^3/uL (1.2-3.4); Absolute Monocyte Count 0.52 10^3/uL (0.1-0.8); Absolute Neutrophil Count 5.13 10^3/uL (1.2-6.7); Basophils % 0.8 %; Eosinophils % 2.7 %; HCT 46.2 % (40.0-50.0); HGB 15.8 g/dL (13.5-17.5); Immature Grans % 0.8 %; Lymphocytes % 22.7 %; MCH 32.7 pg (27.0-33.0); MCHC 34.2 % (32.0-36.0); MCV 96 fL (80-95); MPV 11.4 fL (8.0-11.0); Monocytes % 6.7 %; Neutrophils % 66.3 %; Platelet Count 210 10^3/uL (130-400); RBC 4.83 10^6/uL (4.36-5.78); RDW 11.9 % (11.8-14.1); RDW-SD 41.5 fL; WBC 7.74 10^3/uL (4.4-10.8)
[2024-08-19 17:41] LABS: Anion Gap 8.7 mmol/L (3-11); BUN 22 mg/dL (7-18); CO2 24.3 mmol/L (21.0-32.0); CREATININE 0.9 mg/dL (0.70-1.30); Calculated LDL 133 mg/dL (<100); Chloride 109 mmol/L (98-107); Cholesterol 194 mg/dL (<200); Estimated GFR 102.12 (mL/min/1.73m2); Glucose 88 mg/dL (74-106); HDL Cholesterol 35 mg/dL (40-60); Potassium 4.6 mmol/L (3.5-5.1); Sodium 142 mmol/L (136-145); Triglyceride 130 mg/dL (<150)
[2024-08-20 18:23] LABS: PSA, Diagnostic 0.1 ng/mL (<=3.5)
[2024-08-20 18:51] LABS: HIV-1/2 Ag & Ab Screen Negative (Negative)
[2024-08-20 18:59] LABS: Hepatitis C Ab w Rflx HCV PCR Negative (Negative)
== END 2024-08-19 16:34 | disposition home or self-care (01) ==
LOC: NCHCN 16:33
PROVIDERS: PCP Family Medicine; Visit Provider Family Medicine
DX: I10 Essential (primary) hypertension (principal); Z11.4 Encounter for screening for human immunodeficiency virus [HIV]; Z11.59 Encounter for screening for other viral diseases; E78.5 Hyperlipidemia, unspecified; R39.9 Unspecified symptoms and signs involving the genitourinary system; F64.0 Transsexualism
CPT/HCPCS: 80048; 80061; 86803; 87389; 84153; 85025

== ENCOUNTER 2024-09-09 15:14 | Outpatient (REF) | payer OTHER, SELFPAY ==
--- OUTSIDE RECORDS SUMMARY | 2024-09-09 15:16 | XMS_ITS | Encounter Summary ---
Author Organization [facility] [place] [address] Care Team Providers Care Wood Stock Blank Handler Name Role Phone Catalina Blanchard MD Primary Care Provider Encounter Details Date Type Department Care Team (Late st Contact Info) Description 03/07/2024 [place] [phone] Karine Lechuga PA [facility] [place] [address] Gender dysphoria Social History Tobacco Use Types [...] Care Team (Late st Contact Info) Description 03/03/2025 2:00 PM EDT Office [place] [phone] Karnie Lechuga PA [facility] [place] [address] Scheduled Orders Name Type Priority Associated Diagnoses Orde r Schedule Estradiol Lab Routine Gender dysphoria Expected: 03/07/2024 (Approximate), Expires: 03/07/2025 Testosterone, total Lab Routine Gender dysphoria Expected: 03/07/2024 (Approximate), Expires: 03/07/2025 documented as of this encounter Visit Diagnoses Diagnosis Gender dysphoria Gender identity disorder in children documented in this encounter Care Teams Wood Stock Blank Handler Relationship Specialty Start Date End Date Catalina Blanchard MD [address] [place] [address] PCP - General Family Medicine 10/30/23 documented as of this encounter
--- OUTSIDE RECORDS SUMMARY | 2024-09-09 15:16 | XMS_ITS | Encounter Summary ---
Author Organization [facility] Address [facility] [place] [address] Care Team Providers Care Emergency Medicine Medical Director Name Role Phone Catalina Blanchard MD Primary Care Provider [phone] Encounter Details Date Type Department Care Team (Late st Contact Info) Description 03/04/2024 10:30 AM EDT Office [place] [address] Karine Lechuga PA [facility] [place] [address] Gender dysphoria Social History Tobacco Use Types [...] under the patient education section. --Check out [facility]'s transgender injection guide. Make sure to read [...] as transgender, previously was Pete, now is King. Pt reports doing great with estradiol injections. [...] for a place to do electrolysis--checking into [facility]. PCP put in referral to plastic surgery [...] Disposable, 1 mL Syringe 1 each by [facility].(Non-Drug; Combo Route) route every 7 days. Use [...] documentation. Karine Lechuga PA-C Department of Endocrinology [place], [place] documented in this encounter Plan of Treatment Upcoming Encounters Date Type Department Care Team (Late st Contact Info) Description 03/03/2025 2:00 PM EDT Office [place] [address] Karine Lechuga PA [facility] [place] [address] documented as of this encounter Procedures Procedure Name Priority Date/Time Associated Diagnosis Comments ESTRADIOL Routine 03/04/2024 11:20 AM EDT Gender dysphoria TESTOSTERONE, TOTAL Routine 03/04/2024 1 1:20 AM EDT Gender dysphoria BASIC METABOLIC PANEL Routine 03/04/2024 11:20 AM EDT Gender dysphoria documented in this encounter Results * (ABNORMAL) Basic Metabolic Panel (non-fasting) (03/04/2024 11:20 AM EDT) Glucose 99 65 - 199 mg/dL [facility] Comment:Diabetes: >=200 mg/d L plus symptoms Blood Urea Nitrogen 21(H) 10 - 20 mg/dL [facility] Creatinine 0.92 0.80 - 1.50 mg/dL [facility] Sodium 141 135 - 145 mmol/L [facility] Potassium 4.8 3.5 - 5.0 mmol/L [facility] Comment: Please note: ??Patients with WBC >100,000 may have falsely elevated Potassium levels. ??For accurate Potassium quantification in these patients send serum separator tube (gold top) for subsequent determinations. ??Contact the Clinical Chemistry Laboratory if there are any questions. Chloride 106 98 - 107 mmol/L [facility] Carbon Dioxide 26 22 - 31 mmol/L [facility] Anion Gap 9 5 - 15 mmol/L [facility] Calcium 9.4 8.5 - 10.5 mg/dL [facility] Est Glomerular Filtration Rate 100 >=60 mL/min/1. 73 m?? [facility] Comment: This patient's estimated GFR [...] In Lab Herbert Toledo MD CHEMISTRY ORDERABLES [facility] [place] [address] * Estradiol (03/04/2024 11:20 AM EDT) Estradiol 208 pg/mL [facility] Comment: Reference ranges: Males: Adult: ? 11 to 43 pg/mL Females: Non- females: ?Follicular: ??12-233 pg/mL ?Ovulation: ?? 41-398 pg/mL ?Luteal: ?22-341 pg/mL ?Postmenopausal: ?? <5 - 138 pg/mL females: ?1st trimester: ??154-3243 pg/mL ?2nd trimester: ??1561-18247 pg/mL ?3rd trimester: ??8525- >10108 pg/mL Blood 03/04/2024 11:2 0 AM EDT 03/04/2024 11:27 AM EDT Narrative Resulting Agency Comment Spec In Lab Herbert Toledo MD CHEMISTRY ORDERABLES [facility] [place] [address] * (ABNORMAL) Testosterone, total (03/04/2024 11:20 AM EDT) Testosterone <0.12(L) 1.93 - 7.40 ng/mL [facility] Comment: Pediatric Reference Ranges: ? [...] Toledo MD CHEMISTRY ORDERABLES Performing Organization Address City/State/[facility] Co de Phone Number [facility] [place] [address] documented in this encounter Visit Diagnoses Diagnosis Gender dysphoria Gender identity disorder in children documented in this encounter Care Teams Emergency Medicine Medical Director Relationship Specialty Start Date End Date Catalina Blanchard MD [address] [place] [address] PCP - General Family Medicine 10/30/23 documented as of this encounter
--- OUTSIDE RECORDS SUMMARY | 2024-09-09 15:16 | XMS_ITS | Encounter Summary ---
Author Organization [facility] Address [facility] [place] [address] Care Team Providers Care Protective Service Specialist Name Role Phone Catalina Blanchard MD [...] 2:00 PM EDT Office [place] [address] Karine Lechuga PA [facility] [place] [address] documented as of this encounter Visit Diagnoses Not on filedocumented in this encounter Care Teams Protective Service Specialist Relationship Specialty Start Date End Date Catalina Blanchard MD [address] [place] [address] PCP - General Family Medicine 10/30/23 documented as of this encounter
--- OUTSIDE RECORDS SUMMARY | 2024-09-09 15:16 | XMS_ITS | Encounter Summary ---
Author Organization [facility] [place] [address] Care Team Providers Care Scowman Name Role Phone Catalina Blanchard MD Primary Care Provider [phone] Reason for Visit * Reason Onset Date Comments Other 08/15/2024 Received approva l for facial CT. Faxed over request and auth to [facility] Encounter Details Date Type Department Care Team (Late st Contact Info) Description 08/15/2024 Telephone [place] [phone] Mireille Valderrama Other (Received approval for facial CT. Faxed over request and auth to [facility] ) Social History Tobacco Use Types Packs/Day [...] 2:00 PM EDT [place] [phone] Karine Lechuga PA [facility] [place] [address] documented as of this encounter Visit Diagnoses Not on filedocumented in this encounter Care Teams Scowman Relationship Specialty Start Date End Date Catalina Blanchard MD [address] [place] [address] PCP - General Family Medicine 10/30/23 documented as of this encounter
--- OUTSIDE RECORDS SUMMARY | 2024-09-09 15:16 | XMS_ITS | Encounter Summary ---
Author Organization [facility] Address [facility] [place] [address] Care Team Providers Care Merchandise Carrier Name Role Phone Catalina Blanchard MD Primary [...] 2:00 PM EDT Office [place] [address] Karine Lechuga PA [facility] [address] documented as of this encounter Visit Diagnoses Not on filedocumented in this encounter Care Teams Merchandise Carrier Relationship Specialty Start Date End Date Catalina Blanchard MD [address] [place] [address] PCP - General Family Medicine 10/30/23 documented as of this encounter
--- OUTSIDE RECORDS SUMMARY | 2024-09-09 15:16 | XMS_ITS | Encounter Summary ---
[place] [address] Care Team Providers Care Pediatric Assistant Name Role Phone Catalina Blanchard MD Primary Care Provider [phone] Reason for Visit * Reason Onset Date Comments Other 08/23/2024 CT scan was appr toyin/ but the I was advised it is out of network, so the auth from insurance was withdrawn. I spoke with the patient who was going to look for an in network location and call me back Encounter Details Date Type Department Care Team (Late st Contact Info) Description 08/23/2024 Telephone [place] [address] Mireille Valderrama Other (CT scan was approved/ but the I was advised it is out of network, so the auth from insurance was withdrawn. /I spoke with the patient who was going to look for an in network location and call me back ) Social History Tobacco Use Types Packs/Day [...] 2:00 PM EDT Office [place] [address] Karine Lechuga PA [facility] [place] [address] documented as of this encounter Visit Diagnoses Not on filedocumented in this encounter Care Teams Pediatric Assistant Relationship Specialty Start Date End Date Catalina Blanchard MD [address] [place] [address] PCP - General Family Medicine 10/30/23 documented as of this encounter
--- OUTSIDE RECORDS SUMMARY | 2024-09-09 15:16 | XMS_ITS | Encounter Summary ---
Author Organization [facility] Address [facility] [place] [address] Care Team Providers Care Passenger Conductor Name Role Phone Catalina Blanchard MD Primary Care Provider [phone] Encounter Details Date Type Department Care Team (Late st Contact Info) Description 09/03/2024 9:00 AM EST TH Visit (TeleHealth) [place] [address] Karine Lechuga PA [facility] [place] [address] Gender dysphoria Social History Tobacco Use Types [...] * Patient Instructions* Karine Lechuga PA - 09/03/2024 9:00 AM EST --Scan name change document or auto [place] driver's license once you've changed your health insurance --Labs ordered to be done at PCP office, will contact with results --Trial off progesterone --Optimize healthy diet and exercise --Work with PCP about BP --Follow up in 6mo, sooner as needed documented in this encounter Progress Notes * Karine Lechuga PA - 09/03/2024 9:00 AM EST Gender Clinic Follow Up Note Date of visit: 09/03/2024 Telehealth Documentation (video available). Duration of call: 25 minutes Location of patient: [address] [facility] [address] Location of provider: home location, [place] Reason for visit: hormone therapy follow up Name: Galilea Gender identity: female Pronouns: she/her Hormone therapy start date: 09/06/22 Regimen: estradiol patches Plan from last visit with MAGALIE Rios on 03/04/24: --Labs today, will contact with results --Will make sure you have refills --Will send in prescription for sharps container --Will send estradiol as one vial per month --Let me know if you need any referrals--tracheal shave or orchiectomy --Follow up in 6mo, sooner as needed Interval History: Legal name is now Galilea. Working on updating certificate (born in [place]), social security, [place] driver's license. Recently had appt with PCP. Discussion about weight gain. Just under 200lbs. BP still elevated. 146/80ish. Trying to increase exercise. Dietary changes. Migraine symptoms improved with switch back to patches. Dysphoria-- 2 main issues are voice and facial hair. Working to find electrolysis provider close toher. [place] now working in [place]. Pt can't go to [facility] for imaging d/t insurance. Breasts are a C cup, experiencing tenderness, now in another growth phase. Happy with physical changes. Mood--a little hiccup, father right after name change. Processing his . He was the only one in her immediate family who accepted her but pt hadn't talked to him in >1 year. Unexpected, had CO on Xmas night. Went to the hospital, they were going to transfer him to a different facility and he had cardiac arrest. Pt is not on speaking terms with her sister. Found out the information through pt's . Doing ok with living separate from . Had been in long-distance relationship in the past. still having difficulty with accepting pt's gender identity. Pt's child Alexandria will be starting GAHT through [facility]. Past Medical History: Migraine headaches HTN Mastocytic enterocolitis BRCA negative ADHD Depression Anxiety Intermittent explosive disorder Past Surgical History: No h/o gender-affirming surgeries. 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 General: physical exam deferred d/t telehealth. Pt appears in NAD on video. Laboratory data: Ordered Outside labs done 11/15/23 Total testosterone 15 [...] 20 U/L ALT 27 U/L Medications: Medications 09/03/24 0908 Medication Sig Taking? estradioL 0.1 mg/24 hr Patch Semiweekly Change 2 patches on the skin twice a week. Yes proGESTerone (Prometrium) 100 mg capsule Take 1 capsule by mouth daily. Yes Oral Medication Containers (sharps container) Misc For use with injection equipment for estradiol injections Yes losartan (Cozaar) 25 mg tablet Take [...] mouth daily. Yes Assessment: Galilea is a 54 y.o. transgender female, AMAB, with a past medical history of migraine headaches, HTN, depression and anxiety, on gender-affirming hormone therapy (GAHT) x2 years. Physical and emotional changes occurring consistent with duration and dose of treatment. Pt with improvement in overallwellbeing and decrease in gender dysphoria. Discussed pt's difficulty with weight gain. Advised trial off progesterone as this is a common side effect of this medication and progesterone is not a required part of the regimen. Pt agreeable. Due for labs and will continue routine follow up. Plan: --Scan name change document or auto [place] driver's license once you've changed your health insurance --Labs ordered to be done at PCP office, will contact with results --Trial off progesterone --Optimize healthy diet and exercise --Work with PCP about BP --Follow up in 6mo, sooner as needed This was a 25 minute visit spent via telehealth with patient discussing gender- affirming hormone therapy and providing education including but not limited to information in history and plan. An additional 10 minutes was spent reviewing previous notes and labs, ordering labs & completing documentation. Karine Lechuga PA-C Department of Endocrinology [place], [place] documented in this encounter Plan of Treatment Upcoming Encounters Date Type Department Care Team (Late st Contact Info) Description 03/03/2025 2:00 PM EDT Office [place] [address] Karine Lechuga PA [facility] [place] [address] Scheduled Orders Name Type Priority Associated Diagnoses Orde r Schedule Estradiol Lab Routine Gender dysphoria Expected: 09/07/2024 (Approximate), Expires: 09/07/2025 Testosterone, total Lab Routine Gender dysphoria Expected: 09/07/2024 (Approximate), Expires: 09/07/2025 documented as of this encounter Visit Diagnoses Diagnosis Gender dysphoria Gender identity disorder in children documented in this encounter Care Teams Passenger Conductor Relationship Specialty Start Date End Date Catalina Blanchard MD [address] [place] [address] PCP - General Family Medicine 10/30/23 documented as of this encounter
--- OUTSIDE RECORDS SUMMARY | 2024-09-09 15:16 | XMS_ITS | Clinical Summary ---
Author Organization [facility] Address [facility] [place] [address] Care Team Providers Care Health Outcomes Liaison Name Role Phone Catalina Blanchard MD Primary Care Provider [phone] Allergies No known active allergies Medications Medication [...] Encounters Date Type Department Care Team Description 09/03/2024 9:00 AM EST TH Visit (TeleHealth) [place] [address] Karine Lechuga PA Gender dysphoria 08/23/2024 Telephone [place] [address] Mireille Valderrama Other (CT scan was approved/ but the I was advised it is out of network, so the auth from insurance was withdrawn. /I spoke with the patient who was going to look for an in network location and call me back ) 08/15/2024 [place] [address] Mireille Valderrama Other (Received approval for facial CT. Faxed over request and auth to [facility] ) 08/05/2024 Tele[place] [address] Mireille Valderrama Prior Authorization (Faxed documentation to insurance to get an auth [facility]. Once received I can fax to [facility]. /) 07/11/2024 [place] [address] Karine Lechuga PA Gender dysphoria from Last [...] 2:00 PM EDT Office [place] [address] Karine Lechuga PA [facility] [place] [address] Health Maintenance Due Date Last Done Comments CT Colonography 1971 FIT DNA 1971 FIT 1971 Sigmoidoscopy 1971 HIV screen 1989 Hepatitis C Screening 1989 Lipid Screening 1989 Hepatitis B vaccine (0-59 yrs) (1) 1990 Tetanus/Diphtheria/Pertussis Vaccines (1 - Tdap) 1990 Pneumoccocal Vaccine: 50+ (1 of 1 - PCV) 2021 Zoster vaccine (1 of 2) 2021 Covid-19 [...] EDT) Glucose 99 65 - 199 mg/dL [facility] Comment:Diabetes: >=200 mg/d L plus symptoms Blood Urea Nitrogen 21(H) 10 - 20 mg/dL [facility] Creatinine 0.92 0.80 - 1.50 mg/dL [facility] Sodium 141 135 - 145 mmol/L [facility] Potassium 4.8 3.5 - 5.0 mmol/L [facility] Comment: Please note: ??Patients with WBC >100,000 may have falsely elevated Potassium levels. ??For accurate Potassium quantification in these patients send serum separator tube (gold top) for subsequent determinations. ??Contact the Clinical Chemistry Laboratory if there are any questions. Chloride 106 98 - 107 mmol/L [facility] Carbon Dioxide 26 22 - 31 mmol/L [facility] Anion Gap 9 5 - 15 mmol/L [facility] Calcium 9.4 8.5 - 10.5 mg/dL [facility] Est Glomerular Filtration Rate 100 >=60 mL/min/1. 73 m?? [facility] Comment: This patient's estimated [...] In Lab Herbert Toledo MD CHEMISTRY ORDERABLES [facility] [place] [address] * COLONOSCOPY (10/27/2015 12:48 PM EDT) [facility] COLONOSCOPY [facility] Endoscopy Patient Name: Jhonathan Adair ? Procedure Date: 10/27/2015 12:48 PM ? Date of : 1970 ? Age: 45 ? Order #: [id number] ? Procedure: ? Colonoscopy Indications: ? Chronic diarrhea Providers: ? Julio Cesar Downing, Rufus Jackson RN Referring : ?Jesse Gardner MD Medicines: [...] the physician, the nurse and the ? skilled nursing case manager in the pre-procedure area ? in the [...] for antihistamine effect. ? - Consultation with musical instrument maker or repairer as ? scheduled. ? Procedure Code(s): ?? --- Professional --- ? 98708, Colonoscopy, flexible; with ? biopsy, single or multiple CPT copyright 2014 [employer]. All rights reserved. The codes documented in this report are preliminary and upon searchlight operator review may be revised to meet current compliance requirements. Attending Participation: ? I personally performed the entire procedure. ? _ Julio Cesar Chang, 10/27/2015 1:43 PM Number of Addenda: 0 Note Initiated On: 10/27/2015 12:48 PM PROVATION 10/27/2015 12:4 8 PM EDT Jesse Gardner MD GENERAL SURGICAL ORD ERABLES PROVATION from Last 3 Months or Most Recently Relevant to Health Maintenance Care Teams Health Outcomes Liaison Relationship Specialty Start Date End Date Catalina Blanchard MD [address] [place], [place] [address] PCP - General Family Medicine 10/30/23
--- OUTSIDE RECORDS SUMMARY | 2024-09-09 15:16 | XMS_ITS | Encounter Summary ---
Author Organization [facility] [place] [address] Care Team Providers Care Environmental Field Team Member Name Role Phone Catalina Blanchard MD Primary Care Provider [phone] Encounter Details Date Type Department Care Team (Late st Contact Info) Description 03/28/2024 Orders [place] [address] Karine Lechuga PA [facility] [place] [address] Gender dysphoria Social History Tobacco Use Types [...] 2:00 PM EDT Office [place] [address] Karine Lechuga PA [facility] [place] [address] documented as of this encounter Visit Diagnoses Diagnosis Gender dysphoria Gender identity disorder in children documented in this encounter Care Teams Environmental Field Team Member Relationship Specialty Start Date End Date Lo, Catalina P, MD [address] [place] [address] PCP - General Family Medicine 10/30/23 documented as of this encounter
--- OUTSIDE RECORDS SUMMARY | 2024-09-09 15:16 | XMS_ITS | Encounter Summary ---
Author Organization [facility] [place] [address] Care Team Providers Care Tractor Technician Name Role Phone Catalina Blanchard MD Primary Care Provider [phone] Reason for Visit * Reason Onset Date Comments Prior Authorization 08/05/2024 Faxed docume ntation to insurance to get an [facility]. Once received I can fax to [facility]. Encounter Details Date Type Department Care Team (Late st Contact Info) Description 08/05/2024 Telephone [place] [address] Mireille Valderrama Prior Authorization (Faxed documentation to insurance to get an [facility]. Once received I can fax to [facility]. /) Social History Tobacco Use Types Packs/Day [...] 2:00 PM EDT Office [place] [address] Karine Lechuga PA [facility] [place] [address] documented as of this encounter Visit Diagnoses Not on filedocumented in this encounter Care Teams Tractor Technician Relationship Specialty Start Date End Date Catalina Blanchard MD [address] [place] [address] PCP - General Family Medicine 10/30/23 documented as of this encounter
--- OUTSIDE RECORDS SUMMARY | 2024-09-09 15:16 | XMS_ITS | Encounter Summary ---
[place] [address] Care Team Providers Care Director Agricultural Services Name Role Phone Catalina Blanchard MD Primary Care Provider [phone] Reason for Referral * Consultation (Routine) - [...] SLEEPING. Catalina Blanchard MD [address] [place] [address] [facility] Plastic Surg [address] [place] [address] Referral ID Status Reason Start Date Expiration Date V isits Requested Visits Authorized [id number] Closed Consult, Test & Treat PCP Updated and/or Approved 02/14/2024 08/16/2024 6 6 Encounter Details Date Type Department Care Team (Latest Contact Info) Description 03/01/2024 Transcribe Orders eDH Incoming Referrals [phone] Catalina Blanchard MD [address] [place] [address] Nonintractable headache, unspecified chronicity pattern, [...] 2:00 PM EDT [place] [address] Karine Lechuga PA [facility] [place] [address] Scheduled Referrals Name Type Priority Associated Diagnoses Orde r Schedule Referral to Plastic Surgery Outpatient Referral Routine Nonintractable headache, unspecified chronicity pattern, unspecified headache type Ordered: 03/01/2024 documented as of this encounter Visit Diagnoses Diagnosis Nonintractable headache, unspecified chronicity pattern, unspecified headache type documented in this encounter Care Teams Director Agricultural Services Relationship Specialty Start Date End Date Catalina Blanchard MD [address] [place] [address] PCP - General Family Medicine 10/30/23 documented as of this encounter
--- OUTSIDE RECORDS SUMMARY | 2024-09-09 15:16 | XMS_ITS | Encounter Summary ---
Author Organization [facility] Address [facility] [place] [address] Care Team Providers Care Hot Dog Vendor Name Role Phone Catalina Blanchard MD Primary Care Provider [phone] Reason for Visit * Reason Comments Medication Refill Encounter Details Date Type Department Care Team (Late st Contact Info) Description 07/11/2024 Ref[place] [address] Karine Lechuga PA [facility] [place] [address] Gender dysphoria Social History Tobacco Use Types [...] 2:00 PM EDT Office [place] [address] Karine Lechuga PA [facility] [place] [address] documented as of this encounter Visit Diagnoses Diagnosis Gender dysphoria Gender identity disorder in children documented in this encounter Care Teams Hot Dog Vendor Relationship Specialty Start Date End Date Catalina Blanchard MD [address] [place] [address] PCP - General Family Medicine 10/30/23 documented as of this encounter
--- OUTSIDE RECORDS SUMMARY | 2024-09-09 15:16 | XMS_ITS | Encounter Summary ---
Author Organization [facility] [place] [address] Care Team Providers Care Touch Up Painter Hand Name Role Phone Catalina Blanchard MD Primary Care Provider [phone] Reason for Referral * Diagnostic Test (Routine) - Closed Specialty Diagnoses / Procedures Referred By Contac t Referred To Contact Diagnoses Epidermoid cyst of skin of cheek Procedures CT Face wo Contrast Lee Quinonez MD [facility] [place] [place] [address] None None Referral ID Status Reason Start Date Expiration Date V isits Requested Visits Authorized [id number] Closed Specialty Service Requested 04/05/2024 10/03/2025 1 [...] SLEEPING. Catalina Blanchard MD [address] [place] [address] [facility] Plastic Surg [address] [address] Referral ID Status Reason Start Date Expiration Date V isits Requested Visits Authorized [id number] Closed Consult, Test & Treat PCP Updated and/or Approved 02/14/2024 08/16/2024 6 6 Encounter Details Date Type Department Care Team (Late st Contact Info) Description 04/02/2024 9:30 AM EDT Office [place] [address] Lee Quinonez MD [facility] [place] [place] [address] Epidermoid cyst of skin of cheek Social [...] Provider: Lee Quinonez MD PCP:Catalina Blanchard MD MACHINE BRUSH MAKER: As above. CC: Recurrent ingrown hair, left [...] performed by Julio Cesar Downing MD at [facility] ENDOSCOPY PRO UPPER GI ENDOSCOPY, DIAGNOSTIC N/A 10/27/2015 EGD, UPPER GI ENDOSCOPY performed by Julio Cesar Downing MD at [facility] ENDOSCOPY SINUS SURGERY TONSILLECTOMY family history includes [...] capsule 3 Oral Medication Containers (sharps container) [facility] For use with injection equipment for estradiol [...] 1 mL Syringe 1 each by [facility].(Non-Drug; Combo Route) route every7 days. Use one [...] informed consent. Plan: Obtain CT scan from [facility] Follow up after CT scan for a brief PH call Capri Burnett, have performed the documentation for this encounter in the presence of and actingas a scribe for LEE QUINONEZ MD. documented in this encounter Plan of Treatment Upcoming Encounters Date Type Department Care Team (Late st Contact Info) Description 03/03/2025 2:00 PM EDT Office [place] [address] Karine Lechuga PA [facility] [place] [address] Scheduled Orders Name Type Priority Associated Diagnoses Orde r Schedule CT Face wo Contrast Imaging Routine Epidermoid cyst of skin of cheek Expected: 04/16/2024, Expires: 04/02/2025 documented as of this encounter Visit Diagnoses Diagnosis Epidermoid cyst of skin of cheek documented in this encounter Care Teams Touch Up Painter Hand Relationship Specialty Start Date End Date Catalina Blanchard MD [address] [place] [address] PCP - General Family Medicine 10/30/23 documented as of this encounter
--- OUTSIDE RECORDS SUMMARY | 2024-09-09 15:17 | XMS_ITS | Encounter Summary ---
Author Organization [facility] Address [facility] [place] [address] Care Team Providers Care Receiving And Processing Supervisor Name Role Phone Catalina Blanchard MD Primary Care Provider [phone] Encounter Details Date Type Department Care Team (Late st Contact Info) Description 12/05/2023 8:00 AM EDT TH Visit (TeleHealth) [place] [address] Karine Lechuga PA [facility] [place] [address] Gender dysphoria Social History Tobacco Use Types [...] under the patient education section. --Check out [facility]'s transgender injection guide. Make sure to [...] 25 minutes Location of patient: [address] [facility] [address] Location of provider: home location, [place] Reason for visit: Patient is a 53 [...] job. 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 The [...] meeting day. Asked to speak at a muslim for a LGBT event. Past Medical History: [...] Disposable, 1 mL Syringe 1 each by [facility].(Non-Drug; Combo Route) route every 7 days. Use [...] under the patient education section. --Check out [facility]'s transgender injection guide. Make sure to [...] documentation. Karine Lechuga PA-C Department of Endocrinology [place], [place] documented in this encounter Plan of Treatment Upcoming Encounters Date Type Department Care Team (Late st Contact Info) Description 03/03/2025 2:00 PM EDT Office Visit [place] [address] Karine Lechuga PA [facility] [place] [address] documented as of this encounter Results * (ABNORMAL) Testosterone, total (03/04/2024 11:20 AM EDT) [facility] Signature Testosterone <0.12(L) 1.93 - 7.40 ng/mL [facility] Comment: Pediatric Reference Ranges: ? [...] Toledo MD CHEMISTRY ORDERABLES Performing Organization Address [facility] Co de Phone Number [facility] [place] [address] * Estradiol (03/04/2024 11:20 AM EDT) Estradiol 208 pg/mL [facility] Comment: Reference ranges: Males: Adult: ? 11 to 43 pg/mL Females: Non- females: ?Follicular: ??12-233 pg/mL ?Ovulation: ?? 41-398 pg/mL ?Luteal: ?22-341 pg/mL ?Postmenopausal: ?? <5 - 138 pg/mL females: ?1st trimester: ??154-3243 pg/mL ?2nd trimester: ??1561-80365 pg/mL ?3rd trimester: ??8525- >69821 pg/mL Blood 03/04/2024 11:2 0 AM EDT 03/04/2024 11:27 AM EDT Narrative Resulting Agency Comment Spec In Lab Herbert Toledo MD CHEMISTRY ORDERABLES Performing Organization Address [facility] Co de Phone Number [facility] [place] [address] documented in this encounter Visit Diagnoses Diagnosis Gender dysphoria Gender identity disorder in children documented in this encounter Care Teams Receiving And Processing Supervisor Relationship Specialty Start Date End Date Catalina Blanchard MD [address] [place] [address] PCP - General Family Medicine 10/30/23 documented as of this encounter
--- OUTSIDE RECORDS SUMMARY | 2024-09-09 15:17 | XMS_ITS | Encounter Summary ---
Author Organization [facility] [place] [address] Care Team Providers Care Environmental Research Scientist Name Role Phone Jesse Gardner MD Primary Care Provider + [phone] Reason for Visit * Reason Onset Date Comments Medication Refill 05/16/2023 Encounter Details Date Type Department Care Team (Late st Contact Info) Description 05/16/2023 [place] [phone] Karine Lechuga PA [facility] [place] [address] Gender dysphoria Social History Tobacco Use Types [...] 2:00 PM EDT Office [place] [phone] Karine Lechuga PA [facility] [place] [address] documented as of this encounter Visit Diagnoses Diagnosis Gender dysphoria Gender identity disorder in children documented in this encounter Care Teams Environmental Research Scientist Relationship Specialty Start Date End Date Jesse Gardner MD [address] [place] [address] PCP - General Internal Medicine 04/26/23 10/29/23 documented as of this encounter
--- OUTSIDE RECORDS SUMMARY | 2024-09-09 15:17 | XMS_ITS | Encounter Summary ---
Author Organization [facility] [place] [address] Care Team Providers Care Miner Operator Name Role Phone Jesse Gardner MD Primary Care Provider + [phone] Reason for Visit * Reason Onset Date Comments Appointment 12/02/2021 Encounter Details Date Type Department Care Team (Late st Contact Info) Description 12/02/2021 Telephone [place] [phone] Luz Marina Scanlon I Appointment Social History [...] 2:00 PM EDT Office Visit [place] [phone] Karine Lechuga PA [facility] [place] [address] documented as of this encounter Visit Diagnoses Not on filedocumented in this encounter Care Teams Miner Operator Relationship Specialty Start Date End Date Jesse Gardner MD [address] [place] [address] PCP - General Internal Medicine 05/26/15 04/25/23 documented as of this encounter
--- OUTSIDE RECORDS SUMMARY | 2024-09-09 15:17 | XMS_ITS | Encounter Summary ---
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 Jesse Gardner MD [address] [place] [address] [facility] Endocrinology [address] [place] [phone] Referral ID Status Reason Start Date Expiration Date V isits Requested Visits Authorized [id number] Closed Consult, Test & Treat 11/18/2021 11/18/2022 6 6 Encounter Details Date Type Department Care Team (Latest Contact Info) Description 11/18/2021 Transcribe Orders eDH Incoming Referrals [phone] Jesse Gardner MD [address] [place], [place] [id number] Gender dysphoria in adult Social History Tobacco [...] 2:00 PM EDT Office [place] [address] Karine Lechuga PA [facility] [place] [address] Scheduled Referrals Name Type Priority Associated Diagnoses Order Schedule Referral to Endocrinology Outpatient Referral Routine Gender dysphoria in adult Ordered: 11/18/2021 documented as of this encounter Visit Diagnoses Diagnosis Gender 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
--- OUTSIDE RECORDS SUMMARY | 2024-09-09 15:17 | XMS_ITS | Encounter Summary ---
Author Organization [facility] Address [facility] [place] [address] Care Team Providers Care Airway Traffic Controller Name Role Phone Jesse Gardner MD Primary Care Provider + [phone] Encounter Details Date Type Department Care Team (Late st Contact Info) Description 06/23/2023 [place] [phone] Yanique Muhammad Social History Tobacco Use Types [...] 2:00 PM EDT Office [place] [phone] Karine Lechuga PA [facility] [place] [address] documented as of this encounter Visit Diagnoses Not on filedocumented in this encounter Care Teams Airway Traffic Controller Relationship Specialty Start Date End Date Jesse Gardner MD [address] [place] [address] PCP - General Internal Medicine 04/26/23 10/29/23 documented as of this encounter
--- OUTSIDE RECORDS SUMMARY | 2024-09-09 15:17 | XMS_ITS | Encounter Summary ---
Author Organization [facility] Address [facility] [place] [address] Care Team Providers Care Brass Chaser Name Role Phone Jesse Gardner MD Primary Care Provider + [phone] Encounter Details Date Type Department Care Team (Late st Contact Info) Description 12/12/2018 Ancillary Procedure Radiology Library at [facility] [place] [phone] Carlos Zaldivar MD [facility] [place] [address] Social History Tobacco Use Types Packs/Day Years [...] 2:00 PM EDT Office Visit Endocrinology at [facility] [place] [phone] Karine Lechuga PA [facility] [place] [address] documented as of this encounter Procedures Procedure Name Priority Date/Time Associated Diagnosis Comments FILM LIBRARY STORAGE ONLY DX HAND Routine 12/12/2018 12:00 AM EDT documented in this encounter Results * Film Library- Storage Only DX Hand (12/12/2018 12:00 AM EDT) Narrative DAGO BARCENAS - 05/06/2019 5:55 PM EDT This exam is auto-finalizing. It's purpose is for storage only. Carlos Zaldivar MD IMG FILM LIBRARY ORD ERABLES Performing Organization Address City/State/[facility] Co de Phone Number [place], [place] documented in this encounter Visit Diagnoses Not on filedocumented in this encounter Care Teams Brass Chaser Relationship Specialty Start Date End Date Jesse Gardner MD [address] [place] [address] PCP - General Internal Medicine 05/26/15 04/25/23 documented as of this encounter
--- OUTSIDE RECORDS SUMMARY | 2024-09-09 15:17 | XMS_ITS | Encounter Summary ---
Author Organization [place] [address] Care Team Providers Care Daily Sales Audit Clerk Name Role Phone Jesse Gardner MD Primary Care Provider Reason for Referral * Consultation (Priority 3) - Closed Specialty Diagnoses / Procedures Referred By Contsabina t Referred To Contact Dermatology Diagnoses Disorder of skin and subcutaneous tissue undergone multiple excisions of ingrown facial hair Richard Bacno MD [address] [place] [address] [address] [place] [address] [facility] Dermatology [address] [place] [address] Referral ID Status Reason Start Date Expiration Date V isits Requested Visits Authorized [id number] Closed Consult, Test & Treat PCP Updated and/or Approved 04/26/2023 04/25/2024 6 6 Encounter Details Date Type Department Care Team (Late st Contact Info) Description 04/26/2023 Transcribe Orders eDH Incoming Referrals [phone] Richard Bacon MD [address] [place] [address] [address] [place] [address] Disorder of skin and subcutaneous [...] 2:00 PM EDT Office [place] [address] Karine Lechuga PA [facility] [place] [address] Scheduled Referrals Name Type Priority Associated Diagnoses Orde r Schedule Referral to Dermatology Outpatient Referral Routine Disorder of skin and subcutaneous tissue Ordered: 04/26/2023 documented as of this encounter Visit Diagnoses Diagnosis Disorder of skin and subcutaneous tissue Unspecified disorder of skin and subcutaneous tissue documented in this encounter Care Teams Daily Sales Audit Clerk Relationship Specialty Start Date End Date Jesse Gardner MD [address] [place] [address] PCP - General Internal Medicine 04/26/23 10/29/23 documented as of this encounter
--- OUTSIDE RECORDS SUMMARY | 2024-09-09 15:17 | XMS_ITS | Encounter Summary ---
Author Organization [facility] [place] [address] Care Team Providers Care Chronometer Adjuster Name Role Phone Jesse Gardner MD Primary Care Provider + [phone] Reason for Visit * Reason Onset Date Comments Medication Refill 02/20/2023 Encounter Details Date Type Department Care Team (Late st Contact Info) Description 02/20/2023 [place] [address] Karine Lechuga PA [facility] [place] [place] [address] Gender dysphoria Social History Tobacco Use Types [...] 2:00 PM EDT Office [place] [address] Karine Lechuga PA [facility] [place] [address] documented as of this encounter Visit Diagnoses Diagnosis Gender dysphoria Gender identity disorder in children documented in this encounter Care Teams Chronometer Adjuster Relationship Specialty Start Date End Date Jesse Gardner MD [address] [place] [address] PCP - General Internal Medicine 05/26/15 04/25/23 documented as of this encounter
--- OUTSIDE RECORDS SUMMARY | 2024-09-09 15:17 | XMS_ITS | Encounter Summary ---
Author Organization [facility] Address [facility] [place] [address] Care Team Providers Care Button Reclaimer Name Role Phone Jesse Gardner MD Primary Care Provider + [phone] Encounter Details Date Type Department Care Team (Late st Contact Info) Description 05/30/2023 8:00 AM EDT TH Visit (TeleHealth) [place] [address] Karine Lechuga PA [facility] [address] Gender dysphoria Social History Tobacco Use Types [...] minutes Location of patient: [address] [facility] [address] Location of provider: home location, [place] Reason for visit: Patient is a 53 [...] sleep medicine --Labs ordered to do at [facility] lab --Will contact with results and instructions --Follow up in 3mo, sooner as needed Interval History: Pt here for routine f/u visit for management of gender-affirming hormone therapy. Duration of treatment 9mo. Physical changes-- breast development, body is changing shape. 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 Pt has gained weight, unsure how [...] documentation. Karine Lechuga PA-C Department of Endocrinology [facility] documented in this encounter Plan of Treatment Upcoming Encounters Date Type Department Care Team (Late st Contact Info) Description 03/03/2025 2:00 PM EDT Office [place] [address] Karine Lechuga PA [facility] [place] [address] documented as of this encounter Visit Diagnoses Diagnosis Gender dysphoria Gender identity disorder in children documented in this encounter Care Teams Button Reclaimer Relationship Specialty Start Date End Date Jesse Gardner MD [address] [place] [address] PCP - General Internal Medicine 04/26/23 10/29/23 documented as of this encounter
--- OUTSIDE RECORDS SUMMARY | 2024-09-09 15:17 | XMS_ITS | Encounter Summary ---
Author Organization [facility] Address [facility] [place] [address] Care Team Providers Care Chief Of Staff Name Role Phone Jesse Gardner MD Primary Care Provider + [phone] Encounter Details Date Type Department Care Team (Late st Contact Info) Description 12/07/2022 8:00 AM EDT TH Visit (TeleHealth) [place] [address] Karine Lechuga PA [facility] [place] [address] Gender dysphoria Social History Tobacco Use Types [...] sleep medicine --Labs ordered to do at [facility] lab --Will contact with results and instructions --Follow up in 3mo, sooner as needed documented in this encounter Progress Notes * Karine Lechuga PA - 12/07/2022 8:00 AM EDT Gender Clinic Follow Up Note Date of visit: 12/07/2022 Telehealth Documentation (video available). Duration of call: 25 minutes Location of patient: [address] [facility] [address] Location of provider: home location, [place] Reason for visit: Patient is a 52 [...] to process pt's transition. 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 On some groups on Facebook. [...] sleep medicine --Labs ordered to do at [facility] lab --Will contact with results and instructions [...] documentation. Karine Lechuga PA-C Department of Endocrinology [facility] documented in this encounter Plan of Treatment Upcoming Encounters Date Type Department Care Team (Late st Contact Info) Description 03/03/2025 2:00 PM EDT Office [place] [address] Karine Lechuga PA [facility] [place] [address] documented as of this encounter Visit Diagnoses Diagnosis Gender dysphoria Gender identity disorder in children documented in this encounter Care Teams Chief Of Staff Relationship Specialty Start Date End Date Jesse Gardner MD [address] [place] [address] PCP - General Internal Medicine 05/26/15 04/25/23 documented as of this encounter
--- OUTSIDE RECORDS SUMMARY | 2024-09-09 15:17 | XMS_ITS | Encounter Summary ---
Author Organization [facility] Address [place] [address] Care Team Providers Care Wash Rack Operator Name Role Phone Jesse Gardner MD Primary Care Provider [phone] Encounter Details Date Type Department Care Team (Latest Contact Info) Description 03/23/2017 - 03/23/2017 11:59 PM EDT Hospital Encounter Radiology Library at [facility] [place] [address] Fly Abebe MD Pain Discharge Disposition: Home [...] 2:00 PM EDT Office [place] [address] Karine Lechuga PA [facility] [place] [address] documented as of this encounter Procedures Procedure Name Priority Date/Time Associated Diagnosis Comments FILM LIBRARY STORAGE ONLY MR SPINE Routine 03/23/2017 12:00 AM EDT Pain documented in this encounter Results * Film Library- Storage Only MR Spine (03/23/2017 12:00 AM EDT) Narrative [facility] - 03/28/2017 1:30 PM EDT This exam is for storage only and is auto-finalizing. Fly Abebe MD IMG FILM LIBRARY ORD ERABLES [place], [place] documented in this encounter Visit Diagnoses Diagnosis Pain Generalized pain documented in this encounter Care Teams Wash Rack Operator Relationship Specialty Start Date End Date Jesse Gardner MD [address] [place] [address] PCP - General Internal Medicine 05/26/15 04/25/23 documented as of this encounter
--- OUTSIDE RECORDS SUMMARY | 2024-09-09 15:17 | XMS_ITS | Encounter Summary ---
Author Organization [facility] [place] [address] Care Team Providers Care Hydraulic Modeling Engineer Name Role Phone Jesse Gardner MD Primary Care Provider + [phone] Encounter Details Date Type Department Care Team (Late st Contact Info) Description 06/28/2023 Orders [place] [address] Karine Lechuga PA [facility] [place] [address] Gender dysphoria Social History Tobacco Use Types [...] 2:00 PM EDT Office [place] [address] Karine Lechuga PA [facility] [place] [address] documented as of this encounter Visit Diagnoses Diagnosis Gender dysphoria Gender identity disorder in children documented in this encounter Care Teams Hydraulic Modeling Engineer Relationship Specialty Start Date End Date Jesse Gardner MD [address] [place] [address] PCP - General Internal Medicine 04/26/23 10/29/23 documented as of this encounter
--- OUTSIDE RECORDS SUMMARY | 2024-09-09 15:17 | XMS_ITS | Encounter Summary ---
Author Organization [facility] Address [facility] [place] [address] Care Team Providers Care Locomotive Repairer Diesel Name Role Phone Jesse Gardner MD Primary Care Provider + [phone] Encounter Details Date Type Department Care Team (Late st Contact Info) Description 08/29/2022 Telephone [place] [address] Yanique Muhammad Social History Tobacco Use Types [...] 2:00 PM EDT Office [place] [address] Karine Lechuga PA [facility] [place] [address] documented as of this encounter Visit Diagnoses Not on filedocumented in this encounter Care Teams Locomotive Repairer Diesel Relationship Specialty Start Date End Date Jesse Gardner MD [address] [place] [address] PCP - General Internal Medicine 05/26/15 04/25/23 documented as of this encounter
--- OUTSIDE RECORDS SUMMARY | 2024-09-09 15:17 | XMS_ITS | Encounter Summary ---
Author Organization [facility] Address [facility] [place] [address] Care Team Providers Care Director Of Transportation Name Role Phone Jesse Gardner MD Primary Care Provider + [phone] Encounter Details Date Type Department Care Team (Late st Contact Info) Description 09/05/2023 8:00 AM EST TH Visit (TeleHealth) [place] [address] Karine Lechuga PA 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 Increased stress due to this situation. Pt's child is litzy in and so pt and child may stay in [place] and may go to where she gets employment. Pt asking about more cost effective regimen as it's unclear how long she will be without health insurance. 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 Karine Lechuga PA-C Department of Endocrinology [place], [place] documented in this encounter Plan of Treatment Upcoming Encounters Date Type Department Care Team (Late st Contact Info) Description 03/03/2025 2:00 PM EDT Office Visit [place] [address] Karine Lechuga PA [facility] [place] [address] documented as of this encounter Results * (ABNORMAL) Basic Metabolic Panel (non-fasting) (03/04/2024 11:20 AM EDT) Glucose 99 65 - 199 mg/dL [facility] Comment:Diabetes: >=200 mg/d L plus symptoms Blood Urea Nitrogen 21(H) 10 - 20 mg/dL [facility] Creatinine 0.92 0.80 - 1.50 mg/dL [facility] Sodium 141 135 - 145 mmol/L [facility] Potassium 4.8 3.5 - 5.0 mmol/L [facility] Comment: Please note: ??Patients with WBC >100,000 may have falsely elevated Potassium levels. ??For accurate Potassium quantification in these patients send serum separator tube (gold top) for subsequent determinations. ??Contact the Clinical Chemistry Laboratory if there are any questions. Chloride 106 98 - 107 mmol/L [facility] Carbon Dioxide 26 22 - 31 mmol/L [facility] Anion Gap 9 5 - 15 mmol/L [facility] Calcium 9.4 8.5 - 10.5 mg/dL [facility] Est Glomerular Filtration Rate 100 >=60 mL/min/1. 73 m?? [facility] Comment: This patient's estimated GFR was [...] In Lab Herbert Toledo MD CHEMISTRY ORDERABLES [facility] [place] [address] documented in this encounter Visit Diagnoses Diagnosis Gender dysphoria Gender identity disorder in children documented in this encounter Care Teams Director Of Transportation Relationship Specialty Start Date End Date Jesse Gardner MD [address] [place] [address] PCP - General Internal Medicine 04/26/23 10/29/23 documented as of this encounter
--- OUTSIDE RECORDS SUMMARY | 2024-09-09 15:17 | XMS_ITS | Encounter Summary ---
Author Organization [facility] Address [facility] [place] [address] Care Team Providers Care Hospital Intern Name Role Phone Jesse Gardner MD Primary Care Provider + [phone] Reason for Referral * Consultation (Routine) - Authorized Specialty Diagnoses / Procedures Referred By Mona byrne Referred To Contact Otolaryngology Diagnoses Gender dysphoria Karine Lechuga PA [facility] [place] [place] [address] Paxton Santana MD [facility] [place] [address] Referral ID Status Reason Start Date Expiration Date Visits Requested Visits Authorized [id number] Authorized Consult, Test & Treat 10/27/2023 10/26/2024 1 1 Encounter Details Date Type Department Care Team (Late st Contact Info) Description 10/27/2023 Orders [place] [address] Karine Lechuga PA [facility] [place] [address] Gender dysphoria Social History Tobacco [...] 2:00 PM EDT Office [place] [address] Karine Lechuga PA [facility] [place] [address] Scheduled Referrals Name Type Priority Associated Diagnoses Orde r Schedule Referral to Plastic Surgery Outpatient Referral Routine Gender dysphoria Ordered: 10/27/2023 documented as of this encounter Visit Diagnoses Diagnosis Gender dysphoria Gender identity disorder in children documented in this encounter Care Teams Hospital Intern Relationship Specialty Start Date End Date Jesse Gardner MD [address] [place] [address] PCP - General Internal Medicine 04/26/23 10/29/23 documented as of this encounter
--- OUTSIDE RECORDS SUMMARY | 2024-09-09 15:17 | XMS_ITS | Encounter Summary ---
Author Organization [facility] Address [facility] [place] [address] Care Team Providers Care Teleradiologist Name Role Phone Jesse Gardner MD Primary Care Provider Reason for Visit * Reason Comments Right Hand Pain 2nd opinion - Pain R middle finger * Consultation (Routine) - Closed Specialty Diagnoses / Procedures Referred By Contac t Referred To Contact Orthopaedics Diagnoses PAIN OF RIGHT MIDDLE FINGER Keanu De Los Santos MD [address] [place] [address] Carlos Zaldivar MD [facility] [place] [address] Referral ID Status Reason Start Date Expiration Date V isits Requested Visits Authorized [id number] Closed Consult, Test & Treat Connection Center 02/27/2019 02/27/2020 1 1 Encounter Details Date Type Department Care Team (Late st Contact Info) Description 05/13/2019 1:15 PM EDT Office [place] [address] Carlos Zaldivar MD [facility] [place] [address] Pain in finger of right hand Social [...] long finger done by Dr. Sewell in [facility] in September 2018. Although this did cure [...] Santos. He had an MRI done at [facility] on January 15, 2019 which appeared to be fairly normal. He was sent to me for this consultation by Dr. De Los Santos. 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 His is a general surgeon. He reports [...] it passes through the FDS tendon at [facility]. I did recommend a corticosteroid injection for [...] 2:00 PM EDT Office Visit [place] [address] Karine Lechuga PA [facility] [place] [address] documented as of this encounter Visit Diagnoses Diagnosis Pain in finger of right hand Pain in limb documented in this encounter Care Teams Teleradiologist Relationship Specialty Start Date End Date Jesse Gardner MD [address] [place] [address] PCP - General Internal Medicine 05/26/15 04/25/23 documented as of this encounter
--- OUTSIDE RECORDS SUMMARY | 2024-09-09 15:17 | XMS_ITS | Encounter Summary ---
Author Organization [facility] [place] [address] Care Team Providers Care Electronic Imaging System Operator Name Role Phone Catalina Blanchard MD Primary Care Provider [phone] Encounter Details Date Type Department Care Team (Late st Contact Info) Description 11/16/2023 [place] [phone] Karine Lechuga PA [facility] [address] Gender dysphoria Social History Tobacco Use Types [...] 2:00 PM EDT [place] [phone] Karine Lechuga PA [facility] [address] documented as of this encounter Visit Diagnoses Diagnosis Gender dysphoria Gender identity disorder in children documented in this encounter Care Teams Electronic Imaging System Operator Relationship Specialty Start Date End Date Lo, Catalina P, MD [address] [place] [address] PCP - General Family Medicine 10/30/23 documented as of this encounter
--- OUTSIDE RECORDS SUMMARY | 2024-09-09 15:17 | XMS_ITS | Encounter Summary ---
Author Organization [facility] Address [facility] [place] [address] Care Team Providers Care Merchandise Support Associate Name Role Phone Jesse Gardner MD Primary Care Provider [phone] Encounter Details Date Type Department Care Team [...] 2:00 PM EDT Office [place] [address] Karine Lechuga PA [facility] [place] [address] documented as of this encounter Visit Diagnoses Not on filedocumented in this encounter Care Teams Merchandise Support Associate Relationship Specialty Start Date End Date Jesse Gardner MD [address] [place] [address] PCP - General Internal Medicine 05/26/15 04/25/23 documented as of this encounter
--- OUTSIDE RECORDS SUMMARY | 2024-09-09 15:17 | XMS_ITS | Encounter Summary ---
Author Organization [facility] [place] [address] Care Team Providers Care Client Service Manager Name Role Phone Jesse Gardner MD Primary Care Provider [phone] Reason for Visit * Reason Onset Date Comments Medication Refill 06/15/2023 Encounter Details Date Type Department Care Team (Late st Contact Info) Description 06/15/2023 [place] [phone] Karine Lechuga PA [facility] [place] [address] Gender dysphoria Social History Tobacco Use Types [...] 2:00 PM EDT [place] [address] Karine Lechuga PA [facility] [place] [address] documented as of this encounter Visit Diagnoses Diagnosis Gender dysphoria Gender identity disorder in children documented in this encounter Care Teams Client Service Manager Relationship Specialty Start Date End Date Jesse Gardner MD [address] [place] [address] PCP - General Internal Medicine 04/26/23 10/29/23 documented as of this encounter
--- OUTSIDE RECORDS SUMMARY | 2024-09-09 15:17 | XMS_ITS | Encounter Summary ---
Author Organization [facility] Address [facility] [place] [address] Care Team Providers Care Remelt Sugar Boiler Name Role Phone Jesse Gardner MD Primary Care Provider Reason for Visit * Consultation (Routine) - Closed Specialty Diagnoses / Procedures Referred By Mona t Referred To Contact Endocrinology Diagnoses Gender dysphoria in adult Jesse Gardner MD [address] [place] [address] [facility] Endocrinology [address] [place] [phone] Referral ID Status Reason Start Date Expiration Date V isits Requested Visits Authorized [id number] Closed Consult, Test & Treat 11/18/2021 11/18/2022 6 6 Encounter Details Date Type Department Care Team (Late st Contact Info) Description 07/27/2022 11:00 AM EST Office [place] [address] Karine Lechuga PA [facility] [place] [address] Gender dysphoria Social History Tobacco Use Types [...] 11:00 AM EST --Will request labs from [facility] --Check out [facility] for their trans-femme and chill group on nights via Zoom --Check out [facility] transgender center of excellence's website [...] a lesbian trapped in a man's body. [place] about gender dysphoria from the internet and [...] transition--parents are older and sister is very rastafari. How do you describe your gender identity? [...] in MH therapy with Neelam Camacho in [place], [place] Current/past inpatient MH treatment: inpatient stay [...] Laboratory data: Pt reports labs done at [facility] recently. Medications: Medications 07/27/22 1045 Medication Sig [...] is ready. Plan: --Will request labs from [facility] --Check out [facility] for their trans-femme and chill group on nights via Zoom --Check out [facility] transgender center of excellence's website with information about feminizing hormone therapy --Schedule soonest available appointment when ready for the next step in starting hormone therapy This was a 45 minute visit spent [id number] with patient discussing gender- affirming hormone therapy and providing education including but not limited to information in history and plan. An additional 15 minutes was spent reviewing referral information, requesting labs & completing documentation. Thank you for the referral. Feel free to contact me with any questions. Karine Lechuga PA-C Department of Endocrinology [facility] documented in this encounter Plan of Treatment Upcoming Encounters Date Type Department Care Team (Late st Contact Info) Description 03/03/2025 2:00 PM EDT Office [place] [address] Karine Lechuga PA [facility] [place] [address] documented as of this encounter Visit Diagnoses Diagnosis Gender dysphoria Gender identity disorder in children documented in this encounter Care Teams Remelt Sugar Boiler Relationship Specialty Start Date End Date Jesse Gardner MD [address] [place] [address] PCP - General Internal Medicine 05/26/15 04/25/23 documented as of this encounter
--- OUTSIDE RECORDS SUMMARY | 2024-09-09 15:17 | XMS_ITS | Encounter Summary ---
Author Organization [facility] Address [facility] [place] [address] Care Team Providers Care Casing Sewer Name Role Phone Jesse Gardner MD Primary Care Provider [phone] Encounter Details Date Type Department Care Team [...] 2:00 PM EDT Office [place] [address] Karine Lechuga PA [facility] [place] [address] documented as of this encounter Visit Diagnoses Not on filedocumented in this encounter Care Teams Casing Sewer Relationship Specialty Start Date End Date Jesse Gardner MD [address] [place] [address] PCP - General Internal Medicine 05/26/15 04/25/23 documented as of this encounter
--- OUTSIDE RECORDS SUMMARY | 2024-09-09 15:17 | XMS_ITS | Encounter Summary ---
[place] [address] Care Team Providers Care Director Radio Name Role Phone Jesse Gardner MD Primary Care Provider [phone] Reason for Referral * Diagnostic Test (Routine) - Closed Specialty Diagnoses / Procedures Referred By Contac t Referred To Contact Radiology Diagnoses Pain in finger of right hand Procedures MRI Finger wo Contrast Right Keanu De Los Santos MD [address] [place] [address] [place] [address] Referral ID Status Reason Start Date Expiration Date V isits Requested Visits Authorized [id number] Closed Specialty Service Requested 01/09/2019 01/09/2020 1 1 Reason for Visit * Diagnostic Test (Routine) - Closed Specialty Diagnoses / Procedures Referred By Contac t Referred To Contact Radiology Diagnoses Pain in finger of right hand Procedures MRI Finger wo Contrast Right Keanu De Los Santos MD [address] [place] [address] [place] [address] Referral ID Status Reason Start Date Expiration Date V isits Requested Visits Authorized [id number] Closed Specialty Service Requested 01/09/2019 01/09/2020 1 1 Encounter Details Date Type Department Care Team (Latest Contact Info) Description 01/15/2019 11:19 AM EDT - 01/15/2019 11:59 PM EDT Hospital [place] [address] Keanu De Los Santos MD [address] [place] [address] Pain in finger of right hand Discharge [...] 2:00 PM EDT Office [place] [address] Karine Lechuga PA [facility] [place] [address] documented as of this encounter Procedures Procedure [...] limb documented in this encounter Care Teams Director Radio Relationship Specialty Start Date End Date Jesse Gardner MD [address] [place] [address] PCP - General Internal Medicine 05/26/15 04/25/23 documented as of this encounter
--- OUTSIDE RECORDS SUMMARY | 2024-09-09 15:17 | XMS_ITS | Encounter Summary ---
Author Organization [facility] [place] [address] Care Team Providers Care Professional Fighter Name Role Phone Jesse Gardner MD Primary Care Provider [phone] Reason for Visit * Reason Onset Date Comments Medication Refill 04/10/2023 Encounter Details Date Type Department Care Team (Late st Contact Info) Description 04/10/2023 Refill [place] [address] Karine Lechuga PA [facility] [place] [address] Gender dysphoria Social History Tobacco Use Types [...] 2:00 PM EDT Office [place] [address] Karine Lechuga PA [facility] [address] [address] documented as of this encounter Visit Diagnoses Diagnosis Gender dysphoria Gender identity disorder in children documented in this encounter Care Teams Professional Fighter Relationship Specialty Start Date End Date Jesse Gardner MD [address] [place] [address] PCP - General Internal Medicine 05/26/15 04/25/23 documented as of this encounter
--- OUTSIDE RECORDS SUMMARY | 2024-09-09 15:17 | XMS_ITS | Encounter Summary ---
Author Organization [facility] Address [facility] [place] [address] Care Team Providers Care Senior Principal Software Engineer Name Role Phone Jesse Gardner MD Primary Care Provider [phone] Encounter Details Date Type Department Care Team (Late st Contact Info) Description 09/06/2022 8:00 AM EST TH Visit (TeleHealth) [place] [address] Karine Lechuga PA [facility] [place] [address] Gender dysphoria Social History Tobacco Use Types [...] 40 minutes Location of patient: [place] [facility] [address] Location of provider: [place], [place] Reason for visit: Patient is a 52 y.o. transgender patient who identifies as female, assigned male at , who presents to follow up today on initiation of gender-affirming hormone therapy. Asserted name--still using Jhonathan, will be using Rama in the future, pronouns he/him for now. Plan from last visit with MAGALIE Rios on 07/27/22: --Will request labs from [facility] --Check out [employer] [facility] [employer] for their trans-femme and chill group on via Zoom --Check out [facility] transgender center of excellence's website with [...] about an in-person trans-support group in the [facility]. Had long talk with , [...] documentation. Karine Lechuga PA-C Department of Endocrinology [facility] documented in this encounter Plan of Treatment Upcoming Encounters Date Type Department Care Team (Late st Contact Info) Description 03/03/2025 2:00 PM EDT Office [place] [address] Karine Lechuga PA [facility] [place] [address] documented as of this encounter Visit Diagnoses Diagnosis Gender dysphoria Gender identity disorder in children documented in this encounter Care Teams Senior Principal Software Engineer Relationship Specialty Start Date End Date Jesse Gardner MD [address] [place] [address] PCP - General Internal Medicine 05/26/15 04/25/23 documented as of this encounter
--- OUTSIDE RECORDS SUMMARY | 2024-09-09 15:17 | XMS_ITS | Encounter Summary ---
Author Organization [facility] [place] [address] Care Team Providers Care Security Architect Name Role Phone Jesse Gardner MD Primary Care Provider Reason for Referral * Physical Therapy (Routine) - Closed Specialty Diagnoses / Procedures Referred By Contac t Referred To Contact Physical Therapy Diagnoses Acute right-sided low back pain with right-sided sciatica Emmanuel Haddad APR[place] [facility] [place] [address] [facility] [place] [address] Referral ID Status Reason Start Date Expiration Date V isits Requested Visits Authorized [id number] Closed Evaluate and Treat 04/06/2017 04/06/2018 12 12 Reason for Visit * Reason Comments Back Pain Right Leg Pain * Consultation (Routine) - Closed Specialty Diagnoses / Procedures Referred By Contac t Referred To Contact Orthopaedics Diagnoses Low back pain Lidia Ocasio APRN [address] [place] [address] [facility] [place] [address] Referral ID Status Reason Start Date Expiration Date V isits Requested Visits Authorized [id number] Closed Consult, Test & Treat Connection Center 03/28/2017 03/28/2018 1 1 Encounter Details Date Type Department Care Team (Late st Contact Info) Description 04/06/2017 2:00 PM EDT Office Visit [place] [address] Emmanuel Haddad APRN Acute right-sided low back [...] 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 The patient has a past medical history of L5-S1 fusion in 2002 performed in [place], [place]. He also has a history of [...] in trialing [place]-based physical therapy with our labeling specialist therapist and has already been utilizing [...] 2:00 PM EDT Office [place] [address] Karine Lechuga PA [facility] [place] [address] Scheduled Referrals Name Type Priority Associated Diagnoses Orde r Schedule Referral to Physical Therapy Outpatient Referral Routine Acute right-sided low back pain with right-sided sciatica Ordered: 04/06/2017 documented as of this encounter Visit Diagnoses Diagnosis Acute right-sided low back pain with right-sided sciatica documented in this encounter Care Teams Security Architect Relationship Specialty Start Date End Date Jesse Gardner MD [address] [place] [address] PCP - General Internal Medicine 05/26/15 04/25/23 documented as of this encounter
--- OUTSIDE RECORDS SUMMARY | 2024-09-09 15:17 | XMS_ITS | Encounter Summary ---
[place] [address] Care Team Providers Care Retail Asset Protection Specialist Name Role Phone Catalina Blanchard MD Primary Care Provider [phone] Reason for Visit * Reason Comments Prior Authorization Lupron Depot (1-Earl h) 3.75mg Kit Encounter Details Date Type Department Care Team (Late st Contact Info) Description 09/07/2022 Specialty [place] [address] Francine Vo Social History Tobacco Use Types [...] Jhonathan Adair Patient : 1970 Patient Address: [facility] [place] [facility] [address] (home) Medication Name: LEUPROLIDE 3.75 MG INTRAMUSCULAR SYRINGE KIT Medication ID: [id number] Patient Location: [facility] ENDOCRINOLOGY 3B Patient Location Comment: Medication Strength Frequency Requested: Inject 1 kit into the muscle every 28 days. Qty/Day Supply: 09/10 New Start: New to Therapy Diagnosis & ICD-10 Code: Gender dysphoria (F64.9) Subscriber Insurance: [employer]) Subscriber Insurance Comment: Fax: Physician: KARINE LECHUGA Physician Comment : PA Status: NO PA REQUIRED Insurance mandated Pharmacy: [facility]: Yes Insurance requirements/notes: None Copay: $25.00 Copay assistance: None Copay assistance comment: Pharmacy staff will be reaching out to the patient to inform them of their medication[facility]. If applicable, a pharmacist will speak with the patient to offer our specialty pharmacy services and to arrange delivery of their medication. Francine Vo 09/07/22 12:01 PM documented in this encounter Plan of Treatment Upcoming Encounters Date Type Department Care Team (Late st Contact Info) Description 03/03/2025 2:00 PM EDT Office [place] [address] Karine Lechuga PA [facility] [place] [address] documented as of this encounter Visit Diagnoses Not on filedocumented in this encounter Care Teams Retail Asset Protection Specialist Relationship Specialty Start Date End Date Catalina Blanchard MD [address] [place] [address] PCP - General Family Medicine 10/30/23 documented as of this encounter
--- OUTSIDE RECORDS SUMMARY | 2024-09-09 15:18 | XMS_ITS | Encounter Summary ---
Author Organization [facility] Address [address] [place] [address] Care Team Providers Care Drier Helper Name Role Phone Jesse Gardner MD Primary Care Provider [phone] Encounter Details Date Type Department Care Team (Late st Contact Info) Description 07/01/2022 Lab Requisition [facility] Pathology & Laboratory Medicine - [address] [address] Outr Resulting Lab, Provider Social History Tobacco [...] PSA 0.9 <=3.5 ng/mL 07/01/2022 20:[address] [facility] Blood VENOUS BLOOD / Unknown 07/01/2022 7:40 EST 07/01/2022 18:[address] [facility] - 07/01/2022 20:41 EST NOTE: Serum PSA concentration should not be interpreted as absolute evidence for the presence or absence of malignant disease. Assayed on Siemens Green[employer] Tenaxis Medicalaur XPT using chemiluminescent technology.??Values obtained by using different assay methods cannot be used interchangeably. us Provider Outr Resulting Lab CHEMISTRY & BLOOD GA S ORDERABLES Final Result [facility] [address] [place] [address] documented in this encounter Visit Diagnoses Not on filedocumented in this encounter Care Teams Drier Helper Relationship Specialty Start Date End Date Jesse Gardner MD [address] [place], [place] [id number] PCP - General 03/27/20 documented as of this encounter
--- OUTSIDE RECORDS SUMMARY | 2024-09-09 15:18 | XMS_ITS | Encounter Summary ---
Author Organization [facility] Address [address] [place] [address] Care Team Providers Care Human Performance Technologist Name Role Phone Jesse Gardner MD Primary Care Provider [phone] Encounter Details Date Type Department Care Team (Late st Contact Info) Description 12/23/2022 Lab Requisition [facility] Pathology & Laboratory Medicine - [facility] [address] [place] [address] Outr Resulting Lab, Provider Social History Tobacco [...] Estradiol 73(H) <40 pg/mL 12/23/2022 23:02 EDT [facility] Blood VENOUS BLOOD / Unknown 12/23/2022 13:23 EDT 12/23/2022 22:16 EDT us Provider Outr Resulting Lab CHEMISTRY & BLOOD GA S ORDERABLES Final Result [facility] [address] [place] [address] documented in this encounter Visit Diagnoses Not on filedocumented in this encounter Care Teams Human Performance Technologist Relationship Specialty Start Date End Date Jesse Gardner MD [address] [place], [place] [id number] PCP - General 03/27/20 documented as of this encounter
--- OUTSIDE RECORDS SUMMARY | 2024-09-09 15:18 | XMS_ITS | Encounter Summary ---
Author Organization [facility] Address [facility] [place] [address] Care Team Providers Care Slot Machine Key Person Name Role Phone Jesse Gardner MD Primary Care Provider [phone] Reason for Visit * Reason Comments Bloated Encounter Details Date Type Department Care Team (Late st Contact Info) Description 11/12/2015 11:00 AM EDT Tech Visit [place] [address] Julio Cesar Downing MD [facility] [place] [address] Abdominal bloating Social History Tobacco Use Types [...] overgrowth (SIBO). 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 There is a small but normal rise in production of hydrogen between 105 and 120 minutes that correlates with a normal orocecal transit time. Julio Cesar Downing MD Gastroenterology [place] [address] P: [phone] F: [phone] Copy: JESSE GARDNER MD documented in this encounter Plan of Treatment Upcoming Encounters Date Type Department Care Team (Late st Contact Info) Description 03/03/2025 2:00 PM EDT Office Visit [place] [address] Karine Lechuga PA [facility] [place] [address] documented as of this encounter Visit Diagnoses Diagnosis Abdominal bloating Flatulence, eructation, and gas pain documented in this encounter Care Teams Slot Machine Key Person Relationship Specialty Start Date End Date Jesse Gardner MD [address] [place] [address] PCP - General Internal Medicine 05/26/15 04/25/23 documented as of this encounter
--- OUTSIDE RECORDS SUMMARY | 2024-09-09 15:18 | XMS_ITS | Referral Summary ---
Author Organization [facility] Address [address] [place] [address] Care Team Providers Care Artificial Leather Calender Operator Name Role Phone Jesse Gardner MD Primary Care Provider [phone] Encounters Date Type Department Care Team Description 08/20/2024 Lab Requisition [facility] Pathology & Laboratory Medicine [address] [address] Outr Resulting Lab, Provider 08/20/2024 Lab Requisition [facility] Pathology & Laboratory [facility] [address] [place] [address] Outr Resulting Lab, Provider from Last 3 Months Allergies No known active allergies Medications zafirlukast [...] 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 Colonoscopy/Upper Endoscopy Social History Tobacco Use Types [...] - Plan of Treatment Not on file Procedures Procedure Name Priority Date/Time Associated Diagnosis Comments PSA TOTAL, DIAGNOSTIC Routine 08/19/2024 10:50 EST HEPATITIS C AB W REFLEX TO HCV RNA BY PCR Routine 08/19/2024 10:50 EST HIV 1/2 ANTIGEN AND ANTIBODY, 4TH GENERATION Routine 08/19/2024 10:50 EST from Last 3 Months Results * HEPATITIS C AB W REFLEX TO HCV RNA BY PCR (08/19/2024 10:50 EST) Hep C Antibody Negative Negative 08/20/2024 18:54 EST [facility] Blood VENOUS BLOOD / Unknown 08/19/2024 10:50 EST 08/20/2024 17:01 EST us Provider Outr Resulting Lab CHEMISTRY & BLOOD GA S ORDERABLES Final Result Performing Organization Address [facility]/ZIP Co de Phone Number [facility] [address] [place] [address] * HIV 1/2 ANTIGEN AND ANTIBODY, 4TH GENERATION (08/19/2024 10:50 EST) HIV 1 and 2 Antibody/p24 Antigen, 4th Generation Negative Negative 08/20/2024 18:47 EST [facility] Comment:If acute HIV-1 infec tion is suspected in a high risk patient, submit plasma specimen for HIV-1 RNA quantitation test. Blood VENOUS BLOOD / Unknown 08/19/2024 10:50 EST 08/20/2024 17:01 EST Narrative [facility] - 08/20/2024 18:47 EST Fourth Generation assay performed on the Siemens Centaur XPT. us Provider Outr Resulting Lab IMMUNOLOGY AND SEROL OGY ORDERABLES Final Result Performing Organization Address [facility]/ZIP Co de Phone Number [facility] [address] [place] [address] * PSA, DIAGNOSTIC (08/19/2024 10:50 EST) PSA 0.1 <=3.5 ng/mL 08/20/2024 18:18 EST [facility] Blood VENOUS BLOOD / Unknown 08/19/2024 10:50 EST 08/20/2024 17:01 EST Narrative [facility] - 08/20/2024 18:18 EST NOTE: Serum PSA concentration should not be interpreted as absolute evidence for the presence or absence of malignant disease. Assayed on Siemens ADVIA Centaur XPT using chemiluminescent technology.??Values obtained by using different assay methods cannot be used interchangeably. us Provider Outr Resulting Lab CHEMISTRY & BLOOD GA S ORDERABLES Final Result [facility] [address] [place] [address] from Last 3 Months Insurance [employer] Care Teams Artificial Leather Calender Operator Relationship Specialty Start Date End Date Jesse Gardner MD [address] [place] [address] PCP - General 03/27/20
--- OUTSIDE RECORDS SUMMARY | 2024-09-09 15:18 | XMS_ITS | Encounter Summary ---
Author Organization [facility] Address [address] [place] [address] Care Team Providers Care Water Softener Servicer And Installer Name Role Phone Jesse Gardner MD Primary Care Provider [phone] Encounter Details Date Type Department Care Team (Late st Contact Info) Description 06/01/2023 Lab Requisition [facility] Pathology & Laboratory Medicine - [address] [address] Janet Ramos, DO [address] [place], [place] [id number] Encounter for other general examination Social History [...] explore management options, if applicable. 06/02/2023 13:29 [facility] Final Diagnosis A. SKIN OF LEG, LEFT, SHAVE BIOPSY: - Lichenoid keratosis (lichen planus like keratosis).. B. SKIN OF JAWLINE, LEFT LOWER, SHAVE BIOPSIES: - Epidermal acanthosis with ulceration and reactive changes. See comment. 06/02/2023 13:29 [facility] Diagnosis Comment Specimen B shows relatively nonspecific findings including irregular epidermal acanthosis with ulceration and reparative changes. The biopsies are somewhat tangentially oriented, making assessment somewhat difficult. A consideration could include an irritated seborrheic keratosis. However, clinical correlation is essential. Despite deeper levels, there is no definitive evidence of an infiltrative neoplasm. 06/02/2023 13:29 [facility] Attestation By the signature below, the attending physician certifies that they have 1) personally conducted a gross and/or microscopic examination of the described specimen(s), and/or personally interpreted the results of laboratory testing of the described specimen(s), and 2) personally rendered or confirmed the above diagnosis. 06/02/2023 13:29 [facility] at 1329 Clinical History Skin lesion 06/02/2023 13:29 [facility] Gross Description A. [...] MAGALIE ORTIZ(ASCP) 06/01/2023 18:39 06/02/2023 13:29 EDT [facility] Performing Lab [facility] 06/02/2023 13:29 EDT [facility] Scanned Images 06/02/2023 13:29 EDT [facility] Tissue SPECIMEN FROM SKIN / Unknown 06/01/2023 10:20 EDT 06/01/2023 17:00 EDT Tissue specimen (specimen) SPECIMEN FROM SKIN / Unknown 06/01/2023 10:20 EDT 06/01/2023 17:00 EDT us Janet Ramos DO PATHOLOGY ORDERABLES Final Re sult [facility] [address] [place] [address] documented in this encounter Visit Diagnoses Diagnosis Encounter for other general examination documented in this encounter Care Teams Water Softener Servicer And Installer Relationship Specialty Start Date End Date Jesse Gardner MD [address] [place], [place] [id number] PCP - General 03/27/20 documented as of this encounter
--- OUTSIDE RECORDS SUMMARY | 2024-09-09 15:18 | XMS_ITS | Encounter Summary ---
Author Organization [facility] Address [address] [place] [address] Care Team Providers Care Finished Cloth Examiner Name Role Phone Jesse Gardner MD Primary Care Provider [phone] Encounter Details Date Type Department Care Team (Late st Contact Info) Description 06/19/2023 Lab Requisition [facility] Pathology & Laboratory Medicine - [address] [address] Outr Resulting Lab, Provider Social History Tobacco [...] Estradiol 80(H) <40 pg/mL 06/19/2023 23:03 EST [facility] Blood VENOUS BLOOD / Unknown 06/19/2023 14:00 EST 06/19/2023 22:01 EST us Provider Outr Resulting Lab CHEMISTRY & BLOOD GA S ORDERABLES Final Result Performing Organization Address City/State/[facility] Co de Phone Number [facility] [address] [place] [address] documented in this encounter Visit Diagnoses Not on filedocumented in this encounter Care Teams Finished Cloth Examiner Relationship Specialty Start Date End Date Jesse Gardner MD [address] [place], [place] [phone] PCP - General 03/27/20 documented as of this encounter
--- OUTSIDE RECORDS SUMMARY | 2024-09-09 15:18 | XMS_ITS | Encounter Summary ---
Author Organization [facility] [place] [address] Care Team Providers Care Shearing Machine Tender Name Role Phone Jesse Gardner MD Primary Care Provider Reason for Visit * Auth/Cert Specialty Diagnoses / Procedures Referred By Contac t Referred To Contact Diagnoses Diarrhea, unspecified Congenital cutaneous mastocytosis diarrhea,mastocystitis (anesthesia consult-Propofol) Procedures PRO COLONOSCOPY, DIAGNOSTIC PRO UPPER GI ENDOSCOPY, DIAGNOSTIC COLONOSCOPY, DIAGNOSTIC Referral ID Status Reason Start Date Expiration Date Visits Re quested Visits Authorized [id number] 1 1 Encounter Details Date Type Department Care Team (Late st Contact Info) Description 10/27/2015 11:00 AM EDT - 10/27/2015 12:00 PM EDT [place] [address] Julio Cesar Downing MD [facility] [place] [address] COLONOSCOPY, DIAGNOSTIC (WRVU 3.26) Social History Tobacco [...] to be checked. Monday-Monday Same Day Endo [phone] Otherwise contact [phone] and ask to speak to the plumbing drafter precision agriculture technician Follow up care is a quinones part [...] 2:00 PM EDT Office [place] [address] Karine Lechuga PA [facility] [place] [address] documented as of this encounter Procedures Procedure [...] Report (10/27/2015 1:29 PM EDT) Final Diagnosis [id number] ? Location: The signing pathologist has (i) [...] sing: (T2) ??shb 10/29/2015 12:58 PM EDT [facility] GI Biopsy 10/27/2015 1:29 PM EDT 10/27/2015 1:29 PM EDT GI Biopsy 10/27/2015 1:29 PM EDT 10/27/2015 1:29 PM EDT GI Biopsy 10/27/2015 1:29 PM EDT 10/27/2015 1:29 PM EDT GI Biopsy 10/27/2015 1:29 PM EDT 10/27/2015 1:29 PM EDT Julio Cesar Downing MD PATHOLOGY/CYTOLOG Y ORDERABLES [facility] [place] [address] * Specimen to Pathology (surgical or derm) (10/27/2015 1:29 PM EDT) AP Specimen 10/27/2015 1:29 PM EDT 10/27/2015 1:30 PM EDT Narrative [facility] - 10/27/2015 1:30 PM EDT Specimen requisition ordered. ??Separate Pathology report to follow Julio Cesar Downing MD PATHOLOGY/CYTOLOG Y ORDERABLES Performing Organization Address [facility] [place] [place] [address] * Specimen to Pathology (surgical or derm) (10/27/2015 1:29 PM EDT) AP Specimen 10/27/2015 1:29 PM EDT 10/27/2015 1:30 PM EDT Narrative [facility] - 10/27/2015 1:30 PM EDT Specimen requisition ordered. ??Separate Pathology report to follow Julio Cesar Downing MD PATHOLOGY/CYTOLOG Y ORDERABLES Performing Organization Address [facility] [place] [place] [address] * Specimen to Pathology (surgical or derm) (10/27/2015 1:29 PM EDT) AP Specimen 10/27/2015 1:29 PM EDT 10/27/2015 1:29 PM EDT Narrative [facility] - 10/27/2015 1:29 PM EDT Specimen requisition ordered. ??Separate Pathology report to follow Julio Cesar Downing MD PATHOLOGY/CYTOLOG Y ORDERABLES Performing Organization Address [facility] [place] [address] * Specimen to Pathology (surgical or derm) (10/27/2015 1:29 PM EDT) AP Specimen 10/27/2015 1:29 PM EDT 10/27/2015 1:29 PM EDT Narrative [facility] - 10/27/2015 1:29 PM EDT Specimen requisition ordered. ??Separate Pathology report to follow Julio Cesar Downign MD PATHOLOGY/CYTOLOG Y ORDERABLES Performing Organization Address [facility]/ZIP Co de Phone Number [facility] [place] [address] * UPPER GI ENDOSCOPY (10/27/2015 12:54 PM EDT) Pathologist [facility] UPPER GI ENDOSCOPY [facility] Endoscopy Patient Name: Jhonathan Adair ? Procedure Date: 10/27/2015 12:54 PM ? N: [id number] ? Date of : 1970 ? Age: 45 ? Order #: [id number] ? Procedure: ? Upper GI endoscopy Indications: [...] the physician, the nurse and the ? doffer in the pre-procedure area ? in the [...] * COLONOSCOPY (10/27/2015 12:48 PM EDT) COLONOSCOPY [facility] Endoscopy Patient Name: Jhonathan Adair ? Procedure Date: 10/27/2015 12:48 PM ? Date of : 1970 ? Age: 45 ? Order #: [id number] ? Procedure: ? Colonoscopy Indications: ? Chronic [...] the physician, the nurse and the ? doffer in the pre-procedure area ? in the [...] for antihistamine effect. ? - Consultation with trim die maker as ? scheduled. ? Procedure Code(s): ?? --- Professional --- ? 01903, Colonoscopy, flexible; with ? biopsy, single or multiple CPT copyright 2014 [employer]. All rights reserved. The codes documented in this report are preliminary and upon blueprint machine operator review may be revised to meet [...] CRNA) documented in this encounter Care Teams Shearing Machine Tender Relationship Specialty Start Date End Date Jesse Gardner MD [address] [place] [address] PCP - General Internal Medicine 05/26/15 04/25/23 documented as of this encounter
--- OUTSIDE RECORDS SUMMARY | 2024-09-09 15:18 | XMS_ITS | Encounter Summary ---
Author Organization [facility] Address [address] [place] [address] Care Team Providers Care Passementerie Worker Name Role Phone Jesse Gardner MD Primary Care Provider [phone] Encounter Details Date Type Department Care Team (Late st Contact Info) Description 07/12/2023 Lab Requisition [facility] Pathology & Laboratory Medicine - [address] [address] Janet Ramos, DO [address] [place], [place] [phone] Encounter for other general examination Social History [...] encounter Results * SURGICAL PATHOLOGY (07/11/2023 12:46 [facility]) Note to Patient The following pathology results have been interpreted by your pathologist and may be available to you before your health provider has had the opportunity to review them. Please allow time for your provider to receive these results and explore management options, if applicable. 07/18/2023 9:30 [facility] Final Diagnosis A. SKIN OF CHIN/JAW, LEFT, EXCISION: - Ulcer with overlying scale-crust, reparative changes and dermal scar. - Focus of granulomatous dermatitis with foreign body type giant cells, most consistent with ruptured hair follicle. (see comment) 07/18/2023 9:30 [facility] Diagnosis Comment Special stains for microorganisms performed on block A1. Gram stain highlights Gram-positive bacterial colonies in the scale crust, favored to be impetiginization. GMS and Abiel special stains do not show microorganisms in the available sections. Clinicopathologic correlation is recommended. 07/18/2023 9:30 [facility] Attestation By the signature below, the attending physician certifies that they have 1) personally conducted a gross and/or microscopic examination of the described specimen(s), and/or personally interpreted the results of laboratory testing of the described specimen(s), and 2) personally rendered or confirmed the above diagnosis. 07/18/2023 9:30 [facility] at 0930 Clinical History Chronic non-healing pseudofolliculitis of left chin/jaw 07/18/2023 9:30 [facility] Gross Description A. [...] Omaira Will 07/12/2023 10:51 07/18/2023 9:30 EST [facility] Performing Lab [facility] 07/18/2023 9:30 EST [facility] Scanned Images 07/18/2023 9:30 EST [facility] Tissue SPECIMEN FROM SKIN / Unknown 07/11/2023 12:46 EST 07/12/2023 8:02 EST us Janet Ramos DO PATHOLOGY ORDERABLES Final Re sult [facility] [address] [place] [address] documented in this encounter Visit Diagnoses Diagnosis Encounter for other general examination documented in this encounter Care Teams Passementerie Worker Relationship Specialty Start Date End Date Jesse Gardner MD [address] [place] [address] PCP - General 03/27/20 documented as of this encounter
--- OUTSIDE RECORDS SUMMARY | 2024-09-09 15:18 | XMS_ITS | Encounter Summary ---
Author Organization [facility] Address [address] [place] [address] Care Team Providers Care Stone Setter Apprentice Name Role Phone Jesse Gardner MD Primary Care Provider [phone] Encounter Details Date Type Department Care Team (Late st Contact Info) Description 05/10/2020 Lab Requisition [facility] Pathology & Laboratory Medicine - [address] [address] Outr Resulting Lab, Provider Social History Tobacco [...] DETECTION, PCR Negative Negative 05/11/2020 6:52 EDT [facility] Comment:This test was develo ped and its performance characteristics determined by [facility]. It has not been cleared or approved [...] MICROBIOLOGY - GENER AL ORDERABLES Final Result [facility] [address] [place] [address] documented in this encounter Visit Diagnoses Not on filedocumented in this encounter Care Teams Stone Setter Apprentice Relationship Specialty Start Date End Date Jesse Gardner MD [address] [place], [place] [phone] PCP - General 03/27/20 documented as of this encounter
--- OUTSIDE RECORDS SUMMARY | 2024-09-09 15:18 | XMS_ITS | Encounter Summary ---
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 cell disorder * Consultation (Routine) - Closed Specialty Diagnoses / Procedures Referred By Contac t Referred To Contact Allergy Diagnoses Diarrhea Arthritis Mastocytosis Julio Cesar Downing MD [facility] [place] [address] [facility] [address] [place] [phone] Referral ID Status Reason Start Date Expiration Date V isits Requested Visits Authorized [id number] Closed Consult, Test & Treat 09/04/2015 09/03/2016 6 6 Encounter Details Date Type Department Care Team (Late st Contact Info) Description 01/28/2016 9:00 AM EDT [place] [phone] Julio Cesar Downing MD [facility] [place] [address] Angely Causey MD Mast cell [...] 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 Colon biopsy was positive for [...] diarrhea Plus, avoiding because of FODMAP diet. [place] is associated with diarreha. No specific medication trigger. Not associated with exercise. He had allergy skin tests in [place] in 2011. They were positive to mold, [...] performed by Julio Cesar Downing MD at [facility] ENDOSCOPY ??? Pro upper gi endoscopy, diagnostic N/A 10/27/2015 EGD, UPPER GI ENDOSCOPY performed by Julio Cesar Downing MD at [facility] END[facility] ??? Sinus surgery ??? Tonsillectomy ??? 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 Physical Exam: Vital signs reviewed. Normal Except [...] reactions # elevated blood pressure NOTE IN NAPRAPATH Orders Placed This Encounter Procedures ??? Tryptase [...] 2:00 PM EDT Office [place] [address] Karine Lechuga PA [facility] [place] [address] Scheduled Orders Name Type Priority Associated Diagnoses Orde r Schedule ALLERGY SKIN TEST Procedures Routine Mast cell disease Adverse food reaction, initial encounter Ordered: 02/01/2016 documented as of this encounter Procedures Procedure Name Priority Date/Time Associated Diagnosis Comments TRYPTASE Routine 01/28/2016 11:13 AM EDT Mast cell disease documented in this encounter Results * Tryptase (01/28/2016 11:13 AM EDT) Tryptase 5.9 <11.5 ng/mL [facility] Comment: Test Performed by: [place] [address] Hotel Attendant: Shilo Rosado II, M.D., Ph.D. 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
--- OUTSIDE RECORDS SUMMARY | 2024-09-09 15:18 | XMS_ITS | Encounter Summary ---
Author Organization [facility] Address [address] [place] [address] Care Team Providers Care Data Integration Analyst Name Role Phone Jesse Gardner MD Primary Care Provider [phone] Encounter Details Date Type Department Care Team (Late st Contact Info) Description 07/01/2022 Lab Requisition [facility] Pathology & Laboratory Medicine - [address] [address] Outr Resulting Lab, Provider Social History Tobacco [...] gonorrhoeae Result Negative Negative 07/02/2022 15:15 EST [facility] Chlamydia trachomatis Result Negative Negative 07/02/2022 15:15 EST [facility] Urine URINE / Unknown 07/01/2022 7 :55 EST 07/01/2022 22:00 EST us Provider Outr Resulting Lab MICROBIOLOGY - GENER AL ORDERABLES Final Result Performing Organization Address City/State/[facility] Co de Phone Number [facility] [address] [place] [address] documented in this encounter Visit Diagnoses Not on filedocumented in this encounter Care Teams Data Integration Analyst Relationship Specialty Start Date End Date Jesse Gardner MD [address] [place], [place] [id number] PCP - General 03/27/20 documented as of this encounter
--- OUTSIDE RECORDS SUMMARY | 2024-09-09 15:18 | XMS_ITS | Encounter Summary ---
Author Organization [facility] [place] [address] Care Team Providers Care Follow Up Rep Name Role Phone Jesse Gardner MD Primary Care Provider [phone] Reason for Referral * Consultation (Routine) - Closed Specialty Diagnoses / Procedures Referred By Mona byrne Referred To Contact Rheumatology Diagnoses Arthritis Mastocytosis Julio Cesar Downing MD [facility] [place] [address] [facility] Rheumatology [address] [place] [phone] Referral ID Status Reason Start Date Expiration Date V isits Requested Visits Authorized [id number] Closed Consult, Test & Treat 09/04/2015 09/03/2016 1 1 * Consultation (Routine) - Closed Specialty Diagnoses / Procedures Referred By Contac t Referred To Contact Allergy Diagnoses Diarrhea Arthritis Mastocytosis Julio Cesar Downing MD [facility] [place] [address] [facility] Allergy [address] [place] [phone] Referral ID Status Reason Start Date Expiration Date V isits Requested Visits Authorized [id number] Closed Consult, Test & Treat 09/04/2015 09/03/2016 6 6 Reason for Visit * Reason Comments GI Problem mastocytic enterocol itis Diarrhea Abdominal Pain * Consultation (Routine) - Closed Specialty Diagnoses / Procedures Referred By Mona byrne Referred To Contact Gastroenterology Diagnoses hx mastocytic colitis with intermittent epigastric discomfort, question esophageal spasm Jesse Gardner MD [address] [place] [address] [facility] [place]astro [address] [address] Referral ID Status Reason Start Date Expiration Date V isits Requested Visits Authorized [id number] Closed Connection Center 05/27/2015 05/26/2016 1 1 Encounter Details Date Type Department Care Team (Late st Contact Info) Description 09/04/2015 11:00 AM EST Office [place] [address] Julio Cesar Downing MD [facility] DR GASTROENTEROLOGY [place] [id number] Diarrhea; Arthritis; Mastocytosis Social History Tobacco Use [...] Downing MD - 09/10/2015 10:23 PM EST [facility] Section of Gastroenterology and Hepatology Outpatient Consultation Reason for Visit: opinion for management of mastocytic enterocolitis Referred by Jesse Gardner History of Present Illness: Jhonathan Adair is a 45 y.o. male with history of mastocytic colitis. Hewas first diagnosed in 2008 while living in [place]. He underwent colonoscopy for severe episodic diarrhea [...] is stable. He and his moved to [place] about a year and half ago. His is a General Surgeon at [employer]. Patient Active Problem List Diagnosis ??? Diarrhea [...] Social History: , lives with (Surgeon at [employer]) and daughter in [facility] reports thathe has never smoked. He does [...] episodic diarrhea and abdominal pain. Prior endoscopy ([place]/EGD 2008) with small bowel biopsies showing increased [...] CBC/HFP # Referral to Immunology and Rheumatology Jluio Cesar Downing MD Section [place] [address] P: [phone] F: [phone] CC JESSE GARDNER MD [address] [place] [address] documented in this encounter Plan of Treatment Upcoming Encounters Date Type Department Care Team (Late st Contact Info) Description 03/03/2025 2:00 PM EDT Office Visit Endocrinology at [facility] [place] [address] Karine Lechuga PA [facility] [place] [address] Scheduled Referrals Name Type Priority Associated Diagnoses [...] MD HEMATOLOGY ORDERA BLES Performing Organization Address City/[facility]/ZIP Co de Phone Number CERNER MILLENNIUM * Tryptase (09/04/2015 12:55 PM EST) Tryptase 7.1 <11.5 ng/mL CERNER MILLENNIUM Comment: Test Performed by: [place] [address] Menu Planner: Shilo Rosado II, M.D., Ph.D. Blood specimen (specimen) 09/04/2015 12:55 PM EST 09/04/2015 3:01 PM EST Narrative Resulting Agency Comment Spec In Lab Julio Cesar Downing MD CHEMISTRY ORDERAB LES Performing Organization Address [facility] Co de Phone Number CERNER MILLENNIUM * [...] MD CHEMISTRY ORDERAB LES Performing Organization Address City/[facility]/ZIP Co de Phone Number CERNER MILLENNIUM * Sedimentation rate (09/04/2015 12:55 PM EST) Sedimentation Rate Automated 4 0 - 15 mm/hr [facility] Blood specimen (specimen) 09/04/2015 12:55 PM EST 09/04/2015 1:10 PM EST Narrative Resulting Agency Comment Spec In Lab Julio Cesar Downing MD HEMATOLOGY ORDERA BLES Performing Organization Address [facility] Phone Number [facility] * High Sensitivity CRP (09/04/2015 12:55 PM EST) C-Reactive Protein High Sensitivity 3.9 mg/L [facility] Comment: Interpretations: 1) For accurate cardiac [...] MD CHEMISTRY ORDERAB LES Performing Organization Address [facility] de Phone Number [facility] documented in this encounter Visit Diagnoses Diagnosis Diarrhea Arthritis Arthropathy, unspecified, site unspecified Mastocytosis Congenital pigmentary anomaly of skin documented in this encounter Care Teams Follow Up Rep Relationship Specialty Start Date End Date Jesse Gardner MD [address] [place] [address] PCP - General Internal Medicine 05/26/15 04/25/23 documented as of this encounter
--- OUTSIDE RECORDS SUMMARY | 2024-09-09 15:18 | XMS_ITS | Encounter Summary ---
Author Organization [facility] [place] [address] Care Team Providers Care Motel Operator Name Role Phone Jesse Gardner MD Primary Care Provider [phone] Reason for Visit * Auth/Cert Specialty Diagnoses / Procedures Referred By Contac t Referred To Contact Diagnoses Diarrhea, unspecified Congenital cutaneous mastocytosis diarrhea,mastocystitis (anesthesia consult-Propofol) Procedures PRO COLONOSCOPY, DIAGNOSTIC PRO UPPER GI ENDOSCOPY, DIAGNOSTIC COLONOSCOPY, DIAGNOSTIC Referral ID Status Reason Start Date Expiration Date Visits Re quested Visits Authorized [id number] 1 1 Encounter Details Date Type Department Care Team (Late st Contact Info) Description 10/27/2015 8:57 AM EDT - 10/27/2015 2:27 PM EDT Hospital En[place] [address] Julio Cesar Downing MD [facility] [place] [address] Discharge Disposition: Home Social History Tobacco Use [...] to be checked. Monday-Monday Same Day Endo [phone] Otherwise contact [phone] and ask to speak to the area field manager mohs surgeon/general dermatologist Follow up care is a quinones part [...] 2:00 PM EDT Office [place] [address] Karine Lechuga PA [facility] [place] [address] documented as of this encounter Procedures Procedure [...] Report (10/27/2015 1:29 PM EDT) Final Diagnosis [id number] ? Location: The signing pathologist has (i) [...] sing: (T2) ??shb 10/29/2015 12:58 PM EDT [facility] GI Biopsy 10/27/2015 1:29 PM EDT 10/27/2015 1:29 PM EDT GI Biopsy 10/27/2015 1:29 PM EDT 10/27/2015 1:29 PM EDT GI Biopsy 10/27/2015 1:29 PM EDT 10/27/2015 1:29 PM EDT GI Biopsy 10/27/2015 1:29 PM EDT 10/27/2015 1:29 PM EDT Julio Cesar Downing MD PATHOLOGY/CYTOLOG Y ORDERABLES [facility] [place] [address] * Specimen to Pathology (surgical or derm) (10/27/2015 1:29 PM EDT) AP Specimen 10/27/2015 1:29 PM EDT 10/27/2015 1:30 PM EDT Narrative [facility] - 10/27/2015 1:30 PM EDT Specimen requisition ordered. ??Separate Pathology report to follow Julio Cesar Downing MD PATHOLOGY/CYTOLOG Y ORDERABLES Performing Organization Address [facility] [place] [address] * Specimen to Pathology (surgical or derm) (10/27/2015 1:29 PM EDT) AP Specimen 10/27/2015 1:29 PM EDT 10/27/2015 1:30 PM EDT Narrative [facility] - 10/27/2015 1:30 PM EDT Specimen requisition ordered. ??Separate Pathology report to follow Julio Cesar Downing MD PATHOLOGY/CYTOLOG Y ORDERABLES Performing Organization Address [facility] [place] [address] * Specimen to Pathology (surgical or derm) (10/27/2015 1:29 PM EDT) AP Specimen 10/27/2015 1:29 PM EDT 10/27/2015 1:29 PM EDT [facility] - 10/27/2015 1:29 PM EDT Specimen requisition ordered. ??Separate Pathology report to follow Julio Cesar Downing MD PATHOLOGY/CYTOLOG Y ORDERABLES Performing Organization Address [facility] [place] [address] * Specimen to Pathology (surgical or derm) (10/27/2015 1:29 PM EDT) AP Specimen 10/27/2015 1:29 PM EDT 10/27/2015 1:29 PM EDT [facility] - 10/27/2015 1:29 PM EDT Specimen requisition ordered. ??Separate Pathology report to follow Julio Cesar Downing MD PATHOLOGY/CYTOLOG Y ORDERABLES Performing Organization Address [facility]/ZIP Co de Phone Number [facility] [place] [address] * UPPER GI ENDOSCOPY (10/27/2015 12:54 PM EDT) Pathologist [facility] UPPER GI ENDOSCOPY [facility] Patient Name: Jhonathan Adair ? Procedure Date: 10/27/2015 12:54 PM ? N: [id number] ? Date of : 1970 ? Age: 45 ? Order #: [id number] ? Procedure: ? Upper GI endoscopy Indications: [...] the physician, the nurse and the ? rn progressive care in the pre-procedure area ? in the [...] * COLONOSCOPY (10/27/2015 12:48 PM EDT) COLONOSCOPY [facility] Patient Name: Jhonathan Adair ? Procedure Date: 10/27/2015 12:48 PM ? Date of : 1970 ? Age: 45 ? Order #: [id number] ? Procedure: ? Colonoscopy Indications: ? Chronic [...] the physician, the nurse and the ? rn progressive care in the pre-procedure area ? in the [...] for antihistamine effect. ? - Consultation with photographers' model as ? scheduled. ? Procedure Code(s): ?? --- Professional --- ? 22864, Colonoscopy, flexible; with ? biopsy, single or multiple CPT copyright 2014 [employer]. All rights reserved. The codes documented in this report are preliminary and upon lobby attendant review may be revised to meet current [...] CRNA) documented in this encounter Care Teams Motel Operator Relationship Specialty Start Date End Date Jesse Gardner MD [address] [place] [address] PCP - General Internal Medicine 05/26/15 04/25/23 documented as of this encounter
--- OUTSIDE RECORDS SUMMARY | 2024-09-09 15:18 | XMS_ITS | Encounter Summary ---
Author Organization [facility] Address [address] [place] [address] Care Team Providers Care Yard Warehouse Worker Name Role Phone Jesse Gardner MD Primary Care Provider [phone] Encounter Details Date Type Department Care Team (Late st Contact Info) Description 11/24/2020 Lab Requisition [facility] Pathology & Laboratory Medicine - [address] [address] Janet Ramos, DO [address] [facility] [address] [place], [place] [id number] Encounter for other general examination Social History [...] mucosa with mild reactive changes. 11/26/2020 14:51 [facility] Diagnosis Comment Boulevard Glassware Replacer slides of this case were reviewed at the intradepartmental consultation conference. (RW) 11/26/2020 14:51 [facility] Attestation By the signature below, the attending physician certifies that they have 1) personally conducted a gross and/or microscopic examination of the described specimen(s), and/or personally interpreted the results of laboratory testing of the described specimen(s), and 2) personally rendered or confirmed the above diagnosis. 11/26/2020 14:51 [facility] at 1451 Clinical History Mastocytosis of bowel 11/26/2020 14:51 [facility] Gross Description A. Received [...] MAGALIE ORTIZ(ASCP) 11/24/2020 17:51 11/26/2020 14:51 EDT [facility] Performing Lab [facility] 11/26/2020 14:51 EDT [facility] Scanned Images 11/26/2020 14:51 EDT [facility] Tissue ENTIRE ESOPHAGUS [...] Ramos DO PATHOLOGY ORDERABLES Final Re sult [facility] [address] [place] [address] documented in this encounter Visit Diagnoses Diagnosis Encounter for other general examination documented in this encounter Care Teams Yard Warehouse Worker Relationship Specialty Start Date End Date Jesse Gardner MD [address] [place] [address] PCP - General 03/27/20 documented as of this encounter
--- OUTSIDE RECORDS SUMMARY | 2024-09-09 15:18 | XMS_ITS | Encounter Summary ---
Author Organization [facility] Address [address] [place] [address] Care Team Providers Care Supervisor Sewer Maintenance Name Role Phone Jesse Gardner MD Primary Care Provider Encounter Details Date Type Department Care Team (Late st Contact Info) Description 08/20/2024 Lab Requisition [facility] Pathology & Laboratory Medicine - [address] [address] Outr Resulting Lab, Provider Social History Tobacco [...] Procedure Name Priority Date/Time Associated Diagnosis Comments HEPATITIS C AB W REFLEX TO HCV RNA BY PCR Routine 08/19/2024 10:50 EST PSA TOTAL, DIAGNOSTIC Routine 08/19/2024 10:50 EST documented in this encounter Results * PSA, DIAGNOSTIC (08/19/2024 10:50 EST) PSA 0.1 <=3.5 ng/mL 08/20/2024 18:18 EST [facility] Blood VENOUS BLOOD / Unknown 08/19/2024 10:50 EST 08/20/2024 17:01 EST Narrative [facility] - 08/20/2024 18:18 EST NOTE: Serum PSA concentration should not be interpreted as absolute evidence for the presence or absence of malignant disease. Assayed on [employer] XPT using chemiluminescent technology.??Values obtained by using different assay methods cannot be used interchangeably. us Provider Outr Resulting Lab CHEMISTRY & BLOOD GA S ORDERABLES Final Result Performing Organization Address City/[facility]/ZIP Co de Phone Number [facility] [address] [place] [address] * HEPATITIS C AB W REFLEX TO HCV RNA BY PCR (08/19/2024 10:50 EST) Hep C Antibody Negative Negative 08/20/2024 18:54 EST [facility] Blood VENOUS BLOOD / Unknown 08/19/2024 10:50 EST 08/20/2024 17:01 EST us Provider Outr Resulting Lab CHEMISTRY & BLOOD GA S ORDERABLES Final Result Performing Organization Address City/[facility]/ZIP Co de Phone Number [facility] [address] [place], [place] [address] documented in this encounter Visit Diagnoses Not on filedocumented in this encounter Care Teams Supervisor Sewer Maintenance Relationship Specialty Start Date End Date Jesse Gardner MD [address] [place], [place] [id number] PCP - General 03/27/20 documented as of this encounter
--- OUTSIDE RECORDS SUMMARY | 2024-09-09 15:18 | XMS_ITS | Encounter Summary ---
Author Organization [facility] [place] [address] Care Team Providers Care Power Wood Sawyer Name Role Phone Jesse Gardner MD Primary Care Provider [phone] Reason for Visit * Auth/Cert Specialty Diagnoses / Procedures Referred By Contac t Referred To Contact Diagnoses Diarrhea, unspecified Congenital cutaneous mastocytosis diarrhea,mastocystitis (anesthesia consult-Propofol) Procedures PRO COLONOSCOPY, DIAGNOSTIC PRO UPPER GI ENDOSCOPY, DIAGNOSTIC COLONOSCOPY, DIAGNOSTIC Referral ID Status Reason Start Date Expiration Date Visits Re quested Visits Authorized [id number] 1 1 Encounter Details Date Type Department Care Team (Late st Contact Info) Description 10/27/2015 12:45 PM EDT Anesthesia [place] [address] Elizabeth Slaughter MD [facility] [address] [place] [address] Shilo Linares CRNA [facility] [place] [address] Anesthesia Record Procedure Summary Procedure Name Responsible [...] 0949; metacarpal vein right (top of hand); axmm-fkg-twphqg catheter system; 20 gauge; Arya Ramírez RN; [...] Slaughter MD - 10/27/2015 3:10 PM EDT [facility] Department of Anesthesiology Post-procedure Note Patient: Jhonathan Adair Procedure Summary Date Anesthesia Start Anesthesia Stop Room / Location 10/27/15 1245 1333 [facility] 1 / [facility] Procedure Diagnosis Surgeon Responsible Provider COLONOSCOPY, DIAGNOSTIC (N/A Trunk); EGD, UPPER GI ENDOSCOPY (N/A Trunk) (diarrhea,mastocystitis (anesthesia consult-Propofol)) Julio Cesar Downing MD Procopio, Marcia A, MD All Anesthesia Providers: Anesthesiologist: Elizabeth Slaughter MD LOAN EXPEDITOR: Shilo Linares CRNA Last (1hr) Vitals: BP Temp Pulse Resp SpO2 [facility] of Consciousness: Awake and Alert Pain [...] risks discussed with patient. Plan discussed with LOAN EXPEDITOR. PAT Staff Note documented in this encounter Plan of Treatment Upcoming Encounters Date Type Department Care Team (Late st Contact Info) Description 03/03/2025 2:00 PM EDT Office [place] [address] Karine Lechuga PA [facility] [place] [place] [address] documented as of this encounter Visit Diagnoses [...] mg documented in this encounter Care Teams Power Wood Sawyer Relationship Specialty Start Date End Date Jesse Gardner MD [address] [place] [address] PCP - General Internal Medicine 05/26/15 04/25/23 documented as of this encounter
--- OUTSIDE RECORDS SUMMARY | 2024-09-09 15:18 | XMS_ITS | Encounter Summary ---
Author Organization [facility] Address [address] [place] [address] Care Team Providers Care Biological Scientist Name Role Phone Jesse Gardner MD Primary Care Provider [phone] Encounter Details Date Type Department Care Team (Late st Contact Info) Description 11/15/2023 Lab Requisition [facility] Pathology & Laboratory Medicine - [address] [address] Outr Resulting Lab, Provider Social History Tobacco [...] Estradiol 80(H) <40 pg/mL 11/15/2023 17:44 EDT [facility] Blood VENOUS BLOOD / Unknown 11/15/2023 11:11 EDT 11/15/2023 16:57 EDT us Provider Outr Resulting Lab CHEMISTRY & BLOOD GA S ORDERABLES Final Result Performing Organization Address City/State/[facility] Co de Phone Number [facility] [address] [place], [place] [address] documented in this encounter Visit Diagnoses Not on filedocumented in this encounter Care Teams Biological Scientist Relationship Specialty Start Date End Date Jesse Gardner MD [address] [place], [place] [id number] PCP - General 03/27/20 documented as of this encounter
--- OUTSIDE RECORDS SUMMARY | 2024-09-09 15:18 | XMS_ITS | Encounter Summary ---
Author Organization [facility] Address [address] [place] [address] Care Team Providers Care Diesel Technician Mechanic Name Role Phone Jesse Gardner MD Primary Care Provider [phone] Encounter Details Date Type Department Care Team [...] on filedocumented in this encounter Care Teams Diesel Technician Mechanic Relationship Specialty Start Date End Date Jesse Gardner MD [address] [place] [address] PCP - General 03/27/20 documented as of this encounter
--- OUTSIDE RECORDS SUMMARY | 2024-09-09 15:18 | XMS_ITS | Encounter Summary ---
Author Organization [facility] Address [address] [place] [address] Care Team Providers Care Title Curator Name Role Phone Jesse Gardner MD Primary Care Provider [phone] Encounter Details Date Type Department Care Team (Late st Contact Info) Description 04/01/2021 Lab Requisition [facility] Pathology & Laboratory Medicine - [address] [address] Outr Resulting Lab, Provider Social History Tobacco [...] 0.0 - 3.5 ng/mL 04/01/2021 22:01 EDT [facility] Blood VENOUS BLOOD / Unknown 04/01/2021 9:00 EDT 04/01/2021 20:53 EDT Narrative [facility] - 04/01/2021 22:01 EDT NOTE: Serum PSA concentration should not be interpreted as absolute evidence for the presence or absence of malignant disease. Assayed on [employer] XPT using chemiluminescent technology.??Values obtained by using different assay methods cannot be used interchangeably. us Provider Outr Resulting Lab CHEMISTRY & BLOOD GA S ORDERABLES Final Result [facility] [address] [place] [address] documented in this encounter Visit Diagnoses Not on filedocumented in this encounter Care Teams Title Curator Relationship Specialty Start Date End Date Jesse Gardner MD [address] [place] [address] PCP - General 03/27/20 documented as of this encounter
--- OUTSIDE RECORDS SUMMARY | 2024-09-09 15:18 | XMS_ITS | Clinical Summary ---
Author Organization [facility] Address [address] [place] [address] Care Team Providers Care Bender Machine Operator Name Role Phone Jesse Gardner MD Primary Care Provider [phone] Allergies No known active allergies Medications zafirlukast [...] Mastocytic enterocolitis on biopsies 2009 Colonoscopy/Upper Endoscopy Encounters Date Type Department Care Team Description 08/20/2024 Lab Requisition [facility] Pathology & Laboratory [address] [address] Outr Resulting Lab, Provider 08/20/2024 Lab Requisition [facility] Pathology & Laboratory [address] [address] Outr Resulting Lab, Provider from Last 3 Months Surgical History Surgery Date Site/Laterality Comments VASECTOMY HAND SURGERY FOOT SURGERY SINUS SURGERY ELBOW SURGERY TONSILLECTOMY VASECTOMY WISDOM TOOTH EXTRACTION SPINE SURGERY spinal fusion Medical History Medical History Date Comments Benign paroxysmal positional vertigo Environmental allergies Asthma Colitis mastocytic Hypertension Back pain DDD, with spinal fusion Giardia treated with met ronidazle Family History Medical History Relation Comments Rheumatologic [...] Maintenance Due Date Last Done Comments Hepatitis B Vaccine (1 of 3 - 19+ 3-dose series) 03/09 COVID-19 Vaccine ( season) 2024 Hepatitis C Screen Completed 08/19/2024 Procedures Procedure Name Priority Date/Time Associated Diagnosis [...] C Antibody Negative Negative 08/20/2024 18:54 EST [facility] Blood VENOUS BLOOD / Unknown 08/19/2024 10:50 EST 08/20/2024 17:01 EST us Provider Outr Resulting Lab CHEMISTRY & BLOOD GA S ORDERABLES Final Result Performing Organization Address [facility] Co de Phone Number [facility] [address] [place] [address] * HIV 1/2 ANTIGEN AND ANTIBODY, 4TH GENERATION (08/19/2024 10:50 EST) Pathologist [facility] HIV 1 and 2 Antibody/p24 Antigen, 4th Generation Negative Negative 08/20/2024 18:47 EST [facility] Comment:If acute HIV-1 infec tion is suspected in a high risk patient, submit plasma specimen for HIV-1 RNA quantitation test. Blood VENOUS BLOOD / Unknown 08/19/2024 10:50 EST 08/20/2024 17:01 EST Narrative [facility] - 08/20/2024 18:47 EST Fourth Generation assay performed on the Siemens Centaur XPT. us Provider Outr Resulting Lab IMMUNOLOGY AND SEROL OGY ORDERABLES Final Result Performing Organization Address City/[facility]/ZIP Co de Phone Number [facility] [address] [place] [phone] * PSA, DIAGNOSTIC (08/19/2024 10:50 EST) PSA 0.1 <=3.5 ng/mL 08/20/2024 18:18 EST [facility] Blood VENOUS BLOOD / Unknown 08/19/2024 10:50 EST 08/20/2024 17:01 EST Narrative [facility] - 08/20/2024 18:18 EST NOTE: Serum PSA concentration should not be interpreted as absolute evidence for the presence or absence of malignant disease. Assayed on Siemens YouBeautyaur XPT using chemiluminescent technology.??Values obtained by using different assay methods cannot be used interchangeably. us Provider Outr Resulting Lab CHEMISTRY & BLOOD GA S ORDERABLES Final Result [facility] [address] [place] [address] from Last 3 Months Insurance [employer] Care Teams Bender Machine Operator Relationship Specialty Start Date End Date Jesse Gardner MD [address] [address] [facility] - General 03/27/20
--- OUTSIDE RECORDS SUMMARY | 2024-09-09 15:18 | XMS_ITS | Encounter Summary ---
Author Organization [facility]ly [facility] Address [facility] [place] [address] Care Team Providers Care Wire Coating Machine Operator Name Role Phone Jesse Gardner MD Primary Care Provider [phone] Encounter Details Date Type Department Care Team (Late st Contact Info) Description 11/02/2015 Orders [place] [phone] Julio Cesar Downing MD [facility] [address] Social History Tobacco Use Types Packs/Day Years [...] 2:00 PM EDT Office [place] [phone] Karine Lechuga PA [facility] [place] [address] documented as of this encounter Visit Diagnoses Not on filedocumented in this encounter Care Teams Wire Coating Machine Operator Relationship Specialty Start Date End Date eJsse Gardner MD [address] [place] [address] PCP - General Internal Medicine 05/26/15 04/25/23 documented as of this encounter
--- OUTSIDE RECORDS SUMMARY | 2024-09-09 15:18 | XMS_ITS | Encounter Summary ---
Author Organization [facility] Address [address] [place] [address] Care Team Providers Care Produce Specialist Name Role Phone Jesse Gardner MD Primary Care Provider [phone] Encounter Details Date Type Department Care Team (Late st Contact Info) Description 05/10/2020 Lab Requisition [facility] Pathology & Laboratory Medicine - [address] [address] Outr Resulting Lab, Provider Social History Tobacco [...] Ag CSF Negative Negative 05/10/2020 18:07 EDT [facility] Fluid CEREBROSPINAL FLUID SPECIMEN / Unknown 05/08/2020 19:57 EDT 05/10/2020 16:39 EDT us Provider Outr Resulting Lab MICROBIOLOGY - GENER AL ORDERABLES Final Result [facility] [address] [place] [address] documented in this encounter Visit Diagnoses Not on filedocumented in this encounter Care Teams Produce Specialist Relationship Specialty Start Date End Date Jesse Gardner MD [address] [place] [address] PCP - General 03/27/20 documented as of this encounter
--- OUTSIDE RECORDS SUMMARY | 2024-09-09 15:18 | XMS_ITS | Encounter Summary ---
Author Organization [facility] Address [address] [place] [address] Care Team Providers Care Indexer Name Role Phone Jesse Gardner MD Primary Care Provider [phone] Reason for Referral * Referral (Routine) - Closed Specialty Diagnoses / Procedures Referred By [facility] Referred To Contact Neurology Diagnoses Recurrent fever of unknown cause Recurrent headache Hyperreflexia [place] Raven Portillo MD Phone: tel: fax: Slime Hernandez MD [address] [place] [address] Phone: tel: fax: Referral ID Status Reason Start Date Expiration Date V isits Requested Visits Authorized [id number] Closed Specialty Services Required 05/21/2020 1 1 Question Answer Reason for Request: 6 months of recurrent episodes of fever, BAIG, fatigue, flushing. Also with night sweats, HTN. MRI normal. LP done during episode showed slightly elevated opening pressure, normal cell counts. + hyperreflexia. Please eval and treat. Reason for Visit * Reason Comments Follow-up fevers Encounter Details Date Type Department Care Team ([facility] Contact Info) Description 05/21/2020 9:[address] [facility] Infectious Disease [address] [facility], [place] [address] Raven Portillo MD [address], [address] [place] [address] Recurrent fever of unknown cause [...] pattern. Possible etiologies: tick-borne, B.miyamotoi, B.mayonii, [place], [place] virus, Mogul virus, Tularemia, Arboviruses, HSV, Syphilis, Cryptococcus, LCMV, [...] Pertinent Medications: None currently Labs: 05/08/20 at [facility]: ?opening pressure CSF - colorless, clear, WBC [...] no orgs) Radiology: 04/30/20 MRI Brain at [facility]: IMPRESSION- Normal brain MRI incliding post contrast [...] so we will get those results from [facility]. With only 1 WBC in the CSF, [...] hyperreflexia. He will have the neurologist at [facility] send notes here after he is seen. Other Orders Placed This Visit Procedures ??? Amb Consult/Follow Up Neurology It has been a pleasure seeing Jhonathan Adair in clinic today. Raven Portillo MD, [facility] Infectious Disease Office: [phone] documented in this encounter Plan of Treatment [...] hypertension documented in this encounter Care Teams Indexer Relationship Specialty Start Date End Date Jesse Gardner MD [address] [place] [address] PCP - General 03/27/20 documented as of this encounter
--- OUTSIDE RECORDS SUMMARY | 2024-09-09 15:18 | XMS_ITS | Encounter Summary ---
Author Organization [facility] Address [address] [place] [address] Care Team Providers Care Hide Dyer Name Role Phone Jesse Gardner MD Primary Care Provider [phone] Encounter Details Date Type Department Care Team (Late st Contact Info) Description 05/08/2020 Lab Requisition [facility] Pathology & Laboratory Medicine - [address] [address] Outr Resulting Lab, Provider Social History Tobacco [...] Ab, IgG Negative Negative 05/11/2020 10:57 EDT [facility] Comment: No detectable antibodies to [...] Ab, IgG Negative Negative 05/11/2020 10:57 EDT [facility] Comment: No detectable antibodies to [...] OGY ORDERABLES Final Result Performing Organization Address City/State/[facility] Co de Phone Number [facility] [address] [place] [address] documented in this encounter Visit Diagnoses Not on filedocumented in this encounter Care Teams Hide Dyer Relationship Specialty Start Date End Date Jesse Gardner MD [address] [place] [address] PCP - General 03/27/20 documented as of this encounter
--- OUTSIDE RECORDS SUMMARY | 2024-09-09 15:18 | XMS_ITS | Encounter Summary ---
Author Organization [facility] Address [facility] [place] [address] Care Team Providers Care Refinery Pipeline Operator Name Role Phone Jesse Gardner MD Primary Care Provider [phone] Reason for Visit * Reason Comments Referral * Consultation (Routine) - Closed Specialty Diagnoses / Procedures Referred By Contac t Referred To Contact Rheumatology Diagnoses Arthritis Mastocytosis Julio Cesar Downing MD [facility] [place] [address] [facility] Rheumatology [address] [place] [id number] Referral ID Status Reason Start Date Expiration Date V isits Requested Visits Authorized [id number] Closed Consult, Test & Treat 09/04/2015 09/03/2016 1 1 Encounter Details Date Type Department Care Team (Late st Contact Info) Description 09/16/2015 10:00 AM EST Office [place] [phone] Julio Cesar Downing MD [facility] [place] [address] Vikki Alcaraz, [facility] [place] [address] Primary osteoarthritis involving multiple joints; Hypermobility arthralgia [...] tennis elbow on the right, lumbar spine [id number] fusion from DDD, he has disk herniations in the lower cervical/upper thoracic spine, hyperextension injury of his left shoulder. Mastocytic enterocolitis. 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 Family Hx: father is a retired dentist [...] 2:00 PM EDT Office [place] [address] Karine Lechuga PA [facility] [place] [place] [address] documented as of this encounter Visit Diagnoses Diagnosis Primary osteoarthritis involving multiple joints Hypermobility arthralgia Pain in joint, site unspecified documented in this encounter Care Teams Refinery Pipeline Operator Relationship Specialty Start Date End Date Jesse Gardner MD [address] [place] [address] PCP - General Internal Medicine 05/26/15 04/25/23 documented as of this encounter
--- OUTSIDE RECORDS SUMMARY | 2024-09-09 15:18 | XMS_ITS | Encounter Summary ---
Author Organization [facility] Address [address] [place] [address] Care Team Providers Care Education Program Specialist Name Role Phone Jesse Gardner MD Primary Care Provider [phone] Encounter Details Date Type Department Care Team (Late st Contact Info) Description 08/20/2024 Lab Requisition [facility] Pathology & Laboratory Medicine - [address] [address] Outr Resulting Lab, Provider Social History Tobacco [...] Procedure Name Priority Date/Time Associated Diagnosis Comments HIV 1/2 ANTIGEN AND ANTIBODY, 4TH GENERATION Routine 08/19/2024 10:50 EST documented in this encounter Results * HIV 1/2 ANTIGEN AND ANTIBODY, 4TH GENERATION (08/19/2024 10:50 EST) HIV 1 and 2 Antibody/p24 Antigen, 4th Generation Negative Negative 08/20/2024 18:47 EST [facility] Comment:If acute HIV-1 infec tion is suspected in a high risk patient, submit plasma specimen for HIV-1 RNA quantitation test. Blood VENOUS BLOOD / Unknown 08/19/2024 10:50 EST 08/20/2024 17:01 EST Narrative [facility] - 08/20/2024 18:47 EST Fourth Generation assay performed on the Siemens Centaur XPT. us Provider Outr Resulting Lab IMMUNOLOGY AND SEROL OGY ORDERABLES Final Result [facility] [address] [place] [id number] documented in this encounter Visit Diagnoses Not on filedocumented in this encounter Care Teams Education Program Specialist Relationship Specialty Start Date End Date Jesse Gardner MD [address] [place] [address] PCP - General 03/27/20 documented as of this encounter
--- OUTSIDE RECORDS SUMMARY | 2024-09-09 15:19 | XMS_ITS | Encounter Summary ---
Author Organization [facility] Address [address] [place] [address] Care Team Providers Care Chief Passenger Ship Steward/Stewardess Name Role Phone Jesse Gardner MD Primary [...] filedocumented in this encounter Care Teams Chief Passenger Ship Steward/Stewardess Relationship Specialty Start Date End Date Jesse Gardner MD [address] [place], [place] [id number] PCP - General 03/27/20 documented as of this encounter
--- OUTSIDE RECORDS SUMMARY | 2024-09-09 15:19 | XMS_ITS | Encounter Summary ---
Author Organization [facility] Address [address] [place] [address] Care Team Providers Care Tankman Name Role Phone Jesse Gardner MD Primary Care Provider [phone] Encounter Details Date Type Department Care Team (Late st Contact Info) Description 07/23/[address] [facility] Pathology & Laboratory Medicine - [address] [address] Unknown, Provider, Social History Tobacco Use Types [...] 0.0 - 2.5 ng/mL 07/24/2019 12:13 EST [facility] Blood VENOUS BLOOD / Unknown 07/22/2019 14:30 EST 07/23/2019 16:30 EST Narrative [facility] - 07/24/2019 12:13 EST NOTE: Serum PSA concentration should not be interpreted as absolute evidence for the presence or absence of malignant disease. Assayed on Siemens ADVIA Converginaur XPT using chemiluminescent technology. ??Values obtained by using different assay methods cannot be used interchangeably. us Provider Unknown CHEMISTRY & BLOOD GAS ORDERA BLES Final Result [facility] [address] [place] [address] documented in this encounter Visit Diagnoses Not on filedocumented in this encounter Care Teams Tankman Relationship Specialty Start Date End Date Jesse Gardner MD [address] [place], [place] [id number] PCP - General 03/27/20 documented as of this encounter
--- OUTSIDE RECORDS SUMMARY | 2024-09-09 15:19 | XMS_ITS | Encounter Summary ---
Author Organization [facility] Address [address] [place] [address] Care Team Providers Care Shop Mechanic Helper Name Role Phone Jesse Gardner MD Primary Care Provider [phone] Encounter Details Date Type Department Care Team (Late st Contact Info) Description 12/13/2019 Lab Requisition [facility] Pathology & Laboratory Medicine - [address] [address] Outr Resulting Lab, Provider Social History Tobacco [...] AL ORDERABLES Final Result Performing Organization Address [facility] Co de Phone Number [facility] [address] [place] [address] * COVID-19 TESTING (12/13/2019 16:15 EDT) COVID-19 rt-PCR Result Negative Negative 12/14/2019 7:36 EDT [facility] Comment: Negative results do [...] terminated or revoked sooner. Performed on the Collusion Fusion instrument Performing Lab [facility] 12/14/2019 7:36 EDT [facility] Swab ENTIRE NASOPHARYNX / Unknown 12/13/2019 16:15 EDT 12/13/2019 20:16 EDT us Provider Outr Resulting Lab MICROBIOLOGY - GENER AL ORDERABLES Final Result Performing Organization Address City/[facility]/ZIP Co de Phone Number [facility] [address] [place] [address] documented in this encounter Visit Diagnoses Not on filedocumented in this encounter Care Teams Shop Mechanic Helper Relationship Specialty Start Date End Date Jesse Gardner MD [address] [place], [place] [id number] PCP - General 03/27/20 documented as of this encounter
--- OUTSIDE RECORDS SUMMARY | 2024-09-09 15:19 | XMS_ITS | Encounter Summary ---
Author Organization [facility] Address [address] [place] [address] Care Team Providers Care Independent Insurance Adjuster Name Role Phone Jesse Gardner MD Primary Care Provider [phone] Reason for Visit * Reason Comments New Patient Visit Pt states he was ref erred for joint pain and fatigue.Unexplained fevers and nightsweats for a few months.Neg Covid X2.Shoulders,hands,right foot pain. Encounter Details Date Type Department Care Team (Late st Contact Info) Description 04/02/2020 14:00 EDT Office Visit [facility] Rheumatology [address] [place] [address] Cele Garcia MD [address] [facility] [address] [place] [address] Fever in other diseases (Primary [...] documented in this encounter Progress Notes * Ceel Garcia MD - 04/02/2020 1400 EDT [facility] Rheumatology Chief Complaint Patient presents with ??? [...] that was diagnosed when living out in [place]. Per his , who is here with him today, who is a general surgeon at [facility] [employer], she states the biopsies were based on the small bowel and was toldthat this was a mastocytic type of colitis. Since then, he had a colonoscopy at [facility], and reportedly this was normal. He has [...] upper back. He saw a neurologist at [facility], Dr. 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 Rarely drinks alcohol. Review of Systems: [...] 04/02/2020 Component Date Value ??? FERRITIN - [facility] 04/02/2020 146 ??? C-Reactive Protein 04/02/2020 9.2 Lab Requisition on 12/23/2019 Component Date Value ??? SSA Antibody 12/23/2019 2.2 ??? SSB Antibody 12/23/2019 3.2 ??? SM (Bacon) Antibody 12/23/2019 3.3 ??? EDUCATIONAL PROGRAM ASSISTANT Antibody 12/23/2019 2.3 ? ? Anti-DNA (Double Strande* 12/23/2019 <12.3 Lab Requisition on 12/17/2019 Component Date Value ??? OCTAVIO Interpretation 12/17/2019 Positive* ??? OCTAVIO Titer and Pattern 1 12/17/2019 1:320 Dense Fine Speckled Lab Requisition on 12/13/2019 Component Date Value ??? COVID-19 Result 12/13/2019 Negative ??? Performing Lab 12/13/2019 [facility] Lab Requisition on 11/11/2019 Component Date Value ??? COVID-19 SUFFOLK Specimen S* 11/11/2019 Nasopharynx ??? COVID-19 SUFFOLK Result 11/11/2019 Undetected 12/17/19, [facility]: CBC w/diff [...] - C REACTIVE PROTEIN - MISCELLANEOUS TEST, SUFFOLK 2. Malaise and fatigue - LYME AB - FERRITIN - ANCA, IFA - C REACTIVE PROTEIN - MISCELLANEOUS TEST, SUFFOLK 3. Other headache syndrome - LYME AB - ANCA, IFA - C REACTIVE PROTEIN - MISCELLANEOUS TEST, SUFFOLK Will call with lab results. If results [...] Associated Diagnoses Orde r Schedule MISCELLANEOUS TEST, SUFFOLK Lab Routine Fever in other diseases Malaise and fatigue Other headache syndrome Ordered: 04/02/2020 documented as of this encounter Procedures Procedure Name Priority Date/Time Associated Diagnosis Comments TICK PANEL PCR - [facility] Routine 04/02/2020 15:03 EDT Fever in other [...] - [facility] Negative Negative 04/05/2020 7:27 EDT [facility] BABESIA DIVERGENS/MO-1 - [facility] Negative Negative [facility]: ADDITIONAL INFORMATION This test was developed and its performance characteristics determined by [facility] in a manner consistent with CLIA requirements. This test has not been cleared or approved by the U.S. Food and Drug Administration. BABESIA DUNCANI - [facility] Negative Negative 04/05/2020 7:27 EDT [facility] BABESIA MICROTIC - [facility] Negative Negative 04/05/2020 7:27 EDT [facility] B.MIYAMOTOI PCR Negative Negative 0 7:27 T [facility] Comment: ADDITIONAL INFORMATION This test was developed and its performance characteristics determined by [facility] in a manner consistent with CLIA requirements. This test has not been cleared or approved by the U.S. Food and Drug Administration. Test Performed by: [facility] - [address] [address] Telehealth Case Manager: Shilo Rosado M.D. Ph.D.; CLIA# [id number] EHRLICHIA CHAFFEENSIS - [facility] Negative Negative 04/05/2020 7:27 EDT [facility] EHRLICHIA EWINGII/CANIS - [facility] Negative Negative 04/05/2020 7:27 EDT [facility] EHRLICHIA MURIS-LIKE - [facility] Negative Negative 04/05/2020 7:27 EDT [facility] Comment: ADDITIONAL INFORMATION This test was developed and its performance characteristics determined by [facility] in a manner consistent with CLIA requirements. This test has not been cleared or approved by the U.S. Food and Drug Administration. 04/02/2020 15:0 3 EDT 04/02/2020 16:30 EDT us Cele Garcia MD CHEMISTRY & BLOOD GAS ORDERABLE S Final Result Performing Organization Address [facility] Co de Phone Number [facility] [address] [place] [address] * C REACTIVE PROTEIN (04/02/2020 15:03 EDT) C-Reactive Protein 9.2 <10.0 mg/L 04/02/2020 17:21 EDT [facility] Blood VENOUS BLOOD / Unknown 04/02/2020 15:03 EDT 04/02/2020 16:30 EDT Cele Garcia MD CHEMISTRY & BLOOD GAS ORDERABLE S Final Result Performing Organization Address City/[facility] Co de Phone Number [facility] [address] [place] [address] * ANCA, IFA (04/02/2020 15:03 EDT) C-ANCA Negative Negative 04/05/2020 7:27 EDT [facility] P-ANCA Negative Negative 04/05/2020 7:27 EDT [facility] Comment: Negative for cANCA and pANCA patterns by immunofluorescence. ADDITIONAL INFORMATION This test was developed and its performance characteristics determined by [facility] in a manner consistent with CLIA requirements. This test has not been cleared or approved by the U.S. Food and Drug Administration. Test Performed by: [facility] [address] [place] [address] Telehealth Case Manager: Shilo Rosado M.D. Ph.D.; CLIA# [id number] Blood VENOUS BLOOD / Unknown 04/02/2020 15:03 EDT 04/02/2020 16:30 EDT us Cele Garcia MD IMMUNOLOGY AND SEROLOGY ORDERAB LES Final Result Performing Organization Address City/[facility]/ZIP Co de Phone Number [facility] [address] [place] [address] * FERRITIN (04/02/2020 15:03 EDT) [facility] FERRITIN - [facility] 146 17.9 - 464.0 ng/mL 04/02/2020 17:58 EDT [facility] Comment: The results of this assay can be falsely lowered due to the consumption of Biotin. Blood VENOUS BLOOD / Unknown 04/02/2020 15:03 EDT 04/02/2020 16:30 EDT us Cele Garcia MD CHEMISTRY & BLOOD GAS ORDERABLE S Final Result Performing Organization Address [facility] Co de Phone Number [facility] [address] [place] [address] * LYME AB (04/02/2020 15:03 EDT) [facility] Lyme Ab IgG NEGATIVE 04/03/2020 11:43 EDT [facility] Lyme Ab NEGATIVE 04/03/2020 11:43 EDT [facility] Blood VENOUS BLOOD / Unknown 04/02/2020 15:03 EDT 04/02/2020 16:30 EDT us Cele Garcia MD IMMUNOLOGY AND SEROLOGY ORDERAB LES Final Result [facility] [address] [place] [address] documented in this encounter Visit Diagnoses Diagnosis [...] 04/23/2020 added in this encounter Care Teams Independent Insurance Adjuster Relationship Specialty Start Date End Date Jesse Gardner MD [address] [place] [address] PCP - General 03/27/20 documented as of this encounter
--- OUTSIDE RECORDS SUMMARY | 2024-09-09 15:19 | XMS_ITS | Encounter Summary ---
Author Organization [facility] Address [address] [place] [address] Care Team Providers Care Anatomic Pathologist Name Role Phone Jesse Gardner MD Primary Care Provider [phone] Reason for Visit * Reason Comments New Patient Visit * Consult (3 - 10 Business Days) - Order Cancelled Specialty Diagnoses / Procedures [facility] Referred To Contact Infectious Disease Diagnoses Fever, unspecified fever cause Malaise and fatigue Cele Garcia MD Phone: tel: fax: [facility] Infectious Disease [address] [place] [address] Phone: tel: fax: Referral ID Status Reason Start Date Expiration Date Visits Requested Visits Authorized [id number] Order Cancelled Specialty Services Required 04/10/2020 1 1 Encounter Details Date Type Department Care Team (Latest Contact Info) Description 04/23/2020 9:30 EDT Initial consult [facility] Infectious Disease [address] [place] [address] Raven Portillo MD [address] [place] [address], [address] [place] [address] Recurrent fever of unknown cause [...] 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 Since being here, he had a colonoscopy at [facility] that was normal. He does [...] Does get nose ulcers occasionally. Also hyper-reflexive. Strategic Procurement Manager in [place] wondered abouth/o head trauma. He has had [...] his head. Had a sleep study in [place] many years ago - something to do [...] lab because she is a surgeon at [facility]. Has mastocytic enterocolitis - small bowel [...] you feel safe at home?: Yes Travel: [place] last summer Animal exposure: 4 Dogs and [...] is not consistent with his symptoms - Crane virus, [place] virus usually have low blood counts, increased [...] like to have these studies done at [facility], so we will work on coordinating [...] in clinic today. Raven Portillo MD, [facility] Infectious Disease Office: [phone] CC: referring provider, PCP * Dena Epstein [...] 02/24/2020 added in this encounter Care Teams Anatomic Pathologist Relationship Specialty Start Date End Date Jesse Gardner MD [address] [place] [address] PCP - General 03/27/20 documented as of this encounter
--- OUTSIDE RECORDS SUMMARY | 2024-09-09 15:19 | XMS_ITS | Encounter Summary ---
Author Organization [facility] Address [address] [place] [address] Care Team Providers Care Build Engineer Name Role Phone Jesse Gardner MD Primary Care Provider [phone] Encounter Details Date Type Department Care Team [...] on filedocumented in this encounter Care Teams Build Engineer Relationship Specialty Start Date End Date Jesse Gardner MD [address] [place] [address] PCP - General 03/27/20 documented as of this encounter
--- OUTSIDE RECORDS SUMMARY | 2024-09-09 15:19 | XMS_ITS | Encounter Summary ---
Author Organization [facility] Address [address] [place] [address] Care Team Providers Care Coordinate Measuring Machine Operator Name Role Phone Jesse Gardner MD Primary Care Provider Encounter Details Date Type Department Care Team (Late st Contact Info) Description 12/18/2019 Lab Requisition [facility] Pathology & Laboratory Medicine - [address] [address] Outr Resulting Lab, Provider Social History Tobacco [...] OCTAVIO Interpretation Positive(A) Negative 12/20/2019 15:23 EDT [facility] Comment: For titers greater [...] 1:320 Dense Fine Speckled 12/20/2019 15:23 EDT [facility] Blood VENOUS BLOOD / Unknown 12/17/2019 8:30 EDT 12/18/2019 15:53 EDT Narrative [facility] - 12/20/2019 15:23 EDT Results were obtained with the [employer] NOVA Lite HEp-2 OCTAVIO Kit by indirect immunofluorescence. us Provider Outr Resulting Lab IMMUNOLOGY AND SEROL OGY ORDERABLES Final Result [facility] [address] [place] [address] documented in this encounter Visit Diagnoses Not on filedocumented in this encounter Care Teams Coordinate Measuring Machine Operator Relationship Specialty Start Date End Date Jesse Gardner MD [address] [place] [address] PCP - General 03/27/20 documented as of this encounter
--- OUTSIDE RECORDS SUMMARY | 2024-09-09 15:19 | XMS_ITS | Encounter Summary ---
Author Organization [facility] Address [address] [place] [address] Care Team Providers Care Butter Grader Name Role Phone Jesse Gardner MD Primary Care Provider [phone] Encounter Details Date Type Department Care Team (Late st Contact Info) Description 12/24/2019 Lab Requisition [facility] Pathology & Laboratory Medicine - [address] [address] Outr Resulting Lab, Provider Social History Tobacco [...] Stranded) <12.3 <30.0 IU/mL 12/31/2019 13:06 EDT [facility] Comment: ? Negative: ??<30.0 IU/mL ? Borderline Positive: ??30.0 - 75.0 IU/mL ? Positive: ??>75.0 IU/mL Results were obtained with the [employer] QUANTA Lite dsDNA SC JENIFER assay on the [employer]. Blood VENOUS BLOOD / Unknown 12/23/2019 11:50 EDT 12/24/2019 15:34 EDT us Provider Outr Resulting Lab IMMUNOLOGY AND SEROL OGY ORDERABLES Final Result [facility] [address] [place] [address] * EXTRACTABLE NUCLEAR ANTIGEN PANEL (12/23/2019 11:50 EDT) SSA Antibody 2.2 <20.0 Units 12/25/2019 14:35 EDT [facility] Comment: ? Negative: <20.0 Units ? Weak Positive: 20.0 - 39.9 Units ? Moderate Positive: 40.0 - 80.0 Units ? Strong Positive: >80.0 Units Results were obtained with the [employer] QUANTA Lite SS-A JENIFER. ??SS-A values obtained with different manufacturers' assay methods may not be used interchangeably. ??The magnitude of the reported IgG levels cannot be correlated to an endpoint titer. SSB Antibody 3.2 <20.0 Units 12/25/2019 14:35 EDT [facility] Comment: ? Negative: <20.0 Units ? Weak Positive: 20.0 - 39.9 Units ? Moderate Positive: 40.0 - 80.0 Units ? Strong Positive: >80.0 Units Results were obtained with the [employer] QUANTA Lite SS-B JENIFER. ??SS-B values obtained with different manufacturers' assay methods may not be used interchangeably. ??The magnitude of the reported IgG levels cannot be correlated to an endpoint titer. SM (Bacon) Antibody 3.3 <20.0 Units 12/25/2019 14:35 EDT [facility] Comment: ? Negative: <20.0 Units ? Weak Positive: 20.0 - 39.9 Units ? Moderate Positive: 40.0 - 80.0 Units ? Strong Positive: >80.0 Units Results were obtained with the QXL ricardo plcA Lite Sm JENIFER. ??Sm values obtained with different manufacturers' assay methods may not be used interchangeably. ??The magnitude of the reported IgG levels cannot be correlated to an endpoint titer. SCRUB TECH Antibody 2.3 <20.0 Units 12/25/2019 14:35 EDT [facility] Comment: ? Negative: <20.0 Units ? Weak Positive: 20.0 - 39.9 Units ? Moderate Positive: 40.0 - 80.0 Units ? Strong Positive: >80.0 Units Results were obtained with the [employer] Quanta Lite SCRUB TECH JENIFER. SCRUB TECH values obtained with different electroencephalograph technologist's assay methods may not be used interchangeaby. ??The magnitude of the reported IgG levels cannot be be correlated to an endpoint titer. A positive result in the Quanta Lite SCRUB TECH JENIFER indicates the presence of antibodies reactive with the SCRUB TECH/Sm complex but cannot distinguish between anti-Sm and anti-SCRUB TECH activity. Blood VENOUS BLOOD / Unknown 12/23/2019 11:50 EDT 12/24/2019 15:34 EDT us Provider Outr Resulting Lab IMMUNOLOGY AND SEROL OGY ORDERABLES Final Result [facility] [address] [place] [address] documented in this encounter Visit Diagnoses Not on filedocumented in this encounter Care Teams Butter Grader Relationship Specialty Start Date End Date Jesse Gardner MD [address] [place], [place] [id number] PCP - General 03/27/20 documented as of this encounter
--- OUTSIDE RECORDS SUMMARY | 2024-09-09 15:19 | XMS_ITS | Encounter Summary ---
Author Organization [facility] Address [address] [place] [address] Care Team Providers Care Airport Shuttle Driver Name Role Phone Jesse Gardner MD Primary Care Provider [phone] Encounter Details Date Type Department Care Team (Late st Contact Info) Description 11/11/2019 Lab Requisition [facility] Pathology & Laboratory Medicine - [address] [address] Jay Adair MD [address] [place] [id number] Encounter for other general examination Social History [...] Name Priority Date/Time Associated Diagnosis Comments COVID-19 STUART Today 11/11/2019 13:24 EDT Encounter for other general examination documented in this encounter Results * SARS CORONAVIRUS 2 RNA DETECTION STUART (11/11/2019 13:24 EDT) COVID-19 STUART Specimen Source Nasopharynx 11/13/2019 15:19 EDT [facility] COVID-19 STUART Result Undetected Undetected 11/13/2019 15:19 EDT [facility] Comment: SARS-CoV-2 RNA is not detected. ADDITIONAL INFORMATION Testing was performed using the misti SARS-CoV-2 assay ([employer] on the misti 6800 System. Fact sheets for this Emergency Use Authorization (EUA) assay can be found at the following links: For Healthcare Providers: https://www.fda.gov/media/808285/download For Patients: https://www.fda.gov/media/018341/download Test Performed by: [facility] [address] [place] [address] Clip Wrapper: Shilo Rosado M.D. Ph.D.; CLIA# [id number] Swab ENTIRE NASOPHARYNX / Unknown 11/11/2019 13:24 EDT 11/11/2019 20:20 EDT us Jay Adair MD MICROBIOLOGY - GENERAL O RDERABLES Final Result [facility] [address] [place] [address] documented in this encounter Visit Diagnoses Diagnosis Encounter for other general examination documented in this encounter Care Teams Airport Shuttle Driver Relationship Specialty Start Date End Date Jesse Gardner MD [address] [place] [address] PCP - General 03/27/20 documented as of this encounter
[2024-09-10 18:08] LABS: Estradiol 243 pg/mL (<40)
[2024-09-13 16:18] LABS: Testosterone, Total 60 ng/dL (240-950)
== END 2024-09-09 15:15 | disposition home or self-care (01) ==
LOC: NCHCN 15:14
PROVIDERS: PCP Family Medicine; Visit Provider Family Medicine
DX: F40.00 Agoraphobia, unspecified (principal)
CPT/HCPCS: 84403; 82670

== ENCOUNTER 2025-01-01 11:22 | Emergency (ER) | payer OTHER, SELFPAY ==
[2025-01-01] VITALS (24 sets, daily range): BP systolic 129–173; BP diastolic 83–105; PULSE 63–90; RESP 10–21; TEMP 36.4–36.6; O2SAT 94–100
--- NOTE | 2025-01-01 11:51 | DI.CT_ITS ---
Exam(s) CT PELVIC W EXAM: CT PELVIC W CLINICAL HISTORY: pain, trauma left buttock TECHNIQUE: Imaging Protocol: Axial computed tomography images with coronal and sagittal reformatted images were created and reviewed CONTRAST MATERIAL: Intravenous: Omnipaque 350 Contrast volume:100 mL Oral: No COMPARISON: No exams were available for comparison FINDINGS: PELVIS: Abdominal Aorta: Abdominal portion non-dilated. Mild atherosclerotic calcification is present. Bowel: No obstruction or bowel wall thickening. Peritoneal Cavity: No ascites, collection or mesenteric inflammatory response. No free air. Soft Tissues: There is a small fat containing umbilical hernia. There is mild infiltration of the friedman bcutaneous tissues overlying the left buttock and lower left back. No focal fluid collection is seen to suggest an abscess. No evidence of active contrast extravasation is noted. The underlying muscu lature is intact and unremarkable. Bladder: Symmetric distention, no gross wall thickening. Reproductive Organs: Unremarkable as visualized. Lymph Nodes: Within normal limits. Bones: Within normal limits. L5-S1 fusion. IMPRESSION: 1. Minimal infiltration in the subcutaneous fat overlying the right gluteal muscles. No focal fluid collection is seen. No contrast extravasation is seen. 2. No acute fracture or dislocation. 3. Findings were discussed with Dr. Ellison at 1:13 p.m. on 01/01/2025. RADIATION DOSE DELIVERED: 223.82mGy.cm Total DLP 223.82mGy.cm Total DLP DATA REPOSITORY: All CT scans at this facility are submitted to the National Radiology Data Registry (NRDR) Dose Index Registry (DIR) with the [employer] (ACR). RADIATION OPTIMIZATION: All CT scans at this facility use at least one of these dose optimization te chniques: automated exposure control; mA and/or kV adjustment per patient size (includes targeted exa ms where dose is matched to clinical indication); or iterative reconstruction.
[2025-01-01 11:58] LABS: Abs Immature Grans 0.04 10^3/uL (0.0-0.06); Absolute Basophil Count 0.04 10^3/uL (0.0-0.2); Absolute Eosinophil Count 0.21 10^3/uL (0.0-0.7); Absolute Lymphocyte Count 2.01 10^3/uL (1.2-3.4); Absolute Monocyte Count 0.62 10^3/uL (0.1-0.8); Absolute Neutrophil Count 7.78 10^3/uL (1.2-6.7); Basophils % 0.4 %; HCT 46.3 % (40.0-50.0); HGB 16.4 g/dL (13.5-17.5); Immature Grans % 0.4 %; Lymphocytes % 18.8 %; MCH 32.7 pg (27.0-33.0); MCHC 35.4 % (32.0-36.0); MCV 92 fL (80-95); MPV 10.7 fL (8.0-11.0); Monocytes % 5.8 %; Neutrophils % 72.6 %; Platelet Count 219 10^3/uL (130-400); RBC 5.02 10^6/uL (4.36-5.78); RDW 11.9 % (11.8-14.1); RDW-SD 40.8 fL
[2025-01-01 12:10] LABS: Anion Gap 5.2 mmol/L (3-11); BUN 20 mg/dL (7-18); CO2 26.8 mmol/L (21.0-32.0); Calcium 9.2 mg/dL (8.5-10.1); Chloride 106 mmol/L (98-107); Glucose 96 mg/dL (74-106); Sodium 138 mmol/L (136-145)
[2025-01-01] MEDS: Normal Saline - Diluent 50 ML VIAL IJ (12:26)
[2025-01-01] MEDS: Omnipaque 350 MG/ML 100 ML BTL IJ (12:27)
--- NOTE | 2025-01-01 12:53 | W.ED.GENAD ---
Discharge Plan Disposition Patient Disposition: Home Condition: Stable Discharge Details Clinical Impression: Contusion of left buttock Primary Care Provider: Catalina Blanchard ED Provider: Bashir Ellison Home Meds and New Rx's Prescriptions: Continued rizatriptan [Maxalt] 10 mg tablet See Rx Instructions PO .COMPLEX Qty: 12 3RF Rx Instructions: take 1 tab at onset of headache; if no relief may repeat 1 tab after at least 2 hrs; max = 3 tabs/24 hr PO Ajovy Autoinjector 225 mg/1.5 mL auto-injector 225 mg subcut QMONTH Qty: 4.5 3RF estradiol 0.1 mg/24 hr patch semiweekly 2 patch transdermal .2x/week losartan 25 mg tablet 25 mg PO DAILY tamsulosin 0.4 mg capsule 0.4 mg PO DAILY Qty: 90 3RF albuterol sulfate 90 mcg/actuation HFA aerosol inhaler 2 puff Inhalation Q6H PRN Qty: 8.5 5RF sertraline [Zoloft] 100 mg tablet 100 mg PO DAILY zafirlukast [Accolate] 10 MG tablet 10 mg PO DAILY lorazepam 1 mg Tablet 1 mg PO DAILY PRN acetaminophen 500 mg tablet 1,000 mg PO Q8H PRN (Reason: pain) Qty: 30 3RF ibuprofen 600 mg Tablet 600 mg PO Q6H PRNQty: 60 0RF progesterone micronized 100 mg capsule 100 mg PO DAILY Discharge Instructions Instructions: Minor Contusion ED Additional Instructions: Please avoid activities that worsen pain. Take ibuprofen and/or tylenol for pain -- dose according to label. Please follow-up with your primary care physician - call for an appointment. Please return to the ER immediately for any worsening or new concerning symptoms. Referrals: Catalina Blanchard [Primary Care Provider] - Discharge Data Discharge Date/Time-TO BE ENTERED AT DEPARTURE: 01/01/25 13:50 HPI General Mode of arrival: ambulatory. Date/Time Provider Initiated Documentation: 01/01/25 11:29. Limitations to Documentation: no limitations. Information obtained by: patient. HPI Narrative: 54-year-old transgender female here with chief complaint of left upper buttock pain. Patient notes that she was kicked by a horse in the left upper buttock about 3 hours prior to arrival and has had pain since the incident. She has been able to walk with a limp. No other injury sustained. No loss of consciousness. No associated numbness or tingling. Related Data Home Medications ?Medication ?Instructions ?Recorded ?Confirmed zafirlukast 10 mg tablet (Accolate) 10 mg PO DAILY 03/07/17 01/01/25 acetaminophen 500 mg tablet 1,000 mg (2 x 500 mg) PO Q8H PRN 04/09/19 01/01/25 pain #30 tabs ibuprofen 600 mg tablet 600 mg PO Q6H PRN #60 tabs 04/09/19 01/01/25 albuterol sulfate 90 mcg/actuation 2 puff inhalation Q6H PRN #8.5 09/03/21 01/01/25 aerosol inhaler grams lorazepam 1 mg tablet 1 mg PO DAILY PRN 08/11/22 01/01/25 estradiol 0.1 mg/24 hr semiweekly 2 patch transdermal .2x/week 07/18/23 01/01/25 transdermal patch rizatriptan 10 mg tablet (Maxalt) See Rx Instructions PO .COMPLEX 07/18/23 01/01/25 #12 tabs losartan 25 mg tablet 25 mg PO DAILY 04/03/24 01/01/25 tamsulosin 0.4 mg capsule 0.4 mg PO DAILY #90 caps 04/03/24 01/01/25 fremanezumab-vfrm 225 mg/1.5 mL 225 mg (1.5 mL) subcut QMONTH #4.5 07/18/24 01/01/25 subcutaneous auto-injector (Ajovy) mL sertraline 100 mg tablet (Zoloft) 100 mg PO DAILY 11/04/24 01/01/25 progesterone micronized 100 mg 100 mg PO DAILY 01/01/25 01/01/25 capsule Previous Rx's ?Medication ?Instructions ?Recorded acetaminophen 500 mg tablet 1,000 mg (2 x 500 mg) PO Q8H PRN 04/09/19 pain #30 tabs ibuprofen 600 mg tablet 600 mg PO Q6H PRN #60 tabs 04/09/19 albuterol sulfate 90 mcg/actuation 2 puff inhalation Q6H PRN #8.5 09/03/21 aerosol inhaler grams rizatriptan 10 mg tablet (Maxalt) See Rx Instructions PO .COMPLEX 07/18/23 #12 tabs tamsulosin 0.4 mg capsule 0.4 mg PO DAILY #90 caps 04/03/24 fremanezumab-vfrm 225 mg/1.5 mL 225 mg (1.5 mL) subcut QMONTH #4.5 07/18/24 subcutaneous auto-injector (Ajovy) mL Allergies Allergy/AdvReac Type Severity Reaction Status Date / Time amlodipine besylate (From AdvReac Unknown edema Verified 01/01/25 11:30 Norvasc) ankles duloxetine HCl (From AdvReac Unknown Other (See Verified 01/01/25 11:30 Cymbalta) Comment) lamotrigine (From Lamictal) AdvReac Unknown Other (See Verified 01/01/25 11:30 Comment) General Stated Complaint: Orthopedic LASHONDA: 3 Review of Systems All systems reviewed & are unremarkable except as noted in HPI and below Constitutional Constitutional: Denies fever(s) Musculoskeletal Musculoskeletal: Reports as per HPI Exam Narrative Exam Narrative: exam performed with female RN ad operations coordinator present Const General: cooperative and no acute distress HENMT Head: atraumatic Mouth: moist mucous membranes Resp Auscultation: clear to auscultation bilaterally, no rales, no rhonchi and no wheezes Cardio Rate: regular rate and not tachycardic Rhythm: regular rhythm GI Palpation: soft, not firm, no guarding, no masses, not rigid and nontender Back/Spine/Pelvis Cervical Spine: No cervical spinal tenderness and No step off deformity Thoracic/Lumbar Spine: No paraspinal tenderness, No thoracic spinal tenderness and No lumbar spinal tenderness Pelvis: buttock ecchymosis (Left upper) Sacroiliac joints: on the left tender to palpation Skin General skin exam: no rashes or lesions noted Neuro General: patient alert, patient awake, patient oriented x3 and tone normal Cognition: normal cognition Speech: speech normal Motor: other (5 out of 5 strength bilateral lower extremities) Sensory Exam: other (Sensation intact and equal bilateral lower extremities) Extrem General: no edema Psych Appearance: grossly normal Mental Status: mental status grossly normal Course Vital Signs Vital signs: Vital Signs Temperature 36.4 C 01/01/25 11:26 Pulse 64 01/01/25 11:26 Respiratory Rate 18 01/01/25 11:26 Blood Pressure 173/104 H 01/01/25 11:26 Pulse Oximetry 100 01/01/25 11:26 Temperature 36.4 C 01/01/25 11:26 Temperature Source Temporal Artery Scan 01/01/25 11:26 Pulse 77 01/01/25 12:45 Pulse 78 01/01/25 12:45 Respiratory Rate 16 01/01/25 12:45 Blood Pressure 147/91 H 01/01/25 12:45 Blood Pressure Mean 105 01/01/25 12:45 Blood Pressure Position Sitting 01/01/25 11:26 Pulse Oximetry 97 01/01/25 12:45 Oxygen Delivery Method Room Air 01/01/25 11:26 Oxygen Flow Rate 0 01/01/25 11:26 Pain Level 5 01/01/25 11:45 Lab/Test Results Lab/Test Results: Laboratory Tests Range/Units 01/01/25 11:30 WBC (4.4-10.8) 10^3/uL 10.70 RBC (4.36-5.78) 10^6/uL 5.02 Hgb (13.5-17.5) g/dL 16.4 Hct (40.0-50.0) % 46.3 MCV (80-95) fL 92 MCH (27.0-33.0) pg 32.7 MCHC (32.0-36.0) % 35.4 RDW (11.8-14.1) % 11.9 Plt Count (130-400) 10^3/uL 219 MPV (8.0-11.0) fL 10.7 Immature Gran % % 0.4 Neutrophils % % 72.6 Lymphocytes % % 18.8 Monocytes % % 5.8 Eosinophils % % 2.0 Basophils % % 0.4 Nucleated RBC % (0.0-0.3) % 0.0 Absolute Neutrophils (1.2-6.7) 10^3/uL 7.78 H Absolute Lymphocytes (1.2-3.4) 10^3/uL 2.01 Absolute Monocytes (0.1-0.8) 10^3/uL 0.62 Absolute Eosinophils (0.0-0.7) 10^3/uL 0.21 Absolute Basophils (0.0-0.2) 10^3/uL 0.04 Sodium (136-145) mmol/L 138 Potassium (3.5-5.1) mmol/L 4.0 Chloride (98-107) mmol/L 106 Carbon Dioxide (21.0-32.0) mmol/L 26.8 Anion Gap (3-11) mmol/L 5.2 BUN (7-18) mg/dL 20 H Creatinine (0.70-1.30) mg/dL 1.0 Est GFR (CKD-EPI 2020) (mL/min/1.73m2) 90.00 Glucose (74-106) mg/dL 96 Calcium (8.5-10.1) mg/dL 9.2 Medical Decision Making -- 54-year-old transgender female here 3 hours after kicked in the left buttock by a horse complaining of significant pain in the left buttock, tender over sacroiliac joint on the left and buttock. Patient is hypertensive on arrival. Concern for left buttock contusion versus soft tissue hematoma versus consider fracture of the pelvis/sacrum. Plan to obtain CT imaging. I will include IV contrast to assess for hemorrhage. Screening labs reviewed and nondiagnostic. 1330 -- CT reviewed and interpreted by radiology: IMPRESSION: 1. Minimal infiltration in the subcutaneous fat overlying the right gluteal muscles. No focal fluid collection is seen. No contrast extravasation is seen. 2. No acute fracture or dislocation. 3. Findings were discussed with Dr. Ellison at 1:13 p.m. on 01/01/2025. Results reviewed with patient. Usual and customary discharge instructions were reviewed. Lab Data Lab results reviewed: Yes I reviewed the patient's lab results. Labs: Laboratory Tests Range/Units 01/01/25 01/01/25 11:30 12:10 WBC (4.4-10.8) 10^3/uL 10.70 RBC (4.36-5.78) 10^6/uL 5.02 Hgb (13.5-17.5) g/dL 16.4 Hct (40.0-50.0) % 46.3 MCV (80-95) fL 92 MCH (27.0-33.0) pg 32.7 MCHC (32.0-36.0) % 35.4 RDW (11.8-14.1) % 11.9 Plt Count (130-400) 10^3/uL 219 MPV (8.0-11.0) fL 10.7 Immature Gran % % 0.4 Neutrophils % % 72.6 Lymphocytes % % 18.8 Monocytes % % 5.8 Eosinophils % % 2.0 Basophils % % 0.4 Nucleated RBC % (0.0-0.3) % 0.0 Absolute Neutrophils (1.2-6.7) 10^3/uL 7.78 H Absolute Lymphocytes (1.2-3.4) 10^3/uL 2.01 Absolute Monocytes (0.1-0.8) 10^3/uL 0.62 Absolute Eosinophils (0.0-0.7) 10^3/uL 0.21 Absolute Basophils (0.0-0.2) 10^3/uL 0.04 Sodium (136-145) mmol/L 138 Potassium (3.5-5.1) mmol/L 4.0 Chloride (98-107) mmol/L 106 Carbon Dioxide (21.0-32.0) mmol/L 26.8 Anion Gap (3-11) mmol/L 5.2 BUN (7-18) mg/dL 20 H Creatinine (0.70-1.30) mg/dL 1.0 Est GFR (CKD-EPI 2020) (mL/min/1.73m2) 90.00 Glucose (74-106) mg/dL 96 Calcium (8.5-10.1) mg/dL 9.2 ABO/Rh O Positive Antibody Screen NEGATIVE Quality:SDOH Health Related Social Needs: No Data to Display PFSH All Active Problems (Updated 01/01/25 @ 13:05 by Basihr Ellison MD) Contusion of left buttock (Acute) Non-healing surgical wound (Acute) Pseudofolliculitis barbae (Acute) Lateral epicondylitis of right elbow (Acute) Migraine headache with aura (Acute) Abdominal bloating (Acute) Nausea (Acute) Mastocytic enterocolitis (Acute) Right shoulder pain (Acute) Primary localized osteoarthrosis, ankle and foot (Acute 03/18/14) Mononeuropathy of left upper extremity (Acute 12/23/14) Medial epicondylitis, right elbow (Acute 09/08/15) Lumbosacral spondylosis (Acute 03/18/14) Intermittent explosive disorder (Acute 03/18/14) --did not deanna wellbutrin, Dilantin, neurontin, or DPK, added to zoloft. Hypercholesterolemia (Acute 03/18/14) High blood pressure (Acute 04/18/14) Elevated blood pressure reading without diagnosis of hypertension (Acute 03/18/14) Depressive disorder (Acute 03/18/14) Color blindness (Acute 03/18/14) Chronic pain syndrome (Acute 03/18/14) Attention deficit disorder with hyperactivity (Acute 03/18/14) Asthma without status asthmaticus (Acute 03/18/14) since age 27 Allergic rhinitis (Acute 03/18/14) Acne (Acute 03/18/14) Abnormal involuntary movements (Acute 03/18/14) Trigger finger, right middle finger (Acute) Trigger finger, left middle finger (Acute) Sinusitis (Acute) Occipital neuralgia (Acute) Fatigue (Acute) Mucous retention cyst of maxillary sinus (Acute) Abdominal pain (Acute) Medical History Gross hematuria Depression Hypercholesteremia pt. denies this Hypertension Asthma Shoulder pain right Male circumcision ADHD Deviated nasal septum surgery, trimmed turbinates Tennis elbow L surgery Neuroma removal R hand x 2 Surgical History H/O excision of mass (~06/2023) Non healing jaw mas-path sent History of esophagogastroduodenoscopy (EGD) (~11/2020) History of lumbar fusion L5-S1 per pt. 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
== END 2025-01-01 13:50 | disposition home or self-care (01) ==
PROVIDERS: Emergency Provider Student in an Organized Health Care Education/Training Program; PCP Family Medicine
DX: S30.0XXA Contusion of lower back and pelvis, initial encounter (principal); W55.12XA Struck by horse, initial encounter; I10 Essential (primary) hypertension; E78.00 Pure hypercholesterolemia, unspecified
CPT/HCPCS: 80048; 86850; 86900; 86901; 99285; 72193; 85025; 99284; J3490